=== PATIENT | female | born 1950 | race Caucasian/White ===

== ENCOUNTER 2016-08-12 12:11 | Day surgery (SDC) | payer MEDICARE, OTHER ==
[2016-08-08 10:42] VITALS: BMI 35.4
[~2016-08-12 12:11] MED LIST: DEXAMETHASONE SOD PHOSPHATE 10 MG/ML 1 ML VIAL IV ONE; HYDROmorphone 1 MG/ML 1 ML SYRINGE IVP PRN; LACTATED RINGERS 1,000 ML IV SCH; ONDANSETRON 4 MG/2 ML VIAL IVP ONE
[2016-08-12 12:37] VITALS: RESP 18; TEMP 97.9
[2016-08-12] MEDS ORDERED: LIDOCAINE 1% 20 ML VIAL (10MG/ML) FOR IV START SQ ONE (12:37)
[2016-08-12] MEDS: CYCLOPENTOLATE 1% OPHTH SOLN 2 ML BTL OP ONE ×3 (12:41→12:56)
[2016-08-12] MEDS: FLURBIPROFEN 0.03% OPHTH DROPS 2.5 ML BTL OP ONE ×3 (12:45→12:59)
[2016-08-12] MEDS: PHENYLEPHRINE 10% OPHTH DROPS 5 ML BTL OP ONE ×3 (12:46→13:01)
[2016-08-12] MEDS ORDERED: fentaNYL (PF) 50 MCG/ML 2 ML AMP ONE (13:38)
[2016-08-12] MEDS ORDERED: PROPOFOL 10 MG/ML 20 ML VIAL IV ONE (13:38)
[2016-08-12] MEDS ORDERED: MIDAZOLAM 2 MG/2 ML VIAL ONE (13:38)
[2016-08-12] MEDS ORDERED: LIDOCAINE 1% INJ 10MG/ML (20 ML MDV) ONE (13:38)
[2016-08-12] MEDS ORDERED: HYALURONATE SODIUM INTRAOCULAR 1 EACH SYRINGE (10MG/ML) INTRAOCULA ONE (13:44)
[2016-08-12] MEDS ORDERED: BALANCED SALT IRRIG SOLN COMB2 15 ML IRRIG.SOLN INTRAOCULA ONE (13:44)
[2016-08-12] MEDS ORDERED: EPINEPHrine (PF) 0.5 ML in BALANCED SALT IRRIG SOLN COMB2 500 ML IRRIGATION ONE (13:48)
--- NOTE | 2016-08-12 14:02 | P.OP ---
Date of Procedure: 08/12/16 Procedure(s) Performed: PREOPERATIVE DIAGNOSIS: Cataract, left eye eye. POSTOPERATIVE DIAGNOSIS: Cataract, left eye. OPERATION: Phacoemulsification cataract, left eye. DESCRIPTION OF PROCEDURE: The patient was taken to the preoperative holding area. Intravenous Propofol was given so as to bring about adequate sedation. The following mixture was given for local anesthesia: 5 mL of 2% lidocaine, 5 mL of 0.75% Marcaine, and 1 mL of Wydase. Approximately 4 mL was injected in the retrobulbar space of the surgical eye. Additional 1 mL was then directed to the temporal area of the surgical eye. This was performed to allow adequate neurological block of the facial muscles. The patient was revived and then taken into the operative room. The patient was prepped and draped in the usual sterile manner for the operative eye. A lid speculum was put into position. The conjunctiva was resected back from the limbus in the 12 o'clock position. Bleeding was controlled with electrocautery. A #69 blade was then used and a half-thickness scleral incision approximately 1-mm posterior to the limbus was made on bare sclera. This was shelved in the clear cornea using a crescent knife. Next a 15-degree blade was used to make a stab incision at the 3 o' clock position at the corneolimbal interface. Keratome blade was then used and the superior wound was extended into the anterior chamber. Viscoelastic was injected into the anterior chamber and to maintain its form. Next, a cystotome was used and a continuous anterior capsulotomy was made without difficulty. Hydrodissection using a blunt cannula and BSS was performed. Phaco probe was then employed and a groove extending from 12 to 6 o'clock in the lens was created. A Gee wand was used through the stab incision so as to perform a divide and conquer technique. Next an irrigation aspiration probe was utilized and any residual cortex was removed from the eye. Again, viscoelastic was injected into the anterior chamber. An SUSANNA Symfony posterior chamber lens implant was placed in the cartridge and injected into the anterior chamber without difficulty. The Sinskey hook was utilized to spin the lens into position and this was again performed without any difficulty. The irrigation and aspiration probe was again employed and any residual viscoelastic was removed from the eye. Then BSS was injected into the limbal stab incision and the anterior chamber re-inflated. The conjunctiva was reapproximated using electrocautery. One drop of 0.25% Timoptic was placed over the corneal along with TobraDex ophthalmic ointment. Two sterile patches and a Dumont eye shield were taped into position. The patient was transported to the recovery room in stable condition. Pathology: none sent Condition: stable Disposition: same day
[2016-08-12 14:22] VITALS: BP 125/59; PULSE 71
[2016-08-12] MEDS ORDERED: BUPIVACAINE (PF) 0.75% 5 ML, LIDOCAINE 4% (PF) 5 ML, HYALURONIDASE, HUMAN RECOMB 150 UNIT MISCELLANE ONE ×3 (23:00)
[2016-08-12] MEDS ORDERED: GENTAMICIN/PREDNISOL AC OPHTH OINT 3.5GM OPHTHALMIC ONE (23:00)
[2016-08-12] MEDS ORDERED: TIMOLOL 0.5% OPHTH SOLN (PF) 0.2 ML DROPERETTE OP ONE (23:00)
== END 2016-08-12 14:46 | disposition home or self-care (01) ==
LOC: OR 12:11
PROVIDERS: ATTEND Ophthalmology
DX: H25.012 Cortical age-related cataract, left eye (principal); F41.9 Anxiety disorder, unspecified; F39 Unspecified mood [affective] disorder; J45.909 Unspecified asthma, uncomplicated; J44.9 Chronic obstructive pulmonary disease, unspecified; Z79.899 Other long term (current) drug therapy; Z87.891 Personal history of nicotine dependence; Z88.2 Allergy status to sulfonamides; Z88.8 Allergy status to other drugs, medicaments and biological substances
CPT/HCPCS: 66984; V2787; C1780; J2001 ×2; J2250; J3470; J0171; J3010; J2704; 99152; 99153

== ENCOUNTER 2016-10-07 12:50 | Day surgery (SDC) | payer MEDICARE, OTHER ==
[2016-10-03 08:51] VITALS: BMI 34.3
[~2016-10-07 12:50] MED LIST changes: -DEXAMETHASONE SOD PHOSPHATE 10 MG/ML 1 ML VIAL IV ONE; -HYDROmorphone 1 MG/ML 1 ML SYRINGE IVP PRN; -ONDANSETRON 4 MG/2 ML VIAL IVP ONE
[2016-10-07] MEDS: PHENYLEPHRINE 10% OPHTH DROPS 5 ML BTL OP ONE ×3 (13:03→13:21)
[2016-10-07 13:05] VITALS: TEMP 98.2
[2016-10-07] MEDS: CYCLOPENTOLATE 1% OPHTH SOLN 2 ML BTL OP ONE ×3 (13:06→13:24)
[2016-10-07] MEDS: FLURBIPROFEN 0.03% OPHTH DROPS 2.5 ML BTL OP ONE ×3 (13:09→13:27)
[2016-10-07] MEDS ORDERED: LIDOCAINE 1% 20 ML VIAL (10MG/ML) FOR IV START INTRADERMA ONE (13:20)
[2016-10-07] MEDS ORDERED: fentaNYL (PF) 50 MCG/ML 2 ML AMP ONE (13:49)
[2016-10-07] MEDS ORDERED: PROPOFOL 10 MG/ML 20 ML VIAL IV ONE (13:49)
[2016-10-07] MEDS ORDERED: MIDAZOLAM 2 MG/2 ML VIAL ONE (13:49)
[2016-10-07] MEDS ORDERED: HYALURONATE SODIUM INTRAOCULAR 1 EACH SYRINGE (10MG/ML) INTRAOCULA ONE (13:54)
[2016-10-07] MEDS ORDERED: BALANCED SALT IRRIG SOLN COMB2 15 ML IRRIG.SOLN INTRAOCULA ONE (13:54)
[2016-10-07] MEDS ORDERED: EPINEPHrine (PF) 0.5 ML in BALANCED SALT IRRIG SOLN COMB2 500 ML IRRIGATION ONE (13:57)
--- NOTE | 2016-10-07 14:13 | P.OP ---
Date of Procedure: 10/07/16 Procedure(s) Performed: PREOPERATIVE DIAGNOSIS: Cataract, right eye. POSTOPERATIVE DIAGNOSIS: Cataract, right eye. OPERATION: Phacoemulsification cataract, right eye. DESCRIPTION OF PROCEDURE: The patient was taken to the preoperative holding area. Intravenous Propofol was given so as to bring about adequate sedation. The following mixture was given for local anesthesia: 5 mL of 2% lidocaine, 5 mL of 0.75% Marcaine, and 1 mL of Wydase. Approximately 4 mL was injected in the retrobulbar space of the surgical eye. Additional 1 mL was then directed to the temporal area of the surgical eye. This was performed to allow adequate neurological block of the facial muscles. The patient was revived and then taken into the operative room. The patient was prepped and draped in the usual sterile manner for the operative eye. A lid speculum was put into position. The conjunctiva was resected back from the limbus in the 12 o'clock position. Bleeding was controlled with electrocautery. A #69 blade was then used and a half-thickness scleral incision approximately 1-mm posterior to the limbus was made on bare sclera. This was shelved in the clear cornea using a crescent knife. Next a 15-degree blade was used to make a stab incision at the 3 o' clock position at the corneolimbal interface. Keratome blade was then used and the superior wound was extended into the anterior chamber. Viscoelastic was injected into the anterior chamber and to maintain its form. Next, a cystotome was used and a continuous anterior capsulotomy was made without difficulty. Hydrodissection using a blunt cannula and BSS was performed. Phaco probe was then employed and a groove extending from 12 to 6 o'clock in the lens was created. A Gee wand was used through the stab incision so as to perform a divide and conquer technique. Next an irrigation aspiration probe was utilized and any residual cortex was removed from the eye. Again, viscoelastic was injected into the anterior chamber. An SUSANNA Symfony posterior chamber lens implant was placed in the cartridge and injected into the anterior chamber without difficulty. The Sinskey hook was utilized to spin the lens into position and this was again performed without any difficulty. The irrigation and aspiration probe was again employed and any residual viscoelastic was removed from the eye. Then BSS was injected into the limbal stab incision and the anterior chamber re-inflated. The conjunctiva was reapproximated using electrocautery. One drop of 0.25% Timoptic was placed over the corneal along with TobraDex ophthalmic ointment. Two sterile patches and a Dumont eye shield were taped into position. The patient was transported to the recovery room in stable condition. Pathology: none sent Condition: stable Disposition: same day
[2016-10-07 14:19] VITALS: PULSE 63; RESP 16
[2016-10-07 14:34] VITALS: BP 120/75
[2016-10-07] MEDS ORDERED: TIMOLOL 0.5% OPHTH SOLN (PF) 0.2 ML DROPERETTE OP ONE (23:00)
[2016-10-07] MEDS ORDERED: GENTAMICIN/PREDNISOL AC OPHTH OINT 3.5GM OPHTHALMIC ONE (23:00)
[2016-10-07] MEDS ORDERED: BUPIVACAINE (PF) 0.75% 5 ML, LIDOCAINE 4% (PF) 5 ML, HYALURONIDASE, HUMAN RECOMB 150 UNIT MISCELLANE ONE ×3 (23:00)
== END 2016-10-07 14:50 | disposition home or self-care (01) ==
LOC: OR 12:50
PROVIDERS: ATTEND Ophthalmology
DX: H26.9 Unspecified cataract (principal); F41.9 Anxiety disorder, unspecified; J44.9 Chronic obstructive pulmonary disease, unspecified; F32.9 Major depressive disorder, single episode, unspecified; Z87.891 Personal history of nicotine dependence; Z79.899 Other long term (current) drug therapy; Z88.2 Allergy status to sulfonamides; Z98.42 Cataract extraction status, left eye
CPT/HCPCS: 66984; V2632; V2788; J2001; J2250; J3470; J0171; J3010; J2704

== ENCOUNTER → 2017-01-05 | Outpatient (CLI) | payer MEDICARE ==
--- NOTE | 2017-01-06 14:02 | MM ---
Reason for exam: screening (asymptomatic). Last mammogram was performed 1 year ago. History: Patient is postmenopausal. Physical Findings: A clinical breast exam by your physician is recommended on an annual basis and results should be correlated with mammographic findings. MG 3D Screening Mammo W/Cad Bilateral CC and MLO view(s) were taken. Prior study comparison: January 03, 2016, bilateral MG 3d screening mammo w/cad. May 04, 2014, left breast MG diagnostic mammo LT w CAD. There are scattered fibroglandular densities. There is chronic nodularity in the left breast. No significant changes when compared with prior studies. ASSESSMENT: Benign, BI-RAD 2 RECOMMENDATION: Routine screening mammogram of both breasts in 1 year.
== END | disposition home or self-care (01) ==
LOC: RADMAMWWP 13:50
PROVIDERS: ATTEND Family Medicine
DX: Z12.31 Encounter for screening mammogram for malignant neoplasm of breast (principal)
CPT/HCPCS: 77063; G0202

== ENCOUNTER → 2017-01-08 | Outpatient (CLI) | payer MEDICARE ==
--- NOTE | 2017-01-08 14:28 | CTL ---
EXAMINATION TYPE: CT Low Dose Lung DATE OF EXAM ORDERED: 01/08/2017 HISTORY: Previous abnormal screening CT chest. Lung cancer screening CT DLP: 119.[address] CTDI: 3.5 mGy Automated exposure control for dose reduction was used. SCREENING VISIT: Follow-up, subsequent COMPARISON: 01/07/2016 TECHNIQUE: Low dose computed tomography scan was performed through the chest at 1 mm thick sections a nd reconstructed images in the coronal plane at [address] DIAGNOSTIC QUALITY: Satisfactory FINDINGS: LUNG NODULES: Present, detailed below: Left lung Nodule Size in Millimeters 2 mm was visualized with Nodule Type: Intermediate density on l camila windows that is Nodule state: Stable in nature on image # CT Image slide number series 4 image 27 . Left lung Nodule Size in Millimeters 3 mm was visualized with Nodule Type: Solid that is Nodule sta te: Solid in nature on image # CT Image slide number series 4 image 48. Left lung some minimal pneumonitis is in the left upper lobe. LUNGS: COPD: Severity: None Fibrosis: Severity: None Lymph nodes: None Other findings: None RIGHT PLEURAL SPACE: Effusion: None Calcification: None Thickening: Yes 0.9 cm superior segment right lower lobe. Series 4 image 119 present previously and 2 mm longer. Depth of 0.4 cm is stable Pneumothorax: None LEFT PLEURAL SPACE: Effusion: None Calcification: None Thickening: Pleural thickening is along the left posterior lateral lung base measuring 1.1 cm in jenna th and 0.4 cm and this is slightly larger than the comparison. Pneumothorax: None HEART: Heart Size: Normal Coronary calcification: Mild Pericardial effusion: None OTHER FINDINGS: Upper abdomen: Unremarkable Bony thorax: Normal Supraclavicular region: No masses Other: Surgical clips or calcifications in the epigastric region. Descending thoracic aorta at the le basilia the main pulmonary artery is 3.2 cm patent main pulmonary artery the bifurcation is 2.5 cm IMPRESSION: 1. Increase in length of pleural thickening. 2. Stable subcentimeter nodules left lung FOLLOW UP CT CHEST RECOMMENDATION: 6 month follow-up CT chest CT LUNG RAD: Lung rad 3
== END | disposition home or self-care (01) ==
LOC: RADCTMAIN 11:47
PROVIDERS: ATTEND Family Medicine
DX: Z12.2 Encounter for screening for malignant neoplasm of respiratory organs (principal); R91.8 Other nonspecific abnormal finding of lung field; J94.8 Other specified pleural conditions; Z87.891 Personal history of nicotine dependence

== ENCOUNTER → 2017-02-17 | Outpatient (CLI) | payer MEDICARE ==
--- NOTE | 2017-02-17 11:54 | XR ---
EXAMINATION TYPE: XR ankle complete LT DATE OF EXAM: 02/17/2017 COMPARISON: NONE HISTORY: Pain FINDINGS: Three views of the ankle demonstrate the ankle mortise to be intact and symmetric. The joint spaces are preserved. The osseous structures are intact. Calcaneal spur noted and there also is a small sp ur extending off the medial malleolus. IMPRESSION: 1. Large plantar calcaneal spur and small spur extending off the medial malleolus.
--- NOTE | 2017-02-17 11:55 | XR ---
EXAMINATION TYPE: XR foot complete LT DATE OF EXAM: 02/17/2017 COMPARISON: NONE HISTORY: Pain TECHNIQUE: Three views are submitted. FINDINGS: The osseous structures are intact and there is arthropathy of the first MTP joint. No erosive changes . Large plantar calcaneal spur. IMPRESSION: 1. Large plantar calcaneal spur 2. First MTP joint arthropathy.
== END | disposition home or self-care (01) ==
LOC: RADXRMAIN 11:19
PROVIDERS: ATTEND Family Medicine
DX: M77.32 Calcaneal spur, left foot (principal); M13.872 Other specified arthritis, left ankle and foot

== ENCOUNTER → 2018-01-12 | Outpatient (CLI) | payer MEDICARE ==
--- NOTE | 2018-01-12 23:39 | CTL ---
EXAMINATION TYPE: CT Low Dose Lung DATE OF EXAM ORDERED: 01/12/2018 HISTORY: 67-year-old female SOB, personal hx of tobacco use. Lung cancer screening CT DLP: [address] CTDI: 3.4 mGy Automated exposure control for dose reduction was used. SCREENING VISIT: Year 3 COMPARISON: 01/08/2017 TECHNIQUE: Low dose computed tomography scan was performed through the chest at 1 mm thick sections a nd reconstructed images in the coronal/sagittal plane at 1 mm thick sections. Coronal MIP reconstruct ions performed. CT DIAGNOSTIC QUALITY: Satisfactory FINDINGS: Heart normal size without pericardial effusion. Coronary vessel calcifications are present in remarka ble for coronary artery disease. Moderate atherosclerotic arch calcifications. Mildly ectatic lower descending thoracic aorta 2.7 cm. Scattered nonenlarged mediastinal lymph nodes are present. Moderate centrilobular edema and mild diffuse bronchial wall thickening. - Stable 5 mm subpleural pulmonary nodule posterior right upper lobe axial image 86. - Stable 8 mm subpleural pulmonary nodule right lower lobe, axial image 118. - Stable 8 mm subpleural pulmonary nodule posterior left lower lobe, axial image 190. No new pulmonary nodules or masses. No consolidation or pleural effusion. Visualized upper abdomen shows no gross abnormality. Bones: Endplate spondylosis mid to lower thoracic spine. IMPRESSION: 1. BI-RADS 2 - benign; a few subpleural pulmonary nodules measuring up to 8 mm are stable for over a year. 2. COPD with moderate emphysema. RECOMMENDATION: 1. Continue with annual low-dose CT lung cancer screening. 2. Smoking cessation. FOLLOW UP CT CHEST RECOMMENDATION: [address] LUNG RAD: Lung-Rad 2 Benign Appearance or Behavior
== END | disposition home or self-care (01) ==
LOC: RADCTMAIN 18:34
PROVIDERS: ATTEND Family Medicine
DX: Z12.2 Encounter for screening for malignant neoplasm of respiratory organs (principal); J43.9 Emphysema, unspecified; R91.8 Other nonspecific abnormal finding of lung field; Z87.891 Personal history of nicotine dependence

== ENCOUNTER → 2018-02-10 | Outpatient (CLI) | payer MEDICARE ==
--- NOTE | 2018-02-10 11:40 | BD ---
EXAMINATION TYPE: Axial Bone Density DATE OF EXAM: 02/10/2018 COMPARISON: NONE CLINICAL HISTORY: Post menopausal symptoms, N95.1 Height: 63.5 Weight: 192.3 FRAX RISK QUESTIONS: Alcohol (3 or more units per day): no Family History (Parent hip fracture): no Glucocorticoids (More than 3mos): yes inhaler (Ex: prednisone, prednisolone, methylprednisolone, dexamethasone, and hydrocortisone). History of Fracture in Adulthood: Secondary Osteoporosis: no 1. Type 1 Diabetes: no 2. Hyperthyroidism: no 3. Menopause before 45: yes 4. Malnutrition: no 5. Chronic liver disease: no Rheumatoid Arthritis: no Current Tobacco Use: no RISK FACTORS HISTORY OF: Family History of Osteoporosis: no Active: sometimes Diet low in dairy products/other sources of calcium: no Postmenopausal woman: yes age 39 Lost more than 2 inches in height since high school: no MEDICATIONS: Celexa, xanax, inhaler Additional History: EXAM MEASUREMENTS: Bone mineral densitometry was performed using the [employer] System. Bone mineral density as measured about the Lumbar spine is: ----- L1-L4(G/cm2): 1.203 T Score Values are as follows: ----- L2: -0.6 ----- L3: -0.3 ----- L4: 1.0 ----- L1-L4: -0.4 Bone mineral density has: increased 4.6 % since study of: 01.11.2016 Bone mineral density about the R hip (g/cm2): 0.993 Bone mineral density about the L hip (g/cm2): 1.027 T Score values are as follows: -----R Neck: -0.3 -----L Neck: -0.1 -----R Total: 0.3 -----L Total: 0.8 Bone mineral density has: decreased -1.7 % since study of: 01.11.2016 IMPRESSION: Normal (Values between +1 and -1 indicate normal bone mass). Consider repeating this study in 5 year s or sooner if there is some new clinical indication. NOTE: T-SCORE=SD OF THE YOUNG ADULT MEAN.
--- NOTE | 2018-02-12 08:26 | MM ---
Reason for exam: screening (asymptomatic). Last mammogram was performed 1 year and 1 month ago. History: Patient is postmenopausal. Physical Findings: A clinical breast exam by your physician is recommended on an annual basis and results should be correlated with mammographic findings. MG 3D Screening Mammo W/Cad Bilateral CC and MLO view(s) were taken. Prior study comparison: January 05, 2017, bilateral MG 3d screening mammo w/cad. January 03, 2016, bilateral MG 3d screening mammo w/cad. There are scattered fibroglandular densities. There is chronic nodularity bilaterally. No significant changes when compared with prior studies. ASSESSMENT: Benign, BI-RAD 2 RECOMMENDATION: Routine screening mammogram of both breasts in 1 year.
== END | disposition home or self-care (01) ==
LOC: RADMAMWWP 10:11
PROVIDERS: ATTEND Family Medicine
DX: Z12.31 Encounter for screening mammogram for malignant neoplasm of breast (principal); N95.1 Menopausal and female climacteric states
CPT/HCPCS: 77063; 77067; 77080

== ENCOUNTER 2018-03-19 09:10 | Day surgery (SDC) | payer MEDICARE ==
[2018-03-16 15:05] VITALS: BMI 32.5
[~2018-03-19 09:10] MED LIST changes: +LIDOCAINE 1% 20 ML VIAL (10MG/ML) FOR IV START INTRADERMA PRN
[2018-03-19 09:45] VITALS: TEMP 97.7
[2018-03-19] MEDS ORDERED: LIDOCAINE 1% INJ 10MG/ML (20 ML MDV) ONE (09:51)
[2018-03-19] MEDS ORDERED: PROPOFOL 10 MG/ML 20 ML VIAL IV ONE (09:51)
--- NOTE | 2018-03-19 10:05 | P.GSHP ---
History of Present Illness H&P Date: 03/19/18 Chief Complaint: Colon cancer screening Patient here today for colonoscopy. Last colonoscopy 1-2 years ago. She states she had a colon polyp at that time. No bowel complaints currently other than some perirectal pain and some puslike drainage at times. No family history of colon cancer. Past Medical History Past Medical History: COPD, Osteoarthritis (OA), Pneumonia Additional Past Medical History / Comment(s): past hx of anemia ,Emphysema, heart murmer, loose stools since gallbladder surgery, sore on rectal area, History of Any Multi-Drug Resistant Organisms: None Reported Past Surgical History: Appendectomy, Cholecystectomy, Tubal Ligation Additional Past Surgical History / Comment(s): colonoscopies, daya cataracts, Past Anesthesia/Blood Transfusion Reactions: No Reported Reaction Smoking Status: Former smoker - Past Family History Father Family Medical History: Cancer Additional Family Medical History / Comment(s): Lung cancer Mother Family Medical History: Cancer, Deep Vein Thrombosis (DVT) Additional Family Medical History / Comment(s): breast Medications and Allergies Home Medications Medication Instructions Recorded Confirmed Type ALPRAZolam 0.5 mg PO DAILY 12/26/15 03/16/18 History Tiotropium 18 Mcg/Puff [Spiriva] 1 puff INHALATION DAILY 12/26/15 03/16/18 History Citalopram Hydrobromide [CeleXA] 10 mg PO DAILY 03/16/18 03/16/18 History Allergies Allergy/AdvReac Type Severity Reaction Status Date / Time Sulfa (Sulfonamide AdvReac Unknown Verified 03/16/18 14:56 Antibiotics) Childhood steroids AdvReac excessive Uncoded 03/16/18 14:56 sleepiness Surgical - Exam Vital Signs Temp Pulse Resp BP Pulse Ox 97.7 F 75 18 147/83 92 L 03/19/18 09:43 03/19/18 09:43 03/19/18 09:43 03/19/18 09:43 03/19/18 09:43 Physical exam: General: Well-developed, well-nourished HEENT: Normocephalic, sclerae nonicteric Abdomen: Nontender, nondistended Extremities: No edema Neuro: Alert and oriented Assessment and Plan (1) Colon cancer screening Narrative/Plan: Will proceed with colonoscopy at this time. Current Visit: Yes Status: Acute Code(s): Z12.11 - ENCOUNTER FOR SCREENING FOR MALIGNANT NEOPLASM OF COLON SNOMED Code(s): 760035478
--- NOTE | 2018-03-19 10:23 | P.PCN ---
Date of Procedure: 03/19/18 Procedure(s) Performed: PREOPERATIVE DIAGNOSIS: Colon cancer screening with history of polyps POSTOPERATIVE DIAGNOSIS: Small rectal polyp, small hemorrhoids PROCEDURE: Colonoscopy with snare polypectomy ANESTHESIA: MAC SURGEON: Yves Rao M.D. SPECIMENS: Rectal polyp ENDOSCOPIC PROCEDURE: The patient was placed on the endoscopy table in the left decubitus position. The Olympus colonoscope was inserted into the anus and passed under direct visualization to the base of the cecum. The appendiceal orifice was visualized. From that point the scope was slowly withdrawn inspecting all surfaces carefully. There were no neoplastic inflammatory or polypoid lesions throughout the cecum, ascending, transverse, descending, and sigmoid colon. In the rectum a small polyp was identified and removed using the snare with cautery technique. There was no visible diverticulosis. The patient had small hemorrhoids the anus without any evidence of fistula, fissure, or abscess. The patient was taken to the recovery room in stable condition per anesthesia guidelines. RECOMMENDATIONS: []
[2018-03-19 10:44] VITALS: PULSE 68; RESP 18
[2018-03-19 10:46] VITALS: BP 155/78
== END 2018-03-19 10:52 | disposition home or self-care (01) ==
LOC: ORWHC2ENDO 09:10
PROVIDERS: ATTEND Surgery
DX: Z12.11 Encounter for screening for malignant neoplasm of colon (principal); K62.1 Rectal polyp; Z86.010 Personal history of colon polyps; K64.9 Unspecified hemorrhoids; M19.90 Unspecified osteoarthritis, unspecified site; F41.9 Anxiety disorder, unspecified; F32.9 Major depressive disorder, single episode, unspecified; J43.9 Emphysema, unspecified; Z87.891 Personal history of nicotine dependence; Z79.899 Other long term (current) drug therapy; Z88.2 Allergy status to sulfonamides; Z88.8 Allergy status to other drugs, medicaments and biological substances
CPT/HCPCS: 88305; 45385; J2001; J2704

== ENCOUNTER → 2019-02-11 | Outpatient (CLI) | payer MEDICARE ==
--- NOTE | 2019-02-14 10:20 | MM ---
Reason for exam: screening (asymptomatic). Last mammogram was performed 1 year ago. History: Patient is postmenopausal. Physical Findings: A clinical breast exam by your physician is recommended on an annual basis and results should be correlated with mammographic findings. MG 3D Screening Mammo W/Cad Bilateral CC and MLO view(s) were taken. Prior study comparison: February 10, 2018, bilateral MG 3d screening mammo w/cad. January 05, 2017, bilateral MG 3d screening mammo w/cad. The breast tissue is heterogeneously dense. This may lower the sensitivity of mammography. Benign appearing bilateral calcifications. No significant changes when compared with prior studies. ASSESSMENT: Benign, BI-RAD 2 RECOMMENDATION: Routine screening mammogram of both breasts in 1 year. Manage patient on a clinical basis. Patient notes nonreproducible possibly palpable abnormality. Physical exam is recommended. If reproducible by patient or physician, diagnostic work up is recommended.
== END | disposition home or self-care (01) ==
LOC: RADMAMWWP 09:45
PROVIDERS: ATTEND Family Medicine
DX: Z12.31 Encounter for screening mammogram for malignant neoplasm of breast (principal)
CPT/HCPCS: 77063; 77067

== ENCOUNTER 2019-04-25 17:29 | Emergency (ER) | payer MEDICARE ==
[2019-04-25] MEDS ORDERED: IPRATROPIUM-ALBUTEROL 3 ML NEB INHALATION STA (18:01)
[2019-04-25] MEDS ORDERED: SODIUM CHLORIDE 0.9% 500 ML 500 ML IV STA (18:01)
[2019-04-25] MEDS ORDERED: SODIUM CHLORIDE 0.9% 1,000 ML IV STA (18:01)
--- NOTE | 2019-04-25 18:09 | ED ---
SOB HPI - General Chief Complaint: Shortness of Breath Stated Complaint: SOB Time Seen by Provider: 04/25/19 17:32 Source: patient, family, RN notes reviewed, old records reviewed Mode of arrival: EMS Limitations: no limitations - History of Present Illness Initial Comments: This is a 68-year-old female the ER for evaluation presented today for evaluati on shortness of breath. Patient has significant shortness stress smoking history. 3 years ago, [facility] do primary care no history of heart disease no recent fevers does have cough and congestion. Patient was drinking coffee pain L with her daughter this afternoon and when she went to go home she states she had a significant anxiety and panic attack and became very short of breath EMS was called and brought patient to the ER, no intervention aside from supplemental oxygen was applied. Patient does do breathing treatments at home states that she ran out of her medication recently MD Complaint: shortness of breath, cough -: hour(s) Severity: severe Severity scale (1-10): 8 Quality: other (No pain) Consistency: constant, other (Symptoms improving) Improves With: oxygen, rest Worsens With: exertion Known History Of: COPD Context: recent URI Associated Symptoms: other (Anxiety) Treatments Prior to Arrival: oxygen - Related Data Home Medications Medication Instructions Recorded Confirmed ALPRAZolam 0.5 mg PO DAILY 12/26/15 03/16/18 Tiotropium 18 Mcg/Puff [Spiriva] 1 puff INHALATION DAILY 12/26/15 03/16/18 Citalopram Hydrobromide [CeleXA] 10 mg PO DAILY 03/16/18 03/16/18 Allergies Allergy/AdvReac Type Severity Reaction Status Date / Time Sulfa (Sulfonamide AdvReac Unknown Verified 03/16/18 14:56 Antibiotics) Childhood steroids AdvReac excessive Uncoded 03/16/18 14:56 sleepiness Review of Systems ROS Statement: Those systems with pertinent positive or pertinent negative responses have been documented in the HPI. ROS Other: All systems not noted in ROS Statement are negative. Past Medical History Past Medical History: COPD, Eye Disorder, Hearing Disorder / Deafness, Osteoarthritis (OA) Additional Past Medical History / Comment(s): past hx of anemia ,Emphysema, bilateral cataracts. History of Any Multi-Drug Resistant Organisms: None Reported Past Surgical History: Appendectomy, Cholecystectomy, Tubal Ligation Additional Past Surgical History / Comment(s): colonoscopies; L eye Cataract Past Anesthesia/Blood Transfusion Reactions: No Reported Reaction Past Psychological History: Anxiety, Depression Smoking Status: Former smoker - Past Family History Father Family Medical History: Cancer Additional Family Medical History / Comment(s): Lung cancer Mother Family Medical History: Cancer, Deep Vein Thrombosis (DVT) Additional Family Medical History / Comment(s): breast General Exam Limitations: no limitations General appearance: alert, in no apparent distress, anxious Head exam: Present: atraumatic, normocephalic, normal inspection Eye exam: Present: normal appearance, PERRL, EOMI. Absent: scleral icterus, conjunctival injection, periorbital swelling ENT exam: Present: normal exam, mucous membranes moist Neck exam: Present: normal inspection. Absent: tenderness, meningismus, lymphadenopathy Respiratory exam: Present: normal lung sounds bilaterally, wheezes. Absent: respiratory distress, rales, rhonchi, stridor Cardiovascular Exam: Present: normal rhythm, tachycardia, normal heart sounds. Absent: systolic murmur, diastolic murmur, rubs, gallop, clicks GI/Abdominal exam: Present: soft, normal bowel sounds. Absent: distended, tenderness, guarding, rebound, rigid Extremities exam: Present: normal inspection, full ROM, normal capillary refill. Absent: tenderness, pedal edema, joint swelling, calf tenderness Back exam: Present: normal inspection Neurological exam: Present: alert, oriented X3, CN II-XII intact Psychiatric exam: Present: normal affect, normal mood Skin exam: Present: warm, dry, intact, normal color. Absent: rash Course Vital Signs 04/25/19 04/25/19 04/25/19 17:53 18:31 18:43 Temperature 96.9 F L Pulse Rate 114 H 109 H 105 H Respiratory 18 16 16 Rate Blood Pressure 142/84 O2 Sat by Pulse 95 Oximetry 04/25/19 19:42 Temperature 97.0 F L Pulse Rate 114 H Respiratory 18 Rate Blood Pressure 143/88 O2 Sat by Pulse 94 L Oximetry - Reevaluation(s) Reevaluation #1: 04/25/19 18:09 Mode records reviewed Reevaluation #2: 04/25/19 19:49 paient mildly anxious with SOB Reevaluation #3: 04/25/19 19:49 Patient informed of results. Questions answered - Consultations Consultation #1: spoke w [facility] and ok for to accept transfer Medical Decision Making - Medical Decision Making 68 male to the ED co significant sudden onset of SOB, will transfer to [facility] for evaluation re PE and hemodynamic monitoring - Lab Data Result diagrams: 04/25/19 18:10 04/25/19 18:10 Lab Results 04/25/19 04/25/19 04/25/19 Range/Units 18:10 18:10 18:10 WBC 8.2 (3.8-10.6) k/uL RBC 4.21 (3.80-5.40) m/uL Hgb 13.7 (11.4-16.0) gm/dL Hct 41.3 (34.0-46.0) % MCV 97.9 (80.0-100.0) fL MCH 32.6 (25.0-35.0) pg MCHC 33.3 (31.0-37.0) g/dL RDW 13.1 (11.5-15.5) % Plt Count 194 (150-450) k/uL Neutrophils % 78 % Lymphocytes % 11 % Monocytes % 7 % Eosinophils % 1 % Basophils % 1 % Neutrophils # 6.3 (1.3-7.7) k/uL Lymphocytes # 0.9 L (1.0-4.8) k/uL Monocytes # 0.6 (0-1.0) k/uL Eosinophils # 0.1 (0-0.7) k/uL Basophils # 0.1 (0-0.2) k/uL PT 10.1 (9.0-12.0) sec INR 0.9 (<1.2) APTT 24.9 (22.0-30.0) sec D-Dimer 14.14 H (<0.60) mg/L FEU Sodium 138 (137-145) mmol/L Potassium 3.9 (3.5-5.1) mmol/L Chloride 105 (98-107) mmol/L Carbon Dioxide 24 (22-30) mmol/L Anion Gap 9 mmol/L BUN 15 (7-17) mg/dL Creatinine 0.94 (0.52-1.04) mg/dL Est GFR (CKD-EPI)AfAm 71 (>60 ml/min/1.73 sqM) Est GFR (CKD-EPI)NonAf 62 (>60 ml/min/1.73 sqM) Glucose 145 H (74-99) mg/dL Calcium 9.2 (8.4-10.2) mg/dL Total Bilirubin 0.3 (0.2-1.3) mg/dL AST 101 H (14-36) U/L ALT 106 H (9-52) U/L Alkaline Phosphatase 75 (38-126) U/L Troponin I (0.000-0.034) ng/mL NT-Pro-B Natriuret Pep pg/mL Total Protein 7.0 (6.3-8.2) g/dL Albumin 4.1 (3.5-5.0) g/dL 04/25/19 04/25/19 Range/Units 18:10 18:10 WBC (3.8-10.6) k/uL RBC (3.80-5.40) m/uL Hgb (11.4-16.0) gm/dL Hct (34.0-46.0) % MCV (80.0-100.0) fL MCH (25.0-35.0) pg MCHC (31.0-37.0) g/dL RDW (11.5-15.5) % Plt Count (150-450) k/uL Neutrophils % % Lymphocytes % % Monocytes % % Eosinophils % % Basophils % % Neutrophils # (1.3-7.7) k/uL Lymphocytes # (1.0-4.8) k/uL Monocytes # (0-1.0) k/uL Eosinophils # (0-0.7) k/uL Basophils # (0-0.2) k/uL PT (9.0-12.0) sec INR (<1.2) APTT (22.0-30.0) sec D-Dimer (<0.60) mg/L FEU Sodium (137-145) mmol/L Potassium (3.5-5.1) mmol/L Chloride (98-107) mmol/L Carbon Dioxide (22-30) mmol/L Anion Gap mmol/L BUN (7-17) mg/dL Creatinine (0.52-1.04) mg/dL Est GFR (CKD-EPI)AfAm (>60 ml/min/1.73 sqM) Est GFR (CKD-EPI)NonAf (>60 ml/min/1.73 sqM) Glucose (74-99) mg/dL Calcium (8.4-10.2) mg/dL Total Bilirubin (0.2-1.3) mg/dL AST (14-36) U/L ALT (9-52) U/L Alkaline Phosphatase (38-126) U/L Troponin I 0.672 H* (0.000-0.034) ng/mL NT-Pro-B Natriuret Pep 119 pg/mL Total Protein (6.3-8.2) g/dL Albumin (3.5-5.0) g/dL - EKG Data -: EKG Interpreted by Me (EKG shows sinus tachycardia rate 119, WI 146, QRS 92, QTc 442) - Radiology Data Radiology results: report reviewed (CXR is negatie CTA is positive for significant bilateral PE), image reviewed Critical Care Time Critical Care Time: Yes Total Critical Care Time: 31 Disposition Clinical Impression: Bilateral pulmonary embolism Disposition: OTHER INSTITUTION NOT DEFINED Condition: Serious Is patient prescribed a controlled substance at d/c from ED?: No Referrals: Benny Gómez MD [Primary Care Provider] - 1-2 days - Out of Hospital Transfer - Req. Specs Out of Hospital Transfer - Requested Specifics: Other [facility] ([facility])
--- NOTE | 2019-04-25 18:18 | XR ---
EXAMINATION TYPE: XR chest 2V DATE OF EXAM: 04/25/2019 COMPARISON: NONE TECHNIQUE: PA and lateral views submitted. HISTORY: 12/26/2015 FINDINGS: The lungs are clear and there is no pneumothorax, pleural effusion, or focal pneumonia. Atheroscler otic change aorta. Hyperinflation suggests COPD. Hypertrophic change of the spine. Arthropathy of the AC joints. IMPRESSION: 1. No acute process. Correlate for COPD.
[2019-04-25 18:22] LABS: WBC 8.2 k/uL (3.8-10.6)
[2019-04-25 18:23] LABS: Basophils # (A) 0.1 k/uL (0-0.2); Basophils % (A) 1 %; Eosinophils # (A) 0.1 k/uL (0-0.7); Eosinophils % (A) 1 %; HCT 41.3 % (34.0-46.0); HGB 13.7 gm/dL (11.4-16.0); Lymphocytes # (A) 0.9 k/uL (1.0-4.8); Lymphocytes % (A) 11 %; MCH 32.6 pg (25.0-35.0); MCHC 33.3 g/dL (31.0-37.0); MCV 97.9 fL (80.0-100.0); Mean Platelet Volume 5.8; Monocytes # (A) 0.6 k/uL (0-1.0); Monocytes % (A) 7 %; Neutrophils # (A) 6.3 k/uL (1.3-7.7); Neutrophils % (A) 78 %; Platelet Count 194 k/uL (150-450); RBC 4.21 m/uL (3.80-5.40); RDW 13.1 % (11.5-15.5)
[2019-04-25 18:36] LABS: INR 0.9 (<1.2); Partial Thromboplastin Time 24.9 sec (22.0-30.0); Prothrombin Time 10.1 sec (9.0-12.0)
[2019-04-25 18:41] LABS: D-Dimer 14.14 mg/L FEU (<0.60)
[2019-04-25 18:45] LABS: Albumin 4.1 g/dL (3.5-5.0); Calcium 9.2 mg/dL (8.4-10.2); Potassium 3.9 mmol/L (3.5-5.1); Total Bilirubin 0.3 mg/dL (0.2-1.3)
--- NOTE | 2019-04-25 19:33 | CT ---
EXAMINATION TYPE: CT angio chest DATE OF EXAM: 04/25/2019 7:10 PM COMPARISON: 01/12/2018 HISTORY: SOB, hx of COPD CT DLP: 575.3 mGycm Automated exposure control for dose reduction was used. CONTRAST: CTA scan of the thorax is performed with IV Contrast, patient injected with 80cc mL of Isovue 370, pu lmonary embolism protocol. . FINDINGS: LUNGS: Subpleural nodules previously noted are stable. Underlying COPD suspected. There may be additi onal subpleural nodule within the right upper lobe laterally on axial image 41 no consolidative proce ss, pleural effusion or pneumothorax. MEDIASTINUM: There is central and distal right pulmonary embolism. There are secondary and distal bra nch pulmonary emboli on the left which are acute. Atherosclerotic change of the aorta. Coronary arter y calcification noted. OTHER: Hypertrophic and degenerative change of the spine. There is a 7 mm nodule within the right br east IMPRESSION: 1. Bilateral large burden of pulmonary embolism involving the right main pulmonary artery and its sec ondary and distal branches are limited secondary and distal branches of the left main pulmonary arter y supplying 2. pulmonary nodules may be a new nodule noted within the right upper lobe relative to the previous e xam. 3. There is a 7 mm right breast nodule for which mammogram is recommended.
[2019-04-25] MEDS ORDERED: HEPARIN SODIUM,PORCINE 10,000 UNIT/ML 1 ML VIAL IV ONE (19:47)
[2019-04-25] MEDS ORDERED: HEPARIN SODIUM,PORCINE 5,000 UNIT/ML 1 ML VIAL IV PRN (19:47)
[2019-04-25] MEDS ORDERED: HEPARIN SOD,PORK IN 0.45% NACL 25,000 UNIT in 0.45% NACL 1 250ML.BAG IV SCH (20:00)
[2019-04-25 21:06] VITALS: BP 138/74; PULSE 111; RESP 19; TEMP 97.1
== END 2019-04-25 21:05 | disposition short-term general hospital (02) ==
LOC: EC 17:29
DX: I26.99 Other pulmonary embolism without acute cor pulmonale (principal); R00.0 Tachycardia, unspecified; F41.9 Anxiety disorder, unspecified; J43.9 Emphysema, unspecified; F32.9 Major depressive disorder, single episode, unspecified; H91.90 Unspecified hearing loss, unspecified ear; Z87.891 Personal history of nicotine dependence; Z88.2 Allergy status to sulfonamides; Z88.8 Allergy status to other drugs, medicaments and biological substances; Z79.899 Other long term (current) drug therapy; Z80.1 Family history of malignant neoplasm of trachea, bronchus and lung
CPT/HCPCS: 36415; 94640; 93005; 85379; 83880; 80053; 84484; 85025; 85610; 85730; 71046; 71275; 99291; 96365; 96376; 96361 ×2; J1644 ×2; Q9967

== ENCOUNTER → 2019-12-06 | Outpatient (CLI) | payer MEDICARE ==
--- NOTE | 2019-12-07 04:19 | US ---
EXAMINATION TYPE: US venous doppler duplex LE BI DATE OF EXAM: 12/06/2019 4:11 PM COMPARISON: NONE CLINICAL HISTORY: 69-year-old female M79.662 M79.661. History of PE. Patient on [facility]. SIDE PERFORMED: Bilateral TECHNIQUE: The lower extremity deep venous system is examined utilizing real time linear array sonog collin with graded compression, doppler sonography and color-flow sonography. FINDINGS: VESSELS IMAGED: External Iliac Vein (EIV) Common Femoral Vein Deep Femoral Vein Greater Saphenous Vein * Femoral Vein Popliteal Vein Small Saphenous Vein * Proximal Calf Veins (* superficial vessels) Right Leg: Negative for DVT Left Leg: Negative for DVT IMPRESSION: No evidence for DVT within the bilateral lower extremities imaged from the groin to the upper calves.
== END | disposition home or self-care (01) ==
LOC: RADUSWWP 15:45
PROVIDERS: ATTEND Family Medicine
DX: M79.661 Pain in right lower leg (principal); M79.662 Pain in left lower leg; R22.43 Localized swelling, mass and lump, lower limb, bilateral
CPT/HCPCS: 93970

== ENCOUNTER → 2020-02-14 | Outpatient (CLI) | payer MEDICARE ==
--- NOTE | 2020-02-15 09:26 | MM ---
Reason for exam: screening (asymptomatic). Last mammogram was performed 1 year ago. History: Patient is postmenopausal. Physical Findings: A clinical breast exam by your physician is recommended on an annual basis and results should be correlated with mammographic findings. MG 3D Screening Mammo W/Cad Bilateral CC and MLO view(s) were taken. Prior study comparison: February 11, 2019, bilateral MG 3d screening mammo w/cad. February 10, 2018, bilateral MG 3d screening mammo w/cad. The breast tissue is heterogeneously dense. This may lower the sensitivity of mammography. Stable benign calcifications. There is chronic nodularity bilaterally. No significant changes when compared with prior studies. ASSESSMENT: Benign, BI-RAD 2 RECOMMENDATION: Routine screening mammogram of both breasts in 1 year.
== END | disposition home or self-care (01) ==
LOC: RADMAMWWP 10:46
PROVIDERS: ATTEND Family Medicine
DX: Z12.31 Encounter for screening mammogram for malignant neoplasm of breast (principal)
CPT/HCPCS: 77063; 77067

== ENCOUNTER 2020-04-21 18:53 | Observation (INO) | payer MEDICARE, OTHER ==
--- NOTE | 2020-04-21 19:40 | ED ---
Chest Pain HPI - General Chief Complaint: Chest Pain Stated Complaint: chest pain Time Seen by Provider: 04/21/20 19:00 Source: patient, RN notes reviewed Mode of arrival: EMS Limitations: no limitations - History of Present Illness Initial Comments: Is a 69-year-old female who was brought in by EMS because of indigestion-like pain started this morning and persisted throughout the day. It did radiate to the back and shoulders. She states she had the onset of a cough yesterday with some clear phlegm the pain was 6-7/10 severity she was given one nitroglycerin and is now 0/10. No other complaints no prior history of heart disease she does have a history of COPD emphysema and PE. No other complaints MD Complaint: chest pain - Related Data Home Medications Medication Instructions Recorded Confirmed ALPRAZolam 0.5 mg PO DAILY 12/26/15 03/16/18 Tiotropium 18 Mcg/Puff [Spiriva] 1 puff INHALATION DAILY 12/26/15 03/16/18 Citalopram Hydrobromide [CeleXA] 10 mg PO DAILY 03/16/18 03/16/18 Allergies Allergy/AdvReac Type Severity Reaction Status Date / Time Sulfa (Sulfonamide AdvReac Unknown Verified 04/21/20 19:05 Antibiotics) Childhood steroids AdvReac excessive Uncoded 04/21/20 19:05 sleepiness Review of Systems ROS Statement: Those systems with pertinent positive or pertinent negative responses have been documented in the HPI. ROS Other: All systems not noted in ROS Statement are negative. EKG Findings - EKG Results: EKG: interpreted by SHARATH, sinus rhythm (Normal sinus rhythm 82. Interval 126 QRS 76 QT since QTC 340/[address]-T wave changes seen) Past Medical History Past Medical History: COPD, Eye Disorder, Hearing Disorder / Deafness, Osteoarthritis (OA) Additional Past Medical History / Comment(s): past hx of anemia ,Emphysema, bilateral cataracts. History of Any Multi-Drug Resistant Organisms: None Reported Past Surgical History: Appendectomy, Cholecystectomy, Tubal Ligation Additional Past Surgical History / Comment(s): colonoscopies; L eye Cataract Past Anesthesia/Blood Transfusion Reactions: No Reported Reaction Past Psychological History: Anxiety, Depression Smoking Status: Never smoker Past Alcohol Use History: Daily Past Drug Use History: None Reported - Past Family History Father Family Medical History: Cancer Additional Family Medical History / Comment(s): Lung cancer Mother Family Medical History: Cancer, Deep Vein Thrombosis (DVT) Additional Family Medical History / Comment(s): breast General Exam - General Exam Comments Initial Comments: This is a well-developed well-nourished awake alert oriented 3 female Limitations: no limitations General appearance: alert, in no apparent distress Head exam: Present: atraumatic, normocephalic, normal inspection Eye exam: Present: normal appearance, PERRL, EOMI. Absent: scleral icterus, conjunctival injection, periorbital swelling ENT exam: Present: normal exam, mucous membranes moist Neck exam: Present: normal inspection. Absent: tenderness, meningismus, lymphadenopathy Respiratory exam: Present: normal lung sounds bilaterally. Absent: respiratory distress, wheezes, rales, rhonchi, stridor Cardiovascular Exam: Present: regular rate, normal rhythm, normal heart sounds. Absent: systolic murmur, diastolic murmur, rubs, gallop, clicks GI/Abdominal exam: Present: soft, normal bowel sounds. Absent: distended, tenderness, guarding, rebound, rigid Extremities exam: Present: normal inspection, full ROM, normal capillary refill. Absent: tenderness, pedal edema, joint swelling, calf tenderness Back exam: Present: normal inspection Neurological exam: Present: alert, oriented X3, CN II-XII intact Psychiatric exam: Present: normal affect, normal mood Skin exam: Present: warm, dry, intact, normal color. Absent: rash Course Vital Signs 04/21/20 04/21/20 04/21/20 18:56 20:04 21:00 Temperature 100.8 F H Pulse Rate 83 74 73 Respiratory 18 16 16 Rate Blood Pressure 154/62 127/91 125/80 O2 Sat by Pulse 95 100 98 Oximetry 04/21/20 04/21/20 04/21/20 21:19 21:29 22:00 Temperature Pulse Rate 76 75 80 Respiratory 16 Rate Blood Pressure 138/72 O2 Sat by Pulse 95 Oximetry - Reevaluation(s) Reevaluation #1: 04/21/20 22:13 Patient did demonstrate a fever upon arrival source is not identified UA pending further chest pains his arrival. Chest Pain MDM - MDM Straight negative for acute findings. I did a long discussion the patient family regarding the findings patient has no complaints of chest pain again that did resolve with nitroglycerin patient be admitted for evaluation she is on blood thinners at this time for pulmonary emboli history. No respiratory symptoms identified at this time. Disposition Clinical Impression: Unstable angina pectoris, Chest pain, Fever Disposition: ADMITTED IP TO THIS HOSP Condition: Fair Referrals: Benny Gómez MD [Primary Care Provider] - 1-2 days
--- NOTE | 2020-04-21 19:45 | XR ---
EXAMINATION TYPE: XR chest 2V DATE OF EXAM: 04/21/2020 COMPARISON: 04/25/2019 INDICATION: Chest pain TECHNIQUE: Frontal and lateral views of the chest are obtained. FINDINGS: The heart size is normal. The pulmonary vasculature is normal. No suspicious focal consolidations are evident.. Hyperinflation is present. IMPRESSION: 1. No acute pulmonary process.
[2020-04-21 19:48] LABS: Albumin 3.8 g/dL (3.5-5.0); Calcium 9.2 mg/dL (8.4-10.2); Potassium 4.2 mmol/L (3.5-5.1); Total Bilirubin 0.4 mg/dL (0.2-1.3); Total Protein 6.5 g/dL (6.3-8.2)
[2020-04-21 19:52] LABS: Basophils % (A) 1 %; Eosinophils # (A) 0.1 k/uL (0-0.7); Eosinophils % (A) 3 %; HCT 36.9 % (34.0-46.0); HGB 11.6 gm/dL (11.4-16.0); Lymphocytes # (A) 0.6 k/uL (1.0-4.8); Lymphocytes % (A) 12 %; MCH 31.4 pg (25.0-35.0); MCHC 31.5 g/dL (31.0-37.0); MCV 99.4 fL (80.0-100.0); Mean Platelet Volume 6.7; Monocytes # (A) 0.7 k/uL (0-1.0); Monocytes % (A) 14 %; Neutrophils # (A) 3.5 k/uL (1.3-7.7); Neutrophils % (A) 68 %; Platelet Count 208 k/uL (150-450); RBC 3.71 m/uL (3.80-5.40); RDW 13.6 % (11.5-15.5); WBC 5.1 k/uL (3.8-10.6)
[2020-04-21 19:55] LABS: INR 0.9 (<1.2); Partial Thromboplastin Time 23.6 sec (22.0-30.0); Prothrombin Time 9.6 sec (9.0-12.0)
[2020-04-21] MEDS ORDERED: ALBUTEROL NEBULIZED 2.5 MG/3 ML INHALATION STA (21:25)
[2020-04-21] MEDS ORDERED: NITROGLYCERIN SL TABS 0.4 MG TAB SUBLINGUAL PRN (22:15)
[2020-04-21] MEDS ORDERED: HEPARIN SODIUM,PORCINE 5,000 UNIT/ML 1 ML VIAL IV PRN (22:53)
[2020-04-21] MEDS ORDERED: HEPARIN SODIUM,PORCINE 5,000 UNIT/ML 1 ML VIAL IV ONE (22:53)
[2020-04-21] MEDS ORDERED: HEPARIN SOD,PORK IN 0.45% NACL 25,000 UNIT in 0.45% NACL 1 250ML.BAG IV SCH (23:00)
[2020-04-21 23:44] LABS: Basophils # (A) 0.2 k/uL (0-0.2); Basophils % (A) 3 %; Eosinophils # (A) 0.1 k/uL (0-0.7); Eosinophils % (A) 3 %; HCT 39.1 % (34.0-46.0); HGB 12.5 gm/dL (11.4-16.0); Lymphocytes # (A) 0.7 k/uL (1.0-4.8); Lymphocytes % (A) 14 %; MCH 32.2 pg (25.0-35.0); MCV 100.4 fL (80.0-100.0); Mean Platelet Volume 6.9; Monocytes # (A) 0.6 k/uL (0-1.0); Monocytes % (A) 13 %; Neutrophils # (A) 3.3 k/uL (1.3-7.7); Neutrophils % (A) 64 %; Platelet Count 212 k/uL (150-450); RBC 3.89 m/uL (3.80-5.40); RDW 13.2 % (11.5-15.5); WBC 5.2 k/uL (3.8-10.6)
[2020-04-22 00:14] LABS: INR 0.9 (<1.2); Partial Thromboplastin Time 24.2 sec (22.0-30.0); Prothrombin Time 9.7 sec (9.0-12.0)
[2020-04-22 01:24] LABS: Appearance,Urine Clear (Clear); Bacteria,Urine Rare /hpf; Bilirubin,Urine Negative (Negative); Blood,Urine Small (Negative); Color,Urine Light Yellow; Glucose,Urine (UA) Negative (Negative); Hyaline Casts,Urine 4 /lpf (0-2); Ketones,Urine Negative (Negative); Leukocyte Esterase,Urine Trace (Negative); Mucus,Urine Rare /hpf; Nitrite,Urine Negative (Negative); Protein,Urine Negative (Negative); RBC,Urine <1 /hpf (0-5); Specific Gravity,Urine 1.016 (1.001-1.035); Squamous Epithelial Cell,Urine 2 /hpf (0-4); Urobilinogen,Urine <2.0 mg/dL (<2.0); WBC,Urine 2 /hpf (0-5)
[2020-04-22] MEDS: SODIUM CHLORIDE 0.9% 1,000 ML IV SCH ×2 (01:24→23:41)
--- NOTE | 2020-04-22 08:16 | P.CRDCN ---
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 She has a past medical history of pulmonary embolism on eliquis, COPD, chronic hypoxic respiratory failure on home O2 and remote history of tobacco use she was a smoker of 2 packs per day for 47 years and quit in 2016. The patient states she had increasing cough on Thursday that was different than her baseline with sputum production on Thursday she also had chills and wrapped up in blankets on Thursday. She denies having a documented fever. She developed chest pain yesterday that was under bilateral breasts and under bilateral shoulder blades. She states it was similar to her gallbladder attacks but has had a cholecystectomy. She also felt her respirations were raspy. She has chronic shortness of breath with activity secondary to COPD. She states she had some palpitations and a little nauseated. She denies any lightheadedness or dizziness. She had one nitroglycerin by EMS and pain went from a #6 to 0. Patient presented with a fever of 100.8, heart rate 83, blood pressure 115/62, pulse ox 95%. Troponins have been negative on 3 draws. EKG is a normal sinus rhythm with no acute ST changes. In 2016 patient had a negative Lexiscan stress test. Echocardiogram at that time revealed EF of 50-55% with mild aortic sclerosis. Mild mitral regurgitation and mild tricuspid regurgitation. Review Of Systems: Constitutional: No fever, reports chills. No weakness, fatigue or lethargy. EENT: No headache. No dizziness. Lungs: No shortness of breath, reports cough, reports sputum production. Reports wheezing. Cardiovascular: Reports chest pain, no lower extremity edema. No palpitations. No paroxysmal nocturnal dyspnea. No orthopnea. No lightheadedness or dizziness. No syncopal episodes. Abdominal: Reports abdominal pain. No nausea, vomiting. No diarrhea. No constipation. No bloody or tarry stools. Genitourinary: No dysuria.. No urinary retention. Musculoskeletal: No myalgias. No muscle weakness, no gait dysfunction, no frequent falls. No back pain. No neck pain. Integumentary: No wounds, no lesions. No rash or pruritus. No unusual bruising. Neurologic: No aphasia. No facial droop. No change in mentation. No head injury. No headache. Psychiatric: No depression. No anxiety. Endocrine: No abnormal blood sugars. Physical examination: Gen: This is a a 69-year-old female. Patient is sitting up in bed and appears to be comfortable and in no acute distress. Vital signs: Afebrile, heart rate 58, blood pressure 123/70, pulse ox 92% on 2 L nasal cannula HEENT: Head is atraumatic, normocephalic. Pupils equal, round. Sclerae is anicteric. NECK: Supple. No JVD. No lymphadenopathy. No thyromegaly. LUNGS: Few scattered rhonchi. No intercostal retractions. HEART: Regular rate and rhythm. No murmur. ABDOMEN: Soft. Bowel sounds are present. No masses. No tenderness. EXTREMITIES: No pedal edema. No calf tenderness. Dorsalis pedis +2 bilaterally. NEUROLOGICAL: Patient is awake, alert and oriented x3. Cranial nerves 2 through 12 are grossly intact. Assessment: Chest pain with negative troponins, acute coronary syndrome ruled out Possible tracheobronchitis, rule out COVID-19 COPD History of pulmonary embolism Chronic hypoxic respiratory failure on home O2 Plan: Obtain Covid 19 test Discontinue heparin drip and resume eliquis 5 mg twice daily Obtain 2-D echocardiogram and Doppler study to assess cardiac structure and function Further recommendations to follow based upon clinical course Thank you kindly for this consultation. Nurse practitioner note has been reviewed, I agree with documented findings and plan of care. Patient was seen and examined. Past Medical History Past Medical History: COPD, Eye Disorder, Hearing Disorder / Deafness, Osteoarthritis (OA) Additional Past Medical History / Comment(s): past hx of anemia ,Emphysema, bilateral cataracts. History of Any Multi-Drug Resistant Organisms: None Reported Past Surgical History: Appendectomy, Cholecystectomy, Tubal Ligation Additional Past Surgical History / Comment(s): colonoscopies; L eye Cataract Past Anesthesia/Blood Transfusion Reactions: No Reported Reaction Past Psychological History: Anxiety, Depression Additional Psychological History / Comment(s): Pt lives alone. She uses a wheeled walker at times due to her SOB with activity. She is independent. She drives. Smoking Status: Former smoker Past Alcohol Use History: Daily Additional Past Alcohol Use History / Comment(s): Started smoking in 1971 and quit 12/05. Past Drug Use History: None Reported - Past Family History Father Family Medical History: Cancer Additional Family Medical History / Comment(s): Lung cancer Mother Family Medical History: Cancer, Deep Vein Thrombosis (DVT) Additional Family Medical History / Comment(s): breast Medications and Allergies Home Medications Medication Instructions Recorded Confirmed Type ALPRAZolam 0.5 mg PO BID PRN 12/26/15 04/21/20 History Citalopram Hydrobromide [CeleXA] 10 mg PO DAILY 03/16/18 04/21/20 History Acetaminophen [Tylenol] 500 mg PO DAILY PRN 04/21/20 04/21/20 History Albuterol Nebulized [Ventolin 1.25 mg INHALATION RT-BID 04/21/20 04/21/20 History Nebulized] Apixaban [Eliquis] 5 mg PO BID 04/21/20 04/21/20 History Tiotropium [place] [Spiriva 1 spray INHALATION RT-DAILY 04/21/20 04/21/20 History Respimat] Allergies Allergy/AdvReac Type Severity Reaction Status Date / Time Sulfa (Sulfonamide AdvReac Unknown Verified 04/21/20 22:52 Antibiotics) Childhood steroids AdvReac excessive Uncoded 04/21/20 22:52 sleepiness Physical Exam Vitals: Vital Signs Temp Pulse Pulse Resp BP BP Pulse Ox 04/22/20 03:00 98.2 F 58 L 18 123/70 92 L 04/21/20 22:52 98.0 F 78 18 102/70 96 04/21/20 22:48 98.4 F 78 18 138/68 96 04/21/20 22:00 80 16 138/72 95 04/21/20 21:29 75 04/21/20 21:19 76 04/21/20 21:00 73 16 125/80 98 04/21/20 20:04 74 16 127/91 100 04/21/20 18:56 100.8 F H 83 18 154/62 95 Intake and Output 04/21/20 04/22/20 04/22/20 23:59 06:59 14:59 Output Total Balance Output: Urine Other: Voiding Method # Voids Weight Results 04/22/20 07:52 04/21/20 19:21 Cardiac Enzymes 04/21/20 04/21/20 04/21/20 Range/Units 19:21 19:21 23:30 AST 23 (14-36) U/L Troponin I <0.012 <0.012 (0.000-0.034) ng/mL 04/22/20 Range/Units 01:40 EST AST (14-36) U/L Troponin I <0.012 (0.000-0.034) ng/mL Coagulation 04/21/20 04/21/20 Range/Units 19:21 23:30 PT 9.6 9.7 (9.0-12.0) sec APTT 23.6 24.2 (22.0-30.0) sec CBC 04/21/20 04/21/20 Range/Units 19:21 23:30 WBC 5.1 5.2 (3.8-10.6) k/uL RBC 3.71 L 3.89 (3.80-5.40) m/uL Hgb 11.6 12.5 (11.4-16.0) gm/dL Hct 36.9 39.1 (34.0-46.0) % Plt Count 208 212 (150-450) k/uL Comprehensive Metabolic Panel 04/21/20 Range/Units 19:21 Sodium 135 L (137-145) mmol/L Potassium 4.2 (3.5-5.1) mmol/L Chloride 101 (98-107) mmol/L Carbon Dioxide 30 (22-30) mmol/L BUN 12 (7-17) mg/dL Creatinine 0.79 (0.52-1.04) mg/dL Glucose 116 H (74-99) mg/dL Calcium 9.2 (8.4-10.2) mg/dL AST 23 (14-36) U/L ALT 17 (4-34) U/L Alkaline Phosphatase 61 (38-126) U/L Total Protein 6.5 (6.3-8.2) g/dL Albumin 3.8 (3.5-5.0) g/dL Current Medications Generic Name Dose Route Start Last Admin Trade Name Freq PRN Reason Stop Dose Admin Alprazolam 0.5 mg 04/22/20 09:00 Alprazolam 0.5 Mg Tab PO DAILY TERRANCE Aspirin 325 mg 04/22/20 09:00 Aspirin 325 Mg Tab PO DAILY [facility] Citalopram Hydrobromide 10 mg 04/22/20 09:00 Citalopram Hydrobromide 10 Mg Tab PO DAILY TERRANCE Heparin Sodium (Porcine) 0 unit 04/21/20 22:53 Heparin Sodium,Porcine 5,000 Unit/Ml 1 Ml Vial IV PER PROTOCOL PRN Low PTT Protocol Sodium Chloride 1,000 mls @ 20 mls/hr 04/21/20 22:15 04/22/20 01:24 EST Saline 0.9% IV 20 mls/hr .Q24H TERRANCE Administration Heparin Sodium/Sodium Chloride 250 mls @ 10.042 mls/hr 04/21/20 23:00 04/22/20 01:52 EDT 25,000 unit/ Sodium Chloride IV 10.8 units/kg/hr .Q24H TERRANCE 10.042 mls/hr Administration Protocol 10.8 UNITS/KG/HR Ipratropium [place] 1 mg 04/22/20 08:00 Ipratropium 0.5 Mg/2.5 Ml Nebu INHALATION RT-QID TERRANCE Nitroglycerin 0.4 mg 04/21/20 22:15 Nitroglycerin Sl Tabs 0.4 Mg Tab SUBLINGUAL Q5M PRN Chest Pain Intake and Output 04/21/20 04/22/20 04/22/20 23:59 06:59 14:59 Output Total Balance Output: Urine Other: Voiding Method # Voids Weight 04/21/20 23:30 04/21/20 19:21
[2020-04-22] MEDS: IPRATROPIUM 0.5 MG/2.5 ML NEBU INHALATION SCH ×4 (08:26→20:14)
[2020-04-22 08:29] LABS: Cholesterol 187 mg/dL (<200); HDL Cholesterol 45 mg/dL (40-60); LDL Cholesterol,Calculated 115 mg/dL (0-99); Triglycerides 134 mg/dL (<150)
[2020-04-22] MEDS: ALPRAZolam 0.5 MG TAB PO SCH (08:31)
[2020-04-22] MEDS: CITALOPRAM HYDROBROMIDE 10 MG TAB PO SCH (08:31)
[2020-04-22] MEDS ORDERED: ASPIRIN 325 MG TAB PO SCH (09:00)
[2020-04-22] MEDS: APIXABAN 5 MG TAB PO SCH ×2 (09:05→21:04)
[2020-04-22 09:26] LABS: Basophils % (A) 1 %; Eosinophils # (A) 0.1 k/uL (0-0.7); Eosinophils % (A) 2 %; HCT 37.6 % (34.0-46.0); Lymphocytes # (A) 0.9 k/uL (1.0-4.8); Lymphocytes % (A) 22 %; MCHC 31.9 g/dL (31.0-37.0); MCV 100.4 fL (80.0-100.0); Mean Platelet Volume 7.2; Monocytes # (A) 0.6 k/uL (0-1.0); Monocytes % (A) 16 %; Neutrophils # (A) 2.2 k/uL (1.3-7.7); Neutrophils % (A) 55 %; Platelet Count 175 k/uL (150-450); RBC 3.74 m/uL (3.80-5.40); RDW 13.3 % (11.5-15.5); WBC 3.9 k/uL (3.8-10.6)
[2020-04-22] MEDS ORDERED: IPRATROPIUM-ALBUTEROL 3 ML NEB INHALATION PRN (13:14)
--- NOTE | 2020-04-22 13:27 | P.HPIM ---
History of Present Illness H&P Date: 04/22/20 Chief Complaint: Shortness of breath and chest pain Ms. Bell is a 69-year-old female with a past medical history of COPD, hearing disorder, osteoarthritis coming in with a chief complaint of cough and chest pain. Patient states that she had been having bouts of coughing episodes for the past couple of days. She also mentions about more sputum production than usual. Patient does not sure about the change in her color of sputum. And as she has been coughing she started to have chest pain on both sides of her chest below her rib cage and has been radiating to the sides of the chest. Patient has significant smoking history with 2 packs per day for 47 years and quit 4 years back. Patient denies having any fevers but had chills and had to wrap herself up in blankets yesterday for coming to the hospital. Patient is on 2 L of oxygen at home and she had to go up on her oxygen at home. Patient denies having any palpitations or diaphoresis. She denies having abdominal pain nausea vomiting or diarrhea. No dysuria or hematuria. in the emergency patient had a fever of 100.8, pulse of 83, respiratory rate of 18 and blood pressure 154/62 and was saturating at 95% on room air. Patient had a chest x-ray that was negative for any acute cardiopulmonary process. An EKG showing no acute ST elevations. Patient had 3 sets of troponins less than 0.012. She is admitted for further evaluation and treatment. Review of Systems REVIEW OF SYSTEMS: PSYCH: No anxiety or depression NEURO:No c/o weakness of the extremties, No facial droop, No speech abnormalities. VASCULAR: no edema HEMATOLOGIC: No history of easy bleeding and bruising . No recent infections . RESPIRATORY: As per HPI. IMMUNE: No infections INTEGUMENT: no rashes OPHTHALMOLOGIC: No blurry vision and no eye discharge : No dysuria or hematuria STEWARD/STEWARDESS: No bleeding PV CARDIAC: As per HPI MUSCULOSKELETAL : No Aches or pains in the joints or muscles. GI: No abdominal pain, Nausea or vomiting. No constipation or diarrhea. Past Medical History Past Medical History: COPD, Eye Disorder, Hearing Disorder / Deafness, Osteoart hritis (OA) Additional Past Medical History / Comment(s): past hx of anemia ,Emphysema, bilateral cataracts. History of Any Multi-Drug Resistant Organisms: None Reported Past Surgical History: Appendectomy, Cholecystectomy, Tubal Ligation Additional Past Surgical History / Comment(s): colonoscopies; L eye Cataract Past Anesthesia/Blood Transfusion Reactions: No Reported Reaction Past Psychological History: Anxiety, Depression Additional Psychological History / Comment(s): Pt lives alone. She uses a wheeled walker at times due to her SOB with activity. She is independent. She drives. Smoking Status: Former smoker Past Alcohol Use History: Daily Additional Past Alcohol Use History / Comment(s): Started smoking in 1971 and quit 12/05. Past Drug Use History: None Reported - Past Family History Father Family Medical History: Cancer Additional Family Medical History / Comment(s): Lung cancer Mother Family Medical History: Cancer, Deep Vein Thrombosis (DVT) Additional Family Medical History / Comment(s): breast Medications and Allergies Home Medications Medication Instructions Recorded Confirmed Type ALPRAZolam 0.5 mg PO BID PRN 12/26/15 04/21/20 History Citalopram Hydrobromide [CeleXA] 10 mg PO DAILY 03/16/18 04/21/20 History Acetaminophen [Tylenol] 500 mg PO DAILY PRN 04/21/20 04/21/20 History Albuterol Nebulized [Ventolin 1.25 mg INHALATION RT-BID 04/21/20 04/21/20 History Nebulized] Apixaban [Eliquis] 5 mg PO BID 04/21/20 04/21/20 History Tiotropium [place] [Spiriva 1 spray INHALATION RT-DAILY 04/21/20 04/21/20 History Respimat] Allergies Allergy/AdvReac Type Severity Reaction Status Date / Time Sulfa (Sulfonamide AdvReac Unknown Verified 04/21/20 22:52 Antibiotics) Childhood steroids AdvReac excessive Uncoded 04/21/20 22:52 sleepiness Physical Exam Vitals: Vital Signs Temp Pulse Pulse Resp BP BP Pulse Ox 04/22/20 08:39 80 04/22/20 08:26 80 04/22/20 08:23 98.3 F 82 14 126/80 95 04/22/20 03:00 98.2 F 58 L 18 123/70 92 L 04/21/20 22:52 98.0 F 78 18 102/70 96 04/21/20 22:48 98.4 F 78 18 138/68 96 04/21/20 22:00 80 16 138/72 95 04/21/20 21:29 75 04/21/20 21:19 76 04/21/20 21:00 73 16 125/80 98 04/21/20 20:04 74 16 127/91 100 04/21/20 18:56 100.8 F H 83 18 154/62 95 Intake and Output 04/21/20 04/22/20 04/22/20 23:59 06:59 14:59 Output Total Balance Output: Urine Other: Voiding Method Toilet # Voids Weight GEN. APPEARANCE: alert, in no apparent distress HEAD EXAM: atraumatic, normocephalic, normal inspection EYE EXAM: No pallor. No icterus. Mucous membranes are moist. NECK EXAM: No JVD RESPIRATORY EXAM: Diminished breath sounds in all lung dutton. Bilateral prolonged wheezing CARDIOVASCULAR EXAM: S1-S2 heard GI/ABDOMINAL EXAM: soft, normal bowel sounds. Nondistended, nontender. No guarding or rigidity. EXTREMITIES EXAM: No lower extremity edema NEUROLOGICAL EXAM: alert, oriented X3, no focal neurological deficits. PSYCHIATRIC EXAM: normal affect, normal mood SKIN EXAM: no rash Results CBC & Chem 7: 04/22/20 07:52 04/21/20 19:21 Labs: Abnormal Lab Results - Last 24 Hours (Table) 04/21/20 04/21/20 04/21/20 Range/Units 19:21 19:21 23:30 RBC 3.71 L (3.80-5.40) m/uL MCV 100.4 H (80.0-100.0) fL Lymphocytes # 0.6 L 0.7 L (1.0-4.8) k/uL APTT (22.0-30.0) sec Sodium 135 L (137-145) mmol/L Glucose 116 H (74-99) mg/dL LDL Cholesterol, Calc (0-99) mg/dL Urine Blood (Negative) Ur Leukocyte Esterase (Negative) Urine Bacteria (None) /hpf Hyaline Casts (0-2) /lpf Urine Mucus (None) /hpf 04/22/20 04/22/20 04/22/20 Range/Units 00:13 07:52 07:52 RBC 3.74 L (3.80-5.40) m/uL MCV 100.4 H (80.0-100.0) fL Lymphocytes # 0.9 L (1.0-4.8) k/uL APTT (22.0-30.0) sec Sodium (137-145) mmol/L Glucose (74-99) mg/dL LDL Cholesterol, Calc 115 H (0-99) mg/dL Urine Blood Small H (Negative) Ur Leukocyte Esterase Trace H (Negative) Urine Bacteria Rare H (None) /hpf Hyaline Casts 4 H (0-2) /lpf Urine Mucus Rare H (None) /hpf 04/22/20 Range/Units 07:52 RBC (3.80-5.40) m/uL MCV (80.0-100.0) fL Lymphocytes # (1.0-4.8) k/uL APTT 44.3 H (22.0-30.0) sec Sodium (137-145) mmol/L Glucose (74-99) mg/dL LDL Cholesterol, Calc (0-99) mg/dL Urine Blood (Negative) Ur Leukocyte Esterase (Negative) Urine Bacteria (None) /hpf Hyaline Casts (0-2) /lpf Urine Mucus (None) /hpf Thrombosis Risk Factor Assmnt - Choose All That Apply Each Factor Represents 1 point: Abnormal pulmonary function (COPD), Obesity (BMI >25) Each Risk Factor Represents 2 Points: Age 61-74 years Other congenital or acquired thrombophilia - If yes, enter type in comment: No Thrombosis Risk Factor Assessment Total Risk Factor Score: 4 Thrombosis Risk Factor Assessment Level: Moderate Risk Assessment and Plan Assessment: ASSESSMENT Acute COPD exacerbation Acute on chronic hypoxic respiratory failure Chronic hypoxic respiratory failure on 2 L of oxygen Chest pain most likely musculoskeletal in nature History of PE on anticoagulation with the Eliquis Macrocytosis Obesity with BMI of 35.2 PLAN: Patient has been admitted for ACS rule out, serial troponins less than 0 .012 with no EKG changes. Her heparin has been discontinued by cardiology. She has been restarted on Elquis for her history of PE. We will start the patient on Solu-Medrol, breathing treatments and azithromycin. COVID 19 pending , with isolation precautions. Patient has been restarted on all her home medications. Further recommendations to follow depending on the progress of the patient.
[2020-04-22] MEDS: methylPREDNISolone SOD SUCCI 125 MG/2 ML VIAL IV SCH (16:27)
[2020-04-22 20:55] LABS: Glucose,Whole Blood 169 mg/dL (75-99)
[2020-04-22] MEDS: INSULIN ASPART (NovoLOG) 100 UNIT/ML VIAL SQ SCH (21:05)
[2020-04-23] MEDS: methylPREDNISolone SOD SUCCI 125 MG/2 ML VIAL IV SCH ×2 (00:14→08:51)
[2020-04-23 06:49] LABS: Glucose,Whole Blood 142 mg/dL (75-99)
[2020-04-23] MEDS: INSULIN ASPART (NovoLOG) 100 UNIT/ML VIAL SQ SCH (06:52)
[2020-04-23 06:59] LABS: Basophils # (A) 0.1 k/uL (0-0.2); Basophils % (A) 2 %; Eosinophils % (A) 0 %; HCT 42.6 % (34.0-46.0); HGB 13.5 gm/dL (11.4-16.0); Lymphocytes # (A) 0.5 k/uL (1.0-4.8); Lymphocytes % (A) 15 %; MCHC 31.6 g/dL (31.0-37.0); MCV 101.1 fL (80.0-100.0); Mean Platelet Volume 6.8; Monocytes # (A) 0.1 k/uL (0-1.0); Monocytes % (A) 3 %; Neutrophils # (A) 2.9 k/uL (1.3-7.7); Neutrophils % (A) 80 %; Platelet Count 219 k/uL (150-450); RBC 4.21 m/uL (3.80-5.40); RDW 13.1 % (11.5-15.5); WBC 3.7 k/uL (3.8-10.6)
[2020-04-23 07:23] LABS: Calcium 9.8 mg/dL (8.4-10.2); Potassium 5.1 mmol/L (3.5-5.1)
[2020-04-23] MEDS: IPRATROPIUM 0.5 MG/2.5 ML NEBU INHALATION SCH (08:19)
[2020-04-23] MEDS: ALPRAZolam 0.5 MG TAB PO SCH (08:52)
[2020-04-23] MEDS: APIXABAN 5 MG TAB PO SCH (08:52)
[2020-04-23] MEDS: CITALOPRAM HYDROBROMIDE 10 MG TAB PO SCH (08:52)
[2020-04-23] MEDS ORDERED: AZITHROMYCIN 500 MG TAB PO SCH (09:00)
--- NOTE | 2020-04-23 09:28 | P.PN ---
Subjective This is a pleasant 69-year-old female past medical history significant for pulmonary embolism maintained on Eliquis, COPD and former nicotine dependence. She is seen and examined sitting up in the edge of bed undergoing a breathing treatment. She denies chest pain, shortness of breath, dizziness or palpitations. She states she is feeling much better since admission to the hospital. Blood pressure 107/71 heart rate 74 afebrile maintaining oxygen saturation on nasal cannula. Laboratory data reviewed, WBC 3.7, hemoglobin 13.5, platelets 219, sodium 139, potassium 5.1, creatinine 0.8. She is currently being treated for tracheobronchitis on IV steroids and oral antibiotics. GENERAL: Well-appearing, well-nourished and in no acute distress. NECK: Supple without JVD or thyromegaly. LUNGS: Breath sounds clear to auscultation bilaterally. Respiration equal and unlabored. No wheezes, rales or rhonchi. HEART: Regular rate and rhythm without murmurs, rubs or gallops. S1 and S2 heard. EXTREMITIES: Normal range of motion, no edema. No clubbing or cyanosis. Peripheral pulses intact. ASSESSMENT Chest pain, atypical. Tracheobronchitis COPD History of pulmonary embolism maintained on Eliquis Chronic hypoxic respiratory failure on home oxygen PLAN An acute coronary event has been ruled out. Clinically the patient is stable from a cardiac perspective. Recommend outpatient stress testing when tracheobronchitis has improved, follow- up in the office with Dr. Portillo in 2 weeks. Nurse Practitioner note has been reviewed, I agree with a documented findings and plan of care. Patient was seen and examined. Objective - Vital Signs Vital signs: Vital Signs Temp 97.3 F L 04/23/20 03:00 Pulse 74 04/23/20 08:32 Resp 18 04/23/20 03:22 BP 107/71 04/23/20 03:00 Pulse Ox 96 04/23/20 03:00 Intake & Output 04/22/20 04/23/20 04/23/20 18:59 06:59 18:59 Output Total 150 Balance -150 Output: Urine 150 Other: Voiding Method Toilet Toilet # Voids 1 1 - Labs CBC & Chem 7: 04/23/20 06:23 04/23/20 06:23 Labs: Abnormal Lab Results - Last 24 Hours (Table) 04/22/20 04/22/20 04/23/20 Range/Units 07:52 20:53 06:23 WBC 3.7 L (3.8-10.6) k/uL RBC 3.74 L (3.80-5.40) m/uL MCV 100.4 H 101.1 H (80.0-100.0) fL Lymphocytes # 0.9 L 0.5 L (1.0-4.8) k/uL Carbon Dioxide (22-30) mmol/L Glucose (74-99) mg/dL POC Glucose (mg/dL) 169 H (75-99) mg/dL 04/23/20 04/23/20 Range/Units 06:23 06:47 WBC (3.8-10.6) k/uL RBC (3.80-5.40) m/uL MCV (80.0-100.0) fL Lymphocytes # (1.0-4.8) k/uL Carbon Dioxide 31 H (22-30) mmol/L Glucose 158 H (74-99) mg/dL POC Glucose (mg/dL) 142 H (75-99) mg/dL
[2020-04-23 09:47] VITALS: BP 99/66; PULSE 76; RESP 16; TEMP 97.6
--- NOTE | 2020-04-23 10:32 | P.DS ---
Providers Date of admission: 04/21/20 22:17 Attending physician: Benny Gómez Consults: 04/21/20 22:17 Consult Physician Urgent Consulting Provider: Chase Johnson Consult Reason/Comments: Chest pain Do you want consulting provider notified?: Yes, Notify in am Primary care physician: Benny Gómez Hospital Course: This is discharge summary 69-year-old white female essentially admitted for chest pain. Underlying history of COPD is noted. Myocardial infarction acutely was ruled out with no significant enzymatic elevation. The patient was then had appropriate stress testing with cardiology evaluation. She has been ruled out for acute coronary disease and will be sent home on appropriate antibiotics and nebulizer treatments. Patient Condition at Discharge: Fair Plan - Discharge Summary Discharge Rx Participant: No New Discharge Prescriptions: New Ipratropium-Albuterol Nebulize [Duoneb 0.5 mg-3 mg/3 ml Soln] 3 ml INHALATION RT-QID PRN #300 ml PRN Reason: Shortness Of Breath Or Wheezing Azithromycin [Zithromax] 500 mg PO DAILY #3 tab Continue ALPRAZolam 0.5 mg PO BID PRN PRN Reason: Anxiety Citalopram Hydrobromide [CeleXA] 10 mg PO DAILY Tiotropium [place] [Spiriva Respimat] 1 spray INHALATION RT-DAILY Apixaban [Eliquis] 5 mg PO BID Acetaminophen [Tylenol] 500 mg PO DAILY PRN PRN Reason: Pain Discontinued Albuterol Nebulized [Ventolin Nebulized] 1.25 mg INHALATION RT-BID Discharge Medication List ALPRAZolam 0.5 mg PO BID PRN 12/26/15 [History] Citalopram Hydrobromide [CeleXA] 10 mg PO DAILY 03/16/18 [History] Acetaminophen [Tylenol] 500 mg PO DAILY PRN 04/21/20 [History] Apixaban [Eliquis] 5 mg PO BID 04/21/20 [History] Tiotropium [place] [Spiriva Respimat] 1 spray INHALATION RT-DAILY 04/21/20 [History] Azithromycin [Zithromax] 500 mg PO DAILY #3 tab 04/23/20 [Rx] Ipratropium-Albuterol Nebulize [Duoneb 0.5 mg-3 mg/3 ml Soln] 3 ml INHALATION RT-QID PRN #300 ml 04/23/20 [Rx] Follow up Appointment(s)/Referral(s): Victor Hugo Calvo MD [STAFF PHYSICIAN] - 2 Weeks Benny Gómez MD [Primary Care Provider] - 1-2 days Patient Instructions/Handouts: Chest Pain (DC), Acute Bronchitis (GEN) Discharge Disposition: HOME SELF-CARE
--- NOTE | 2020-04-23 10:35 | ECHOF ---
Referral Reason:LVF MEASUREMENTS -------- HEIGHT: 162.6 cm WEIGHT: 93.0 kg BP: 107/71 RVIDd: 2.7 cm (< 3.3) IVSd: 1.3 cm (0.6 - 1.1) LVIDd: 4.1 cm (3.9 - 5.3) LVPWd: 1.1 cm (0.6 - 1.1) IVSs: 1.9 cm LVIDs: 2.7 cm LVPWs: 1.5 cm LA Diam: 3.2 cm (2.7 - 3.8) LAESV Index (A-L): 20.36 ml/m Ao Diam: 2.9 cm (2.0 - 3.7) AV Cusp: 2.0 cm (1.5 - 2.6) MV EXCURSION: 13.550 mm (> 18.000) MV EF SLOPE: 58 mm/s (70 - 150) EPSS: 0.5 cm MV E Stevie: 0.75 m/s MV DecT: 314 ms MV A Stevie: 1.06 m/s MV E/A Ratio: 0.71 FINDINGS -------- Sinus rhythm. This was a technically adequate study. The left ventricular size is normal. There is mild concentric left ventricular hypertrophy. Overa ll left ventricular systolic function is normal with, an EF between 60 - 65 %. The right ventricle is normal in size. Normal LA size by volume 22+/-6 ml/m2. The right atrium is normal in size. Interatrial and interventricular septum intact. The aortic valve is trileaflet and appears structurally normal. The mitral valve is normal. The tricuspid valve appears structurally normal. Trace/mild (physiologic) pulmonic regurgitation. The aortic root size is normal. Normal inferior vena cava with normal inspiratory collapse consistent with estimated right atrial pre ssure of 5 mmHg. Echo free space represents a pericardial fat pad. There is no pericardial effusion. CONCLUSIONS -------- 1. The left ventricular size is normal. 2. There is mild concentric left ventricular hypertrophy. 3. Overall left ventricular systolic function is normal with, an EF between 60 - 65 %. 4. Trace/mild (physiologic) pulmonic regurgitation. 5. Echo free space represents a pericardial fat pad. 6. There is no pericardial effusion. LEVER MILLER: JOSE LUIS Ludwig
== END 2020-04-23 11:33 | disposition home or self-care (01) ==
LOC: EC 18:53 → 3NCARDOBS 22:17
PROVIDERS: ADMIT Family Medicine; ATTEND Family Medicine
DX: I20.0 Unstable angina (principal); J43.9 Emphysema, unspecified; H91.90 Unspecified hearing loss, unspecified ear; M19.90 Unspecified osteoarthritis, unspecified site; D64.9 Anemia, unspecified; Z20.828 Contact with and (suspected) exposure to other viral communicable diseases; E66.9 Obesity, unspecified; Z68.35 Body mass index [BMI] 35.0-35.9, adult; Z98.42 Cataract extraction status, left eye; H26.9 Unspecified cataract; Z90.49 Acquired absence of other specified parts of digestive tract; Z98.51 Tubal ligation status; Z98.890 Other specified postprocedural states; F41.9 Anxiety disorder, unspecified; F32.9 Major depressive disorder, single episode, unspecified; Z99.81 Dependence on supplemental oxygen; Z80.1 Family history of malignant neoplasm of trachea, bronchus and lung; Z82.49 Family history of ischemic heart disease and other diseases of the circulatory system; Z80.3 Family history of malignant neoplasm of breast; Z87.891 Personal history of nicotine dependence; J96.21 Acute and chronic respiratory failure with hypoxia; Z86.711 Personal history of pulmonary embolism; D75.89 Other specified diseases of blood and blood-forming organs; Z79.01 Long term (current) use of anticoagulants; Z79.899 Other long term (current) drug therapy; Z88.2 Allergy status to sulfonamides; Z88.8 Allergy status to other drugs, medicaments and biological substances; J44.1 Chronic obstructive pulmonary disease with (acute) exacerbation
CPT/HCPCS: 93005 ×2; 96365; 96366; 96375; 96376 ×2; 99285; 36415; 94640 ×4; 93306; 83880; 80061; 80053; 80048; 82607; 82550; 82746; 83690; 83735; 84484 ×2; 85025 ×3; 85610; 85730 ×2; 81001; 71046; G0378 ×3; U0003; J1644 ×2; J2930 ×2

== ENCOUNTER 2020-04-29 15:02 | Inpatient (IN) | payer MEDICARE ==
[2020-04-29 16:02] LABS: Albumin 3.7 g/dL (3.5-5.0); C Reactive Protein 62.7 mg/L (<10.0); Calcium 8.8 mg/dL (8.4-10.2); Magnesium 2.2 mg/dL (1.6-2.3); Potassium 4.3 mmol/L (3.5-5.1); Total Bilirubin 0.4 mg/dL (0.2-1.3); Total Protein 6.6 g/dL (6.3-8.2)
[2020-04-29 16:11] LABS: Basophils % (A) 0 %; Eosinophils % (A) 0 %; HCT 38.8 % (34.0-46.0); HGB 12.4 gm/dL (11.4-16.0); Lymphocytes # (A) 0.6 k/uL (1.0-4.8); Lymphocytes % (A) 12 %; MCH 30.5 pg (25.0-35.0); MCHC 31.9 g/dL (31.0-37.0); Mean Platelet Volume 6.9; Monocytes # (A) 0.3 k/uL (0-1.0); Monocytes % (A) 7 %; Neutrophils # (A) 3.9 k/uL (1.3-7.7); Neutrophils % (A) 80 %; Platelet Count 184 k/uL (150-450); RBC 4.06 m/uL (3.80-5.40); RDW 13.5 % (11.5-15.5); WBC 4.9 k/uL (3.8-10.6)
[2020-04-29 16:16] LABS: MCV 95.7 fL (80.0-100.0)
--- NOTE | 2020-04-29 16:16 | XR ---
EXAMINATION TYPE: XR chest 1V portable DATE OF EXAM: 04/29/2020 COMPARISON: 04/21/2020 HISTORY: Chest pain TECHNIQUE: 2 views FINDINGS: There is some coarsening of markings in the lower lung dutton. There is no heart failure. H eart size is normal. Costophrenic angles are clear. IMPRESSION: Mild pulmonary fibrotic changes. No definite acute lung disease. No heart failure. No cristina nge compared to old exam.
[2020-04-29 16:19] LABS: D-Dimer 0.42 mg/L FEU (<0.60); INR 0.9 (<1.2)
[2020-04-29 16:20] LABS: Partial Thromboplastin Time 22.4 sec (22.0-30.0); Prothrombin Time 9.5 sec (9.0-12.0)
--- NOTE | 2020-04-29 17:18 | ED ---
SOB HPI - General Chief Complaint: Shortness of Breath Stated Complaint: +COVID Time Seen by Provider: 04/29/20 15:04 Source: patient, EMS Mode of arrival: EMS Limitations: no limitations - History of Present Illness Initial Comments: This is a 69-year-old female with a history of COPD and PE on chronic O2 2 L at home and presents to the ED for worsening shortness of breath. Patient states that it started over a week ago where she developed what she thought was bronchitis. She did test positive for cold and on April 22. She states that she did improve initially and then gradually she started having worsening shortness of breath and the last few days. She denies any chest pain. No lightheadedness. She denies nausea, vomiting, or diarrhea. No abdominal pain. She states that she just feels like she is more short of breath. She does admit to cough however nonproductive. No fevers or chills at home. No other acute complaints. - Related Data Home Medications Medication Instructions Recorded Confirmed ALPRAZolam 0.5 mg PO BID PRN 12/26/15 04/29/20 Citalopram Hydrobromide [CeleXA] 10 mg PO DAILY 03/16/18 04/29/20 Acetaminophen [Tylenol] 500 mg PO DAILY PRN 04/21/20 04/29/20 Apixaban [Eliquis] 5 mg PO BID 04/21/20 04/29/20 Tiotropium [place] [Spiriva 2 spray INHALATION RT-BID PRN 04/21/20 04/29/20 Respimat] Budesonide [Pulmicort] 0.5 mg INHALATION RT-BID PRN 04/29/20 04/29/20 Previous Rx's Medication Instructions Recorded Ipratropium-Albuterol Nebulize 3 ml INHALATION RT-QID PRN #300 ml 04/23/20 [Duoneb 0.5 mg-3 mg/3 ml Soln] Allergies Allergy/AdvReac Type Severity Reaction Status Date / Time Sulfa (Sulfonamide AdvReac Unknown Verified 04/29/20 17:19 Antibiotics) Childhood steroids AdvReac excessive Uncoded 04/21/20 22:52 sleepiness Review of Systems ROS Statement: Those systems with pertinent positive or pertinent negative responses have been documented in the HPI. ROS Other: All systems not noted in ROS Statement are negative. Past Medical History Past Medical History: COPD, Eye Disorder, Hearing Disorder / Deafness, Osteoarthritis (OA) Additional Past Medical History / Comment(s): past hx of anemia ,Emphysema, bilateral cataracts. History of Any Multi-Drug Resistant Organisms: None Reported Past Surgical History: Appendectomy, Cholecystectomy, Tubal Ligation Additional Past Surgical History / Comment(s): colonoscopies; L eye Cataract Past Anesthesia/Blood Transfusion Reactions: No Reported Reaction Past Psychological History: Anxiety, Depression Smoking Status: Former smoker Past Alcohol Use History: Daily Past Drug Use History: None Reported - Past Family History Father Family Medical History: Cancer Additional Family Medical History / Comment(s): Lung cancer Mother Family Medical History: Cancer, Deep Vein Thrombosis (DVT) Additional Family Medical History / Comment(s): breast General Exam - General Exam Comments Initial Comments: Constitutional: [Awake alert] [Appears comfortable] Head: [Normocephalic atraumatic] Eyes: [no conjunctival injection] [No scleral icterus] [EOMI] Neck: [No JVD] [Supple] Heart: [Regular rate rhythm] [normal S1-S2] [no murmurs] Lungs: [Clear to auscultation bilaterally] [No wheezing] [No rales], no respiratory distress or accessory muscle use Abdomen: [Soft] [nondistended] [nontender] Extremities: [Non edematous] [DP pulses intact] [Radial pulses intact] Neuro: [A&Ox3] [No focal neurologic deficits] Psych: [Appropriate mood and affect] Limitations: no limitations Course Vital Signs 04/29/20 04/29/20 04/29/20 15:05 15:10 17:46 Temperature 100.4 F H 99.8 F H Pulse Rate 76 80 Respiratory 18 18 18 Rate Blood Pressure 126/76 133/60 O2 Sat by Pulse 100 99 Oximetry 04/29/20 18:18 Temperature 99.8 F H Pulse Rate 76 Respiratory 16 Rate Blood Pressure 136/68 O2 Sat by Pulse 99 Oximetry - Reevaluation(s) Reevaluation #1: 04/29/20 17:18 EKG read at 1549 shows no sinus rhythm with a rate of 75. There is no abnormal ST 7 changes or T-wave inversions. QTC is 395. Other intervals normal. No ectopy. Medical Decision Making - Medical Decision Making this is a 69-year-old female with history of COPD who came in for worsening soreness of breath. She was Covid positive about one week ago.on arrival patient's vital signs were stable on 2 L which she wears at home. Chest x-ray did not reveal any acute abnormalitiesarea she did have a significantly elevated CRPhowever d-dimer was negative At rest the patient was quite comfortable however I did get her up and walk her about 15 feet she became very dyspneic. I checked her oxygen saturation after this and it was down to 84%. Going to start the patient on Decadron and admit her to the hospital for Covid and further monitoring. Dr. Loyola accepts on behalf for Dr. Gómez. - Lab Data Result diagrams: 04/29/20 15:31 04/29/20 15:31 Lab Results 04/29/20 04/29/20 04/29/20 Range/Units 15:31 15:31 15:31 WBC 4.9 (3.8-10.6) k/uL RBC 4.06 (3.80-5.40) m/uL Hgb 12.4 (11.4-16.0) gm/dL Hct 38.8 (34.0-46.0) % MCV 95.7 D (80.0-100.0) fL MCH 30.5 (25.0-35.0) pg MCHC 31.9 (31.0-37.0) g/dL RDW 13.5 (11.5-15.5) % Plt Count 184 (150-450) k/uL Neutrophils % 80 % Lymphocytes % 12 % Monocytes % 7 % Eosinophils % 0 % Basophils % 0 % Neutrophils # 3.9 (1.3-7.7) k/uL Lymphocytes # 0.6 L (1.0-4.8) k/uL Monocytes # 0.3 (0-1.0) k/uL Eosinophils # 0.0 (0-0.7) k/uL Basophils # 0.0 (0-0.2) k/uL PT 9.5 (9.0-12.0) sec INR 0.9 (<1.2) APTT 22.4 (22.0-30.0) sec D-Dimer 0.42 (<0.60) mg/L FEU Sodium 136 L (137-145) mmol/L Potassium 4.3 (3.5-5.1) mmol/L Chloride 95 L (98-107) mmol/L Carbon Dioxide 35 H (22-30) mmol/L Anion Gap 6 mmol/L BUN 14 (7-17) mg/dL Creatinine 0.87 (0.52-1.04) mg/dL Est GFR (CKD-EPI)AfAm 78 (>60 ml/min/1.73 sqM) Est GFR (CKD-EPI)NonAf 67 (>60 ml/min/1.73 sqM) Glucose 116 H (74-99) mg/dL Plasma Lactic Acid Blu (0.7-2.0) mmol/L Calcium 8.8 (8.4-10.2) mg/dL Magnesium 2.2 (1.6-2.3) mg/dL Total Bilirubin 0.4 (0.2-1.3) mg/dL AST 43 H (14-36) U/L ALT 32 (4-34) U/L Alkaline Phosphatase 54 (38-126) U/L Lactate Dehydrogenase 827 H (313-618) U/L C-Reactive Protein 62.7 H (<10.0) mg/L Total Protein 6.6 (6.3-8.2) g/dL Albumin 3.7 (3.5-5.0) g/dL 04/29/20 Range/Units 15:31 WBC (3.8-10.6) k/uL RBC (3.80-5.40) m/uL Hgb (11.4-16.0) gm/dL Hct (34.0-46.0) % MCV (80.0-100.0) fL MCH (25.0-35.0) pg MCHC (31.0-37.0) g/dL RDW (11.5-15.5) % Plt Count (150-450) k/uL Neutrophils % % Lymphocytes % % Monocytes % % Eosinophils % % Basophils % % Neutrophils # (1.3-7.7) k/uL Lymphocytes # (1.0-4.8) k/uL Monocytes # (0-1.0) k/uL Eosinophils # (0-0.7) k/uL Basophils # (0-0.2) k/uL PT (9.0-12.0) sec INR (<1.2) APTT (22.0-30.0) sec D-Dimer (<0.60) mg/L FEU Sodium (137-145) mmol/L Potassium (3.5-5.1) mmol/L Chloride (98-107) mmol/L Carbon Dioxide (22-30) mmol/L Anion Gap mmol/L BUN (7-17) mg/dL Creatinine (0.52-1.04) mg/dL Est GFR (CKD-EPI)AfAm (>60 ml/min/1.73 sqM) Est GFR (CKD-EPI)NonAf (>60 ml/min/1.73 sqM) Glucose (74-99) mg/dL Plasma Lactic Acid Blu 1.6 (0.7-2.0) mmol/L Calcium (8.4-10.2) mg/dL Magnesium (1.6-2.3) mg/dL Total Bilirubin (0.2-1.3) mg/dL AST (14-36) U/L ALT (4-34) U/L Alkaline Phosphatase (38-126) U/L Lactate Dehydrogenase (313-618) U/L C-Reactive Protein (<10.0) mg/L Total Protein (6.3-8.2) g/dL Albumin (3.5-5.0) g/dL Disposition Clinical Impression: Hypoxia, COVID-19 Disposition: ADMITTED IP TO THIS HOSP Condition: Stable Referrals: Benny óGmez MD [Primary Care Provider] - 1-2 days
[2020-04-29] MEDS ORDERED: DEXAMETHASONE SOD PHOSPHATE 4 MG/ML 1 ML VIAL IV STA (18:13)
[2020-04-29] MEDS ORDERED: ACETAMINOPHEN TAB 325 MG TAB PO PRN (18:45)
[2020-04-29] MEDS ORDERED: NALOXONE 0.4 MG/ML 1 ML VIAL IV PRN (18:45)
[2020-04-29] MEDS ORDERED: ALPRAZolam 0.5 MG TAB PO PRN (19:40)
[2020-04-29] MEDS: APIXABAN 5 MG TAB PO SCH (20:53)
--- NOTE | 2020-04-30 07:49 | P.HPIM ---
History of Present Illness H&P Date: 04/30/20 Chief Complaint: Covid/COPD This history and physical on a 69-year-old white female with known history of COPD Positive for coronavirus about 4-5 days ago. Respiratory distress was worsening and now the patient is admitted. Given her advancing age and COPD, she is at high risk. She has significant dyspnea on exertion at this time. No voiding difficulties. No significant nausea or vomiting. Cough with congestion was otherwise noted. Review of Systems Constitutional: Reports fatigue, Reports weakness Eyes: denies blurred vision, denies pain Ears, nose, mouth and throat: Denies headache, Denies sore throat Respiratory: Reports congestion, Reports cough, Reports home oxygen Genitourinary: Denies dysuria, Denies hematuria Musculoskeletal: Denies myalgias Past Medical History Past Medical History: COPD, Eye Disorder, Hearing Disorder / Deafness, Osteoarthritis (OA) Additional Past Medical History / Comment(s): Anemia in the past, emphysema, bilateral cataracts, right hand carpal tunnel History of Any Multi-Drug Resistant Organisms: None Reported Past Surgical History: Appendectomy, Cholecystectomy, Tubal Ligation Additional Past Surgical History / Comment(s): Colonoscopy Past Anesthesia/Blood Transfusion Reactions: No Reported Reaction Past Psychological History: Anxiety, Depression Additional Psychological History / Comment(s): Pt lives alone. She uses a wheeled walker at times due to her SOB with activity. She is independent. She drives. Smoking Status: Former smoker Past Alcohol Use History: Daily Additional Past Alcohol Use History / Comment(s): Started smoking in 1971 and quit 12/05. Past Drug Use History: None Reported - Past Family History Father Family Medical History: Cancer Additional Family Medical History / Comment(s): Lung cancer Mother Family Medical History: Cancer, Deep Vein Thrombosis (DVT) Additional Family Medical History / Comment(s): breast Medications and Allergies Home Medications Medication Instructions Recorded Confirmed Type ALPRAZolam 0.5 mg PO BID PRN 12/26/15 04/29/20 History Citalopram Hydrobromide [CeleXA] 10 mg PO DAILY 03/16/18 04/29/20 History Acetaminophen [Tylenol] 500 mg PO DAILY PRN 04/21/20 04/29/20 History Apixaban [Eliquis] 5 mg PO BID 04/21/20 04/29/20 History Tiotropium [place] [Spiriva 2 spray INHALATION RT-BID PRN 04/21/20 04/29/20 History Respimat] Ipratropium-Albuterol Nebulize 3 ml INHALATION RT-QID PRN #300 ml 04/23/20 04/29/20 Rx [Duoneb 0.5 mg-3 mg/3 ml Soln] Budesonide [Pulmicort] 0.5 mg INHALATION RT-BID PRN 04/29/20 04/29/20 History Allergies Allergy/AdvReac Type Severity Reaction Status Date / Time Sulfa (Sulfonamide AdvReac Unknown Verified 04/29/20 17:19 Antibiotics) Childhood steroids AdvReac excessive Uncoded 04/21/20 22:52 sleepiness Physical Exam Vitals: Vital Signs Temp Pulse Pulse Resp BP BP Pulse Ox 04/30/20 01:48 97.9 F 65 18 105/65 96 04/29/20 19:31 99.8 F H 83 20 139/72 92 L 04/29/20 18:18 99.8 F H 76 16 136/68 99 04/29/20 17:46 99.8 F H 80 18 133/60 99 04/29/20 15:10 18 04/29/20 15:05 100.4 F H 76 18 126/76 100 Intake and Output 04/29/20 04/30/20 04/30/20 22:59 06:59 14:59 Other: Voiding Method Toilet Toilet # Voids 1 1 Weight 92.986 kg - Constitutional General appearance: mild distress - EENT Eyes: EOMI - Neck Neck: no lymphadenopathy - Respiratory Respiratory: bilateral: diminished - Cardiovascular Rhythm: regular Heart sounds: normal: S1, S2 Abnormal Heart Sounds: no S3 Gallop - Gastrointestinal General gastrointestinal: soft, no tenderness - Integumentary Integumentary: no cellulitis - Musculoskeletal Musculoskeletal: strength equal bilaterally - Psychiatric Psychiatric: A&O x's 3, appropriate affect, intact judgment & insight Results CBC & Chem 7: 04/29/20 15:31 04/29/20 15:31 Labs: Abnormal Lab Results - Last 24 Hours (Table) 04/29/20 04/29/20 Range/Units 15:31 15:31 Lymphocytes # 0.6 L (1.0-4.8) k/uL Sodium 136 L (137-145) mmol/L Chloride 95 L (98-107) mmol/L Carbon Dioxide 35 H (22-30) mmol/L Glucose 116 H (74-99) mg/dL AST 43 H (14-36) U/L Lactate Dehydrogenase 827 H (313-618) U/L C-Reactive Protein 62.7 H (<10.0) mg/L Thrombosis Risk Factor Assmnt - Choose All That Apply Any of the Below Risk Factors Present?: No Other Risk Factors: Yes Each Risk Factor Represents 2 Points: Age 61-74 years Other congenital or acquired thrombophilia - If yes, enter type in comment: No Thrombosis Risk Factor Assessment Total Risk Factor Score: 2 Thrombosis Risk Factor Assessment Level: Low Risk Assessment and Plan (1) COVID-19 Current Visit: Yes Status: Acute Code(s): U07.1 - COVID-19 SNOMED Code(s): 298254063 (2) Hypoxia Current Visit: Yes Status: Acute Code(s): R09.02 - HYPOXEMIA SNOMED Code(s): 025480223 (3) COPD (chronic obstructive pulmonary disease) with emphysema Current Visit: No Status: Acute Code(s): J43.9 - EMPHYSEMA, UNSPECIFIED SNOMED Code(s): 78248030 Plan: Reconcile medications. Check CBC and CMP in a.m. Question need for ID/pulmonology if no better. See orders otherwise.
[2020-04-30] MEDS ORDERED: FLUTICASONE 110 MCG INHALER INHALATION PRN (08:00)
[2020-04-30] MEDS: TIOTROPIUM 18 MCG/PUFF INHALER INHALATION SCH (08:11)
[2020-04-30] MEDS: ALBUTEROL HFA INHALER INHALATION PRN ×3 (08:11→20:04)
[2020-04-30] MEDS: CITALOPRAM HYDROBROMIDE 10 MG TAB PO SCH (08:58)
[2020-04-30] MEDS: APIXABAN 5 MG TAB PO SCH ×2 (08:58→19:43)
[2020-04-30] MEDS ORDERED: ENOXAPARIN 40 MG/0.4 ML SYRINGE SQ SCH (09:00)
[2020-04-30 10:54] LABS: Ferritin 948.1 ng/mL (10.0-291.0)
[2020-04-30] MEDS: SYMBICORT 160-4.5 MCG INHALER INHALATION SCH (20:04)
--- NOTE | 2020-05-01 01:43 | CONS ---
CONSULTATION PULMONARY/CRITICAL CARE CONSULTATION: DATE OF CONSULTATION: April 30, 2020. REASON FOR CONSULTATION: Shortness of breath. This is a 69-year-old female that we were asked to see for shortness of breath. She apparently has a history of COPD and pulmonary embolism. She currently does not see a lung doctor. She does use O2 at home at 2 L/minute. She came into the emergency department on April 29 at 15:02 complaining of shortness of breath. She was brought in by EMS. On April 22, she apparently tested positive for COVID-19. More recently, her shortness of breath has gotten worse. Because of that, she came back in to be evaluated. She denies any fever or chills. She denies any chest pain or chest discomfort. There is no lightheadedness or dizziness. She denies any GI issue such as nausea, vomiting, diarrhea, or abdominal pain. She also denies any genitourinary issues. When she is sitting still, she is not particularly short of breath, but when she gets up to walk around she becomes very short of breath. For that reason, she was admitted to the hospital. Her chest x-ray from April 29 read by the radiologist showed no definitive acute lung disease other than maybe some mild pulmonary fibrotic changes. MEDICATIONS: Home medications are reviewed. They include Xanax, Celexa, Tylenol, Eliquis, Spiriva, Pulmicort and DuoNeb. ALLERGIES: SULFA and STEROIDS. MEDICAL HISTORY: Medical history includes COPD, deafness, osteoarthritis, pulmonary embolism, cataracts, and chronic anemia. SURGICAL HISTORY: Surgical history includes appendectomy, cholecystectomy, tubal ligation, colonoscopy, and left eye cataract surgery. SOCIAL HISTORY: Social history is positive for previous heavy tobacco use. Does not smoke currently. Drinks alcohol daily. Denies any illicit drug use. FAMILY HISTORY: Family history is positive for a father with lung cancer and mother with a history of cancer and deep venous thrombosis. The mother's cancer was breast cancer. REVIEW OF SYSTEMS: CONSTITUTIONAL: Negative. NEUROLOGIC: Negative. HEENT: Negative. CARDIOVASCULAR: Negative. PULMONARY: Shortness of breath. GI: Negative. : Negative. RHEUMATOLOGIC: Negative. IMMUNOLOGIC: Negative. ENDOCRINOLOGIC: Negative. DERMATOLOGIC: Negative. PHYSICAL EXAMINATION: VITAL SIGNS: Current vital signs are reviewed. Temperature is 98, heart rate 71, respiratory rate 18, blood pressure 102/58, mean 72 and 2 L saturation 92%. GENERAL: Appears in no acute distress. No respiratory distress. No audible wheezing, use of accessory muscles or conversational dyspnea. HEENT: Examination is grossly unremarkable. Nasal O2 noted. NECK: Supple. Full range of motion. No adenopathy. Neck veins are flat. CARDIOVASCULAR: Examination reveals regular rhythm and rate. Heart rate 71. S1, S2 normal. LUNGS: Reveal relatively clear breath sounds. Breath sounds equal bilaterally. Breath sounds are diminished throughout. No crackles, wheezes, or significant rhonchi noted. ABDOMEN: Soft. Bowel sounds are heard. EXTREMITIES: Are intact. No cyanosis, clubbing, or edema. SKIN: Without rash. NEUROLOGIC: Examination is brief but nonfocal. LABORATORY DATA: Current laboratory data includes a white count of 4.9, hemoglobin 12.4, hematocrit 38.8, platelet count 184,000. PT, INR, PTT normal. D-dimer is 0.42. Sodium 136, potassium 4.3, chloride 95, CO2 of 35. Anion gap is 6. BUN and creatinine were 14 and 0.87. Glucose 116. Ferritin 948. LDH 827. C-reactive protein 62.7. Microbiology is thus far negative. Chest x-ray does not show any acute abnormalities. MEDICATIONS: Medications are reviewed. She is currently on Tylenol, albuterol inhaler, Xanax, Eliquis, Celexa, Flovent, and Narcan. She is also on Spiriva. ASSESSMENT: 1. Shortness of breath, which may relate more to underlying chronic obstructive pulmonary disease than COVID-19 pneumonitis as her chest x-ray does not show anything acute. 2. Previous history of pulmonary embolism. 3. Chronic hypoxemic respiratory failure, with home O2 at 2 L/minute. 4. Deafness. 5. Osteoarthritis. 6. History of anemia. 7. History of bilateral cataracts. 8. Obesity. PLAN: The patient's medications are reviewed. Please see my changes. Her COVID test was positive. We will likely add some Symbicort to the regimen. No additional recommendations are needed at this time. May also give her a small dose of oral prednisone. We will continue to follow. Follow-up chest x-ray would be prudent. MMODL / IJN: [id number] /
[2020-05-01] MEDS: ALBUTEROL HFA INHALER INHALATION PRN ×4 (05:39→21:38)
[2020-05-01 08:02] LABS: HCT 38.5 % (34.0-46.0); HGB 12.8 gm/dL (11.4-16.0); MCH 32.2 pg (25.0-35.0); MCHC 33.1 g/dL (31.0-37.0); MCV 97.1 fL (80.0-100.0); Platelet Count 204 k/uL (150-450); RBC 3.97 m/uL (3.80-5.40); RDW 13.1 % (11.5-15.5)
--- NOTE | 2020-05-01 08:34 | XR ---
EXAMINATION TYPE: XR chest 1V portable DATE OF EXAM: 05/01/2020 COMPARISON: 04/29/2020 HISTORY: Shortness of breath TECHNIQUE: Frontal and lateral views of the chest are obtained. FINDINGS: Scattered senescent parenchymal changes noted. Hyperinflation compatible with COPD. Patchy basilar infiltrates noted greatest at the right lung base. No significant change appreciated a llowing for differences in technique. Heart size is stable. Mediastinal structures are stable and grossly unremarkable. No evidence for hilar prominence. Degenerative changes dorsal spine. IMPRESSION: 1. Patchy basilar infiltrates noted greatest at the right lung base. No significant change appreciate d allowing for differences in technique.
--- NOTE | 2020-05-01 08:40 | P.PN ---
Subjective Principal diagnosis: Respiratory distress with coronavirus The patient is here essentially for COPD and history of COVID19 exposure and diagnosis. Objective - Vital Signs Vital signs: Vital Signs Temp 98.6 F 05/01/20 07:00 Pulse 77 05/01/20 07:00 Resp 17 05/01/20 07:00 BP 116/63 05/01/20 07:00 Pulse Ox 90 L 05/01/20 07:00 Intake & Output 04/30/20 05/01/20 05/01/20 18:59 06:59 18:59 Intake Total 580 Balance 580 Intake: Oral 580 Other: Voiding Method Toilet Toilet # Voids 1 - Constitutional General appearance: Present: average body habitus - EENT Eyes: Absent: abnormal pupil - Respiratory Respiratory: bilateral: diminished - Cardiovascular Rhythm: regular Heart sounds: normal: S1, S2 Abnormal Heart Sounds: Absent: S3 Gallop - Gastrointestinal General gastrointestinal: Present: soft. Absent: tenderness - Labs CBC & Chem 7: 05/01/20 07:07 04/29/20 15:31 Labs: Abnormal Lab Results - Last 24 Hours (Table) 04/29/20 Range/Units 15:31 Ferritin 948.1 H (10.0-291.0) ng/mL Assessment and Plan (1) COVID-19 Current Visit: Yes Status: Acute Code(s): U07.1 - COVID-19 SNOMED Code(s): 992778180 (2) Hypoxia Current Visit: Yes Status: Acute Code(s): R09.02 - HYPOXEMIA SNOMED Code(s): 148660625 (3) COPD (chronic obstructive pulmonary disease) with emphysema Current Visit: No Status: Acute Code(s): J43.9 - EMPHYSEMA, UNSPECIFIED SNOMED Code(s): 96224045 Plan: Reconcile medications. Check CBC and CMP in a.m. Question need for ID/pulmonology if no better. See orders otherwise.
[2020-05-01] MEDS: CITALOPRAM HYDROBROMIDE 10 MG TAB PO SCH (08:41)
[2020-05-01] MEDS: predniSONE 10 MG TAB PO SCH (08:41)
[2020-05-01] MEDS: SYMBICORT 160-4.5 MCG INHALER INHALATION SCH ×2 (08:41→21:38)
[2020-05-01] MEDS: APIXABAN 5 MG TAB PO SCH ×2 (08:41→21:07)
[2020-05-01] MEDS: TIOTROPIUM 18 MCG/PUFF INHALER INHALATION SCH (08:41)
[2020-05-01 10:46] LABS: Albumin/Globulin Ratio 1.82 (1.60-3.17); Anion Gap 12.2 mmol/L (4.00-12.00); Calcium 8.6 mg/dL (8.7-10.3); Carbon Dioxide 31.8 mmol/L (21.6-31.8); Globulin 2.2 g/dL (1.6-3.3); Non-African American GFR(CKD) 74.2 (60.0-200.0); Potassium 4.1 mmol/L (3.5-5.5); Total Bilirubin 0.3 mg/dL (0.2-1.2); Total Protein 6.2 g/dL (6.2-8.2)
--- NOTE | 2020-05-01 16:49 | P.PN ---
Subjective Progress Note Date: 05/01/20 Principal diagnosis: Shortness of breath related to Covid 19 related pneumonitis This is a 69-year-old white female patient that came into the hospital on 2019 for evaluation of shortness of breath, and who had a positive outpatient Egnar 19 testing on April 22. Patient denied any fever or chills, no chest pain, or chest discomfort, no lightheadedness or dizziness, no GI symptoms no nausea vomiting diarrhea or abdominal pain. She is not particularly short of breath on presentation, other than with exertion. Chest x-ray was completed in the ED showing no definitive acute lung disease other than some mild pulmonary fibrotic tissues. She had a low-grade fever on presentation with a temp of 100.4F, she's been afebrile overnight, -7 stable, follow-up chest x- ray shows patchy basilar infiltrates greatest at the right lung base, stable exam, her inflammatory markers were elevated on presentation, with LDH up to 827, and CRP up to 62.7, pro calcitonin level was negative. Patient is on nebulized bronchodilators, she is on oral prednisone, she is on Symbicort and Spiriva and albuterol inhaler, she does have underlying history of COPD on home oxygen, and is an ex-smoker, she has a past medical history of pulmonary embolism, she is on Eliquis for chronic anticoagulation. Objective - Vital Signs Vital signs: Vital Signs Temp 98.9 F 05/01/20 15:00 Pulse 74 05/01/20 15:00 Resp 18 05/01/20 15:00 BP 90/55 05/01/20 15:00 Pulse Ox 90 L 05/01/20 15:00 Intake & Output 04/30/20 05/01/20 05/01/20 18:59 06:59 18:59 Intake Total 580 580 Balance 580 580 Intake: Oral 580 580 Other: Voiding Method Toilet Toilet Toilet # Voids 1 - Exam GENERAL EXAM: Alert, very pleasant, 69-year-old white female on 3 L of oxygen pulse ox of 90% comfortable in no apparent distress. HEAD: Normocephalic/atraumatic. EYES: Normal reaction of pupils, equal size. Conjunctiva pink, sclera white. NOSE: Clear with pink turbinates. THROAT: No erythema or exudates. NECK: No masses, no JVD, no thyroid enlargement, no adenopathy. CHEST: No chest wall deformity. Symmetrical expansion. LUNGS: Equal air entry with no crackles, wheeze, rhonchi or dullness. CVS: Regular rate and rhythm, normal S1 and S2, no gallops, no murmurs, no rubs ABDOMEN: Soft, nontender. No hepatosplenomegaly, normal bowel sounds, no guarding or rigidity. EXTREMITIES: No clubbing, no edema, no cyanosis, 2+ pulses and upper and lower extremities. MUSCULOSKELETAL: Muscle strength and tone normal. SPINE: No scoliosis or deformity SKIN: No rashes CENTRAL NERVOUS SYSTEM: Alert and oriented -3. No focal deficits, tone is normal in all 4 extremities. PSYCHIATRIC: Alert and oriented -3. Appropriate affect. Intact judgment and insight. - Labs CBC & Chem 7: 05/01/20 07:07 05/01/20 07:07 Labs: Abnormal Lab Results - Last 24 Hours (Table) 05/01/20 Range/Units 07:07 Anion Gap 12.20 H (4.00-12.00) mmol/L Calcium 8.6 L (8.7-10.3) mg/dL Assessment and Plan Plan: Assessment: #1. Shortness of breath, related to COVID19 related pneumonitis #2. Previous history of pulmonary embolism on Eliquis for anticoagulation #3. Chronic hypoxemic respiratory failure related to advanced COPD usually wears 2 L of oxygen at home #4. Difficulty hearing #5. Osteoarthritis #6. History of anemia #7. History of bilateral cataracts #8. Morbid obesity Plan: Continue current medical treatment, tinea oral steroids, oral anticoagulation, inhalers. No acute events overnight, patient has been afebrile, his chest x-ray shows stable patchy basilar infiltrates. Clinical patient feeling better. We'll continue to follow, monitor dyspnea will come oxygenation pattern, febrile pattern. Pro-calcitonin was negative, no need for antibiotics. Patient is not a candidate for Remdesivir, because of onset of symptoms being greater than 3 weeks ago I performed a history & physical examination of the patient and discussed their management with my nurse practitioner, Nora Walker. I reviewed the nurse practitioner's note and agree with the documented findings and plan of care. Lung sounds are positive for diminished breath sounds. The findings and the impression was discussed with the patient. I attest to the documentation by the nurse practitioner. Time with Patient: Less than 30
[2020-05-02 07:14] LABS: HCT 36.7 % (34.0-46.0); HGB 12.4 gm/dL (11.4-16.0); MCH 32.4 pg (25.0-35.0); MCHC 33.7 g/dL (31.0-37.0); MCV 96.1 fL (80.0-100.0); Mean Platelet Volume 6.7; Platelet Count 219 k/uL (150-450); RBC 3.81 m/uL (3.80-5.40); RDW 13.2 % (11.5-15.5)
[2020-05-02] MEDS: CITALOPRAM HYDROBROMIDE 10 MG TAB PO SCH (07:48)
[2020-05-02] MEDS: predniSONE 10 MG TAB PO SCH (07:48)
[2020-05-02] MEDS: APIXABAN 5 MG TAB PO SCH ×2 (07:49→20:54)
[2020-05-02] MEDS: ALBUTEROL HFA INHALER INHALATION PRN ×3 (09:22→20:43)
[2020-05-02] MEDS: SYMBICORT 160-4.5 MCG INHALER INHALATION SCH ×2 (09:22→20:43)
[2020-05-02] MEDS: TIOTROPIUM 18 MCG/PUFF INHALER INHALATION SCH (09:22)
--- NOTE | 2020-05-02 10:24 | P.PN ---
Subjective Principal diagnosis: Respiratory distress with coronavirus The patient is here essentially for COPD and history of COVID19 exposure and diagnosis.There is significant improvement clinically today and her parents. Objective - Vital Signs Vital signs: Vital Signs Temp 98.3 F 05/02/20 07:30 Pulse 97 05/02/20 07:30 Resp 22 05/02/20 07:30 BP 110/54 05/02/20 07:30 Pulse Ox 90 L 05/02/20 07:30 Intake & Output 05/01/20 05/02/20 05/02/20 18:59 06:59 18:59 Intake Total 580 210 Balance 580 210 Intake: IV 10 Invasive Line 2 10 Oral 580 200 Other: Voiding Method Toilet Toilet # Voids 2 - Constitutional General appearance: Present: average body habitus - EENT Eyes: Absent: abnormal pupil - Neck Neck: Absent: lymphadenopathy - Respiratory Respiratory: bilateral: diminished - Cardiovascular Rhythm: regular Heart sounds: normal: S1, S2 Abnormal Heart Sounds: Absent: S3 Gallop - Neurologic Neurologic: Present: CNII-XII intact. Absent: focal deficits - Psychiatric Psychiatric: Present: A&O x's 3 - Labs CBC & Chem 7: 05/02/20 06:18 05/01/20 07:07 Labs: Abnormal Lab Results - Last 24 Hours (Table) 05/01/20 Range/Units 07:07 Anion Gap 12.20 H (4.00-12.00) mmol/L Calcium 8.6 L (8.7-10.3) mg/dL Assessment and Plan (1) COVID-19 Current Visit: Yes Status: Acute Code(s): U07.1 - COVID-19 SNOMED Code(s): 220190382 (2) Hypoxia Current Visit: Yes Status: Acute Code(s): R09.02 - HYPOXEMIA SNOMED Code(s): 374354229 (3) COPD (chronic obstructive pulmonary disease) with emphysema Current Visit: No Status: Acute Code(s): J43.9 - EMPHYSEMA, UNSPECIFIED SNOMED Code(s): 38098062 Plan: Appreciate Pulmonology input. The patient is slowly improving. This See orders otherwise. Time with Patient: Less than 30
[2020-05-02 11:28] LABS: African American GFR (CKD) 74.6 (60.0-200.0); Albumin/Globulin Ratio 1.82 (1.60-3.17); Anion Gap 7.4 mmol/L (4.00-12.00); BUN/Creat Ratio 13.33 Ratio (12.00-20.00); Carbon Dioxide 35.6 mmol/L (21.6-31.8); Globulin 2.2 g/dL (1.6-3.3); Non-African American GFR(CKD) 64.3 (60.0-200.0); Potassium 3.7 mmol/L (3.5-5.5); Total Bilirubin 0.4 mg/dL (0.3-1.2); Total Protein 6.2 g/dL (6.2-8.2)
[2020-05-02] MEDS: FAMOTIDINE 20 MG TAB PO SCH (15:16)
[2020-05-02] MEDS: CHOLECALCIFEROL 1,000 UNIT TAB PO SCH (15:16)
[2020-05-02] MEDS: ASCORBIC ACID 500 MG TAB PO SCH (15:17)
[2020-05-02] MEDS: ZINC SULFATE 220 MG CAP PO SCH (15:17)
--- NOTE | 2020-05-02 15:53 | P.PN ---
Subjective Progress Note Date: 05/02/20 Principal diagnosis: Shortness of breath related to Covid 19 related pneumonitis This is a 69-year-old white female patient that came into the hospital on 2019 for evaluation of shortness of breath, and who had a positive outpatient [place] 19 testing on April 22. Patient denied any fever or chills, no chest pain, or chest discomfort, no lightheadedness or dizziness, no GI symptoms no nausea vomiting diarrhea or abdominal pain. She is not particularly short of breath on presentation, other than with exertion. Chest x-ray was completed in the ED showing no definitive acute lung disease other than some mild pulmonary fibrotic tissues. She had a low-grade fever on presentation with a temp of 100.4F, she's been afebrile overnight, -7 stable, follow-up chest x- ray shows patchy basilar infiltrates greatest at the right lung base, stable exam, her inflammatory markers were elevated on presentation, with LDH up to 827, and CRP up to 62.7, pro calcitonin level was negative. Patient is on nebulized bronchodilators, she is on oral prednisone, she is on Symbicort and Spiriva and albuterol inhaler, she does have underlying history of COPD on home oxygen, and is an ex-smoker, she has a past medical history of pulmonary embolism, she is on Eliquis for chronic anticoagulation. On 05/02/2020 patient seen in follow-up on the medical surgical floor, she is d oing better, feeling better today, requiring supplemental oxygen, currently at 4 L with a pulse ox of 93%, she's been afebrile, hemodynamically stable. No nausea vomiting or diarrhea. No fever overnight, no chills. Pro calcitonin was negative at 0.08, follow-up inflammatory markers are pending, patient was not a candidate for Remdesivir related to onset of symptoms being greater than 3 weeks ago. Yesterday chest x-ray showed patchy basilar infiltrates greatest at the right base, stable exam, follow-up inflammatory markers are pending. Patient remains on oral Decadron, nebulized bronchodilators and steroids, Objective - Vital Signs Vital signs: Vital Signs Temp 98.6 F 05/02/20 15:00 Pulse 74 05/02/20 15:00 Resp 19 05/02/20 15:44 BP 113/70 05/02/20 15:00 Pulse Ox 93 L 05/02/20 15:00 Intake & Output 05/01/20 05/02/20 05/02/20 18:59 06:59 18:59 Intake Total 580 230 Output Total 600 Balance 580 -370 Intake: IV 30 Invasive Line 2 30 Oral 580 200 Output: Urine 600 Other: Voiding Method Toilet Toilet # Voids 2 - Exam GENERAL EXAM: Alert, very pleasant, 69-year-old white female on 4 L of oxygen pulse ox of 93% comfortable in no apparent distress. HEAD: Normocephalic/atraumatic. EYES: Normal reaction of pupils, equal size. Conjunctiva pink, sclera white. NOSE: Clear with pink turbinates. THROAT: No erythema or exudates. NECK: No masses, no JVD, no thyroid enlargement, no adenopathy. CHEST: No chest wall deformity. Symmetrical expansion. LUNGS: Equal air entry with no crackles, wheeze, rhonchi or dullness. CVS: Regular rate and rhythm, normal S1 and S2, no gallops, no murmurs, no rubs ABDOMEN: Soft, nontender. No hepatosplenomegaly, normal bowel sounds, no guarding or rigidity. EXTREMITIES: No clubbing, no edema, no cyanosis, 2+ pulses and upper and lower extremities. MUSCULOSKELETAL: Muscle strength and tone normal. SPINE: No scoliosis or deformity SKIN: No rashes CENTRAL NERVOUS SYSTEM: Alert and oriented -3. No focal deficits, tone is normal in all 4 extremities. PSYCHIATRIC: Alert and oriented -3. Appropriate affect. Intact judgment and insight. - Labs CBC & Chem 7: 05/02/20 06:18 05/02/20 06:18 Labs: Abnormal Lab Results - Last 24 Hours (Table) 05/02/20 Range/Units 06:18 Carbon Dioxide 35.6 H (21.6-31.8) mmol/L Assessment and Plan Plan: Assessment: #1. Shortness of breath, related to COVID19 related pneumonitis #2. Previous history of pulmonary embolism on Eliquis for anticoagulation #3. Chronic hypoxemic respiratory failure related to advanced COPD usually wears 2 L of oxygen at home #4. Difficulty hearing #5. Osteoarthritis #6. History of anemia #7. History of bilateral cataracts #8. Morbid obesity Plan: Obtain follow-up inflammatory markers, patient has been afebrile, wean FiO2, no worsening dyspnea, no fever or chills, continue oral anticoagulation, no need for antibiotics, procalcitonin was negative. We'll continue to follow I performed a history & physical examination of the patient and discussed their management with my nurse practitioner, Nora Walker. I reviewed the nurse practitioner's note and agree with the documented findings and plan of care. Lung sounds are positive for diminished breath sounds. The findings and the impression was discussed with the patient. I attest to the documentation by the nurse practitioner. Time with Patient: Less than 30
[2020-05-02 17:12] LABS: D-Dimer 0.45 mg/L FEU (<0.60)
[2020-05-02] MEDS: MELATONIN 5 MG TABLET PO SCH (20:54)
[2020-05-03 06:40] LABS: Basophils % (A) 0 %; Eosinophils % (A) 0 %; HCT 39.6 % (34.0-46.0); HGB 12.9 gm/dL (11.4-16.0); Lymphocytes # (A) 0.8 k/uL (1.0-4.8); Lymphocytes % (A) 15 %; MCH 31.6 pg (25.0-35.0); MCHC 32.6 g/dL (31.0-37.0); Mean Platelet Volume 6.6; Monocytes # (A) 0.2 k/uL (0-1.0); Monocytes % (A) 4 %; Neutrophils # (A) 4.4 k/uL (1.3-7.7); Neutrophils % (A) 79 %; Platelet Count 238 k/uL (150-450); RBC 4.08 m/uL (3.80-5.40); RDW 13.1 % (11.5-15.5); WBC 5.6 k/uL (3.8-10.6)
[2020-05-03] MEDS: SYMBICORT 160-4.5 MCG INHALER INHALATION SCH ×2 (08:07→19:35)
[2020-05-03] MEDS: TIOTROPIUM 18 MCG/PUFF INHALER INHALATION SCH (08:07)
[2020-05-03] MEDS: ALBUTEROL HFA INHALER INHALATION PRN ×4 (08:07→19:35)
--- NOTE | 2020-05-03 08:56 | P.PN ---
Subjective Principal diagnosis: Respiratory distress with coronavirus The patient is here essentially for COPD and history of COVID19 exposure and diagnosis.There is significant improvement clinically today and With significant improvement. However, she is desaturating quite easily secondary to element of COPD. Objective - Vital Signs Vital signs: Vital Signs Temp 98.3 F 05/03/20 01:29 Pulse 71 05/03/20 01:29 Resp 18 05/03/20 03:50 BP 91/58 05/03/20 01:29 Pulse Ox 90 L 05/03/20 01:29 Intake & Output 05/02/20 05/03/20 05/03/20 18:59 06:59 18:59 Intake Total 1310 Output Total 600 Balance 710 Intake: IV 30 Invasive Line 2 30 Oral 1280 Output: Urine 600 Other: Voiding Method Bedside Commode # Voids 3 1 - Constitutional General appearance: Present: average body habitus - Neck Neck: Absent: lymphadenopathy - Respiratory Respiratory: bilateral: CTA - Cardiovascular Rhythm: regular Heart sounds: normal: S1, S2 Abnormal Heart Sounds: Absent: S3 Gallop - Gastrointestinal General gastrointestinal: Present: soft. Absent: tenderness - Musculoskeletal Musculoskeletal: Present: generalized weakness - Psychiatric Psychiatric: Present: A&O x's 3 - Labs CBC & Chem 7: 05/03/20 06:10 05/02/20 06:18 Labs: Abnormal Lab Results - Last 24 Hours (Table) 05/02/20 05/02/20 05/03/20 Range/Units 06:18 16:27 06:10 Lymphocytes # 0.8 L (1.0-4.8) k/uL Fibrinogen 620 H (200-500) mg/dL Carbon Dioxide 35.6 H (21.6-31.8) mmol/L Assessment and Plan (1) COVID-19 Current Visit: Yes Status: Acute Code(s): U07.1 - COVID-19 SNOMED Code(s): 248371431 (2) Hypoxia Current Visit: Yes Status: Acute Code(s): R09.02 - HYPOXEMIA SNOMED Code(s): 551396420 (3) COPD (chronic obstructive pulmonary disease) with emphysema Current Visit: No Status: Acute Code(s): J43.9 - EMPHYSEMA, UNSPECIFIED SNOMED Code(s): 88550894 Plan: Appreciate Pulmonology input. The patient is slowly improving. This See orders otherwise. She continues to need high flow oxygen but clinically she seems better than the last 48 hours. Check CBC and CMP in the a.m. Time with Patient: Greater than 30
[2020-05-03] MEDS: FAMOTIDINE 20 MG TAB PO SCH (09:33)
[2020-05-03] MEDS: APIXABAN 5 MG TAB PO SCH ×2 (09:34→20:01)
[2020-05-03] MEDS: predniSONE 10 MG TAB PO SCH (09:34)
[2020-05-03] MEDS: CITALOPRAM HYDROBROMIDE 10 MG TAB PO SCH (09:34)
[2020-05-03] MEDS: ASCORBIC ACID 500 MG TAB PO SCH (09:34)
[2020-05-03] MEDS: CHOLECALCIFEROL 1,000 UNIT TAB PO SCH (09:34)
[2020-05-03] MEDS: ZINC SULFATE 220 MG CAP PO SCH (09:34)
[2020-05-03 10:56] LABS: African American GFR (CKD) 65.6 (60.0-200.0); Albumin/Globulin Ratio 1.9 (1.60-3.17); C Reactive Protein 9.1 mg/dL (0.0-0.8); Globulin 2.1 g/dL (1.6-3.3); Non-African American GFR(CKD) 56.6 (60.0-200.0); Potassium 3.8 mmol/L (3.5-5.5); Total Bilirubin 0.6 mg/dL (0.3-1.2); Total Protein 6.1 g/dL (6.2-8.2)
--- NOTE | 2020-05-03 12:50 | XR ---
EXAMINATION TYPE: XR chest 1V portable DATE OF EXAM: 05/03/2020 COMPARISON: Prior chest x-ray 05/01/2020, CT 04/25/2019 HISTORY: Covid pneumonia TECHNIQUE: Single frontal view of the chest is obtained. FINDINGS: Bilateral patchy airspace disease is present. There is no evident pneumothorax. Heart is s table. Aorta is dense. Lateral aspect of the left hemidiaphragm remains obscured. There is underlying emphysema. There are large epicardial fat pads noted on prior CT. IMPRESSION: There is no significant interval change. Findings consistent with patient's history of p neumonia, difficult to exclude effusion.
--- NOTE | 2020-05-03 17:04 | PN ---
PROGRESS NOTE PULMONARY/CRITICAL CARE PROGRESS NOTE: DATE OF SERVICE: 05/03/2020 This is a 69-year-old female admitted with a diagnosis of COVID-19 pneumonia. She also has a history of pulmonary embolism, chronic hypoxemic respiratory failure secondary to COPD, and she does use home O2 on a regular basis, deafness, osteoarthritis, anemia, bilateral cataracts, and morbid obesity. Currently, the patient seems to be improving albeit slowly. She continues to use oxygen therapy. She is less short of back breath. She is not coughing. She has not produced any phlegm. She denies other complaints. Current vital signs are reviewed, temperature 98.3, heart rate 62, respiratory rate 17, blood pressure 110/58 mean 75 and saturations are 91% on 15 L high flow. Appears in no acute distress. She is not particularly tachypneic or manifesting any conversational dyspnea or there is no audible wheezing. HEENT: Examination is grossly unremarkable. Nasal O2 noted. NECK: Supple full range of motion. No adenopathy. Neck veins are flat. CARDIOVASCULAR: Examination reveals regular rhythm and rate. Heart rate 62 beats per minute. LUNGS: Reveal diffuse coarse rhonchi. Breath sounds equal. ABDOMEN: Soft, but obese. EXTREMITIES: Intact. No edema. SKIN: Without rash. NEUROLOGIC: Examination is brief but nonfocal. White count 5.6, hemoglobin 12.9, hematocrit 39.6, platelet count 338,000, D-dimer 0.45, fibrinogen 620. Sodium 143, potassium 3.8, chloride 98, CO2 is 35. BUN and creatinine were 13 and 1.0. LDH is down to 369. C-reactive protein is down to 9.1. Microbiology is currently negative. Chest x-ray shows bilateral infiltrates, which are mostly lower lobe and peripheral in nature. No significant interval change noted as per Radiology. MEDICATIONS: Reviewed. She is currently on Tylenol, albuterol inhaler, Xanax, Eliquis, vitamin C, Symbicort, vitamin D3, Celexa, Pepcid, melatonin, Narcan, prednisone, tiotropium bromide, and zinc. ASSESSMENT: 1. COVID-19 pneumonia/pneumonitis. 2. Chronic hypoxemic respiratory failure. 3. History of pulmonary embolism, currently on Eliquis. 4. Chronic hypoxemic respiratory failure, in part related to underlying COPD, on home O2. 5. Deafness. 6. Osteoarthritis. 7. History of anemia. 8. Bilateral cataracts. 9. Obesity. PLAN: Currently, the patient is doing about the same. Clinically, she feels a bit better. Chest x-ray shows no improvement. Will continue to follow. AMY / IJN: [id number] /
[2020-05-03] MEDS: MELATONIN 5 MG TABLET PO SCH (20:01)
[2020-05-04 07:01] LABS: Basophils % (A) 0 %; Eosinophils % (A) 0 %; HCT 38.3 % (34.0-46.0); HGB 12.6 gm/dL (11.4-16.0); Lymphocytes # (A) 0.5 k/uL (1.0-4.8); Lymphocytes % (A) 6 %; MCH 31.4 pg (25.0-35.0); MCV 95.2 fL (80.0-100.0); Mean Platelet Volume 6.7; Monocytes # (A) 0.3 k/uL (0-1.0); Monocytes % (A) 3 %; Neutrophils # (A) 7.5 k/uL (1.3-7.7); Neutrophils % (A) 90 %; Platelet Count 269 k/uL (150-450); RBC 4.02 m/uL (3.80-5.40); WBC 8.4 k/uL (3.8-10.6)
[2020-05-04] MEDS: TIOTROPIUM 18 MCG/PUFF INHALER INHALATION SCH (07:45)
[2020-05-04] MEDS: SYMBICORT 160-4.5 MCG INHALER INHALATION SCH ×2 (07:45→20:38)
[2020-05-04] MEDS: ALBUTEROL HFA INHALER INHALATION PRN ×4 (07:45→20:38)
[2020-05-04] MEDS: FAMOTIDINE 20 MG TAB PO SCH (08:54)
[2020-05-04] MEDS: ASCORBIC ACID 500 MG TAB PO SCH (08:54)
[2020-05-04] MEDS: APIXABAN 5 MG TAB PO SCH ×2 (08:55→22:12)
[2020-05-04] MEDS: CHOLECALCIFEROL 1,000 UNIT TAB PO SCH (08:55)
[2020-05-04] MEDS: ZINC SULFATE 220 MG CAP PO SCH (08:55)
[2020-05-04] MEDS: predniSONE 10 MG TAB PO SCH (08:55)
[2020-05-04] MEDS: CITALOPRAM HYDROBROMIDE 10 MG TAB PO SCH (08:55)
[2020-05-04 10:06] LABS: Albumin 3.8 g/dL (3.80-4.90); Albumin/Globulin Ratio 1.81 (1.60-3.17); Anion Gap 12.1 mmol/L (4.00-12.00); BUN/Creat Ratio 13.75 Ratio (12.00-20.00); C Reactive Protein 9.5 mg/dL (0.0-0.8); Calcium 8.6 mg/dL (8.7-10.3); Carbon Dioxide 30.9 mmol/L (21.6-31.8); Globulin 2.1 g/dL (1.6-3.3); Non-African American GFR(CKD) 74.2 (60.0-200.0); Potassium 3.4 mmol/L (3.5-5.5); Total Bilirubin 0.6 mg/dL (0.3-1.2); Total Protein 5.9 g/dL (6.2-8.2)
[2020-05-04] MEDS: methylPREDNISolone SOD SUCCI 125 MG/2 ML VIAL IV SCH ×3 (13:09→23:13)
--- NOTE | 2020-05-04 14:55 | P.PN ---
Subjective Progress Note Date: 05/04/20 Principal diagnosis: Shortness of breath related to Covid 19 related pneumonitis This is a 69-year-old white female patient that came into the hospital on 2019 for evaluation of shortness of breath, and who had a positive outpatient [place] 19 testing on April 22. Patient denied any fever or chills, no chest pain, or chest discomfort, no lightheadedness or dizziness, no GI symptoms no nausea vomiting diarrhea or abdominal pain. She is not particularly short of breath on presentation, other than with exertion. Chest x-ray was completed in the ED showing no definitive acute lung disease other than some mild pulmonary fibrotic tissues. She had a low-grade fever on presentation with a temp of 100.4F, she's been afebrile overnight, -7 stable, follow-up chest x- ray shows patchy basilar infiltrates greatest at the right lung base, stable exam, her inflammatory markers were elevated on presentation, with LDH up to 827, and CRP up to 62.7, pro calcitonin level was negative. Patient is on nebulized bronchodilators, she is on oral prednisone, she is on Symbicort and Spiriva and albuterol inhaler, she does have underlying history of COPD on home oxygen, and is an ex-smoker, she has a past medical history of pulmonary embolism, she is on Eliquis for chronic anticoagulation. On 05/02/2020 patient seen in follow-up on the medical surgical floor, she is d oing better, feeling better today, requiring supplemental oxygen, currently at 4 L with a pulse ox of 93%, she's been afebrile, hemodynamically stable. No nausea vomiting or diarrhea. No fever overnight, no chills. Pro calcitonin was negative at 0.08, follow-up inflammatory markers are pending, patient was not a candidate for Remdesivir related to onset of symptoms being greater than 3 weeks ago. Yesterday chest x-ray showed patchy basilar infiltrates greatest at the right base, stable exam, follow-up inflammatory markers are pending. Patient remains on oral Decadron, nebulized bronchodilators and steroids, On 05/04/2020 patient seen in follow-up on a general medical surgical floor. S till requiring 15 L of oxygen, her pulse ox is between 89-92%, patient is very short of breath with any exertion, dropped down to 70% when getting up out of bed, she states she feels okay, however she has not made any significant improvement in terms of her symptoms, or gas exchange her oxygen requirement. Chest x-ray has not shown any significant improvement, continues to show patchy bilateral airspace disease. No fever or chills. Today's labs have been reviewed, lymphopenia persists, lymphocyte count is 0.5, white blood cell count is 8.4, hemoglobin is 12.6, d-dimer was 0.45, LDH is 429, CRP is 9.5, overall her inflammatory markers have improved since admission. Patient has been on ora l prednisone, breathing treatments, she is on oral anticoagulation and form of Eliquis, she is on Pepcid, zinc supplement, and vitamin C supplement. She has been self proning in bed. Objective - Vital Signs Vital signs: Vital Signs Temp 97.6 F 05/04/20 14:21 Pulse 88 05/04/20 14:21 Resp 20 05/04/20 14:21 BP 129/62 05/04/20 14:21 Pulse Ox 92 L 05/04/20 14:21 Intake & Output 05/03/20 05/04/20 05/04/20 18:59 06:59 18:59 Other: Voiding Method Bedside Commode Bedside Commode # Voids 2 1 3 # Bowel Movements 1 - Exam GENERAL EXAM: Alert, very pleasant, 69-year-old white female on 15 L of oxygen pulse ox of 92% comfortable in no apparent distress. HEAD: Normocephalic/atraumatic. EYES: Normal reaction of pupils, equal size. Conjunctiva pink, sclera white. NOSE: Clear with pink turbinates. THROAT: No erythema or exudates. NECK: No masses, no JVD, no thyroid enlargement, no adenopathy. CHEST: No chest wall deformity. Symmetrical expansion. LUNGS: Equal air entry with no crackles, wheeze, rhonchi or dullness. CVS: Regular rate and rhythm, normal S1 and S2, no gallops, no murmurs, no rubs ABDOMEN: Soft, nontender. No hepatosplenomegaly, normal bowel sounds, no guarding or rigidity. EXTREMITIES: No clubbing, no edema, no cyanosis, 2+ pulses and upper and lower extremities. MUSCULOSKELETAL: Muscle strength and tone normal. SPINE: No scoliosis or deformity SKIN: No rashes CENTRAL NERVOUS SYSTEM: Alert and oriented -3. No focal deficits, tone is normal in all 4 extremities. PSYCHIATRIC: Alert and oriented -3. Appropriate affect. Intact judgment and insight. - Labs CBC & Chem 7: 05/04/20 05:56 05/04/20 05:56 Labs: Abnormal Lab Results - Last 24 Hours (Table) 05/04/20 05/04/20 Range/Units 05:56 05:56 Lymphocytes # 0.5 L (1.0-4.8) k/uL Potassium 3.4 L (3.5-5.5) mmol/L Anion Gap 12.10 H (4.00-12.00) mmol/L Glucose 114 H (70-110) mg/dL Calcium 8.6 L (8.7-10.3) mg/dL Lactate Dehydrogenase 429 H (120-246) U/L C-Reactive Protein 9.5 H (0.0-0.8) mg/dL Total Protein 5.9 L (6.2-8.2) g/dL Assessment and Plan Plan: Assessment: #1. Shortness of breath, related to COVID19 related pneumonitis #2. Previous history of pulmonary embolism on Eliquis for anticoagulation #3. Chronic hypoxemic respiratory failure related to advanced COPD usually wears 2 L of oxygen at home #4. Difficulty hearing #5. Osteoarthritis #6. History of anemia #7. History of bilateral cataracts #8. Morbid obesity Plan: We'll switch the oral prednisone to IV Solu-Medrol 60 mg every 6 hours, continue oral anticoagulation, inflammatory markers are improving, but her oxygen demand has not improved, and he still has quite significant exertional dyspnea, but no fever or chills, she was not a candidate for Remdesivir, related to the length of symptoms. We'll continue with supportive treatment. Transfuse with 1 unit of convalescent plasma. I performed a history & physical examination of the patient and discussed their management with my nurse practitioner, Nora Walker. I reviewed the nurse practitioner's note and agree with the documented findings and plan of care. Lung sounds are positive for diminished breath sounds. The findings and the impression was discussed with the patient. I attest to the documentation by the nurse practitioner. Time with Patient: Less than 30
[2020-05-04 15:12] LABS: D-Dimer 0.64 mg/L FEU (<0.60)
[2020-05-04 15:20] VITALS: BMI 35.2
[2020-05-04 16:25] LABS: Glucose,Whole Blood 183 mg/dL (75-99)
[2020-05-04] MEDS: MELATONIN 5 MG TABLET PO SCH (22:12)
--- NOTE | 2020-05-05 01:28 | P.PN ---
Subjective Progress Note Date: 05/04/20 Principal diagnosis: Respiratory distress with coronavirus The patient is here essentially for COPD and history of COVID19 exposure and diagnosis.There is significant improvement clinically today and With significant improvement. However, she is desaturating quite easily secondary to element of COPD. The patient feels as though she did not improved and states that she feels that as though she is backsliding. Objective - Vital Signs Vital signs: Vital Signs Temp 98 F 05/05/20 00:48 Pulse 70 05/05/20 00:48 Resp 20 05/05/20 00:48 BP 111/62 05/05/20 00:48 Pulse Ox 94 L 05/05/20 00:48 Intake & Output 05/04/20 05/04/20 05/05/20 06:59 18:59 06:59 Intake Total 203 Balance 203 Weight 92.986 kg Intake: Blood Product 203 Ffp Pher Conval Covid19 203 Acda 3 Unit [id number] Other: Voiding Method Bedside Commode Bedside Commode Bedside Commode # Voids 1 3 1 # Bowel Movements 1 - Constitutional General appearance: Present: mild distress - EENT Eyes: Absent: anicteric sclerae - Respiratory Respiratory: bilateral: CTA - Cardiovascular Rhythm: regular Heart sounds: normal: S1, S2 Abnormal Heart Sounds: Absent: S3 Gallop - Gastrointestinal General gastrointestinal: Present: soft. Absent: tenderness - Musculoskeletal Musculoskeletal: Present: generalized weakness - Psychiatric Psychiatric: Present: A&O x's 3, appropriate affect - Labs CBC & Chem 7: 05/04/20 05:56 05/04/20 05:56 Labs: Abnormal Lab Results - Last 24 Hours (Table) 05/04/20 05/04/20 05/04/20 Range/Units 05:56 05:56 14:20 Lymphocytes # 0.5 L (1.0-4.8) k/uL Fibrinogen 608 H (200-500) mg/dL D-Dimer 0.64 H (<0.60) mg/L FEU Potassium 3.4 L (3.5-5.5) mmol/L Anion Gap 12.10 H (4.00-12.00) mmol/L Glucose 114 H (70-110) mg/dL POC Glucose (mg/dL) (75-99) mg/dL Calcium 8.6 L (8.7-10.3) mg/dL Lactate Dehydrogenase 429 H (120-246) U/L C-Reactive Protein 9.5 H (0.0-0.8) mg/dL Total Protein 5.9 L (6.2-8.2) g/dL 05/04/20 Range/Units 16:24 Lymphocytes # (1.0-4.8) k/uL Fibrinogen (200-500) mg/dL D-Dimer (<0.60) mg/L FEU Potassium (3.5-5.5) mmol/L Anion Gap (4.00-12.00) mmol/L Glucose (70-110) mg/dL POC Glucose (mg/dL) 183 H (75-99) mg/dL Calcium (8.7-10.3) mg/dL Lactate Dehydrogenase (120-246) U/L C-Reactive Protein (0.0-0.8) mg/dL Total Protein (6.2-8.2) g/dL Assessment and Plan (1) COVID-19 Current Visit: Yes Status: Acute Code(s): U07.1 - COVID-19 SNOMED Code(s): 578612463 (2) Hypoxia Current Visit: Yes Status: Acute Code(s): R09.02 - HYPOXEMIA SNOMED Code(s): 688783330 (3) COPD (chronic obstructive pulmonary disease) with emphysema Current Visit: No Status: Acute Code(s): J43.9 - EMPHYSEMA, UNSPECIFIED SNOMED Code(s): 72897594 Plan: Appreciate Pulmonology input. Poor progress compared to yesterday. She has difficulty getting to the bathroom without signifnce. See orders otherwise. She continues to need high flow oxygen but clinically she seems better than the last 48 hours. Check CBC and CMP in the a.m. Time with Patient: Greater than 30
[2020-05-05] MEDS: methylPREDNISolone SOD SUCCI 125 MG/2 ML VIAL IV SCH ×3 (05:21→17:23)
[2020-05-05 06:49] LABS: Basophils % (A) 0 %; Eosinophils % (A) 0 %; HCT 38.8 % (34.0-46.0); HGB 12.5 gm/dL (11.4-16.0); Lymphocytes # (A) 0.3 k/uL (1.0-4.8); Lymphocytes % (A) 7 %; MCH 30.3 pg (25.0-35.0); MCHC 32.1 g/dL (31.0-37.0); MCV 94.3 fL (80.0-100.0); Mean Platelet Volume 6.7; Monocytes # (A) 0.1 k/uL (0-1.0); Monocytes % (A) 3 %; Neutrophils % (A) 89 %; Platelet Count 326 k/uL (150-450); RBC 4.11 m/uL (3.80-5.40); RDW 13.3 % (11.5-15.5); WBC 4.5 k/uL (3.8-10.6)
[2020-05-05] MEDS: FAMOTIDINE 20 MG TAB PO SCH (07:34)
[2020-05-05] MEDS: ZINC SULFATE 220 MG CAP PO SCH (07:34)
[2020-05-05] MEDS: ASCORBIC ACID 500 MG TAB PO SCH (07:35)
[2020-05-05] MEDS: CHOLECALCIFEROL 1,000 UNIT TAB PO SCH (07:35)
[2020-05-05] MEDS: CITALOPRAM HYDROBROMIDE 10 MG TAB PO SCH (07:35)
[2020-05-05] MEDS: APIXABAN 5 MG TAB PO SCH ×2 (07:35→21:40)
[2020-05-05] MEDS: ALBUTEROL HFA INHALER INHALATION PRN ×4 (09:05→21:05)
[2020-05-05] MEDS: SYMBICORT 160-4.5 MCG INHALER INHALATION SCH ×2 (09:05→21:05)
[2020-05-05] MEDS: TIOTROPIUM 18 MCG/PUFF INHALER INHALATION SCH (09:05)
[2020-05-05 10:28] LABS: Albumin/Globulin Ratio 1.74 (1.60-3.17); Anion Gap 10.5 mmol/L (4.00-12.00); BUN/Creat Ratio 15.71 Ratio (12.00-20.00); C Reactive Protein 17.4 mg/dL (0.0-0.8); Calcium 8.9 mg/dL (8.7-10.3); Carbon Dioxide 32.5 mmol/L (21.6-31.8); Globulin 2.3 g/dL (1.6-3.3); Non-African American GFR(CKD) 87.2 (60.0-200.0); Potassium 4.1 mmol/L (3.5-5.5); Total Bilirubin 0.5 mg/dL (0.3-1.2); Total Protein 6.3 g/dL (6.2-8.2)
--- NOTE | 2020-05-05 16:32 | P.PN ---
Subjective Progress Note Date: 05/05/20 Principal diagnosis: Acute CoVID 19 pneumonitis This is a 69-year-old white female patient that came into the hospital on 2019 for evaluation of shortness of breath, and who had a positive outpatient [place] 19 testing on April 22. Patient denied any fever or chills, no chest pain, or chest discomfort, no lightheadedness or dizziness, no GI symptoms no nausea vomiting diarrhea or abdominal pain. She is not particularly short of breath on presentation, other than with exertion. Chest x-ray was completed in the ED showing no definitive acute lung disease other than some mild pulmonary fibrotic tissues. She had a low-grade fever on presentation with a temp of 100.4F, she's been afebrile overnight, -7 stable, follow-up chest x- ray shows patchy basilar infiltrates greatest at the right lung base, stable exam, her inflammatory markers were elevated on presentation, with LDH up to 827, and CRP up to 62.7, pro calcitonin level was negative. Patient is on n ebulized bronchodilators, she is on oral prednisone, she is on Symbicort and Spiriva and albuterol inhaler, she does have underlying history of COPD on home oxygen, and is an ex-smoker, she has a past medical history of pulmonary embolism, she is on Eliquis for chronic anticoagulation. On 05/02/2020 patient seen in follow-up on the medical surgical floor, she is doing better, feeling better today, requiring supplemental oxygen, currently at 4 L with a pulse ox of 93%, she's been afebrile, hemodynamically stable. No nausea vomiting or diarrhea. No fever overnight, no chills. Pro calcitonin was negative at 0.08, follow-up inflammatory markers are pending, patient was not a candidate for Remdesivir related to onset of symptoms being greater than 3 weeks ago. Yesterday chest x-ray showed patchy basilar infiltrates greatest at the right base, stable exam, follow-up inflammatory markers are pending. Patient remains on oral Decadron, nebulized bronchodilators and steroids, On 05/04/2020 patient seen in follow-up on a general medical surgical floor. Still requiring 15 L of oxygen, her pulse ox is between 89-92%, patient is very short of breath with any exertion, dropped down to 70% when getting up out of bed, she states she feels okay, however she has not made any significant imp rovement in terms of her symptoms, or gas exchange her oxygen requirement. Chest x-ray has not shown any significant improvement, continues to show patchy bilateral airspace disease. No fever or chills. Today's labs have been reviewed, lymphopenia persists, lymphocyte count is 0.5, white blood cell count is 8.4, hemoglobin is 12.6, d-dimer was 0.45, LDH is 429, CRP is 9.5, overall her inflammatory markers have improved since admission. Patient has been on oral prednisone, breathing treatments, she is on oral anticoagulation and form of Eliquis, she is on Pepcid, zinc supplement, and vitamin C supplement. She has been self proning in bed. The patient is seen today 05/05/2020 and follow-up on the regular medical floor. She is currently resting in bed. She is still somewhat weak, fatigued, shaky. Still requiring 15 L high flow nasal cannula to maintain O2 saturation in the 90s. White count 4.5. Hemoglobin 12.5. Sodium 141. Potassium 4.1. Creatinine 0.7. LDH 338. C-reactive protein 17.4. She did receive convalescent plasma. She remains on vitamin C, vitamin D, Pepcid, melatonin, zinc. Anticoagulated with Eliquis. Continued on bronchodilators, IV Solu-Medrol. Objective - Vital Signs Vital signs: Vital Signs Temp 97.7 F 05/05/20 15:00 Pulse 82 05/05/20 15:00 Resp 22 05/05/20 15:00 BP 144/67 05/05/20 15:00 Pulse Ox 90 L 05/05/20 15:00 Intake & Output 05/04/20 05/05/20 05/05/20 18:59 06:59 18:59 Intake Total 203 Balance 203 Weight 92.986 kg Intake: Blood Product 203 Ffp Pher Conval Covid19 203 Acda 3 Unit [id number] Other: Voiding Method Bedside Commode Bedside Commode Bedside Commode # Voids 3 1 3 # Bowel Movements 2 - Exam GENERAL EXAM: Alert, very pleasant, 69-year-old white female on 15 L of oxygen pulse ox of 90% comfortable in no apparent distress. HEAD: Normocephalic/atraumatic. EYES: Normal reaction of pupils, equal size. Conjunctiva pink, sclera white. NOSE: Clear with pink turbinates. THROAT: No erythema or exudates. NECK: No masses, no JVD, no thyroid enlargement, no adenopathy. CHEST: No chest wall deformity. Symmetrical expansion. LUNGS: Equal air entry with bilateral scattered rhonchi. CVS: Regular rate and rhythm, normal S1 and S2, no gallops, no murmurs, no rubs ABDOMEN: Soft, nontender. No hepatosplenomegaly, normal bowel sounds, no guarding or rigidity. EXTREMITIES: No clubbing, no edema, no cyanosis, 2+ pulses and upper and lower extremities. MUSCULOSKELETAL: Muscle strength and tone normal. SPINE: No scoliosis or deformity SKIN: No rashes CENTRAL NERVOUS SYSTEM: Alert and oriented -3. No focal deficits, tone is norm al in all 4 extremities. PSYCHIATRIC: Alert and oriented -3. Appropriate affect. Intact judgment and insight. - Labs CBC & Chem 7: 05/05/20 06:14 05/05/20 06:14 Labs: Abnormal Lab Results - Last 24 Hours (Table) 05/04/20 05/05/20 05/05/20 Range/Units 16:24 06:14 06:14 Lymphocytes # 0.3 L (1.0-4.8) k/uL Carbon Dioxide 32.5 H (21.6-31.8) mmol/L Glucose 172 H (70-110) mg/dL POC Glucose (mg/dL) 183 H (75-99) mg/dL Lactate Dehydrogenase 338 H (120-246) U/L C-Reactive Protein 17.4 H (0.0-0.8) mg/dL Assessment and Plan Assessment: 1. Acute hypoxic respiratory failure secondary to COVID19 related pneumonitis 2. Previous history of pulmonary embolism on Eliquis for anticoagulation 3. Chronic hypoxemic respiratory failure related to advanced COPD usually wears 2 L of oxygen at home 4. Difficulty hearing 5. Osteoarthritis 6. History of anemia 7. History of bilateral cataracts 8. Morbid obesity Plan: The patient was seen and evaluated by Dr. Rock She has been slow to improve She did receive convalescent plasma Continue the current treatment plan Titrate down the FiO2 as tolerated We'll continue to follow I, the cosigning physician, performed a history & physical examination of the patient. Lungs sounds with bilateral scattered rhonchi. Maintaining good O2 saturations in the 90s on 15 L high flow nasal cannula. I discussed the assessment and plan of care with my nurse practitioner, Madeline Montes. I attest to the above note as dictated by her.
[2020-05-05] MEDS: MELATONIN 5 MG TABLET PO SCH (21:40)
[2020-05-06] MEDS: methylPREDNISolone SOD SUCCI 125 MG/2 ML VIAL IV SCH ×4 (01:03→16:59)
[2020-05-06 06:55] LABS: Glucose,Whole Blood 181 mg/dL (75-99)
[2020-05-06] MEDS: ZINC SULFATE 220 MG CAP PO SCH (07:38)
[2020-05-06] MEDS: FAMOTIDINE 20 MG TAB PO SCH (07:38)
[2020-05-06] MEDS: CHOLECALCIFEROL 1,000 UNIT TAB PO SCH (07:38)
[2020-05-06] MEDS: APIXABAN 5 MG TAB PO SCH ×2 (07:38→20:28)
[2020-05-06] MEDS: ASCORBIC ACID 500 MG TAB PO SCH (07:38)
[2020-05-06] MEDS: CITALOPRAM HYDROBROMIDE 10 MG TAB PO SCH (07:38)
--- NOTE | 2020-05-06 07:56 | XR ---
EXAMINATION TYPE: XR chest 1V portable DATE OF EXAM: 05/06/2020 HISTORY: Shortness of breath. COMPARISON: 05/03/2020 TECHNIQUE: Single view of the chest is submitted. FINDINGS: Demonstrated are scattered senescent parenchymal change. Persistent mixed interstitial and alveolar infiltrates throughout the mid and lower lung zones greate st at the right lung base. Overall no significant change is appreciated. The heart is stable. Hilar and mediastinal structures are within normal limits. Degenerative changes are seen of the dorsal spine. IMPRESSION: 1. Persistent mixed interstitial and alveolar infiltrates throughout the mid and lower lung zones gr eatest at the right lung base. Overall no significant change is appreciated.
[2020-05-06] MEDS: ALBUTEROL HFA INHALER INHALATION PRN ×4 (08:28→20:19)
[2020-05-06] MEDS: SYMBICORT 160-4.5 MCG INHALER INHALATION SCH ×2 (08:28→20:19)
[2020-05-06] MEDS: TIOTROPIUM 18 MCG/PUFF INHALER INHALATION SCH (08:28)
[2020-05-06 11:21] LABS: Glucose,Whole Blood 186 mg/dL (75-99)
--- NOTE | 2020-05-06 11:58 | P.PN ---
Subjective Progress Note Date: 05/05/20 Principal diagnosis: Acute CoVID 19 pneumonitis Acute hypoxic respiratory failure 69-year-old white female patient that came into the hospital on 2019 for evaluation of shortness of breath, and who had a positive outpatient [place] 19 testing on April 22. Chest x-ray was completed in the ED showing no definitive acute lung disease other than some mild pulmonary fibrotic tissues. She had a low-grade fever on presentation with a temp of 100.4F, she's been afebrile overnight, -7 stable, follow-up chest x-ray shows patchy basilar infiltrates greatest at the right lung base, stable exam, her inflammatory markers were elevated on presentation, with LDH up to 827, and CRP up to 62.7, pro calcitonin level was negative. Patient is on nebulized bronchodilators, she is on oral prednisone, she is on Symbicort and Spiriva and albuterol inhaler, she does have underlying history of COPD on home oxygen, and is an ex-smoker, she has a past medical history of pulmonary embolism, she is on Eliquis for chronic anticoagulation. Objective - Vital Signs Vital signs: Vital Signs Temp 97.5 F L 05/05/20 07:00 Pulse 72 05/05/20 07:00 Resp 22 05/05/20 07:00 BP 125/63 05/05/20 07:00 Pulse Ox 90 L 05/05/20 07:00 Intake & Output 05/04/20 05/05/20 05/05/20 18:59 06:59 18:59 Intake Total 203 Balance 203 Weight 92.986 kg Intake: Blood Product 203 Ffp Pher Conval Covid19 203 Acda 3 Unit [id number] Other: Voiding Method Bedside Commode Bedside Commode Bedside Commode # Voids 3 1 - Exam GENERAL EXAM: Alert, very pleasant, 69-year-old white female on 15 L of oxygen pulse ox of 90% comfortable in no apparent distress. HEAD: Normocephalic/atraumatic. NECK: No masses, no JVD, no thyroid enlargement, no adenopathy. CHEST: No chest wall deformity. Symmetrical expansion. LUNGS: Equal air entry with bilateral scattered rhonchi. CVS: Regular rate and rhythm, normal S1 and S2, no gallops, no murmurs, no rubs ABDOMEN: Soft, nontender. No hepatosplenomegaly, normal bowel sounds, no guarding or rigidity. EXTREMITIES: No clubbing, no edema, no cyanosis, 2+ pulses and upper and lower extremities. - Labs CBC & Chem 7: 05/05/20 06:14 05/05/20 06:14 Labs: Abnormal Lab Results - Last 24 Hours (Table) 05/04/20 05/04/20 05/05/20 Range/Units 14:20 16:24 06:14 Lymphocytes # 0.3 L (1.0-4.8) k/uL Fibrinogen 608 H (200-500) mg/dL D-Dimer 0.64 H (<0.60) mg/L FEU Carbon Dioxide (21.6-31.8) mmol/L Glucose (70-110) mg/dL POC Glucose (mg/dL) 183 H (75-99) mg/dL Lactate Dehydrogenase (120-246) U/L C-Reactive Protein (0.0-0.8) mg/dL 05/05/20 Range/Units 06:14 Lymphocytes # (1.0-4.8) k/uL Fibrinogen (200-500) mg/dL D-Dimer (<0.60) mg/L FEU Carbon Dioxide 32.5 H (21.6-31.8) mmol/L Glucose 172 H (70-110) mg/dL POC Glucose (mg/dL) (75-99) mg/dL Lactate Dehydrogenase 338 H (120-246) U/L C-Reactive Protein 17.4 H (0.0-0.8) mg/dL Assessment and Plan Assessment: 1. Acute hypoxic respiratory failure secondary to COVID19 related pneumonitis - Patient has been treated with convalescent plasma; remains on IV steroids, Symbicort and Spiriva and albuterol inhaler - Patient remains on at bedtime and see oxygen at 15 L and maintaining SpO2 and 90s 2. Pulmonary embolism; remains on Eliquis for anticoagulation 3. Chronic hypoxemic respiratory failure related to advanced COPD usually wears 2 L of oxygen at home; patient remains on high flow oxygen at 15 L; pulmonary board and recommending to venous tolerated 4. Osteoarthritis; Tylenol when necessary 6. History of anemia; stable 7. Morbid obesity; counseling done on weight reduction DVT prophylaxis; SCDs/systemic anticoagulation CODE STATUS; full code
[2020-05-06 13:40] LABS: D-Dimer 0.93 mg/L FEU (<0.60)
[2020-05-06 16:32] LABS: Glucose,Whole Blood 168 mg/dL (75-99)
--- NOTE | 2020-05-06 18:08 | P.PN ---
Subjective Progress Note Date: 05/06/20 Principal diagnosis: Acute CoVID 19 pneumonitis This is a 69-year-old white female patient that came into the hospital on 2019 for evaluation of shortness of breath, and who had a positive outpatient [place] 19 testing on April 22. Patient denied any fever or chills, no chest pain, or chest discomfort, no lightheadedness or dizziness, no GI symptoms no nausea vomiting diarrhea or abdominal pain. She is not particularly short of breath on presentation, other than with exertion. Chest x-ray was completed in the ED showing no definitive acute lung disease other than some mild pulmonary fibrotic tissues. She had a low-grade fever on presentation with a temp of 100.4F, she's been afebrile overnight, -7 stable, follow-up chest x- ray shows patchy basilar infiltrates greatest at the right lung base, stable exam, her inflammatory markers were elevated on presentation, with LDH up to 827, and CRP up to 62.7, pro calcitonin level was negative. Patient is on n ebulized bronchodilators, she is on oral prednisone, she is on Symbicort and Spiriva and albuterol inhaler, she does have underlying history of COPD on home oxygen, and is an ex-smoker, she has a past medical history of pulmonary embolism, she is on Eliquis for chronic anticoagulation. On 05/02/2020 patient seen in follow-up on the medical surgical floor, she is doing better, feeling better today, requiring supplemental oxygen, currently at 4 L with a pulse ox of 93%, she's been afebrile, hemodynamically stable. No nausea vomiting or diarrhea. No fever overnight, no chills. Pro calcitonin was negative at 0.08, follow-up inflammatory markers are pending, patient was not a candidate for Remdesivir related to onset of symptoms being greater than 3 weeks ago. Yesterday chest x-ray showed patchy basilar infiltrates greatest at the right base, stable exam, follow-up inflammatory markers are pending. Patient remains on oral Decadron, nebulized bronchodilators and steroids, On 05/04/2020 patient seen in follow-up on a general medical surgical floor. Still requiring 15 L of oxygen, her pulse ox is between 89-92%, patient is very short of breath with any exertion, dropped down to 70% when getting up out of bed, she states she feels okay, however she has not made any significant imp rovement in terms of her symptoms, or gas exchange her oxygen requirement. Chest x-ray has not shown any significant improvement, continues to show patchy bilateral airspace disease. No fever or chills. Today's labs have been reviewed, lymphopenia persists, lymphocyte count is 0.5, white blood cell count is 8.4, hemoglobin is 12.6, d-dimer was 0.45, LDH is 429, CRP is 9.5, overall her inflammatory markers have improved since admission. Patient has been on oral prednisone, breathing treatments, she is on oral anticoagulation and form of Eliquis, she is on Pepcid, zinc supplement, and vitamin C supplement. She has been self proning in bed. The patient is seen today 05/05/2020 and follow-up on the regular medical floor. She is currently resting in bed. She is still somewhat weak, fatigued, shaky. Still requiring 15 L high flow nasal cannula to maintain O2 saturation in the 90s. White count 4.5. Hemoglobin 12.5. Sodium 141. Potassium 4.1. Creatinine 0.7. LDH 338. C-reactive protein 17.4. She did receive convalescent plasma. She remains on vitamin C, vitamin D, Pepcid, melatonin, zinc. Anticoagulated with Eliquis. Continued on bronchodilators, IV Solu-Medrol. The patient is seen today 05/06/2020 in follow-up on the regular medical floor. Currently resting comfortably in bed. Awake and alert in no acute distress. She has been slow to progress. She is still requiring 15 L high flow nasal cannula to maintain O2 saturations in the 90s. She is feeling a bit stronger today. A little less short of breath. She has completed her treatment with REM does appear. She did receive convalescent plasma. She is maintained on vitamin C, vitamin D, Pepcid, melatonin, zinc. Anticoagulated with Eliquis. Continued on bronchodilators, IV Solu-Medrol. His x-ray shows persistent mixed interstitial and alveolar infiltrate throughout the mid and lower lung zones more so on the right lung base. No significant change. D-dimer 0.93. Blood glucose 168. Objective - Vital Signs Vital signs: Vital Signs Temp 97.8 F 05/06/20 15:00 Pulse 74 05/06/20 15:00 Resp 22 05/06/20 15:00 BP 122/61 05/06/20 15:00 Pulse Ox 90 L 05/06/20 15:00 Intake & Output 05/05/20 05/06/20 05/06/20 18:59 06:59 18:59 Intake Total 1200 Balance 1200 Intake: Oral 1200 Other: Voiding Method Bedside Commode Bedpan Bedpan # Voids 3 1 # Bowel Movements 2 - Exam GENERAL EXAM: Alert, very pleasant, 69-year-old white female on 15 L of oxygen pulse ox of 90% comfortable in no apparent distress. HEAD: Normocephalic/atraumatic. EYES: Normal reaction of pupils, equal size. Conjunctiva pink, sclera white. NOSE: Clear with pink turbinates. THROAT: No erythema or exudates. NECK: No masses, no JVD, no thyroid enlargement, no adenopathy. CHEST: No chest wall deformity. Symmetrical expansion. LUNGS: Equal air entry with bilateral scattered rhonchi. CVS: Regular rate and rhythm, normal S1 and S2, no gallops, no murmurs, no rubs ABDOMEN: Soft, nontender. No hepatosplenomegaly, normal bowel sounds, no guarding or rigidity. EXTREMITIES: No clubbing, no edema, no cyanosis, 2+ pulses and upper and lower extremities. MUSCULOSKELETAL: Muscle strength and tone normal. SPINE: No scoliosis or deformity SKIN: No rashes CENTRAL NERVOUS SYSTEM: Alert and oriented -3. No focal deficits, tone is normal in all 4 extremities. PSYCHIATRIC: Alert and oriented -3. Appropriate affect. Intact judgment and insight. - Labs CBC & Chem 7: 05/05/20 06:14 05/05/20 06:14 Labs: Abnormal Lab Results - Last 24 Hours (Table) 05/06/20 05/06/20 05/06/20 Range/Units 06:53 11:17 13:14 Fibrinogen 552 H (200-500) mg/dL D-Dimer 0.93 H (<0.60) mg/L FEU POC Glucose (mg/dL) 181 H 186 H (75-99) mg/dL 05/06/20 Range/Units 16:28 Fibrinogen (200-500) mg/dL D-Dimer (<0.60) mg/L FEU POC Glucose (mg/dL) 168 H (75-99) mg/dL Assessment and Plan Assessment: 1. Acute hypoxic respiratory failure secondary to COVID19 related pneumonitis 2. Previous history of pulmonary embolism on Eliquis for anticoagulation 3. Chronic hypoxemic respiratory failure related to advanced COPD usually wears 2 L of oxygen at home 4. Difficulty hearing 5. Osteoarthritis 6. History of anemia 7. History of bilateral cataracts 8. Morbid obesity Plan: The patient was seen and evaluated by Dr. Rock Chest x-ray reviewed She has been slow to improve Continue the current treatment plan Titrate down the FiO2 as tolerated We'll continue to follow I, the cosigning physician, performed a history & physical examination of the patient. Lungs sounds with bilateral scattered rhonchi. Maintaining good O2 saturations in the 90s on 15 L high flow nasal cannula. I discussed the assessment and plan of care with my nurse practitioner, Madeline Montes. I attest to the above note as dictated by her.
--- NOTE | 2020-05-06 18:36 | P.PN ---
Subjective Progress Note Date: 05/06/20 Principal diagnosis: Acute CoVID 19 pneumonitis Acute hypoxic respiratory failure 69-year-old white female patient that came into the hospital on 2019 for evaluation of shortness of breath, and who had a positive outpatient [place] 19 testing on April 22. Chest x-ray was completed in the ED showing no definitive acute lung disease other than some mild pulmonary fibrotic tissues. She had a low-grade fever on presentation with a temp of 100.4F, she's been afebrile overnight, -7 stable, follow-up chest x-ray shows patchy basilar infiltrates greatest at the right lung base, stable exam, her inflammatory markers were elevated on presentation, with LDH up to 827, and CRP up to 62.7, pro calcitonin level was negative. Patient is on nebulized bronchodilators, she is on oral prednisone, she is on Symbicort and Spiriva and albuterol inhaler, she does have underlying history of COPD on home oxygen, and is an ex-smoker, she has a past medical history of pulmonary embolism, she is on Eliquis for chronic anticoagulation. 05/06/2020 Patient seen in follow-up on the regular medical floor. Currently resting comfortably in bed. Awake and alert in no acute distress. She has been slow to progress. She is still requiring 15 L high flow nasal cannula to maintain O2 saturations in the 90s. She is feeling a bit stronger today. A little less short of breath. She has completed her treatment with REM does appear. She did receive convalescent plasma. She is maintained on vitamin C, vitamin D, Pepcid, melatonin, zinc. Anticoagulated with Eliquis. Continued on bronchodilators, IV Solu-Medrol. His x-ray shows persistent mixed interstitial and alveolar infiltrate throughout the mid and lower lung zones more so on the right lung base. No significant change. D-dimer 0.93. Blood glucose 168. Objective - Vital Signs Vital signs: Vital Signs Temp 97.8 F 05/06/20 07:00 Pulse 74 05/06/20 07:00 Resp 22 05/06/20 07:38 BP 122/61 05/06/20 07:00 Pulse Ox 90 L 05/06/20 07:00 Intake & Output 05/05/20 05/06/20 05/06/20 18:59 06:59 18:59 Other: Voiding Method Bedside Commode Bedpan Bedpan # Voids 3 1 # Bowel Movements 2 - Exam GENERAL EXAM: Alert, very pleasant, 69-year-old white female on 15 L of oxygen pulse ox of 90% comfortable in no apparent distress. HEAD: Normocephalic/atraumatic. NECK: No masses, no JVD, no thyroid enlargement, no adenopathy. CHEST: No chest wall deformity. Symmetrical expansion. LUNGS: Equal air entry with bilateral scattered rhonchi. CVS: Regular rate and rhythm, normal S1 and S2, no gallops, no murmurs, no rubs ABDOMEN: Soft, nontender. No hepatosplenomegaly, normal bowel sounds, no guarding or rigidity. EXTREMITIES: No clubbing, no edema, no cyanosis, 2+ pulses and upper and lower extremities. - Labs CBC & Chem 7: 05/05/20 06:14 05/05/20 06:14 Labs: Abnormal Lab Results - Last 24 Hours (Table) 05/06/20 05/06/20 Range/Units 06:53 11:17 POC Glucose (mg/dL) 181 H 186 H (75-99) mg/dL Assessment and Plan Assessment: 1. Acute hypoxic respiratory failure secondary to COVID19 related pneumonitis - Patient has been treated with convalescent plasma; remains on IV steroids, Symbicort and Spiriva and albuterol inhaler - Patient remains on at bedtime and see oxygen at 15 L and maintaining SpO2 and 90s 2. Pulmonary embolism; remains on Eliquis for anticoagulation 3. Chronic hypoxemic respiratory failure related to advanced COPD usually wears 2 L of oxygen at home; patient remains on high flow oxygen at 15 L; pulmonary board and recommending to venous tolerated 4. Osteoarthritis; Tylenol when necessary 6. History of anemia; stable 7. Morbid obesity; counseling done on weight reduction DVT prophylaxis; SCDs/systemic anticoagulation CODE STATUS; full code
[2020-05-06] MEDS: MELATONIN 5 MG TABLET PO SCH (20:28)
[2020-05-06 20:54] LABS: Glucose,Whole Blood 198 mg/dL (75-99)
[2020-05-07] MEDS: methylPREDNISolone SOD SUCCI 125 MG/2 ML VIAL IV SCH ×5 (01:48→22:45)
[2020-05-07 07:04] LABS: Glucose,Whole Blood 168 mg/dL (75-99)
[2020-05-07] MEDS: APIXABAN 5 MG TAB PO SCH ×2 (07:44→22:45)
[2020-05-07] MEDS: CHOLECALCIFEROL 1,000 UNIT TAB PO SCH (07:44)
[2020-05-07] MEDS: ASCORBIC ACID 500 MG TAB PO SCH (07:44)
[2020-05-07] MEDS: FAMOTIDINE 20 MG TAB PO SCH (07:45)
[2020-05-07] MEDS: ZINC SULFATE 220 MG CAP PO SCH (07:45)
[2020-05-07] MEDS: CITALOPRAM HYDROBROMIDE 10 MG TAB PO SCH (07:45)
[2020-05-07] MEDS: TIOTROPIUM 18 MCG/PUFF INHALER INHALATION SCH (08:24)
[2020-05-07] MEDS: ALBUTEROL HFA INHALER INHALATION PRN ×4 (08:24→21:08)
[2020-05-07] MEDS: SYMBICORT 160-4.5 MCG INHALER INHALATION SCH ×2 (08:25→21:07)
[2020-05-07 11:31] LABS: Glucose,Whole Blood 200 mg/dL (75-99)
[2020-05-07 16:34] LABS: Glucose,Whole Blood 170 mg/dL (75-99)
[2020-05-07] MEDS: INSULIN ASPART (NovoLOG) 100 UNIT/ML VIAL SQ SCH ×2 (16:51→22:45)
--- NOTE | 2020-05-07 17:13 | P.PN ---
Subjective Progress Note Date: 05/07/20 Principal diagnosis: Shortness of breath related to Covid 19 related pneumonitis This is a 69-year-old white female patient that came into the hospital on 2019 for evaluation of shortness of breath, and who had a positive outpatient [place] 19 testing on April 22. Patient denied any fever or chills, no chest pain, or chest discomfort, no lightheadedness or dizziness, no GI symptoms no nausea vomiting diarrhea or abdominal pain. She is not particularly short of breath on presentation, other than with exertion. Chest x-ray was completed in the ED showing no definitive acute lung disease other than some mild pulmonary fibrotic tissues. She had a low-grade fever on presentation with a temp of 100.4F, she's been afebrile overnight, -7 stable, follow-up chest x- ray shows patchy basilar infiltrates greatest at the right lung base, stable exam, her inflammatory markers were elevated on presentation, with LDH up to 827, and CRP up to 62.7, pro calcitonin level was negative. Patient is on nebulized bronchodilators, she is on oral prednisone, she is on Symbicort and Spiriva and albuterol inhaler, she does have underlying history of COPD on home oxygen, and is an ex-smoker, she has a past medical history of pulmonary embolism, she is on Eliquis for chronic anticoagulation. On 05/02/2020 patient seen in follow-up on the medical surgical floor, she is d oing better, feeling better today, requiring supplemental oxygen, currently at 4 L with a pulse ox of 93%, she's been afebrile, hemodynamically stable. No nausea vomiting or diarrhea. No fever overnight, no chills. Pro calcitonin was negative at 0.08, follow-up inflammatory markers are pending, patient was not a candidate for Remdesivir related to onset of symptoms being greater than 3 weeks ago. Yesterday chest x-ray showed patchy basilar infiltrates greatest at the right base, stable exam, follow-up inflammatory markers are pending. Patient remains on oral Decadron, nebulized bronchodilators and steroids, On 05/04/2020 patient seen in follow-up on a general medical surgical floor. S till requiring 15 L of oxygen, her pulse ox is between 89-92%, patient is very short of breath with any exertion, dropped down to 70% when getting up out of bed, she states she feels okay, however she has not made any significant improvement in terms of her symptoms, or gas exchange her oxygen requirement. Chest x-ray has not shown any significant improvement, continues to show patchy bilateral airspace disease. No fever or chills. Today's labs have been reviewed, lymphopenia persists, lymphocyte count is 0.5, white blood cell count is 8.4, hemoglobin is 12.6, d-dimer was 0.45, LDH is 429, CRP is 9.5, overall her inflammatory markers have improved since admission. Patient has been on ora l prednisone, breathing treatments, she is on oral anticoagulation and form of Eliquis, she is on Pepcid, zinc supplement, and vitamin C supplement. She has been self proning in bed. On 05/10/2020 patient seen in follow-up on medical surgical floor. She remains on 50 oxygen currently at 15 L, her pulse ox is 90%, appears to be breathing comfortably, denies any acute distress, despite the low oxygenation. She has been afebrile overnight, vital signs have been stable. She continues on IV ster oids, nebulized bronchodilators, she is status post 1 unit of less than plasma. Patient was not a candidate for Remdesivir, related to like the symptoms Objective - Vital Signs Vital signs: Vital Signs Temp 98.3 F 05/07/20 14:38 Pulse 84 05/07/20 14:38 Resp 19 05/07/20 14:38 BP 158/76 05/07/20 14:38 Pulse Ox 91 L 05/07/20 14:38 Intake & Output 05/06/20 05/07/20 05/07/20 18:59 06:59 18:59 Intake Total 1200 Balance 1200 Intake: Oral 1200 Other: Voiding Method Bedpan Bedpan Bedpan # Voids 1 2 - Exam GENERAL EXAM: Alert, very pleasant, 69-year-old white female on 15 L of oxygen pulse ox of 92% comfortable in no apparent distress. HEAD: Normocephalic/atraumatic. EYES: Normal reaction of pupils, equal size. Conjunctiva pink, sclera white. NOSE: Clear with pink turbinates. THROAT: No erythema or exudates. NECK: No masses, no JVD, no thyroid enlargement, no adenopathy. CHEST: No chest wall deformity. Symmetrical expansion. LUNGS: Equal air entry with no crackles, wheeze, rhonchi or dullness. CVS: Regular rate and rhythm, normal S1 and S2, no gallops, no murmurs, no rubs ABDOMEN: Soft, nontender. No hepatosplenomegaly, normal bowel sounds, no guarding or rigidity. EXTREMITIES: No clubbing, no edema, no cyanosis, 2+ pulses and upper and lower extremities. MUSCULOSKELETAL: Muscle strength and tone normal. SPINE: No scoliosis or deformity SKIN: No rashes CENTRAL NERVOUS SYSTEM: Alert and oriented -3. No focal deficits, tone is normal in all 4 extremities. PSYCHIATRIC: Alert and oriented -3. Appropriate affect. Intact judgment and insight. - Labs CBC & Chem 7: 05/05/20 06:14 05/05/20 06:14 Labs: Abnormal Lab Results - Last 24 Hours (Table) 05/06/20 05/07/20 05/07/20 Range/Units 20:52 07:02 11:30 POC Glucose (mg/dL) 198 H 168 H 200 H (75-99) mg/dL 05/07/20 Range/Units 16:32 POC Glucose (mg/dL) 170 H (75-99) mg/dL Assessment and Plan Plan: Assessment: #1. Shortness of breath, related to COVID19 related pneumonitis, and patient was not candidate for Remdesivir related to length of the symptoms #2. Previous history of pulmonary embolism on Eliquis for anticoagulation #3. Chronic hypoxemic respiratory failure related to advanced COPD usually wears 2 L of oxygen at home #4. Difficulty hearing #5. Osteoarthritis #6. History of anemia #7. History of bilateral cataracts #8. Morbid obesity Plan: Continue current medical treatment, IV steroids, continue nebulized bronchodilators, Pepcid, patient slow to improve, continues to require high flow oxygen, follow up inflammatory markers will be obtained, chest x-ray. We will continue to follow, continue encouraging the patient on supplements including zinc, vitamin C, continue oral anticoagulation I performed a history & physical examination of the patient and discussed their management with my nurse practitioner, Nora Walker. I reviewed the nurse practitioner's note and agree with the documented findings and plan of care. Lung sounds are positive for diminished breath sounds. The findings and the impression was discussed with the patient. I attest to the documentation by the nurse practitioner. Time with Patient: Less than 30
[2020-05-07 20:52] LABS: Glucose,Whole Blood 214 mg/dL (75-99)
[2020-05-07] MEDS: MELATONIN 5 MG TABLET PO SCH (22:45)
--- NOTE | 2020-05-07 22:46 | P.PN ---
Subjective Principal diagnosis: Respiratory distress with coronavirus The patient is here essentially for COPD and history of COVID19 exposure and diagnosis.There is significant improvement clinically today and With significant improvement. However, she is desaturating quite easily secondary to element of COPD. There is slight improvement although she still has Difficulty with dyspnea on exertion. Objective - Vital Signs Vital signs: Vital Signs Temp 97.9 F 05/07/20 21:37 Pulse 91 05/07/20 21:37 Resp 19 05/07/20 21:37 BP 160/79 05/07/20 21:37 Pulse Ox 90 L 05/07/20 21:37 Intake & Output 05/07/20 05/07/20 05/08/20 06:59 18:59 06:59 Other: Voiding Method Bedpan Bedpan # Voids 1 2 0 - Constitutional General appearance: Present: no acute distress - EENT Eyes: Absent: abnormal pupil - Neck Neck: Absent: lymphadenopathy - Respiratory Respiratory: bilateral: diminished - Cardiovascular Rhythm: regular Heart sounds: normal: S1, S2 Abnormal Heart Sounds: Absent: S3 Gallop - Gastrointestinal General gastrointestinal: Present: soft. Absent: tenderness - Neurologic Neurologic: Present: CNII-XII intact - Labs CBC & Chem 7: 05/05/20 06:14 05/05/20 06:14 Labs: Abnormal Lab Results - Last 24 Hours (Table) 05/07/20 05/07/20 05/07/20 Range/Units 07:02 11:30 16:32 POC Glucose (mg/dL) 168 H 200 H 170 H (75-99) mg/dL 05/07/20 Range/Units 20:51 POC Glucose (mg/dL) 214 H (75-99) mg/dL Assessment and Plan (1) COVID-19 Current Visit: Yes Status: Acute Code(s): U07.1 - COVID-19 SNOMED Code(s): 600359988 (2) Hypoxia Current Visit: Yes Status: Acute Code(s): R09.02 - HYPOXEMIA SNOMED Code(s): 090899293 (3) COPD (chronic obstructive pulmonary disease) with emphysema Current Visit: No Status: Acute Code(s): J43.9 - EMPHYSEMA, UNSPECIFIED SNOMED Code(s): 27644863 Plan: Appreciate Pulmonology input. Slight improvement clinically. See orders otherwise. She continues to need high flow oxygen but clinically she seems better than the last 48 hours. Check CBC and CMP in the a.m.
[2020-05-08] MEDS: methylPREDNISolone SOD SUCCI 125 MG/2 ML VIAL IV SCH ×3 (05:56→17:20)
[2020-05-08 07:00] LABS: Glucose,Whole Blood 156 mg/dL (75-99)
[2020-05-08] MEDS: ASCORBIC ACID 500 MG TAB PO SCH (07:32)
[2020-05-08] MEDS: INSULIN ASPART (NovoLOG) 100 UNIT/ML VIAL SQ SCH ×4 (07:32→20:56)
[2020-05-08] MEDS: CHOLECALCIFEROL 1,000 UNIT TAB PO SCH (07:33)
[2020-05-08] MEDS: CITALOPRAM HYDROBROMIDE 10 MG TAB PO SCH (07:33)
[2020-05-08] MEDS: FAMOTIDINE 20 MG TAB PO SCH (07:33)
[2020-05-08] MEDS: APIXABAN 5 MG TAB PO SCH ×2 (07:34→20:56)
[2020-05-08] MEDS: ZINC SULFATE 220 MG CAP PO SCH (07:34)
--- NOTE | 2020-05-08 07:55 | P.PN ---
Subjective Principal diagnosis: Respiratory distress with coronavirus The patient is here essentially for COPD and history of COVID19 exposure and diagnosis.There is significant improvement clinically today and With significant improvement. However, she is desaturating quite easily secondary to element of COPD. There is slight improvement although she still has Difficulty with dyspnea on exertion. Slow improvement. Hopefully we can start ambulating minimally Objective - Vital Signs Vital signs: Vital Signs Temp 97.8 F 05/08/20 07:00 Pulse 72 05/08/20 07:00 Resp 17 05/08/20 07:00 BP 155/81 05/08/20 07:00 Pulse Ox 89 L 05/08/20 07:00 Intake & Output 05/07/20 05/08/20 05/08/20 18:59 06:59 18:59 Other: Voiding Method Bedpan Bedpan # Voids 2 1 - Constitutional General appearance: Present: no acute distress - EENT Eyes: Absent: abnormal pupil - Neck Neck: Absent: lymphadenopathy - Respiratory Respiratory: bilateral: diminished - Cardiovascular Rhythm: regular Heart sounds: normal: S1, S2 Abnormal Heart Sounds: Absent: S3 Gallop - Gastrointestinal General gastrointestinal: Present: soft. Absent: tenderness - Psychiatric Psychiatric: Present: A&O x's 3 - Labs CBC & Chem 7: 05/05/20 06:14 05/05/20 06:14 Labs: Abnormal Lab Results - Last 24 Hours (Table) 05/07/20 05/07/20 05/07/20 Range/Units 11:30 16:32 20:51 D-Dimer (<0.60) mg/L FEU POC Glucose (mg/dL) 200 H 170 H 214 H (75-99) mg/dL 05/08/20 05/08/20 Range/Units 06:17 06:58 D-Dimer 1.05 H (<0.60) mg/L FEU POC Glucose (mg/dL) 156 H (75-99) mg/dL Assessment and Plan (1) COVID-19 Current Visit: Yes Status: Acute Code(s): U07.1 - COVID-19 SNOMED Code(s): 433764125 (2) Hypoxia Current Visit: Yes Status: Acute Code(s): R09.02 - HYPOXEMIA SNOMED Code(s): 267370304 (3) COPD (chronic obstructive pulmonary disease) with emphysema Current Visit: No Status: Acute Code(s): J43.9 - EMPHYSEMA, UNSPECIFIED SNOMED Code(s): 38063548 Plan: Appreciate Pulmonology input. Again slight improvement. Check CBC and CMP in a.m.
[2020-05-08] MEDS: ALBUTEROL HFA INHALER INHALATION PRN ×4 (08:01→19:20)
[2020-05-08] MEDS: SYMBICORT 160-4.5 MCG INHALER INHALATION SCH ×2 (08:01→19:20)
[2020-05-08] MEDS: TIOTROPIUM 18 MCG/PUFF INHALER INHALATION SCH (08:01)
[2020-05-08 10:03] LABS: C Reactive Protein 1.5 mg/dL (0.0-0.8)
--- NOTE | 2020-05-08 11:19 | XR ---
EXAMINATION TYPE: XR chest 1V portable DATE OF EXAM: 05/08/2020 COMPARISON: 05/06/2020 INDICATION: Covid 19 TECHNIQUE: Single frontal view of the chest is obtained. FINDINGS: The heart size is normal. The pulmonary vasculature is normal. Bibasilar peripheral infiltrates are present similar to comparison. Findings can be compatible with a typical pneumonia. IMPRESSION: 1. Findings compatible with atypical pneumonia at the periphery and bilateral lung bases.
[2020-05-08 11:58] LABS: Glucose,Whole Blood 160 mg/dL (75-99)
--- NOTE | 2020-05-08 15:23 | P.PN ---
Subjective Progress Note Date: 05/08/20 Principal diagnosis: Shortness of breath related to Covid 19 related pneumonitis This is a 69-year-old white female patient that came into the hospital on 2019 for evaluation of shortness of breath, and who had a positive outpatient [place] 19 testing on April 22. Patient denied any fever or chills, no chest pain, or chest discomfort, no lightheadedness or dizziness, no GI symptoms no nausea vomiting diarrhea or abdominal pain. She is not particularly short of breath on presentation, other than with exertion. Chest x-ray was completed in the ED showing no definitive acute lung disease other than some mild pulmonary fibrotic tissues. She had a low-grade fever on presentation with a temp of 100.4F, she's been afebrile overnight, -7 stable, follow-up chest x- ray shows patchy basilar infiltrates greatest at the right lung base, stable exam, her inflammatory markers were elevated on presentation, with LDH up to 827, and CRP up to 62.7, pro calcitonin level was negative. Patient is on nebulized bronchodilators, she is on oral prednisone, she is on Symbicort and Spiriva and albuterol inhaler, she does have underlying history of COPD on home oxygen, and is an ex-smoker, she has a past medical history of pulmonary embolism, she is on Eliquis for chronic anticoagulation. On 05/02/2020 patient seen in follow-up on the medical surgical floor, she is d oing better, feeling better today, requiring supplemental oxygen, currently at 4 L with a pulse ox of 93%, she's been afebrile, hemodynamically stable. No nausea vomiting or diarrhea. No fever overnight, no chills. Pro calcitonin was negative at 0.08, follow-up inflammatory markers are pending, patient was not a candidate for Remdesivir related to onset of symptoms being greater than 3 weeks ago. Yesterday chest x-ray showed patchy basilar infiltrates greatest at the right base, stable exam, follow-up inflammatory markers are pending. Patient remains on oral Decadron, nebulized bronchodilators and steroids, On 05/04/2020 patient seen in follow-up on a general medical surgical floor. S till requiring 15 L of oxygen, her pulse ox is between 89-92%, patient is very short of breath with any exertion, dropped down to 70% when getting up out of bed, she states she feels okay, however she has not made any significant improvement in terms of her symptoms, or gas exchange her oxygen requirement. Chest x-ray has not shown any significant improvement, continues to show patchy bilateral airspace disease. No fever or chills. Today's labs have been reviewed, lymphopenia persists, lymphocyte count is 0.5, white blood cell count is 8.4, hemoglobin is 12.6, d-dimer was 0.45, LDH is 429, CRP is 9.5, overall her inflammatory markers have improved since admission. Patient has been on ora l prednisone, breathing treatments, she is on oral anticoagulation and form of Eliquis, she is on Pepcid, zinc supplement, and vitamin C supplement. She has been self proning in bed. On 05/10/2020 patient seen in follow-up on medical surgical floor. She remains on 50 oxygen currently at 15 L, her pulse ox is 90%, appears to be breathing comfortably, denies any acute distress, despite the low oxygenation. She has been afebrile overnight, vital signs have been stable. She continues on IV ster oids, nebulized bronchodilators, she is status post 1 unit of less than plasma. Patient was not a candidate for Remdesivir, related to like the symptoms On 05/08/2020 patient seen in follow-up on medical surgical floor. She is down to 11 L from 15 L, her pulse ox is 8990, she is awake and alert, appears to be in no acute distress, breathing comfortably, she has been self troponin in bed, denies any chest discomfort, or palpitations, overall she states she is feeling better, she status post transfusion of one unit of convalescent plasma. His labs have been reviewed, LDH is 398 relatively stable over the last few days, but overall improved since admission, and CRP is improving and is down to 1.5 today. D-dimer is 1.05, and patient is on Eliquis for anticoagulation, she remains on bronchodilators, and IV Solu-Medrol. Objective - Vital Signs Vital signs: Vital Signs Temp 97.5 F L 05/08/20 14:26 Pulse 94 05/08/20 14:26 Resp 18 05/08/20 14:26 BP 144/69 05/08/20 14:26 Pulse Ox 91 L 11/17/20 14:26 Intake & Output 05/07/20 05/08/20 05/08/20 18:59 06:59 18:59 Other: Voiding Method Bedpan Bedpan # Voids 2 1 2 - Exam GENERAL EXAM: Alert, very pleasant, 69-year-old white female on 11 L of oxygen pulse ox of 91% comfortable in no apparent distress. HEAD: Normocephalic/atraumatic. EYES: Normal reaction of pupils, equal size. Conjunctiva pink, sclera white. NOSE: Clear with pink turbinates. THROAT: No erythema or exudates. NECK: No masses, no JVD, no thyroid enlargement, no adenopathy. CHEST: No chest wall deformity. Symmetrical expansion. LUNGS: Equal air entry with no crackles, wheeze, rhonchi or dullness. CVS: Regular rate and rhythm, normal S1 and S2, no gallops, no murmurs, no rubs ABDOMEN: Soft, nontender. No hepatosplenomegaly, normal bowel sounds, no guarding or rigidity. EXTREMITIES: No clubbing, no edema, no cyanosis, 2+ pulses and upper and lower extremities. MUSCULOSKELETAL: Muscle strength and tone normal. SPINE: No scoliosis or deformity SKIN: No rashes CENTRAL NERVOUS SYSTEM: Alert and oriented -3. No focal deficits, tone is normal in all 4 extremities. PSYCHIATRIC: Alert and oriented -3. Appropriate affect. Intact judgment and insight. - Labs CBC & Chem 7: 05/05/20 06:14 05/05/20 06:14 Labs: Abnormal Lab Results - Last 24 Hours (Table) 05/07/20 05/07/20 05/08/20 Range/Units 16:32 20:51 06:17 D-Dimer 1.05 H (<0.60) mg/L FEU POC Glucose (mg/dL) 170 H 214 H (75-99) mg/dL Lactate Dehydrogenase (120-246) U/L C-Reactive Protein (0.0-0.8) mg/dL 05/08/20 05/08/20 05/08/20 Range/Units 06:17 06:58 11:57 D-Dimer (<0.60) mg/L FEU POC Glucose (mg/dL) 156 H 160 H (75-99) mg/dL Lactate Dehydrogenase 398 H (120-246) U/L C-Reactive Protein 1.5 H (0.0-0.8) mg/dL Assessment and Plan Plan: Assessment: #1. Shortness of breath, related to COVID19 related pneumonitis, and patient was not candidate for Remdesivir related to length of the symptoms, she is status post convalescent plasma with 1 unit #2. Previous history of pulmonary embolism on Eliquis for anticoagulation #3. Chronic hypoxemic respiratory failure related to advanced COPD usually wears 2 L of oxygen at home #4. Difficulty hearing #5. Osteoarthritis #6. History of anemia #7. History of bilateral cataracts #8. Morbid obesity Plan: We'll continue current medical treatment, continue weaning down the FiO2, continue IV Solu-Medrol, bronchodilators, Eliquis, today's inflammatory markers have been noted, overall stable, but improved since admission. Continue to encourage the patient to self prone, breathing comfortably, patient is afebrile. We'll continue to follow I performed a history & physical examination of the patient and discussed their management with my nurse practitioner, Nora Walker. I reviewed the nurse practitioner's note and agree with the documented findings and plan of care. Lung sounds are positive for diminished breath sounds. The findings and the impression was discussed with the patient. I attest to the documentation by the nurse practitioner. Time with Patient: Less than 30
[2020-05-08 16:29] LABS: Glucose,Whole Blood 195 mg/dL (75-99)
[2020-05-08 20:22] LABS: Glucose,Whole Blood 198 mg/dL (75-99)
[2020-05-08] MEDS: MELATONIN 5 MG TABLET PO SCH (20:56)
[2020-05-09] MEDS: methylPREDNISolone SOD SUCCI 125 MG/2 ML VIAL IV SCH ×4 (00:36→17:40)
[2020-05-09 07:05] LABS: HCT 38.3 % (34.0-46.0); HGB 12.8 gm/dL (11.4-16.0); MCHC 33.5 g/dL (31.0-37.0); MCV 95.6 fL (80.0-100.0); Mean Platelet Volume 6.5; Platelet Count 369 k/uL (150-450); RBC 4.01 m/uL (3.80-5.40); RDW 12.9 % (11.5-15.5); WBC 9.8 k/uL (3.8-10.6)
[2020-05-09 07:34] LABS: Glucose,Whole Blood 182 mg/dL (75-99)
[2020-05-09] MEDS: INSULIN ASPART (NovoLOG) 100 UNIT/ML VIAL SQ SCH ×4 (07:53→21:21)
[2020-05-09] MEDS: CITALOPRAM HYDROBROMIDE 10 MG TAB PO SCH (07:56)
[2020-05-09] MEDS: APIXABAN 5 MG TAB PO SCH ×2 (08:04→21:21)
[2020-05-09] MEDS: FAMOTIDINE 20 MG TAB PO SCH (08:04)
[2020-05-09] MEDS: ZINC SULFATE 220 MG CAP PO SCH (08:04)
[2020-05-09] MEDS: ASCORBIC ACID 500 MG TAB PO SCH (08:05)
[2020-05-09] MEDS: CHOLECALCIFEROL 1,000 UNIT TAB PO SCH (08:05)
[2020-05-09] MEDS: TIOTROPIUM 18 MCG/PUFF INHALER INHALATION SCH (09:05)
[2020-05-09] MEDS: SYMBICORT 160-4.5 MCG INHALER INHALATION SCH ×2 (09:05→21:14)
[2020-05-09] MEDS: ALBUTEROL HFA INHALER INHALATION PRN ×3 (09:05→21:14)
[2020-05-09 09:26] LABS: Albumin 3.7 g/dL (3.80-4.90); Albumin/Globulin Ratio 2.06 (1.60-3.17); Anion Gap 8.7 mmol/L (4.00-12.00); C Reactive Protein 0.7 mg/dL (0.0-0.8); Calcium 8.9 mg/dL (8.7-10.3); Carbon Dioxide 34.3 mmol/L (21.6-31.8); Globulin 1.8 g/dL (1.6-3.3); Non-African American GFR(CKD) 74.2 (60.0-200.0); Potassium 4.7 mmol/L (3.5-5.5); Total Bilirubin 0.4 mg/dL (0.3-1.2); Total Protein 5.5 g/dL (6.2-8.2)
[2020-05-09 11:33] LABS: Glucose,Whole Blood 188 mg/dL (75-99)
--- NOTE | 2020-05-09 16:03 | P.PN ---
Subjective Progress Note Date: 05/09/20 Principal diagnosis: Shortness of breath related to Covid 19 related pneumonitis This is a 69-year-old white female patient that came into the hospital on 2019 for evaluation of shortness of breath, and who had a positive outpatient [place] 19 testing on April 22. Patient denied any fever or chills, no chest pain, or chest discomfort, no lightheadedness or dizziness, no GI symptoms no nausea vomiting diarrhea or abdominal pain. She is not particularly short of breath on presentation, other than with exertion. Chest x-ray was completed in the ED showing no definitive acute lung disease other than some mild pulmonary fibrotic tissues. She had a low-grade fever on presentation with a temp of 100.4F, she's been afebrile overnight, -7 stable, follow-up chest x- ray shows patchy basilar infiltrates greatest at the right lung base, stable exam, her inflammatory markers were elevated on presentation, with LDH up to 827, and CRP up to 62.7, pro calcitonin level was negative. Patient is on nebulized bronchodilators, she is on oral prednisone, she is on Symbicort and Spiriva and albuterol inhaler, she does have underlying history of COPD on home oxygen, and is an ex-smoker, she has a past medical history of pulmonary embolism, she is on Eliquis for chronic anticoagulation. On 05/02/2020 patient seen in follow-up on the medical surgical floor, she is d oing better, feeling better today, requiring supplemental oxygen, currently at 4 L with a pulse ox of 93%, she's been afebrile, hemodynamically stable. No nausea vomiting or diarrhea. No fever overnight, no chills. Pro calcitonin was negative at 0.08, follow-up inflammatory markers are pending, patient was not a candidate for Remdesivir related to onset of symptoms being greater than 3 weeks ago. Yesterday chest x-ray showed patchy basilar infiltrates greatest at the right base, stable exam, follow-up inflammatory markers are pending. Patient remains on oral Decadron, nebulized bronchodilators and steroids, On 05/04/2020 patient seen in follow-up on a general medical surgical floor. S till requiring 15 L of oxygen, her pulse ox is between 89-92%, patient is very short of breath with any exertion, dropped down to 70% when getting up out of bed, she states she feels okay, however she has not made any significant improvement in terms of her symptoms, or gas exchange her oxygen requirement. Chest x-ray has not shown any significant improvement, continues to show patchy bilateral airspace disease. No fever or chills. Today's labs have been reviewed, lymphopenia persists, lymphocyte count is 0.5, white blood cell count is 8.4, hemoglobin is 12.6, d-dimer was 0.45, LDH is 429, CRP is 9.5, overall her inflammatory markers have improved since admission. Patient has been on ora l prednisone, breathing treatments, she is on oral anticoagulation and form of Eliquis, she is on Pepcid, zinc supplement, and vitamin C supplement. She has been self proning in bed. On 05/10/2020 patient seen in follow-up on medical surgical floor. She remains on 50 oxygen currently at 15 L, her pulse ox is 90%, appears to be breathing comfortably, denies any acute distress, despite the low oxygenation. She has been afebrile overnight, vital signs have been stable. She continues on IV ster oids, nebulized bronchodilators, she is status post 1 unit of less than plasma. Patient was not a candidate for Remdesivir, related to like the symptoms On 05/08/2020 patient seen in follow-up on medical surgical floor. She is down to 11 L from 15 L, her pulse ox is 8990, she is awake and alert, appears to be in no acute distress, breathing comfortably, she has been self troponin in bed, denies any chest discomfort, or palpitations, overall she states she is feeling better, she status post transfusion of one unit of convalescent plasma. His labs have been reviewed, LDH is 398 relatively stable over the last few days, but overall improved since admission, and CRP is improving and is down to 1.5 today. D-dimer is 1.05, and patient is on Eliquis for anticoagulation, she remains on bronchodilators, and IV Solu-Medrol. On 05/09/2020 patient seen in follow-up on medical surgical floor. She still on high flow oxygen, currently at 12 L, her pulse ox is 93-94%, lung sounds reveal some mild wheezing with the right posterior lung, overall improved, no crackles, she is feeling better, breathing easier, her appetite has improved, no altered mentation. Patient has been self proning, denies any cough. She remains on IV steroids, she is on oral Eliquis. Objective - Vital Signs Vital signs: Vital Signs Temp 98.3 F 05/09/20 14:21 Pulse 86 05/09/20 14:21 Resp 20 05/09/20 14:21 BP 136/57 05/09/20 14:21 Pulse Ox 90 L 05/09/20 14:21 Intake & Output 05/08/20 05/09/20 05/09/20 18:59 06:59 18:59 Other: Voiding Method Bedpan # Voids 2 2 1 - Exam GENERAL EXAM: Alert, very pleasant, 69-year-old white female on 10 L of oxygen pulse ox of 91% comfortable in no apparent distress. HEAD: Normocephalic/atraumatic. EYES: Normal reaction of pupils, equal size. Conjunctiva pink, sclera white. NOSE: Clear with pink turbinates. THROAT: No erythema or exudates. NECK: No masses, no JVD, no thyroid enlargement, no adenopathy. CHEST: No chest wall deformity. Symmetrical expansion. LUNGS: Equal air entry with no crackles, wheeze, rhonchi or dullness. CVS: Regular rate and rhythm, normal S1 and S2, no gallops, no murmurs, no rubs ABDOMEN: Soft, nontender. No hepatosplenomegaly, normal bowel sounds, no guarding or rigidity. EXTREMITIES: No clubbing, no edema, no cyanosis, 2+ pulses and upper and lower extremities. MUSCULOSKELETAL: Muscle strength and tone normal. SPINE: No scoliosis or deformity SKIN: No rashes CENTRAL NERVOUS SYSTEM: Alert and oriented -3. No focal deficits, tone is normal in all 4 extremities. PSYCHIATRIC: Alert and oriented -3. Appropriate affect. Intact judgment and insight. - Labs CBC & Chem 7: 05/09/20 06:44 05/09/20 06:44 Labs: Abnormal Lab Results - Last 24 Hours (Table) 05/08/20 05/08/20 05/09/20 Range/Units 16:28 20:20 06:44 D-Dimer 1.17 H (<0.60) mg/L FEU Carbon Dioxide (21.6-31.8) mmol/L BUN/Creatinine Ratio (12.00-20.00) Ratio Glucose (70-110) mg/dL POC Glucose (mg/dL) 195 H 198 H (75-99) mg/dL Lactate Dehydrogenase (120-246) U/L Total Protein (6.2-8.2) g/dL Albumin (3.80-4.90) g/dL 05/09/20 05/09/20 05/09/20 Range/Units 06:44 07:33 11:31 D-Dimer (<0.60) mg/L FEU Carbon Dioxide 34.3 H (21.6-31.8) mmol/L BUN/Creatinine Ratio 25.00 H (12.00-20.00) Ratio Glucose 180 H (70-110) mg/dL POC Glucose (mg/dL) 182 H 188 H (75-99) mg/dL Lactate Dehydrogenase 281 H (120-246) U/L Total Protein 5.5 L (6.2-8.2) g/dL Albumin 3.70 L (3.80-4.90) g/dL Assessment and Plan Plan: Assessment: #1. Shortness of breath, related to COVID19 related pneumonitis, and patient was not candidate for Remdesivir related to length of the symptoms, she is status post convalescent plasma with 1 unit #2. Previous history of pulmonary embolism on Eliquis for anticoagulation #3. Chronic hypoxemic respiratory failure related to advanced COPD usually wears 2 L of oxygen at home #4. Difficulty hearing #5. Osteoarthritis #6. History of anemia #7. History of bilateral cataracts #8. Morbid obesity Plan: Continue current medical treatment, wean FiO2, overall patient feels like she is improving, we'll try to wean down the FiO2, vital signs have been stable, patient has been afebrile. No cough, no congestion. No chest pain. I performed a history & physical examination of the patient and discussed their management with my nurse practitioner, Nora Walker. I reviewed the nurse practitioner's note and agree with the documented findings and plan of care. Lung sounds are positive for diminished breath sounds. The findings and the impression was discussed with the patient. I attest to the documentation by the nurse practitioner. Time with Patient: Less than 30
[2020-05-09 16:51] LABS: Glucose,Whole Blood 158 mg/dL (75-99)
[2020-05-09 20:32] LABS: Glucose,Whole Blood 204 mg/dL (75-99)
[2020-05-09] MEDS: MELATONIN 5 MG TABLET PO SCH (21:21)
[2020-05-10] MEDS: methylPREDNISolone SOD SUCCI 125 MG/2 ML VIAL IV SCH ×4 (00:01→18:22)
[2020-05-10 07:11] LABS: Glucose,Whole Blood 169 mg/dL (75-99)
[2020-05-10] MEDS: FAMOTIDINE 20 MG TAB PO SCH (07:51)
[2020-05-10] MEDS: ZINC SULFATE 220 MG CAP PO SCH (07:52)
[2020-05-10] MEDS: CHOLECALCIFEROL 1,000 UNIT TAB PO SCH (07:52)
[2020-05-10] MEDS: INSULIN ASPART (NovoLOG) 100 UNIT/ML VIAL SQ SCH ×4 (07:52→20:55)
[2020-05-10] MEDS: APIXABAN 5 MG TAB PO SCH ×2 (07:52→20:55)
[2020-05-10] MEDS: ASCORBIC ACID 500 MG TAB PO SCH (07:52)
[2020-05-10] MEDS: CITALOPRAM HYDROBROMIDE 10 MG TAB PO SCH (07:52)
--- NOTE | 2020-05-10 08:10 | P.PN ---
Subjective Principal diagnosis: Respiratory distress with coronavirus The patient is here essentially for COPD and history of COVID19 exposure and diagnosis.There is significant improvement clinically today and With significant improvement. However, she is desaturating quite easily secondary to element of COPD. Slow improvement. Hopefully we can start ambulating minimally. The patient sitting at side of the bed without difficulty and feels more positive about her prognosis. Objective - Vital Signs Vital signs: Vital Signs Temp 97.9 F 05/10/20 01:02 Pulse 76 05/10/20 01:02 Resp 16 05/10/20 01:02 BP 91/50 05/10/20 01:02 Pulse Ox 91 L 05/10/20 01:02 Intake & Output 05/09/20 05/10/20 05/10/20 18:59 06:59 18:59 Other: Voiding Method Bedpan Bedpan # Voids 1 1 - Constitutional General appearance: Present: no acute distress - EENT Eyes: Absent: abnormal pupil - Neck Neck: Absent: lymphadenopathy - Respiratory Respiratory: bilateral: CTA, diminished - Cardiovascular Rhythm: regular Heart sounds: normal: S1, S2 Abnormal Heart Sounds: Absent: S3 Gallop - Gastrointestinal General gastrointestinal: Present: soft. Absent: tenderness - Labs CBC & Chem 7: 05/09/20 06:44 05/09/20 06:44 Labs: Abnormal Lab Results - Last 24 Hours (Table) 05/09/20 05/09/20 05/09/20 Range/Units 06:44 11:31 16:49 Carbon Dioxide 34.3 H (21.6-31.8) mmol/L BUN/Creatinine Ratio 25.00 H (12.00-20.00) Ratio Glucose 180 H (70-110) mg/dL POC Glucose (mg/dL) 188 H 158 H (75-99) mg/dL Lactate Dehydrogenase 281 H (120-246) U/L Total Protein 5.5 L (6.2-8.2) g/dL Albumin 3.70 L (3.80-4.90) g/dL 05/09/20 05/10/20 Range/Units 20:30 07:10 Carbon Dioxide (21.6-31.8) mmol/L BUN/Creatinine Ratio (12.00-20.00) Ratio Glucose (70-110) mg/dL POC Glucose (mg/dL) 204 H 169 H (75-99) mg/dL Lactate Dehydrogenase (120-246) U/L Total Protein (6.2-8.2) g/dL Albumin (3.80-4.90) g/dL Assessment and Plan (1) COVID-19 Current Visit: Yes Status: Acute Code(s): U07.1 - COVID-19 SNOMED Code(s): 323822192 (2) Hypoxia Current Visit: Yes Status: Acute Code(s): R09.02 - HYPOXEMIA SNOMED Code(s): 398447723 (3) COPD (chronic obstructive pulmonary disease) with emphysema Current Visit: No Status: Acute Code(s): J43.9 - EMPHYSEMA, UNSPECIFIED SNOMED Code(s): 03493464
[2020-05-10] MEDS: ALBUTEROL HFA INHALER INHALATION PRN ×4 (08:18→20:50)
[2020-05-10] MEDS: SYMBICORT 160-4.5 MCG INHALER INHALATION SCH ×2 (08:18→20:50)
[2020-05-10] MEDS: TIOTROPIUM 18 MCG/PUFF INHALER INHALATION SCH (08:18)
[2020-05-10 11:09] LABS: Glucose,Whole Blood 202 mg/dL (75-99)
[2020-05-10 11:14] LABS: C Reactive Protein <0.4 mg/dL (0.0-0.8)
[2020-05-10 13:29] LABS: LDH 288 U/L (120-246)
--- NOTE | 2020-05-10 16:04 | P.PN ---
Subjective Progress Note Date: 05/10/20 Principal diagnosis: Shortness of breath related to Covid 19 related pneumonitis This is a 69-year-old white female patient that came into the hospital on 2019 for evaluation of shortness of breath, and who had a positive outpatient [place] 19 testing on April 22. Patient denied any fever or chills, no chest pain, or chest discomfort, no lightheadedness or dizziness, no GI symptoms no nausea vomiting diarrhea or abdominal pain. She is not particularly short of breath on presentation, other than with exertion. Chest x-ray was completed in the ED showing no definitive acute lung disease other than some mild pulmonary fibrotic tissues. She had a low-grade fever on presentation with a temp of 100.4F, she's been afebrile overnight, -7 stable, follow-up chest x- ray shows patchy basilar infiltrates greatest at the right lung base, stable exam, her inflammatory markers were elevated on presentation, with LDH up to 827, and CRP up to 62.7, pro calcitonin level was negative. Patient is on nebulized bronchodilators, she is on oral prednisone, she is on Symbicort and Spiriva and albuterol inhaler, she does have underlying history of COPD on home oxygen, and is an ex-smoker, she has a past medical history of pulmonary embolism, she is on Eliquis for chronic anticoagulation. On 05/02/2020 patient seen in follow-up on the medical surgical floor, she is d oing better, feeling better today, requiring supplemental oxygen, currently at 4 L with a pulse ox of 93%, she's been afebrile, hemodynamically stable. No nausea vomiting or diarrhea. No fever overnight, no chills. Pro calcitonin was negative at 0.08, follow-up inflammatory markers are pending, patient was not a candidate for Remdesivir related to onset of symptoms being greater than 3 weeks ago. Yesterday chest x-ray showed patchy basilar infiltrates greatest at the right base, stable exam, follow-up inflammatory markers are pending. Patient remains on oral Decadron, nebulized bronchodilators and steroids, On 05/04/2020 patient seen in follow-up on a general medical surgical floor. S till requiring 15 L of oxygen, her pulse ox is between 89-92%, patient is very short of breath with any exertion, dropped down to 70% when getting up out of bed, she states she feels okay, however she has not made any significant improvement in terms of her symptoms, or gas exchange her oxygen requirement. Chest x-ray has not shown any significant improvement, continues to show patchy bilateral airspace disease. No fever or chills. Today's labs have been reviewed, lymphopenia persists, lymphocyte count is 0.5, white blood cell count is 8.4, hemoglobin is 12.6, d-dimer was 0.45, LDH is 429, CRP is 9.5, overall her inflammatory markers have improved since admission. Patient has been on ora l prednisone, breathing treatments, she is on oral anticoagulation and form of Eliquis, she is on Pepcid, zinc supplement, and vitamin C supplement. She has been self proning in bed. On 05/10/2020 patient seen in follow-up on medical surgical floor. She remains on 50 oxygen currently at 15 L, her pulse ox is 90%, appears to be breathing comfortably, denies any acute distress, despite the low oxygenation. She has been afebrile overnight, vital signs have been stable. She continues on IV ster oids, nebulized bronchodilators, she is status post 1 unit of less than plasma. Patient was not a candidate for Remdesivir, related to like the symptoms On 05/08/2020 patient seen in follow-up on medical surgical floor. She is down to 11 L from 15 L, her pulse ox is 8990, she is awake and alert, appears to be in no acute distress, breathing comfortably, she has been self troponin in bed, denies any chest discomfort, or palpitations, overall she states she is feeling better, she status post transfusion of one unit of convalescent plasma. His labs have been reviewed, LDH is 398 relatively stable over the last few days, but overall improved since admission, and CRP is improving and is down to 1.5 today. D-dimer is 1.05, and patient is on Eliquis for anticoagulation, she remains on bronchodilators, and IV Solu-Medrol. On 05/09/2020 patient seen in follow-up on medical surgical floor. She still on high flow oxygen, currently at 12 L, her pulse ox is 93-94%, lung sounds reveal some mild wheezing with the right posterior lung, overall improved, no crackles, she is feeling better, breathing easier, her appetite has improved, no altered mentation. Patient has been self proning, denies any cough. She remains on IV steroids, she is on oral Eliquis. On 05/10/2020 patient seen in follow-up on medical surgical floor, remains at 10 L of oxygen with a pulse ox 94%, overall she is feeling better, still has exertional dyspnea, but breathing easier, dropped oxygen down to 8 L, her pulse ox is 92, afebrile, hemodynamically stable. No chest discomfort, occasional cough, today's labs have been noted, d-dimer is 1.10, CRP is less than 0.4, significantly improved, LDH is trending down. Patient was out of the window for Remdesivir, she was treated with steroids, and she is currently on IV steroids at 60 mg every 6 hours, she is on Symbicort, and the Ventolin albuterol, she is on oral anticoagulation in the form of Eliquis, she is on vitamin C, zinc supplement, she is on Pepcid, she status post convalescent plasma transfusion Objective - Vital Signs Vital signs: Vital Signs Temp 98.5 F 05/10/20 14:52 Pulse 68 05/10/20 14:52 Resp 20 05/10/20 14:52 BP 93/60 05/10/20 14:52 Pulse Ox 92 L 05/10/20 14:52 Intake & Output 05/09/20 05/10/20 05/10/20 18:59 06:59 18:59 Other: Voiding Method Bedpan Bedpan # Voids 1 1 1 # Bowel Movements 2 - Exam GENERAL EXAM: Alert, very pleasant, 69-year-old white female on 10 L of oxygen pulse ox of 94% comfortable in no apparent distress. HEAD: Normocephalic/atraumatic. EYES: Normal reaction of pupils, equal size. Conjunctiva pink, sclera white. NOSE: Clear with pink turbinates. THROAT: No erythema or exudates. NECK: No masses, no JVD, no thyroid enlargement, no adenopathy. CHEST: No chest wall deformity. Symmetrical expansion. LUNGS: Equal air entry with no crackles, wheeze, rhonchi or dullness. CVS: Regular rate and rhythm, normal S1 and S2, no gallops, no murmurs, no rubs ABDOMEN: Soft, nontender. No hepatosplenomegaly, normal bowel sounds, no guarding or rigidity. EXTREMITIES: No clubbing, no edema, no cyanosis, 2+ pulses and upper and lower extremities. MUSCULOSKELETAL: Muscle strength and tone normal. SPINE: No scoliosis or deformity SKIN: No rashes CENTRAL NERVOUS SYSTEM: Alert and oriented -3. No focal deficits, tone is normal in all 4 extremities. PSYCHIATRIC: Alert and oriented -3. Appropriate affect. Intact judgment and insight. - Labs CBC & Chem 7: 05/09/20 06:44 05/09/20 06:44 Labs: Abnormal Lab Results - Last 24 Hours (Table) 05/09/20 05/09/20 05/10/20 Range/Units 16:49 20:30 07:10 D-Dimer (<0.60) mg/L FEU POC Glucose (mg/dL) 158 H 204 H 169 H (75-99) mg/dL Lactate Dehydrogenase (120-246) U/L 05/10/20 05/10/20 05/10/20 Range/Units 07:30 07:30 11:08 D-Dimer 1.10 H (<0.60) mg/L FEU POC Glucose (mg/dL) 202 H (75-99) mg/dL Lactate Dehydrogenase 288 H (120-246) U/L Assessment and Plan Plan: Assessment: #1. Shortness of breath, related to COVID19 related pneumonitis, and patient was not candidate for Remdesivir related to length of the symptoms, she is status post convalescent plasma with 1 unit. #2. Previous history of pulmonary embolism on Eliquis for anticoagulation #3. Chronic hypoxemic respiratory failure related to advanced COPD usually wears 2 L of oxygen at home #4. Difficulty hearing #5. Osteoarthritis #6. History of anemia #7. History of bilateral cataracts #8. Morbid obesity Plan: Continue current medical treatment, IV steroids, wean FiO2, encourage patient to sit up in a chair, deep breathe and cough, ambulate in the room, continue bronchodilators, if we can wean the FiO2 down to less than 5 L/m we'll consider discharge home I performed a history & physical examination of the patient and discussed their management with my nurse practitioner, Nora Walker. I reviewed the nurse practitioner's note and agree with the documented findings and plan of care. Lung sounds are positive for diminished breath sounds. The findings and the impression was discussed with the patient. I attest to the documentation by the nurse practitioner. Time with Patient: Less than 30
[2020-05-10 16:22] LABS: Glucose,Whole Blood 215 mg/dL (75-99)
[2020-05-10 20:25] LABS: Glucose,Whole Blood 189 mg/dL (75-99)
[2020-05-10] MEDS: MELATONIN 5 MG TABLET PO SCH (20:55)
[2020-05-11] MEDS: methylPREDNISolone SOD SUCCI 125 MG/2 ML VIAL IV SCH ×4 (00:24→17:16)
[2020-05-11 06:49] LABS: Glucose,Whole Blood 158 mg/dL (75-99)
[2020-05-11] MEDS: TIOTROPIUM 18 MCG/PUFF INHALER INHALATION SCH (08:19)
[2020-05-11] MEDS: ALBUTEROL HFA INHALER INHALATION PRN ×4 (08:19→19:35)
[2020-05-11] MEDS: SYMBICORT 160-4.5 MCG INHALER INHALATION SCH ×2 (08:19→19:36)
[2020-05-11] MEDS: FAMOTIDINE 20 MG TAB PO SCH (08:21)
[2020-05-11] MEDS: ASCORBIC ACID 500 MG TAB PO SCH (08:21)
[2020-05-11] MEDS: APIXABAN 5 MG TAB PO SCH ×2 (08:21→21:33)
[2020-05-11] MEDS: INSULIN ASPART (NovoLOG) 100 UNIT/ML VIAL SQ SCH ×4 (08:21→21:32)
[2020-05-11] MEDS: CHOLECALCIFEROL 1,000 UNIT TAB PO SCH (08:22)
[2020-05-11] MEDS: CITALOPRAM HYDROBROMIDE 10 MG TAB PO SCH (08:22)
[2020-05-11] MEDS: ZINC SULFATE 220 MG CAP PO SCH (08:22)
--- NOTE | 2020-05-11 08:23 | P.PN ---
Subjective Principal diagnosis: Respiratory distress with coronavirus The patient is here essentially for COPD and history of COVID19 exposure and diagnosis.There is significant improvement clinically today and With significant improvement. However, she is desaturating quite easily secondary to element of COPD. Slow improvement. Hopefully we can start ambulating minimally. The patient sitting at side of the bed without difficulty and feels more positive about her prognosis. Objective - Vital Signs Vital signs: Vital Signs Temp 97.5 F L 05/11/20 05:42 Pulse 77 05/11/20 05:42 Resp 17 05/11/20 05:42 BP 135/74 05/11/20 05:42 Pulse Ox 95 05/11/20 05:42 Intake & Output 05/10/20 05/11/20 05/11/20 18:59 06:59 18:59 Other: Voiding Method Bedpan # Voids 1 2 # Bowel Movements 2 - Constitutional General appearance: Absent: average body habitus - EENT Eyes: Absent: abnormal pupil - Neck Neck: Absent: lymphadenopathy - Respiratory Respiratory: bilateral: diminished - Cardiovascular Rhythm: regular Heart sounds: normal: S1, S2 Abnormal Heart Sounds: Absent: S3 Gallop - Gastrointestinal General gastrointestinal: Present: soft. Absent: tenderness - Psychiatric Psychiatric: Present: A&O x's 3 - Labs CBC & Chem 7: 05/09/20 06:44 05/09/20 06:44 Labs: Abnormal Lab Results - Last 24 Hours (Table) 05/10/20 05/10/20 05/10/20 Range/Units 07:30 11:08 16:21 POC Glucose (mg/dL) 202 H 215 H (75-99) mg/dL Lactate Dehydrogenase 288 H (120-246) U/L 05/10/20 05/11/20 Range/Units 20:23 06:47 POC Glucose (mg/dL) 189 H 158 H (75-99) mg/dL Lactate Dehydrogenase (120-246) U/L Assessment and Plan (1) COVID-19 Current Visit: Yes Status: Acute Code(s): U07.1 - COVID-19 SNOMED Code(s): 749689453 (2) Hypoxia Current Visit: Yes Status: Acute Code(s): R09.02 - HYPOXEMIA SNOMED Code(s): 309773909 (3) COPD (chronic obstructive pulmonary disease) with emphysema Current Visit: No Status: Acute Code(s): J43.9 - EMPHYSEMA, UNSPECIFIED SNOMED Code(s): 90212381 Plan: Appreciate Pulmonology input. Slow improvement Multiple comorbidities Decrease oxygen level and increase ambulation to see how much for medical improvement we can obtain without fatiguing the patient. Dr. Tyson's group will covering for the weekend. Time with Patient: Less than 30
[2020-05-11 11:46] LABS: Glucose,Whole Blood 164 mg/dL (75-99)
--- NOTE | 2020-05-11 16:32 | P.PN ---
Subjective Progress Note Date: 05/11/20 Principal diagnosis: Shortness of breath related to Covid 19 related pneumonitis This is a 69-year-old white female patient that came into the hospital on 2019 for evaluation of shortness of breath, and who had a positive outpatient [place] 19 testing on April 22. Patient denied any fever or chills, no chest pain, or chest discomfort, no lightheadedness or dizziness, no GI symptoms no nausea vomiting diarrhea or abdominal pain. She is not particularly short of breath on presentation, other than with exertion. Chest x-ray was completed in the ED showing no definitive acute lung disease other than some mild pulmonary fibrotic tissues. She had a low-grade fever on presentation with a temp of 100.4F, she's been afebrile overnight, -7 stable, follow-up chest x- ray shows patchy basilar infiltrates greatest at the right lung base, stable exam, her inflammatory markers were elevated on presentation, with LDH up to 827, and CRP up to 62.7, pro calcitonin level was negative. Patient is on nebulized bronchodilators, she is on oral prednisone, she is on Symbicort and Spiriva and albuterol inhaler, she does have underlying history of COPD on home oxygen, and is an ex-smoker, she has a past medical history of pulmonary embolism, she is on Eliquis for chronic anticoagulation. On 05/02/2020 patient seen in follow-up on the medical surgical floor, she is d oing better, feeling better today, requiring supplemental oxygen, currently at 4 L with a pulse ox of 93%, she's been afebrile, hemodynamically stable. No nausea vomiting or diarrhea. No fever overnight, no chills. Pro calcitonin was negative at 0.08, follow-up inflammatory markers are pending, patient was not a candidate for Remdesivir related to onset of symptoms being greater than 3 weeks ago. Yesterday chest x-ray showed patchy basilar infiltrates greatest at the right base, stable exam, follow-up inflammatory markers are pending. Patient remains on oral Decadron, nebulized bronchodilators and steroids, On 05/04/2020 patient seen in follow-up on a general medical surgical floor. S till requiring 15 L of oxygen, her pulse ox is between 89-92%, patient is very short of breath with any exertion, dropped down to 70% when getting up out of bed, she states she feels okay, however she has not made any significant improvement in terms of her symptoms, or gas exchange her oxygen requirement. Chest x-ray has not shown any significant improvement, continues to show patchy bilateral airspace disease. No fever or chills. Today's labs have been reviewed, lymphopenia persists, lymphocyte count is 0.5, white blood cell count is 8.4, hemoglobin is 12.6, d-dimer was 0.45, LDH is 429, CRP is 9.5, overall her inflammatory markers have improved since admission. Patient has been on ora l prednisone, breathing treatments, she is on oral anticoagulation and form of Eliquis, she is on Pepcid, zinc supplement, and vitamin C supplement. She has been self proning in bed. On 05/10/2020 patient seen in follow-up on medical surgical floor. She remains on 50 oxygen currently at 15 L, her pulse ox is 90%, appears to be breathing comfortably, denies any acute distress, despite the low oxygenation. She has been afebrile overnight, vital signs have been stable. She continues on IV ster oids, nebulized bronchodilators, she is status post 1 unit of less than plasma. Patient was not a candidate for Remdesivir, related to like the symptoms On 05/08/2020 patient seen in follow-up on medical surgical floor. She is down to 11 L from 15 L, her pulse ox is 8990, she is awake and alert, appears to be in no acute distress, breathing comfortably, she has been self troponin in bed, denies any chest discomfort, or palpitations, overall she states she is feeling better, she status post transfusion of one unit of convalescent plasma. His labs have been reviewed, LDH is 398 relatively stable over the last few days, but overall improved since admission, and CRP is improving and is down to 1.5 today. D-dimer is 1.05, and patient is on Eliquis for anticoagulation, she remains on bronchodilators, and IV Solu-Medrol. On 05/09/2020 patient seen in follow-up on medical surgical floor. She still on high flow oxygen, currently at 12 L, her pulse ox is 93-94%, lung sounds reveal some mild wheezing with the right posterior lung, overall improved, no crackles, she is feeling better, breathing easier, her appetite has improved, no altered mentation. Patient has been self proning, denies any cough. She remains on IV steroids, she is on oral Eliquis. On 05/10/2020 patient seen in follow-up on medical surgical floor, remains at 10 L of oxygen with a pulse ox 94%, overall she is feeling better, still has exertional dyspnea, but breathing easier, dropped oxygen down to 8 L, her pulse ox is 92, afebrile, hemodynamically stable. No chest discomfort, occasional cough, today's labs have been noted, d-dimer is 1.10, CRP is less than 0.4, significantly improved, LDH is trending down. Patient was out of the window for Remdesivir, she was treated with steroids, and she is currently on IV steroids at 60 mg every 6 hours, she is on Symbicort, and the Ventolin albuterol, she is on oral anticoagulation in the form of Eliquis, she is on vitamin C, zinc supplement, she is on Pepcid, she status post convalescent plasma transfusion On 05/11/2020 patient seen in follow-up in medical surgical floor. She is still on 8 L of oxygen her pulse ox was 95%, will contact oxygen to 6 L, she still sat 93%, continue weaning FiO2, otherwise breathing is improving, she is breathing comfortably, less wheezy remains on high dose of IV Solu-Medrol, she was not a candidate for Remdesivir, continue Symbicort and albuterol, her inflammatory markers have been improving, she is on oral anticoagulation, vital signs have been stable Objective - Vital Signs Vital signs: Vital Signs Temp 98.5 F 05/11/20 14:00 Pulse 93 05/11/20 14:00 Resp 17 05/11/20 10:10 BP 142/67 05/11/20 14:00 Pulse Ox 93 L 05/11/20 14:00 Intake & Output 05/10/20 05/11/20 05/11/20 18:59 06:59 18:59 Other: Voiding Method Bedpan # Voids 1 2 1 # Bowel Movements 2 - Exam GENERAL EXAM: Alert, very pleasant, 69-year-old white female on 8 L of oxygen pulse ox of 95% comfortable in no apparent distress. HEAD: Normocephalic/atraumatic. EYES: Normal reaction of pupils, equal size. Conjunctiva pink, sclera white. NOSE: Clear with pink turbinates. THROAT: No erythema or exudates. NECK: No masses, no JVD, no thyroid enlargement, no adenopathy. CHEST: No chest wall deformity. Symmetrical expansion. LUNGS: Equal air entry with no crackles, wheeze, rhonchi or dullness. CVS: Regular rate and rhythm, normal S1 and S2, no gallops, no murmurs, no rubs ABDOMEN: Soft, nontender. No hepatosplenomegaly, normal bowel sounds, no guarding or rigidity. EXTREMITIES: No clubbing, no edema, no cyanosis, 2+ pulses and upper and lower extremities. MUSCULOSKELETAL: Muscle strength and tone normal. SPINE: No scoliosis or deformity SKIN: No rashes CENTRAL NERVOUS SYSTEM: Alert and oriented -3. No focal deficits, tone is normal in all 4 extremities. PSYCHIATRIC: Alert and oriented -3. Appropriate affect. Intact judgment and insight. - Labs CBC & Chem 7: 05/09/20 06:44 05/09/20 06:44 Labs: Abnormal Lab Results - Last 24 Hours (Table) 05/10/20 05/11/20 05/11/20 Range/Units 20:23 06:47 11:45 POC Glucose (mg/dL) 189 H 158 H 164 H (75-99) mg/dL Assessment and Plan Plan: Assessment: #1. Shortness of breath, related to COVID19 related pneumonitis, and patient was not candidate for Remdesivir related to length of the symptoms, she is status post convalescent plasma with 1 unit. #2. Previous history of pulmonary embolism on Eliquis for anticoagulation #3. Chronic hypoxemic respiratory failure related to advanced COPD usually wears 2 L of oxygen at home #4. Difficulty hearing #5. Osteoarthritis #6. History of anemia #7. History of bilateral cataracts #8. Morbid obesity Plan: Continue weaning FiO2, encouraged patient to sit up in chair, ambulate in the room, she is breathing comfortably, less short of breath and wheezy, no fever, her clinical markers were improving, she status post 1 unit of convalescent plasma, she was out of the window for Remdesivir. Continue IV Solu-Medrol, and bronchodilators, we'll consider discharge once her FiO2 is down to 5 L or less. I performed a history & physical examination of the patient and discussed their management with my nurse practitioner, Nora Walker. I reviewed the nurse practitioner's note and agree with the documented findings and plan of care. Lung sounds are positive for diminished breath sounds. The findings and the impression was discussed with the patient. I attest to the documentation by the nurse practitioner. Time with Patient: Less than 30
[2020-05-11 17:00] LABS: Glucose,Whole Blood 171 mg/dL (75-99)
[2020-05-11 20:40] LABS: Glucose,Whole Blood 242 mg/dL (75-99)
[2020-05-11] MEDS: MELATONIN 5 MG TABLET PO SCH (21:33)
[2020-05-12] MEDS: methylPREDNISolone SOD SUCCI 125 MG/2 ML VIAL IV SCH ×3 (00:46→12:22)
[2020-05-12 07:17] LABS: Glucose,Whole Blood 165 mg/dL (75-99)
[2020-05-12] MEDS: INSULIN ASPART (NovoLOG) 100 UNIT/ML VIAL SQ SCH ×4 (07:50→20:54)
[2020-05-12] MEDS: ASCORBIC ACID 500 MG TAB PO SCH (08:25)
[2020-05-12] MEDS: ZINC SULFATE 220 MG CAP PO SCH (08:25)
[2020-05-12] MEDS: FAMOTIDINE 20 MG TAB PO SCH (08:26)
[2020-05-12] MEDS: CHOLECALCIFEROL 1,000 UNIT TAB PO SCH (08:26)
[2020-05-12] MEDS: APIXABAN 5 MG TAB PO SCH ×2 (08:26→20:54)
[2020-05-12] MEDS: CITALOPRAM HYDROBROMIDE 10 MG TAB PO SCH (08:26)
[2020-05-12] MEDS: ALBUTEROL HFA INHALER INHALATION PRN ×2 (08:37→20:10)
[2020-05-12] MEDS: TIOTROPIUM 18 MCG/PUFF INHALER INHALATION SCH (08:37)
[2020-05-12] MEDS: SYMBICORT 160-4.5 MCG INHALER INHALATION SCH ×2 (08:38→20:11)
[2020-05-12 12:07] LABS: Glucose,Whole Blood 164 mg/dL (75-99)
--- NOTE | 2020-05-12 15:57 | P.PN ---
Subjective Patient was admitted for hypoxic respiratory failure secondary to covid 19. Patient is still on pallets of oxygen. She is on nonsolid maternal at this time we'll cut down the dose of Solu-Medrol. Constitutional: Denied any fatigue denied any fever. Cardio vascular: denied any chest pain, palpitations Gastrointestinal denied any nausea vomiting Pulmonary: Denied any shortness of breath cough Neurologic denied any new focal deficits All inpatient medications were reviewed and appropriate changes in these medications as dictated in the interval history and assessment and plan. Objective - Vital Signs Vital signs: Vital Signs Temp 97.9 F 05/12/20 15:02 Pulse 82 05/12/20 15:02 Resp 16 05/12/20 15:02 BP 138/72 05/12/20 15:02 Pulse Ox 93 L 05/12/20 15:02 Intake & Output 05/11/20 05/12/20 05/12/20 18:59 06:59 18:59 Intake Total 600 400 Balance 600 400 Intake: Oral 600 400 Other: # Voids 1 0 3 # Bowel Movements 1 - Exam PHYSICAL EXAMINATION: GENERAL: The patient is alert and oriented x3, not in any acute distress. Well developed, well nourished. HEENT: Pupils are round and equally reacting to light. EOMI. No scleral icterus. No conjunctival pallor. Normocephalic, atraumatic. No pharyngeal erythema. No thyromegaly. CARDIOVASCULAR: S1 and S2 present. No murmurs, rubs, or gallops. PULMONARY: Chest is clear to auscultation, no wheezing or crackles. ABDOMEN: Soft, nontender, nondistended, normoactive bowel sounds. No palpable organomegaly. MUSCULOSKELETAL: No joint swelling or deformity. EXTREMITIES: No cyanosis, clubbing, or pedal edema. NEUROLOGICAL: Gross neurological examination did not reveal any focal deficits. SKIN: No rashes. Note: Because of COVID 19 isolation, some of the history and physical exam findings are indirect and obtained from nursing staff, and other physician examinations to avoid unnecessary contact with the patient. - Labs CBC & Chem 7: 05/09/20 06:44 05/09/20 06:44 Labs: Abnormal Lab Results - Last 24 Hours (Table) 05/11/20 05/11/20 05/12/20 Range/Units 16:57 20:38 07:03 POC Glucose (mg/dL) 171 H 242 H 165 H (75-99) mg/dL 05/12/20 Range/Units 11:54 POC Glucose (mg/dL) 164 H (75-99) mg/dL Assessment and Plan Plan: 1 acute hypoxic respiratory failure secondary to opiate 19 pneumonitis she is on steroids. Status post convalescent plasma of presently supportive care along with steroids. --History of PE in the past patient is on Eliquis to continue -COPD with exacerbation patient will stop steroids as mentioned above
[2020-05-12 17:06] LABS: Glucose,Whole Blood 181 mg/dL (75-99)
[2020-05-12] MEDS: methylPREDNISolone SOD SUCCI 40 MG/ML 1 ML VIAL IV SCH ×2 (17:10→23:45)
--- NOTE | 2020-05-12 17:22 | P.PN ---
Subjective Progress Note Date: 05/12/20 Principal diagnosis: Acute CoVID 19 pneumonitis The patient is seen today 05/12/2020 in follow-up on the regular medical floor. She is currently resting comfortably in bed. Awake and alert in no acute distress. Currently maintaining O2 saturations in the 90s on 6 L high flow nasal cannula. She's afebrile. Hemodynamically stable. She is on home oxygen normally at 2 L/m per nasal cannula. Blood glucose 181. She's completed a course of Remdesivir. Remains on bronchodilators and IV Solu-Medrol. Anticoagulated with Eliquis. Remains on vitamin supplements. Objective - Vital Signs Vital signs: Vital Signs Temp 97.9 F 05/12/20 15:02 Pulse 82 05/12/20 15:02 Resp 16 05/12/20 15:02 BP 138/72 05/12/20 15:02 Pulse Ox 93 L 05/12/20 15:02 Intake & Output 05/11/20 05/12/20 05/12/20 18:59 06:59 18:59 Intake Total 600 400 Balance 600 400 Intake: Oral 600 400 Other: # Voids 1 0 3 # Bowel Movements 1 - Exam GENERAL EXAM: Alert, very pleasant, 69-year-old white female on 6 L of oxygen pulse ox of 93% comfortable in no apparent distress. HEAD: Normocephalic/atraumatic. EYES: Normal reaction of pupils, equal size. Conjunctiva pink, sclera white. NOSE: Clear with pink turbinates. THROAT: No erythema or exudates. NECK: No masses, no JVD, no thyroid enlargement, no adenopathy. CHEST: No chest wall deformity. Symmetrical expansion. LUNGS: Equal air entry with bilateral scattered rhonchi. CVS: Regular rate and rhythm, normal S1 and S2, no gallops, no murmurs, no rubs ABDOMEN: Soft, nontender. No hepatosplenomegaly, normal bowel sounds, no guarding or rigidity. EXTREMITIES: No clubbing, no edema, no cyanosis, 2+ pulses and upper and lower extremities. MUSCULOSKELETAL: Muscle strength and tone normal. SPINE: No scoliosis or deformity SKIN: No rashes CENTRAL NERVOUS SYSTEM: Alert and oriented -3. No focal deficits, tone is normal in all 4 extremities. PSYCHIATRIC: Alert and oriented -3. Appropriate affect. Intact judgment and insight. - Labs CBC & Chem 7: 11/18/20 06:44 05/09/20 06:44 Labs: Abnormal Lab Results - Last 24 Hours (Table) 05/11/20 05/12/20 05/12/20 Range/Units 20:38 07:03 11:54 POC Glucose (mg/dL) 242 H 165 H 164 H (75-99) mg/dL 05/12/20 Range/Units 16:57 POC Glucose (mg/dL) 181 H (75-99) mg/dL Assessment and Plan Assessment: 1. Acute hypoxic respiratory failure secondary to COVID19 related pneumonitis 2. Previous history of pulmonary embolism on Eliquis for anticoagulation 3. Chronic hypoxemic respiratory failure related to advanced COPD usually wears 2 L of oxygen at home 4. Difficulty hearing 5. Osteoarthritis 6. History of anemia 7. History of bilateral cataracts 8. Morbid obesity Plan: The patient was seen and evaluated by Dr. Teresa Lyman from the pulmonary standpoint, on 6 L high flow nasal cannula Titrate down the FiO2 as tolerated We'll continue to follow I, the cosigning physician, performed a history & physical examination of the patient. Lungs sounds with bilateral scattered rhonchi. Maintaining good O2 saturations in the 90s on 6 L high flow nasal cannula. I discussed the assessment and plan of care with my nurse practitioner, Madeline Montes. I attest to the above note as dictated by her.
[2020-05-12 20:23] LABS: Glucose,Whole Blood 186 mg/dL (75-99)
[2020-05-12] MEDS: MELATONIN 5 MG TABLET PO SCH (20:54)
[2020-05-13 07:19] LABS: Glucose,Whole Blood 158 mg/dL (75-99)
[2020-05-13] MEDS: CHOLECALCIFEROL 1,000 UNIT TAB PO SCH (07:29)
[2020-05-13] MEDS: methylPREDNISolone SOD SUCCI 40 MG/ML 1 ML VIAL IV SCH ×3 (07:29→23:12)
[2020-05-13] MEDS: APIXABAN 5 MG TAB PO SCH ×2 (07:29→20:07)
[2020-05-13] MEDS: FAMOTIDINE 20 MG TAB PO SCH (07:29)
[2020-05-13] MEDS: ASCORBIC ACID 500 MG TAB PO SCH (07:29)
[2020-05-13] MEDS: ZINC SULFATE 220 MG CAP PO SCH (07:29)
[2020-05-13] MEDS: CITALOPRAM HYDROBROMIDE 10 MG TAB PO SCH (07:29)
[2020-05-13] MEDS: INSULIN ASPART (NovoLOG) 100 UNIT/ML VIAL SQ SCH ×4 (07:30→20:07)
[2020-05-13] MEDS: ALBUTEROL HFA INHALER INHALATION PRN ×4 (08:59→19:47)
[2020-05-13] MEDS: TIOTROPIUM 18 MCG/PUFF INHALER INHALATION SCH (09:00)
[2020-05-13] MEDS: SYMBICORT 160-4.5 MCG INHALER INHALATION SCH ×2 (09:00→19:47)
[2020-05-13 11:58] LABS: Glucose,Whole Blood 242 mg/dL (75-99)
--- NOTE | 2020-05-13 13:05 | P.PN ---
Subjective Patient was admitted for hypoxic respiratory failure secondary to covid 19. Patient is still on nasal cannula oxygen. She is on nonsolid maternal at this time we'll cut down the dose of Solu-Medrol. 05/13/2020 Patient is presently on 6 L of oxygen overall patient patient although feeling well. Constitutional: Denied any fatigue denied any fever. Cardio vascular: denied any chest pain, palpitations Gastrointestinal denied any nausea vomiting Pulmonary: Denied any shortness of breath cough Neurologic denied any new focal deficits All inpatient medications were reviewed and appropriate changes in these medications as dictated in the interval history and assessment and plan. Objective - Vital Signs Vital signs: Vital Signs Temp 98.0 F 05/13/20 10:00 Pulse 87 05/13/20 10:00 Resp 20 05/13/20 10:00 BP 115/63 05/13/20 10:00 Pulse Ox 90 L 05/13/20 10:00 Intake & Output 05/12/20 05/13/20 05/13/20 18:59 06:59 18:59 Intake Total 400 320 Balance 400 320 Intake: Oral 400 320 Other: Voiding Method Bedpan # Voids 3 2 # Bowel Movements 1 - Exam PHYSICAL EXAMINATION: GENERAL: The patient is alert and oriented x3, not in any acute distress. Well developed, well nourished. HEENT: Pupils are round and equally reacting to light. EOMI. No scleral icterus. No conjunctival pallor. Normocephalic, atraumatic. No pharyngeal erythema. No thyromegaly. CARDIOVASCULAR: S1 and S2 present. No murmurs, rubs, or gallops. PULMONARY: Chest is clear to auscultation, no wheezing or crackles. ABDOMEN: Soft, nontender, nondistended, normoactive bowel sounds. No palpable organomegaly. MUSCULOSKELETAL: No joint swelling or deformity. EXTREMITIES: No cyanosis, clubbing, or pedal edema. NEUROLOGICAL: Gross neurological examination did not reveal any focal deficits. SKIN: No rashes. Note: Because of COVID 19 isolation, some of the history and physical exam findings are indirect and obtained from nursing staff, and other physician examinations to avoid unnecessary contact with the patient. - Labs CBC & Chem 7: 05/09/20 06:44 05/09/20 06:44 Labs: Abnormal Lab Results - Last 24 Hours (Table) 05/12/20 05/12/20 05/13/20 Range/Units 16:57 20:21 07:10 POC Glucose (mg/dL) 181 H 186 H 158 H (75-99) mg/dL 05/13/20 Range/Units 11:49 POC Glucose (mg/dL) 242 H (75-99) mg/dL Assessment and Plan Plan: 1 acute hypoxic respiratory failure secondary to opiate 19 pneumonitis she is on steroids. Status post convalescent plasma of presently supportive care along with steroids. --History of PE in the past patient is on Eliquis to continue -COPD with exacerbation patient will stop steroids as mentioned above
--- NOTE | 2020-05-13 15:52 | P.PN ---
Subjective Progress Note Date: 05/13/20 Principal diagnosis: Acute CoVID 19 pneumonitis The patient is seen today 05/12/2020 in follow-up on the regular medical floor. She is currently resting comfortably in bed. Awake and alert in no acute distress. Currently maintaining O2 saturations in the 90s on 6 L high flow nasal cannula. She's afebrile. Hemodynamically stable. She is on home oxygen normally at 2 L/m per nasal cannula. Blood glucose 181. She's completed a course of Remdesivir. Remains on bronchodilators and IV Solu-Medrol. Anticoagulated with Eliquis. Remains on vitamin supplements. Patient is seen today 05/13/2020 in follow-up on the regular medical floor. She is awake and alert in no acute distress. Resting comfortably in bed. Continues to require 6 L high flow nasal cannula to maintain O2 saturation in low 90s. She's been afebrile. No worsening shortness of breath, cough or congestion. No fever, chills or night sweats. Blood glucose 242. Objective - Vital Signs Vital signs: Vital Signs Temp 98.4 F 05/13/20 14:00 Pulse 101 H 05/13/20 14:00 Resp 16 05/13/20 14:00 BP 161/70 05/13/20 14:00 Pulse Ox 92 L 05/13/20 14:00 Intake & Output 05/12/20 05/13/20 05/13/20 18:59 06:59 18:59 Intake Total 400 320 Balance 400 320 Intake: Oral 400 320 Other: Voiding Method Bedpan # Voids 3 2 3 # Bowel Movements 1 1 - Exam GENERAL EXAM: Alert, very pleasant, 69-year-old white female on 6 L of oxygen pulse ox of 92% comfortable in no apparent distress. HEAD: Normocephalic/atraumatic. EYES: Normal reaction of pupils, equal size. Conjunctiva pink, sclera white. NOSE: Clear with pink turbinates. THROAT: No erythema or exudates. NECK: No masses, no JVD, no thyroid enlargement, no adenopathy. CHEST: No chest wall deformity. Symmetrical expansion. LUNGS: Equal air entry with bilateral scattered rhonchi. CVS: Regular rate and rhythm, normal S1 and S2, no gallops, no murmurs, no rubs ABDOMEN: Soft, nontender. No hepatosplenomegaly, normal bowel sounds, no guarding or rigidity. EXTREMITIES: No clubbing, no edema, no cyanosis, 2+ pulses and upper and lower extremities. MUSCULOSKELETAL: Muscle strength and tone normal. SPINE: No scoliosis or deformity SKIN: No rashes CENTRAL NERVOUS SYSTEM: Alert and oriented -3. No focal deficits, tone is normal in all 4 extremities. PSYCHIATRIC: Alert and oriented -3. Appropriate affect. Intact judgment and insight. - Labs CBC & Chem 7: 05/09/20 06:44 05/09/20 06:44 Labs: Abnormal Lab Results - Last 24 Hours (Table) 05/12/20 05/12/20 05/13/20 Range/Units 16:57 20:21 07:10 POC Glucose (mg/dL) 181 H 186 H 158 H (75-99) mg/dL 05/13/20 Range/Units 11:49 POC Glucose (mg/dL) 242 H (75-99) mg/dL Assessment and Plan Assessment: 1. Acute hypoxic respiratory failure secondary to COVID19 related pneumonitis 2. Previous history of pulmonary embolism on Eliquis for anticoagulation 3. Chronic hypoxemic respiratory failure related to advanced COPD usually wears 2 L of oxygen at home 4. Difficulty hearing 5. Osteoarthritis 6. History of anemia 7. History of bilateral cataracts 8. Morbid obesity Plan: The patient was seen and evaluated by Dr. Teresa Lyman from the pulmonary standpoint, on 6 L high flow nasal cannula Titrate down the FiO2 as tolerated We'll continue to follow I, the cosigning physician, performed a history & physical examination of the patient. Lungs sounds with bilateral scattered rhonchi. Maintaining good O2 saturations in the 90s on 6 L high flow nasal cannula. I discussed the assessment and plan of care with my nurse practitioner, Madeline Montes. I attest to the above note as dictated by her.
[2020-05-13 16:59] LABS: Glucose,Whole Blood 114 mg/dL (75-99)
[2020-05-13 19:53] LABS: Glucose,Whole Blood 219 mg/dL (75-99)
[2020-05-13] MEDS: MELATONIN 5 MG TABLET PO SCH (20:07)
[2020-05-14 07:08] LABS: Glucose,Whole Blood 163 mg/dL (75-99)
[2020-05-14 07:11] LABS: HGB 13.4 gm/dL (11.4-16.0); MCH 31.9 pg (25.0-35.0); MCHC 33.5 g/dL (31.0-37.0); MCV 95.2 fL (80.0-100.0); Mean Platelet Volume 6.7; Platelet Count 275 k/uL (150-450); RDW 13.6 % (11.5-15.5); WBC 10.1 k/uL (3.8-10.6)
[2020-05-14] MEDS: APIXABAN 5 MG TAB PO SCH ×2 (07:39→21:26)
[2020-05-14] MEDS: CHOLECALCIFEROL 1,000 UNIT TAB PO SCH (07:39)
[2020-05-14] MEDS: methylPREDNISolone SOD SUCCI 40 MG/ML 1 ML VIAL IV SCH ×3 (07:39→23:07)
[2020-05-14] MEDS: INSULIN ASPART (NovoLOG) 100 UNIT/ML VIAL SQ SCH ×4 (07:39→21:26)
[2020-05-14] MEDS: FAMOTIDINE 20 MG TAB PO SCH (07:39)
[2020-05-14] MEDS: CITALOPRAM HYDROBROMIDE 10 MG TAB PO SCH (07:40)
[2020-05-14] MEDS: ZINC SULFATE 220 MG CAP PO SCH (07:40)
[2020-05-14] MEDS: ASCORBIC ACID 500 MG TAB PO SCH (07:40)
[2020-05-14] MEDS: ALBUTEROL HFA INHALER INHALATION PRN ×4 (08:11→19:57)
[2020-05-14] MEDS: TIOTROPIUM 18 MCG/PUFF INHALER INHALATION SCH (08:11)
[2020-05-14] MEDS: SYMBICORT 160-4.5 MCG INHALER INHALATION SCH ×2 (08:11→19:57)
[2020-05-14 09:34] LABS: Anion Gap 6.7 mmol/L (4.00-12.00); BUN/Creat Ratio 28.57 Ratio (12.00-20.00); Calcium 8.8 mg/dL (8.7-10.3); Carbon Dioxide 32.3 mmol/L (21.6-31.8); Non-African American GFR(CKD) 87.2 (60.0-200.0); Potassium 4.9 mmol/L (3.5-5.5)
[2020-05-14 11:14] LABS: Glucose,Whole Blood 193 mg/dL (75-99)
--- NOTE | 2020-05-14 15:01 | P.PN ---
Subjective Principal diagnosis: Respiratory distress with coronavirus The patient is here essentially for COPD and history of COVID19 exposure and diagnosis.There is significant improvement clinically today and With significant improvement. However, she is desaturating quite easily secondary to element of COPD. Slow improvement. Hopefully we can start ambulating minimally. The patient sitting at side of the bed without difficulty and feels more positive about her prognosis. Objective - Vital Signs Vital signs: Vital Signs Temp 98.1 F 05/14/20 14:00 Pulse 102 H 05/14/20 14:00 Resp 22 05/14/20 14:00 BP 117/57 05/14/20 14:00 Pulse Ox 94 L 05/14/20 14:00 Intake & Output 05/13/20 05/14/20 05/14/20 18:59 06:59 18:59 Intake Total 320 Balance 320 Intake: Oral 320 Other: Voiding Method Bedpan # Voids 3 1 1 # Bowel Movements 1 1 - Constitutional General appearance: Present: mild distress - EENT Eyes: Absent: abnormal pupil - Neck Neck: Absent: lymphadenopathy - Respiratory Respiratory: bilateral: diminished - Cardiovascular Rhythm: regular Heart sounds: normal: S1, S2 Abnormal Heart Sounds: Absent: S3 Gallop - Gastrointestinal General gastrointestinal: Present: soft. Absent: tenderness - Integumentary Integumentary: Absent: cyanotic - Labs CBC & Chem 7: 05/14/20 06:41 05/14/20 06:41 Labs: Abnormal Lab Results - Last 24 Hours (Table) 05/13/20 05/13/20 05/14/20 Range/Units 16:51 19:51 06:41 Carbon Dioxide 32.3 H (21.6-31.8) mmol/L BUN/Creatinine Ratio 28.57 H (12.00-20.00) Ratio Glucose 168 H (70-110) mg/dL POC Glucose (mg/dL) 114 H 219 H (75-99) mg/dL 05/14/20 05/14/20 Range/Units 06:59 11:12 Carbon Dioxide (21.6-31.8) mmol/L BUN/Creatinine Ratio (12.00-20.00) Ratio Glucose (70-110) mg/dL POC Glucose (mg/dL) 163 H 193 H (75-99) mg/dL Assessment and Plan (1) COVID-19 Current Visit: Yes Status: Acute Code(s): U07.1 - COVID-19 SNOMED Code(s): 638915160 (2) Hypoxia Current Visit: Yes Status: Acute Code(s): R09.02 - HYPOXEMIA SNOMED Code(s): 659698138 (3) COPD (chronic obstructive pulmonary disease) with emphysema Current Visit: No Status: Acute Code(s): J43.9 - EMPHYSEMA, UNSPECIFIED SNOMED Code(s): 53289429 Plan: Appreciate Pulmonology input. Slow improvement Multiple comorbidities Decrease oxygen level and increase ambulation to see how much for medical improvement we can obtain without fatiguing the patient. Check CBC and CMP in a.m. Time with Patient: Less than 30
--- NOTE | 2020-05-14 15:30 | P.PN ---
Subjective Progress Note Date: 05/14/20 Principal diagnosis: Shortness of breath related to Covid 19 related pneumonitis This is a 69-year-old white female patient that came into the hospital on 2019 for evaluation of shortness of breath, and who had a positive outpatient [place] 19 testing on April 22. Patient denied any fever or chills, no chest pain, or chest discomfort, no lightheadedness or dizziness, no GI symptoms no nausea vomiting diarrhea or abdominal pain. She is not particularly short of breath on presentation, other than with exertion. Chest x-ray was completed in the ED showing no definitive acute lung disease other than some mild pulmonary fibrotic tissues. She had a low-grade fever on presentation with a temp of 100.4F, she's been afebrile overnight, -7 stable, follow-up chest x- ray shows patchy basilar infiltrates greatest at the right lung base, stable exam, her inflammatory markers were elevated on presentation, with LDH up to 827, and CRP up to 62.7, pro calcitonin level was negative. Patient is on nebulized bronchodilators, she is on oral prednisone, she is on Symbicort and Spiriva and albuterol inhaler, she does have underlying history of COPD on home oxygen, and is an ex-smoker, she has a past medical history of pulmonary embolism, she is on Eliquis for chronic anticoagulation. On 05/02/2020 patient seen in follow-up on the medical surgical floor, she is d oing better, feeling better today, requiring supplemental oxygen, currently at 4 L with a pulse ox of 93%, she's been afebrile, hemodynamically stable. No nausea vomiting or diarrhea. No fever overnight, no chills. Pro calcitonin was negative at 0.08, follow-up inflammatory markers are pending, patient was not a candidate for Remdesivir related to onset of symptoms being greater than 3 weeks ago. Yesterday chest x-ray showed patchy basilar infiltrates greatest at the right base, stable exam, follow-up inflammatory markers are pending. Patient remains on oral Decadron, nebulized bronchodilators and steroids, On 05/04/2020 patient seen in follow-up on a general medical surgical floor. S till requiring 15 L of oxygen, her pulse ox is between 89-92%, patient is very short of breath with any exertion, dropped down to 70% when getting up out of bed, she states she feels okay, however she has not made any significant improvement in terms of her symptoms, or gas exchange her oxygen requirement. Chest x-ray has not shown any significant improvement, continues to show patchy bilateral airspace disease. No fever or chills. Today's labs have been reviewed, lymphopenia persists, lymphocyte count is 0.5, white blood cell count is 8.4, hemoglobin is 12.6, d-dimer was 0.45, LDH is 429, CRP is 9.5, overall her inflammatory markers have improved since admission. Patient has been on ora l prednisone, breathing treatments, she is on oral anticoagulation and form of Eliquis, she is on Pepcid, zinc supplement, and vitamin C supplement. She has been self proning in bed. On 05/10/2020 patient seen in follow-up on medical surgical floor. She remains on 50 oxygen currently at 15 L, her pulse ox is 90%, appears to be breathing comfortably, denies any acute distress, despite the low oxygenation. She has been afebrile overnight, vital signs have been stable. She continues on IV ster oids, nebulized bronchodilators, she is status post 1 unit of less than plasma. Patient was not a candidate for Remdesivir, related to like the symptoms On 05/08/2020 patient seen in follow-up on medical surgical floor. She is down to 11 L from 15 L, her pulse ox is 8990, she is awake and alert, appears to be in no acute distress, breathing comfortably, she has been self troponin in bed, denies any chest discomfort, or palpitations, overall she states she is feeling better, she status post transfusion of one unit of convalescent plasma. His labs have been reviewed, LDH is 398 relatively stable over the last few days, but overall improved since admission, and CRP is improving and is down to 1.5 today. D-dimer is 1.05, and patient is on Eliquis for anticoagulation, she remains on bronchodilators, and IV Solu-Medrol. On 05/09/2020 patient seen in follow-up on medical surgical floor. She still on high flow oxygen, currently at 12 L, her pulse ox is 93-94%, lung sounds reveal some mild wheezing with the right posterior lung, overall improved, no crackles, she is feeling better, breathing easier, her appetite has improved, no altered mentation. Patient has been self proning, denies any cough. She remains on IV steroids, she is on oral Eliquis. On 05/10/2020 patient seen in follow-up on medical surgical floor, remains at 10 L of oxygen with a pulse ox 94%, overall she is feeling better, still has exertional dyspnea, but breathing easier, dropped oxygen down to 8 L, her pulse ox is 92, afebrile, hemodynamically stable. No chest discomfort, occasional cough, today's labs have been noted, d-dimer is 1.10, CRP is less than 0.4, significantly improved, LDH is trending down. Patient was out of the window for Remdesivir, she was treated with steroids, and she is currently on IV steroids at 60 mg every 6 hours, she is on Symbicort, and the Ventolin albuterol, she is on oral anticoagulation in the form of Eliquis, she is on vitamin C, zinc supplement, she is on Pepcid, she status post convalescent plasma transfusion On 05/11/2020 patient seen in follow-up in medical surgical floor. She is still on 8 L of oxygen her pulse ox was 95%, will contact oxygen to 6 L, she still sat 93%, continue weaning FiO2, otherwise breathing is improving, she is breathing comfortably, less wheezy remains on high dose of IV Solu-Medrol, she was not a candidate for Remdesivir, continue Symbicort and albuterol, her inflammatory markers have been improving, she is on oral anticoagulation, vital signs have been stable On 05/14/2020 patient seen in follow-up general medical surgical floor. She is on 6 L of oxygen her pulse ox is between 89-90%, no worsening dyspnea, no cough, she is breathing comfortably, no chest discomfort, no cough or congestion. She is slowly improving, she said no acute events overnight. She has been afebrile. Her last chest x-ray was on 05/08/2020 showing bibasilar peripheral infiltrates related to COVID19 infection. CBC was within normal limits, electrolytes and renal profile were unremarkable. She's had no fever or chills Objective - Vital Signs Vital signs: Vital Signs Temp 98.1 F 05/14/20 14:00 Pulse 102 H 05/14/20 14:00 Resp 22 05/14/20 14:00 BP 117/57 05/14/20 14:00 Pulse Ox 94 L 05/14/20 14:00 Intake & Output 05/13/20 05/14/20 05/14/20 18:59 06:59 18:59 Intake Total 320 Balance 320 Intake: Oral 320 Other: Voiding Method Bedpan # Voids 3 1 1 # Bowel Movements 1 1 - Exam GENERAL EXAM: Alert, very pleasant, 69-year-old white female on 5 L of oxygen pulse ox of 94% comfortable in no apparent distress. HEAD: Normocephalic/atraumatic. EYES: Normal reaction of pupils, equal size. Conjunctiva pink, sclera white. NOSE: Clear with pink turbinates. THROAT: No erythema or exudates. NECK: No masses, no JVD, no thyroid enlargement, no adenopathy. CHEST: No chest wall deformity. Symmetrical expansion. LUNGS: Equal air entry with no crackles, wheeze, rhonchi or dullness. CVS: Regular rate and rhythm, normal S1 and S2, no gallops, no murmurs, no rubs ABDOMEN: Soft, nontender. No hepatosplenomegaly, normal bowel sounds, no guarding or rigidity. EXTREMITIES: No clubbing, no edema, no cyanosis, 2+ pulses and upper and lower extremities. MUSCULOSKELETAL: Muscle strength and tone normal. SPINE: No scoliosis or deformity SKIN: No rashes CENTRAL NERVOUS SYSTEM: Alert and oriented -3. No focal deficits, tone is normal in all 4 extremities. PSYCHIATRIC: Alert and oriented -3. Appropriate affect. Intact judgment and insight. - Labs CBC & Chem 7: 05/14/20 06:41 05/14/20 06:41 Labs: Abnormal Lab Results - Last 24 Hours (Table) 05/13/20 05/13/20 05/14/20 Range/Units 16:51 19:51 06:41 Carbon Dioxide 32.3 H (21.6-31.8) mmol/L BUN/Creatinine Ratio 28.57 H (12.00-20.00) Ratio Glucose 168 H (70-110) mg/dL POC Glucose (mg/dL) 114 H 219 H (75-99) mg/dL 05/14/20 05/14/20 Range/Units 06:59 11:12 Carbon Dioxide (21.6-31.8) mmol/L BUN/Creatinine Ratio (12.00-20.00) Ratio Glucose (70-110) mg/dL POC Glucose (mg/dL) 163 H 193 H (75-99) mg/dL Assessment and Plan Plan: Assessment: #1. Shortness of breath, related to COVID19 related pneumonitis, and patient was not candidate for Remdesivir related to length of the symptoms, she is status post convalescent plasma with 1 unit. #2. Previous history of pulmonary embolism on Eliquis for anticoagulation #3. Chronic hypoxemic respiratory failure related to advanced COPD usually wears 2 L of oxygen at home #4. Difficulty hearing #5. Osteoarthritis #6. History of anemia #7. History of bilateral cataracts #8. Morbid obesity Plan: Continue weaning FiO2 to keep O2 sat between 88-89%, clinically patient cont inues to improve, she is breathing easier, her vital signs have been stable, continue with current dose of IV steroids, neb last bronchodilators, no acute events overnight, increase activity as tolerated, patient has significantly improved in terms of breathing, and oxygenation. Once FiO2 is down to less than or equal to 5 L/m, we'll plan discharge home. Follow-up chest x-ray in the morning. I performed a history & physical examination of the patient and discussed their management with my nurse practitioner, Nora Walker. I reviewed the nurse practitioner's note and agree with the documented findings and plan of care. Lung sounds are positive for diminished breath sounds. The findings and the impression was discussed with the patient. I attest to the documentation by the nurse practitioner. Time with Patient: Less than 30
[2020-05-14 16:41] LABS: Glucose,Whole Blood 123 mg/dL (75-99)
[2020-05-14 20:49] LABS: Glucose,Whole Blood 196 mg/dL (75-99)
[2020-05-14] MEDS: MELATONIN 5 MG TABLET PO SCH (21:26)
[2020-05-15 06:52] LABS: HCT 39.9 % (34.0-46.0); HGB 13.3 gm/dL (11.4-16.0); MCH 31.9 pg (25.0-35.0); MCHC 33.4 g/dL (31.0-37.0); MCV 95.5 fL (80.0-100.0); Platelet Count 238 k/uL (150-450); RBC 4.18 m/uL (3.80-5.40); RDW 13.6 % (11.5-15.5); WBC 8.3 k/uL (3.8-10.6)
[2020-05-15 06:58] LABS: Glucose,Whole Blood 169 mg/dL (75-99)
[2020-05-15] MEDS: APIXABAN 5 MG TAB PO SCH ×2 (07:25→21:12)
[2020-05-15] MEDS: ZINC SULFATE 220 MG CAP PO SCH (07:25)
[2020-05-15] MEDS: methylPREDNISolone SOD SUCCI 40 MG/ML 1 ML VIAL IV SCH ×3 (07:25→23:10)
[2020-05-15] MEDS: FAMOTIDINE 20 MG TAB PO SCH (07:25)
[2020-05-15] MEDS: CITALOPRAM HYDROBROMIDE 10 MG TAB PO SCH (07:25)
[2020-05-15] MEDS: CHOLECALCIFEROL 1,000 UNIT TAB PO SCH (07:25)
[2020-05-15] MEDS: ASCORBIC ACID 500 MG TAB PO SCH (07:25)
[2020-05-15] MEDS: INSULIN ASPART (NovoLOG) 100 UNIT/ML VIAL SQ SCH ×4 (07:26→21:12)
[2020-05-15] MEDS: TIOTROPIUM 18 MCG/PUFF INHALER INHALATION SCH (08:34)
[2020-05-15] MEDS: SYMBICORT 160-4.5 MCG INHALER INHALATION SCH ×2 (08:34→19:06)
[2020-05-15] MEDS: ALBUTEROL HFA INHALER INHALATION PRN ×2 (08:34→12:57)
[2020-05-15 10:32] LABS: African American GFR (CKD) 106.3 (60.0-200.0); Albumin 3.4 g/dL (3.80-4.90); Albumin/Globulin Ratio 2.13 (1.60-3.17); Anion Gap 8.6 mmol/L (4.00-12.00); BUN/Creat Ratio 31.67 Ratio (12.00-20.00); Calcium 8.6 mg/dL (8.7-10.3); Carbon Dioxide 31.4 mmol/L (21.6-31.8); Globulin 1.6 g/dL (1.6-3.3); Non-African American GFR(CKD) 91.7 (60.0-200.0); Potassium 4.8 mmol/L (3.5-5.5); Total Bilirubin 0.5 mg/dL (0.2-1.2)
[2020-05-15 11:34] LABS: Glucose,Whole Blood 201 mg/dL (75-99)
--- NOTE | 2020-05-15 13:35 | P.PN ---
Subjective Principal diagnosis: Respiratory distress with coronavirus The patient is here essentially for COPD and history of COVID19 exposure and diagnosis.There is significant improvement clinically today and With significant improvement. However, she is desaturating quite easily secondary to element of COPD. Slow improvement. Hopefully we can start ambulating minimally. The patient sitting at side of the bed without difficulty and feels more positive about her prognosis. Clinically she is going to try to decrease to 4 L per nasal cannula Objective - Vital Signs Vital signs: Vital Signs Temp 98.5 F 05/15/20 09:53 Pulse 76 05/15/20 09:53 Resp 21 05/15/20 05:53 BP 133/67 05/15/20 09:53 Pulse Ox 93 L 05/15/20 09:53 Intake & Output 05/14/20 05/15/20 05/15/20 18:59 06:59 18:59 Other: Voiding Method Bedside Commode # Voids 1 2 1 # Bowel Movements 1 - Constitutional General appearance: Present: no acute distress - EENT Eyes: Absent: abnormal pupil - Neck Neck: Absent: lymphadenopathy - Respiratory Respiratory: bilateral: diminished - Cardiovascular Rhythm: regular Heart sounds: normal: S1, S2 Abnormal Heart Sounds: Absent: S3 Gallop - Psychiatric Psychiatric: Present: A&O x's 3. Absent: appropriate affect - Labs CBC & Chem 7: 05/15/20 05:55 05/15/20 05:55 Labs: Abnormal Lab Results - Last 24 Hours (Table) 05/14/20 05/14/20 05/15/20 Range/Units 16:39 20:46 05:55 BUN/Creatinine Ratio 31.67 H (12.00-20.00) Ratio Glucose 165 H (70-110) mg/dL POC Glucose (mg/dL) 123 H 196 H (75-99) mg/dL Calcium 8.6 L (8.7-10.3) mg/dL ALT 65 H (8-44) U/L Alkaline Phosphatase 39 L (41-126) U/L Total Protein 5.0 L (6.2-8.2) g/dL Albumin 3.40 L (3.80-4.90) g/dL 05/15/20 05/15/20 Range/Units 06:56 11:31 BUN/Creatinine Ratio (12.00-20.00) Ratio Glucose (70-110) mg/dL POC Glucose (mg/dL) 169 H 201 H (75-99) mg/dL Calcium (8.7-10.3) mg/dL ALT (8-44) U/L Alkaline Phosphatase (41-126) U/L Total Protein (6.2-8.2) g/dL Albumin (3.80-4.90) g/dL Assessment and Plan (1) COVID-19 Current Visit: Yes Status: Acute Code(s): U07.1 - COVID-19 SNOMED Code(s): 758132251 (2) Hypoxia Current Visit: Yes Status: Acute Code(s): R09.02 - HYPOXEMIA SNOMED Code(s): 660282436 (3) COPD (chronic obstructive pulmonary disease) with emphysema Current Visit: No Status: Acute Code(s): J43.9 - EMPHYSEMA, UNSPECIFIED SNOMED Code(s): 28363181 Plan: Appreciate Pulmonology input. Slow improvement Multiple comorbidities Decrease oxygen level and increase ambulation to see how much for medical improvement we can obtain without fatiguing the patient. Check CBC and CMP in a.m. Time with Patient: Greater than 30
[2020-05-15 16:36] LABS: Glucose,Whole Blood 144 mg/dL (75-99)
--- NOTE | 2020-05-15 20:19 | P.PN ---
Subjective Progress Note Date: 05/15/20 Principal diagnosis: Shortness of breath related to Covid 19 related pneumonitis This is a 69-year-old white female patient that came into the hospital on 2019 for evaluation of shortness of breath, and who had a positive outpatient [place] 19 testing on April 22. Patient denied any fever or chills, no chest pain, or chest discomfort, no lightheadedness or dizziness, no GI symptoms no nausea vomiting diarrhea or abdominal pain. She is not particularly short of breath on presentation, other than with exertion. Chest x-ray was completed in the ED showing no definitive acute lung disease other than some mild pulmonary fibrotic tissues. She had a low-grade fever on presentation with a temp of 100.4F, she's been afebrile overnight, -7 stable, follow-up chest x- ray shows patchy basilar infiltrates greatest at the right lung base, stable exam, her inflammatory markers were elevated on presentation, with LDH up to 827, and CRP up to 62.7, pro calcitonin level was negative. Patient is on nebulized bronchodilators, she is on oral prednisone, she is on Symbicort and Spiriva and albuterol inhaler, she does have underlying history of COPD on home oxygen, and is an ex-smoker, she has a past medical history of pulmonary embolism, she is on Eliquis for chronic anticoagulation. On 05/02/2020 patient seen in follow-up on the medical surgical floor, she is d oing better, feeling better today, requiring supplemental oxygen, currently at 4 L with a pulse ox of 93%, she's been afebrile, hemodynamically stable. No nausea vomiting or diarrhea. No fever overnight, no chills. Pro calcitonin was negative at 0.08, follow-up inflammatory markers are pending, patient was not a candidate for Remdesivir related to onset of symptoms being greater than 3 weeks ago. Yesterday chest x-ray showed patchy basilar infiltrates greatest at the right base, stable exam, follow-up inflammatory markers are pending. Patient remains on oral Decadron, nebulized bronchodilators and steroids, On 05/04/2020 patient seen in follow-up on a general medical surgical floor. S till requiring 15 L of oxygen, her pulse ox is between 89-92%, patient is very short of breath with any exertion, dropped down to 70% when getting up out of bed, she states she feels okay, however she has not made any significant improvement in terms of her symptoms, or gas exchange her oxygen requirement. Chest x-ray has not shown any significant improvement, continues to show patchy bilateral airspace disease. No fever or chills. Today's labs have been reviewed, lymphopenia persists, lymphocyte count is 0.5, white blood cell count is 8.4, hemoglobin is 12.6, d-dimer was 0.45, LDH is 429, CRP is 9.5, overall her inflammatory markers have improved since admission. Patient has been on ora l prednisone, breathing treatments, she is on oral anticoagulation and form of Eliquis, she is on Pepcid, zinc supplement, and vitamin C supplement. She has been self proning in bed. On 05/10/2020 patient seen in follow-up on medical surgical floor. She remains on 50 oxygen currently at 15 L, her pulse ox is 90%, appears to be breathing comfortably, denies any acute distress, despite the low oxygenation. She has been afebrile overnight, vital signs have been stable. She continues on IV ster oids, nebulized bronchodilators, she is status post 1 unit of less than plasma. Patient was not a candidate for Remdesivir, related to like the symptoms On 05/08/2020 patient seen in follow-up on medical surgical floor. She is down to 11 L from 15 L, her pulse ox is 8990, she is awake and alert, appears to be in no acute distress, breathing comfortably, she has been self troponin in bed, denies any chest discomfort, or palpitations, overall she states she is feeling better, she status post transfusion of one unit of convalescent plasma. His labs have been reviewed, LDH is 398 relatively stable over the last few days, but overall improved since admission, and CRP is improving and is down to 1.5 today. D-dimer is 1.05, and patient is on Eliquis for anticoagulation, she remains on bronchodilators, and IV Solu-Medrol. On 05/09/2020 patient seen in follow-up on medical surgical floor. She still on high flow oxygen, currently at 12 L, her pulse ox is 93-94%, lung sounds reveal some mild wheezing with the right posterior lung, overall improved, no crackles, she is feeling better, breathing easier, her appetite has improved, no altered mentation. Patient has been self proning, denies any cough. She remains on IV steroids, she is on oral Eliquis. On 05/10/2020 patient seen in follow-up on medical surgical floor, remains at 10 L of oxygen with a pulse ox 94%, overall she is feeling better, still has exertional dyspnea, but breathing easier, dropped oxygen down to 8 L, her pulse ox is 92, afebrile, hemodynamically stable. No chest discomfort, occasional cough, today's labs have been noted, d-dimer is 1.10, CRP is less than 0.4, significantly improved, LDH is trending down. Patient was out of the window for Remdesivir, she was treated with steroids, and she is currently on IV steroids at 60 mg every 6 hours, she is on Symbicort, and the Ventolin albuterol, she is on oral anticoagulation in the form of Eliquis, she is on vitamin C, zinc supplement, she is on Pepcid, she status post convalescent plasma transfusion On 05/11/2020 patient seen in follow-up in medical surgical floor. She is still on 8 L of oxygen her pulse ox was 95%, will contact oxygen to 6 L, she still sat 93%, continue weaning FiO2, otherwise breathing is improving, she is breathing comfortably, less wheezy remains on high dose of IV Solu-Medrol, she was not a candidate for Remdesivir, continue Symbicort and albuterol, her inflammatory markers have been improving, she is on oral anticoagulation, vital signs have been stable On 05/14/2020 patient seen in follow-up general medical surgical floor. She is on 6 L of oxygen her pulse ox is between 89-90%, no worsening dyspnea, no cough, she is breathing comfortably, no chest discomfort, no cough or congestion. She is slowly improving, she said no acute events overnight. She has been afebrile. Her last chest x-ray was on 05/08/2020 showing bibasilar peripheral infiltrates related to COVID19 infection. CBC was within normal limits, electrolytes and renal profile were unremarkable. She's had no fever or chills On 05/15/2020 patient seen in follow-up on Gen. medical surgical floor. Feeling well, improving, she is down to 4 L of oxygen her pulse ox is between 90-94%, she's been afebrile, hemodynamically she has been stable, he is recovering from COVID 19 infection. Today's labs have been reviewed, showing unremarkable CBC, electrolytes and renal profile were within normal limits. She is ambulating in the room, tolerating activity fairly well. There has been significant clinical improvement since admission. She has had no fever or chills, she remains on oral anticoagulation, means on IV steroids of 40 mg every 8 hours, she did receive a dose of convalescent plasma, she was out of the window for Remdesivir. Objective - Vital Signs Vital signs: Vital Signs Temp 98.5 F 05/15/20 18:00 Pulse 78 05/15/20 18:00 Resp 21 05/15/20 05:53 BP 159/73 05/15/20 18:00 Pulse Ox 90 L 05/15/20 18:00 Intake & Output 05/15/20 05/15/20 05/16/20 06:59 18:59 06:59 Other: Voiding Method Bedside Commode # Voids 2 1 - Exam GENERAL EXAM: Alert, very pleasant, 69-year-old white female on 4 L of oxygen pulse ox of 94% comfortable in no apparent distress. HEAD: Normocephalic/atraumatic. EYES: Normal reaction of pupils, equal size. Conjunctiva pink, sclera white. NOSE: Clear with pink turbinates. THROAT: No erythema or exudates. NECK: No masses, no JVD, no thyroid enlargement, no adenopathy. CHEST: No chest wall deformity. Symmetrical expansion. LUNGS: Equal air entry with no crackles, wheeze, rhonchi or dullness. CVS: Regular rate and rhythm, normal S1 and S2, no gallops, no murmurs, no rubs ABDOMEN: Soft, nontender. No hepatosplenomegaly, normal bowel sounds, no guarding or rigidity. EXTREMITIES: No clubbing, no edema, no cyanosis, 2+ pulses and upper and lower extremities. MUSCULOSKELETAL: Muscle strength and tone normal. SPINE: No scoliosis or deformity SKIN: No rashes CENTRAL NERVOUS SYSTEM: Alert and oriented -3. No focal deficits, tone is normal in all 4 extremities. PSYCHIATRIC: Alert and oriented -3. Appropriate affect. Intact judgment and insight. - Labs CBC & Chem 7: 05/15/20 05:55 05/15/20 05:55 Labs: Abnormal Lab Results - Last 24 Hours (Table) 05/14/20 05/15/20 05/15/20 Range/Units 20:46 05:55 06:56 BUN/Creatinine Ratio 31.67 H (12.00-20.00) Ratio Glucose 165 H (70-110) mg/dL POC Glucose (mg/dL) 196 H 169 H (75-99) mg/dL Calcium 8.6 L (8.7-10.3) mg/dL ALT 65 H (8-44) U/L Alkaline Phosphatase 39 L (41-126) U/L Total Protein 5.0 L (6.2-8.2) g/dL Albumin 3.40 L (3.80-4.90) g/dL 05/15/20 05/15/20 Range/Units 11:31 16:35 BUN/Creatinine Ratio (12.00-20.00) Ratio Glucose (70-110) mg/dL POC Glucose (mg/dL) 201 H 144 H (75-99) mg/dL Calcium (8.7-10.3) mg/dL ALT (8-44) U/L Alkaline Phosphatase (41-126) U/L Total Protein (6.2-8.2) g/dL Albumin (3.80-4.90) g/dL Assessment and Plan Plan: Assessment: #1. Shortness of breath, related to COVID19 related pneumonitis, and patient was not candidate for Remdesivir related to length of the symptoms, she is status post convalescent plasma with 1 unit. #2. Previous history of pulmonary embolism on Eliquis for anticoagulation #3. Chronic hypoxemic respiratory failure related to advanced COPD usually wears 2 L of oxygen at home #4. Difficulty hearing #5. Osteoarthritis #6. History of anemia #7. History of bilateral cataracts #8. Morbid obesity Plan: Patient continues to improve, FiO2 is down to 4 L, continue to wean, no acute events overnight, increase activity as tolerated, if continues to remain stable patient is cleared for discharge home in the morning I performed a history & physical examination of the patient and discussed their management with my nurse practitioner, Nora Walker. I reviewed the nurse practitioner's note and agree with the documented findings and plan of care. Lung sounds are positive for diminished breath sounds. The findings and the impression was discussed with the patient. I attest to the documentation by the nurse practitioner. Time with Patient: Less than 30
[2020-05-15 20:38] LABS: Glucose,Whole Blood 216 mg/dL (75-99)
[2020-05-15] MEDS: MELATONIN 5 MG TABLET PO SCH (21:12)
[2020-05-16 07:03] LABS: Glucose,Whole Blood 176 mg/dL (75-99)
[2020-05-16] MEDS: TIOTROPIUM 18 MCG/PUFF INHALER INHALATION SCH (07:42)
[2020-05-16] MEDS: ALBUTEROL HFA INHALER INHALATION PRN ×4 (07:42→19:07)
[2020-05-16] MEDS: SYMBICORT 160-4.5 MCG INHALER INHALATION SCH ×3 (07:42→19:10)
[2020-05-16] MEDS: methylPREDNISolone SOD SUCCI 40 MG/ML 1 ML VIAL IV SCH ×3 (09:55→23:12)
[2020-05-16] MEDS: INSULIN ASPART (NovoLOG) 100 UNIT/ML VIAL SQ SCH ×4 (09:55→20:39)
[2020-05-16] MEDS: ZINC SULFATE 220 MG CAP PO SCH (09:55)
[2020-05-16] MEDS: FAMOTIDINE 20 MG TAB PO SCH (09:55)
[2020-05-16] MEDS: ASCORBIC ACID 500 MG TAB PO SCH (09:55)
[2020-05-16] MEDS: APIXABAN 5 MG TAB PO SCH ×2 (09:55→20:38)
[2020-05-16] MEDS: CHOLECALCIFEROL 1,000 UNIT TAB PO SCH (09:55)
[2020-05-16] MEDS: CITALOPRAM HYDROBROMIDE 10 MG TAB PO SCH (10:11)
[2020-05-16 11:50] LABS: Glucose,Whole Blood 135 mg/dL (75-99)
--- NOTE | 2020-05-16 12:49 | P.PN ---
Subjective Principal diagnosis: Respiratory distress with coronavirus The patient is here essentially for COPD and history of COVID19 exposure and diagnosis.There is significant improvement clinically today and With significant improvement. However, she is desaturating quite easily secondary to element of COPD. Slow improvement. Hopefully we can start ambulating minimally. The patient sitting at side of the bed without difficulty and feels more positive about her prognosis. Clinically she is going to try to decrease to 2 L Objective - Vital Signs Vital signs: Vital Signs Temp 98.8 F 05/16/20 10:38 Pulse 78 05/16/20 10:38 Resp 18 05/16/20 10:38 BP 124/77 05/16/20 10:38 Pulse Ox 93 L 05/16/20 10:38 Intake & Output 05/15/20 05/16/20 05/16/20 18:59 06:59 18:59 Other: Voiding Method Bedside Commode # Voids 1 2 - Constitutional General appearance: Present: average body habitus - EENT Eyes: Absent: abnormal pupil - Neck Neck: Absent: lymphadenopathy - Respiratory Respiratory: bilateral: diminished - Cardiovascular Rhythm: regular Heart sounds: normal: S1, S2 Abnormal Heart Sounds: Absent: S3 Gallop - Gastrointestinal General gastrointestinal: Absent: tenderness - Musculoskeletal Musculoskeletal: Present: gait normal, generalized weakness - Labs CBC & Chem 7: 05/15/20 05:55 05/15/20 05:55 Labs: Abnormal Lab Results - Last 24 Hours (Table) 05/15/20 05/15/20 05/16/20 Range/Units 16:35 20:37 06:59 POC Glucose (mg/dL) 144 H 216 H 176 H (75-99) mg/dL 05/16/20 Range/Units 11:48 POC Glucose (mg/dL) 135 H (75-99) mg/dL Assessment and Plan (1) COVID-19 Current Visit: Yes Status: Acute Code(s): U07.1 - COVID-19 SNOMED Code(s): 416857976 (2) Hypoxia Current Visit: Yes Status: Acute Code(s): R09.02 - HYPOXEMIA SNOMED Code(s): 686722097 (3) COPD (chronic obstructive pulmonary disease) with emphysema Current Visit: No Status: Acute Code(s): J43.9 - EMPHYSEMA, UNSPECIFIED SNOMED Code(s): 35927262 Plan: Appreciate Pulmonology input. Slow improvement Multiple comorbidities Decrease oxygen level and increase ambulation to see how much for medical improvement we can obtain without fatiguing the patient. Check CBC and CMP in a.m. Dr. Tyson's group will be covering for the weekend. Hopefully, We can potentially discharged with home health and family support in the next 48 hours
--- NOTE | 2020-05-16 15:43 | P.PN ---
Subjective Progress Note Date: 05/16/20 Principal diagnosis: Shortness of breath related to Covid 19 related pneumonitis This is a 69-year-old white female patient that came into the hospital on 2019 for evaluation of shortness of breath, and who had a positive outpatient [place] 19 testing on April 22. Patient denied any fever or chills, no chest pain, or chest discomfort, no lightheadedness or dizziness, no GI symptoms no nausea vomiting diarrhea or abdominal pain. She is not particularly short of breath on presentation, other than with exertion. Chest x-ray was completed in the ED showing no definitive acute lung disease other than some mild pulmonary fibrotic tissues. She had a low-grade fever on presentation with a temp of 100.4F, she's been afebrile overnight, -7 stable, follow-up chest x- ray shows patchy basilar infiltrates greatest at the right lung base, stable exam, her inflammatory markers were elevated on presentation, with LDH up to 827, and CRP up to 62.7, pro calcitonin level was negative. Patient is on nebulized bronchodilators, she is on oral prednisone, she is on Symbicort and Spiriva and albuterol inhaler, she does have underlying history of COPD on home oxygen, and is an ex-smoker, she has a past medical history of pulmonary embolism, she is on Eliquis for chronic anticoagulation. On 05/02/2020 patient seen in follow-up on the medical surgical floor, she is d oing better, feeling better today, requiring supplemental oxygen, currently at 4 L with a pulse ox of 93%, she's been afebrile, hemodynamically stable. No nausea vomiting or diarrhea. No fever overnight, no chills. Pro calcitonin was negative at 0.08, follow-up inflammatory markers are pending, patient was not a candidate for Remdesivir related to onset of symptoms being greater than 3 weeks ago. Yesterday chest x-ray showed patchy basilar infiltrates greatest at the right base, stable exam, follow-up inflammatory markers are pending. Patient remains on oral Decadron, nebulized bronchodilators and steroids, On 05/04/2020 patient seen in follow-up on a general medical surgical floor. S till requiring 15 L of oxygen, her pulse ox is between 89-92%, patient is very short of breath with any exertion, dropped down to 70% when getting up out of bed, she states she feels okay, however she has not made any significant improvement in terms of her symptoms, or gas exchange her oxygen requirement. Chest x-ray has not shown any significant improvement, continues to show patchy bilateral airspace disease. No fever or chills. Today's labs have been reviewed, lymphopenia persists, lymphocyte count is 0.5, white blood cell count is 8.4, hemoglobin is 12.6, d-dimer was 0.45, LDH is 429, CRP is 9.5, overall her inflammatory markers have improved since admission. Patient has been on ora l prednisone, breathing treatments, she is on oral anticoagulation and form of Eliquis, she is on Pepcid, zinc supplement, and vitamin C supplement. She has been self proning in bed. On 05/10/2020 patient seen in follow-up on medical surgical floor. She remains on 50 oxygen currently at 15 L, her pulse ox is 90%, appears to be breathing comfortably, denies any acute distress, despite the low oxygenation. She has been afebrile overnight, vital signs have been stable. She continues on IV ster oids, nebulized bronchodilators, she is status post 1 unit of less than plasma. Patient was not a candidate for Remdesivir, related to like the symptoms On 05/08/2020 patient seen in follow-up on medical surgical floor. She is down to 11 L from 15 L, her pulse ox is 8990, she is awake and alert, appears to be in no acute distress, breathing comfortably, she has been self troponin in bed, denies any chest discomfort, or palpitations, overall she states she is feeling better, she status post transfusion of one unit of convalescent plasma. His labs have been reviewed, LDH is 398 relatively stable over the last few days, but overall improved since admission, and CRP is improving and is down to 1.5 today. D-dimer is 1.05, and patient is on Eliquis for anticoagulation, she remains on bronchodilators, and IV Solu-Medrol. On 05/09/2020 patient seen in follow-up on medical surgical floor. She still on high flow oxygen, currently at 12 L, her pulse ox is 93-94%, lung sounds reveal some mild wheezing with the right posterior lung, overall improved, no crackles, she is feeling better, breathing easier, her appetite has improved, no altered mentation. Patient has been self proning, denies any cough. She remains on IV steroids, she is on oral Eliquis. On 05/10/2020 patient seen in follow-up on medical surgical floor, remains at 10 L of oxygen with a pulse ox 94%, overall she is feeling better, still has exertional dyspnea, but breathing easier, dropped oxygen down to 8 L, her pulse ox is 92, afebrile, hemodynamically stable. No chest discomfort, occasional cough, today's labs have been noted, d-dimer is 1.10, CRP is less than 0.4, significantly improved, LDH is trending down. Patient was out of the window for Remdesivir, she was treated with steroids, and she is currently on IV steroids at 60 mg every 6 hours, she is on Symbicort, and the Ventolin albuterol, she is on oral anticoagulation in the form of Eliquis, she is on vitamin C, zinc supplement, she is on Pepcid, she status post convalescent plasma transfusion On 05/11/2020 patient seen in follow-up in medical surgical floor. She is still on 8 L of oxygen her pulse ox was 95%, will contact oxygen to 6 L, she still sat 93%, continue weaning FiO2, otherwise breathing is improving, she is breathing comfortably, less wheezy remains on high dose of IV Solu-Medrol, she was not a candidate for Remdesivir, continue Symbicort and albuterol, her inflammatory markers have been improving, she is on oral anticoagulation, vital signs have been stable On 05/14/2020 patient seen in follow-up general medical surgical floor. She is on 6 L of oxygen her pulse ox is between 89-90%, no worsening dyspnea, no cough, she is breathing comfortably, no chest discomfort, no cough or congestion. She is slowly improving, she said no acute events overnight. She has been afebrile. Her last chest x-ray was on 05/08/2020 showing bibasilar peripheral infiltrates related to COVID19 infection. CBC was within normal limits, electrolytes and renal profile were unremarkable. She's had no fever or chills On 05/15/2020 patient seen in follow-up on Gen. medical surgical floor. Feeling well, improving, she is down to 4 L of oxygen her pulse ox is between 90-94%, she's been afebrile, hemodynamically she has been stable, he is recovering from COVID 19 infection. Today's labs have been reviewed, showing unremarkable CBC, electrolytes and renal profile were within normal limits. She is ambulating in the room, tolerating activity fairly well. There has been significant clinical improvement since admission. She has had no fever or chills, she remains on oral anticoagulation, means on IV steroids of 40 mg every 8 hours, she did receive a dose of convalescent plasma, she was out of the window for Remdesivir. On 05/16/2020 patient seen in follow-up on the medical surgical floor. Currently FiO2 is down to 4 L, pulse ox is 93%, she is calm and comfortable, breathing comfortably, no worsening dyspnea, she is afebrile, hemodynamically stable, remains on IV steroids at 40 mg every 8 hours, she is on bronchodilat ors, she status post transfusion with 1 unit of convalescent plasma, patient was out of the window for Remdesivir, her oxygenation has improved, and we were able to wean down her FiO2. Denies any chest discomfort, no wheezing, cough. Doing well, she remains on oral anticoagulation and form of Eliquis Objective - Vital Signs Vital signs: Vital Signs Temp 98.8 F 05/16/20 10:38 Pulse 78 05/16/20 10:38 Resp 18 05/16/20 10:38 BP 124/77 05/16/20 10:38 Pulse Ox 93 L 05/16/20 10:38 Intake & Output 05/15/20 05/16/20 05/16/20 18:59 06:59 18:59 Intake Total 320 Balance 320 Intake: Oral 320 Other: Voiding Method Bedside Commode # Voids 1 2 3 - Exam GENERAL EXAM: Alert, very pleasant, 69-year-old white female on 4 L of oxygen pulse ox of 94% comfortable in no apparent distress. HEAD: Normocephalic/atraumatic. EYES: Normal reaction of pupils, equal size. Conjunctiva pink, sclera white. NOSE: Clear with pink turbinates. THROAT: No erythema or exudates. NECK: No masses, no JVD, no thyroid enlargement, no adenopathy. CHEST: No chest wall deformity. Symmetrical expansion. LUNGS: Equal air entry with no crackles, wheeze, rhonchi or dullness. CVS: Regular rate and rhythm, normal S1 and S2, no gallops, no murmurs, no rubs ABDOMEN: Soft, nontender. No hepatosplenomegaly, normal bowel sounds, no guarding or rigidity. EXTREMITIES: No clubbing, no edema, no cyanosis, 2+ pulses and upper and lower extremities. MUSCULOSKELETAL: Muscle strength and tone normal. SPINE: No scoliosis or deformity SKIN: No rashes CENTRAL NERVOUS SYSTEM: Alert and oriented -3. No focal deficits, tone is normal in all 4 extremities. PSYCHIATRIC: Alert and oriented -3. Appropriate affect. Intact judgment and insight. - Labs CBC & Chem 7: 05/15/20 05:55 05/15/20 05:55 Labs: Abnormal Lab Results - Last 24 Hours (Table) 05/15/20 05/15/20 05/16/20 Range/Units 16:35 20:37 06:59 POC Glucose (mg/dL) 144 H 216 H 176 H (75-99) mg/dL 05/16/20 Range/Units 11:48 POC Glucose (mg/dL) 135 H (75-99) mg/dL Assessment and Plan Plan: Assessment: #1. Shortness of breath, related to COVID19 related pneumonitis, and patient was not candidate for Remdesivir related to length of the symptoms, she is status post convalescent plasma with 1 unit. #2. Previous history of pulmonary embolism on Eliquis for anticoagulation #3. Chronic hypoxemic respiratory failure related to advanced COPD usually wears 2 L of oxygen at home #4. Difficulty hearing #5. Osteoarthritis #6. History of anemia #7. History of bilateral cataracts #8. Morbid obesity Plan: FiO2 is down to 4 L, patient has remained stable, continues to improve, less short of breath, increase activity as tolerated, no fever or chills, she could be considered for discharge home today. Pulmonary service will sign off and follow on as-needed basis I performed a history & physical examination of the patient and discussed their management with my nurse practitioner, Nora Walker. I reviewed the nurse practitioner's note and agree with the documented findings and plan of care. Lung sounds are positive for diminished breath sounds. The findings and the impression was discussed with the patient. I attest to the documentation by the nurse practitioner. Time with Patient: Less than 30
[2020-05-16 16:36] LABS: Glucose,Whole Blood 169 mg/dL (75-99)
[2020-05-16 20:31] LABS: Glucose,Whole Blood 182 mg/dL (75-99)
[2020-05-16] MEDS: MELATONIN 5 MG TABLET PO SCH (20:38)
[2020-05-17 07:18] LABS: Glucose,Whole Blood 151 mg/dL (75-99)
[2020-05-17] MEDS: TIOTROPIUM 18 MCG/PUFF INHALER INHALATION SCH (07:55)
[2020-05-17] MEDS: SYMBICORT 160-4.5 MCG INHALER INHALATION SCH ×2 (07:55→19:32)
[2020-05-17] MEDS: APIXABAN 5 MG TAB PO SCH ×2 (08:44→21:06)
[2020-05-17] MEDS: INSULIN ASPART (NovoLOG) 100 UNIT/ML VIAL SQ SCH ×4 (08:44→21:06)
[2020-05-17] MEDS: CITALOPRAM HYDROBROMIDE 10 MG TAB PO SCH (08:44)
[2020-05-17] MEDS: ASCORBIC ACID 500 MG TAB PO SCH (08:44)
[2020-05-17] MEDS: ZINC SULFATE 220 MG CAP PO SCH (08:44)
[2020-05-17] MEDS: CHOLECALCIFEROL 1,000 UNIT TAB PO SCH (08:44)
[2020-05-17] MEDS: FAMOTIDINE 20 MG TAB PO SCH (08:44)
[2020-05-17] MEDS: methylPREDNISolone SOD SUCCI 40 MG/ML 1 ML VIAL IV SCH ×3 (08:45→23:35)
[2020-05-17 11:35] LABS: Glucose,Whole Blood 121 mg/dL (75-99)
--- NOTE | 2020-05-17 12:56 | XR ---
EXAMINATION TYPE: XR chest 1V portable DATE OF EXAM: 05/17/2020 CLINICAL HISTORY: Difficulty breathing progress study. TECHNIQUE: Single AP portable upright view of the chest is obtained. COMPARISON: Chest x-ray from 9 days earlier and older studies. FINDINGS: Persistent peripheral mid to lower lung increased opacity some background chronic parenchy mal change. No pleural effusion or pneumothorax seen. Upper lungs remain clear. Cardiac silhouette si ze stable and upper limits of normal. Osseous structures remain intact. IMPRESSION: Persistent bilateral peripheral mid to lower lung acute infiltrates. No significant rosa e from most recent x-ray.
[2020-05-17 16:49] LABS: Glucose,Whole Blood 144 mg/dL (75-99)
[2020-05-17] MEDS: ALBUTEROL HFA INHALER INHALATION PRN (19:32)
[2020-05-17 20:59] LABS: Glucose,Whole Blood 173 mg/dL (75-99)
[2020-05-17] MEDS: MELATONIN 5 MG TABLET PO SCH (21:06)
--- NOTE | 2020-05-18 00:30 | PN ---
PROGRESS NOTE DATE OF SERVICE: 05/17/2020. I am covering for Dr. Gómez. This 69-year-old woman who was admitted with shortness of breath and COVID-19 pneumonia was not a candidate for remdesivir. The patient had convalescent plasma. The patient also had history of pulmonary embolism. Patient is being closely monitored. The most recent chest x-ray which was reviewed personally by me done today showed bilateral lesions, right more than left. PAST MEDICAL HISTORY: Reviewed. REVIEW OF SYSTEMS: CARDIOVASCULAR SYSTEM: No angina. RESPIRATORY SYSTEM: As mentioned earlier. GI: As mentioned earlier. : No dysuria. NERVOUS SYSTEM: No numbness or weakness. CURRENT MEDICATIONS: Current medications are reviewed and include: Tylenol, Ventolin, Eliquis, vitamin C, Pepcid, Melatonin, Solu-Medrol. Other doses are reviewed. PHYSICAL EXAMINATION: The patient is alert and oriented x3. Pulse is 81, blood pressure 168/82, respiration 20, temperature normal, 98.7, pulse ox 91% on 2 L. HEENT: Conjunctivae normal. NECK: No jugular venous distention. CARDIOVASCULAR: S1, S2 muffled. RESPIRATORY: Breath sounds diminished at the bases. A few scattered rhonchi and crackles. ABDOMEN: Soft, nontender. LEGS: No edema. No swelling. NERVOUS SYSTEM: No focal deficits. LABS: CBC noted. Accu-Cheks 182, 144 . ASSESSMENT: 1. Bilateral COVID-19 interstitial pneumonia with acute hypoxic respiratory failure, status post convalescent plasma. 2. History of pulmonary embolism with Eliquis and anticoagulation. 3. Chronic hypoxic respiratory failure secondary to chronic obstructive pulmonary disease and wears 2 L oxygen at home. 4. Degenerative joint disease. 5. History of anemia. 6. Bilateral cataracts. 7. Morbid obesity with body mass index of 35.2. 8. Elevated random blood sugar. 9. History of hearing defects. 10.History of degenerative joint disease. 11.History of cholecystectomy. 12.History of anxiety, depression. 13.History of nicotine dependence. 14.FULL CODE. RECOMMENDATIONS AND DISCUSSION: This 69-year-old woman who presented with multiple complex medical issues, we will monitor the patient closely. Continue the current medications, continue symptomatic treatment. Otherwise at this time I recommend to continue the bronchodilators and evaluate for the oxygen. Continue with steroids, which will be tapered. Otherwise, continue the rest of the medications. Prognosis guarded because of multiple complex medical issues. Further recommendations to follow. MMODL / IJN: [id number] /
[2020-05-18 07:19] LABS: Glucose,Whole Blood 164 mg/dL (75-99)
[2020-05-18] MEDS: ZINC SULFATE 220 MG CAP PO SCH (07:33)
[2020-05-18] MEDS: FAMOTIDINE 20 MG TAB PO SCH (07:33)
[2020-05-18] MEDS: CITALOPRAM HYDROBROMIDE 10 MG TAB PO SCH (07:33)
[2020-05-18] MEDS: CHOLECALCIFEROL 1,000 UNIT TAB PO SCH (07:33)
[2020-05-18] MEDS: ASCORBIC ACID 500 MG TAB PO SCH (07:34)
[2020-05-18] MEDS: methylPREDNISolone SOD SUCCI 40 MG/ML 1 ML VIAL IV SCH (07:34)
[2020-05-18] MEDS: INSULIN ASPART (NovoLOG) 100 UNIT/ML VIAL SQ SCH ×2 (07:34→12:00)
[2020-05-18] MEDS: APIXABAN 5 MG TAB PO SCH (07:34)
[2020-05-18] MEDS: ALBUTEROL HFA INHALER INHALATION PRN ×2 (08:37→12:24)
[2020-05-18] MEDS: TIOTROPIUM 18 MCG/PUFF INHALER INHALATION SCH (08:38)
[2020-05-18] MEDS: SYMBICORT 160-4.5 MCG INHALER INHALATION SCH (08:38)
[2020-05-18 10:27] VITALS: BP 118/65; PULSE 92; RESP 17; TEMP 98.5
[2020-05-18 11:50] LABS: Glucose,Whole Blood 204 mg/dL (75-99)
--- NOTE | 2020-05-18 12:57 | P.DS ---
Providers Date of admission: 04/29/20 18:47 Expected date of discharge: 05/18/20 Attending physician: Benny Gómez Consults: 04/30/20 07:51 Consult Physician Routine Consulting Provider: Michelle Moore Consult Reason/Comments: COPD/COVID Do you want consulting provider notified?: Yes Primary care physician: Benny Gómez Hospital Course: Final diagnosis Bilateral Covid 19 interstitial pneumonia with acute hypoxic respiratory failure, status post convalescent plasma History of pulmonary embolism with Eliquis and anticoagulation Chronic hypoxic respiratory failure secondary to chronic obstructive pulmonary disease, wears 2 L of oxygen at home Degenerative joint disease History of anemia Bilateral cataracts Morbid obesity with a BMI of 35.2 Elevated random blood sugar History of hearing deficits History of degenerative joint disease History of cholecystectomy History of anxiety, depression History of nicotine dependence Full code Discharge disposition Patient is being discharged in a stable condition with guarded prognosis to home. Patient will follow-up with Dr. Gómez in the outpatient setting upon discharge. Patient is to continue with prednisone taper along with zinc supplements in the outpatient setting. Total time taken is greater than 35 minutes. History of present illness This is a 66-year-old female who was recently admitted with shortness of breath and Covid 19 pneumonia and was being closely monitored. Patient was maintained on IV steroids and oxygen. She will continue on a prednisone taper in the outpatient setting. Infectious disease following the patient and patient will continue with zinc supplements, vitamin C and D supplements. Patient to follow- up with primary care provider upon discharge. Patient instructed to continue to quarantine at home for an additional 7 days until primary care follow-up. Scripts were sent to pharmacy for supplies. Currently no reports of chest pain, worsening shortness of breath, or palpitations. Patient is afebrile. No reports of nausea or vomiting and patient is tolerating diet. Patient will be going home today. On exam vital signs are stable. Temp is 98.5F, pulse is 92, respirations are 17, blood pressure is 118/65, oxygen saturation is 90-93% on room air. Cardio S1, S2 are muffled. Respiratory system shows diminished breath sounds at the bases with no wheezing or rhonchi noted. Abdomen is soft and nontender. Nervous system shows no focal deficits. Please refer to medication reconciliation sheet for a list of medications. Patient Condition at Discharge: Stable Plan - Discharge Summary Discharge Rx Participant: No New Discharge Prescriptions: New Zinc Sulfate [Orazinc] 220 mg PO DAILY #30 cap Famotidine [Pepcid] 20 mg PO DAILY #30 tab Budesonide-Formot 160-4.5 Mcg [Symbicort 160-4.5 Mcg Inhaler] 2 puff INHALATION RT-BID #1 puff Ascorbic Acid [Vitamin C] 500 mg PO DAILY #30 tab Cholecalciferol [Vitamin D3 (25 Mcg = 1000 Iu)] 1,000 unit PO DAILY #30 tab predniSONE 10 mg PO DIRECTED #30 tab Continue ALPRAZolam 0.5 mg PO BID PRN PRN Reason: Anxiety Citalopram Hydrobromide [CeleXA] 10 mg PO DAILY Apixaban [Eliquis] 5 mg PO BID Acetaminophen [Tylenol] 500 mg PO DAILY PRN PRN Reason: Pain Budesonide [Pulmicort] 0.5 mg INHALATION RT-BID PRN PRN Reason: Shortness Of Breath Changed Ipratropium-Albuterol Nebulize [Duoneb 0.5 mg-3 mg/3 ml Soln] 3 ml INHALATION RT-QID #120 ml Tiotropium [place] [Spiriva Respimat] 2 spray INHALATION RT-BID #1 Discharge Medication List ALPRAZolam 0.5 mg PO BID PRN 12/26/15 [History] Citalopram Hydrobromide [CeleXA] 10 mg PO DAILY 03/16/18 [History] Acetaminophen [Tylenol] 500 mg PO DAILY PRN 04/21/20 [History] Apixaban [Eliquis] 5 mg PO BID 04/21/20 [History] Budesonide [Pulmicort] 0.5 mg INHALATION RT-BID PRN 04/29/20 [History] Ascorbic Acid [Vitamin C] 500 mg PO DAILY #30 tab 05/17/20 [Rx] Budesonide-Formot 160-4.5 Mcg [Symbicort 160-4.5 Mcg Inhaler] 2 puff INHALATION RT-BID #1 puff 05/17/20 [Rx] Cholecalciferol [Vitamin D3 (25 Mcg = 1000 Iu)] 1,000 unit PO DAILY #30 tab 05/17/20 [Rx] Famotidine [Pepcid] 20 mg PO DAILY #30 tab 05/17/20 [Rx] Ipratropium-Albuterol Nebulize [Duoneb 0.5 mg-3 mg/3 ml Soln] 3 ml INHALATION RT-QID #120 ml 05/17/20 [Rx] Tiotropium [place] [Spiriva Respimat] 2 spray INHALATION RT-BID #1 05/17/20 [Rx] Zinc Sulfate [Orazinc] 220 mg PO DAILY #30 cap 05/17/20 [Rx] predniSONE 10 mg PO DIRECTED #30 tab 05/18/20 [Rx] Follow up Appointment(s)/Referral(s): Benny Gómez MD [Primary Care Provider] - 1-2 days (office closed at time of discharge. PLease call to make appointment) [facility] Vis[facility] Nurse, [NON-STAFF] - Ambulatory/Diagnostic Orders: Complete Blood Count w/diff [LAB.AMB] Location: None Selected Patient Instructions/Handouts: Viral Pneumonia (DC) Activity/Diet/Wound Care/Special Instructions: Diet cardiac Activity Limited follow-up follow-up with Dr. Ruiz in 1-2 weeks or when necessary Continue steroid taper Discharge Disposition: HOME WITH HOME HEALTH SERVICES
== END 2020-05-18 13:33 | disposition home health service (06) | DRG 177 ==
LOC: EC 15:02 → 4SSUR 18:47
PROVIDERS: ADMIT Family Medicine; ATTEND Family Medicine
PROC: 30233K1 Transfusion of Nonautologous Frozen Plasma into Peripheral Vein, Percutaneous Approach (ICD-10-PCS; principal; 2020-05-04)
DX: U07.1 COVID-19 (principal); J12.89 Other viral pneumonia; J96.21 Acute and chronic respiratory failure with hypoxia; J43.9 Emphysema, unspecified; M19.90 Unspecified osteoarthritis, unspecified site; D72.810 Lymphocytopenia; E66.01 Morbid (severe) obesity due to excess calories; F32.9 Major depressive disorder, single episode, unspecified; F41.9 Anxiety disorder, unspecified; H26.9 Unspecified cataract; H91.90 Unspecified hearing loss, unspecified ear; Z86.711 Personal history of pulmonary embolism; Z79.01 Long term (current) use of anticoagulants; Z68.35 Body mass index [BMI] 35.0-35.9, adult; Z79.52 Long term (current) use of systemic steroids; Z79.899 Other long term (current) drug therapy; Z80.1 Family history of malignant neoplasm of trachea, bronchus and lung; Z80.3 Family history of malignant neoplasm of breast; Z87.891 Personal history of nicotine dependence; Z90.49 Acquired absence of other specified parts of digestive tract; Z99.81 Dependence on supplemental oxygen; Z83.2 Family history of diseases of the blood and blood-forming organs and certain disorders involving the immune mechanism; Z79.51 Long term (current) use of inhaled steroids; Z98.42 Cataract extraction status, left eye; Z98.41 Cataract extraction status, right eye
CPT/HCPCS: 36415; 71045; 80048; 80053; 82728; 83605; 83615; 83735; 84145; 85025; 85027; 85379; 85384; 85610; 85730; 86140; 86850; 86900; 86901; 93005; 94640; 94760; 96374; 99285

== ENCOUNTER 2020-05-19 05:58 | Emergency (ER) | payer MEDICARE ==
--- NOTE | 2020-05-19 06:08 | ED ---
SOB HPI - History of Present Illness MD Complaint: shortness of breath, cough -: hour(s) Severity: moderate Consistency: constant Improves With: oxygen Worsens With: nothing Known History Of: other (Gravid 19) Associated Symptoms: denies other symptoms Treatments Prior to Arrival: oxygen <Jakob Espinal - Last Filed: 05/19/20 06:53> <Mariam Ramires Gorge - Last Filed: 05/19/20 08:34> - General Stated Complaint: SOB, covid + Time Seen by Provider: 05/19/20 06:07 - History of Present Illness Initial Comments: This patient is 69-year-old woman who called EMS today because she was feeling short of breath. The main issue is that when she was attempting to get up to use the bathroom she would become dyspneic with walking. The patient had just been discharged from the hospital yesterday after being admitted for 19 days for code at 19 infection. The patient stated that she was feeling better after EMS placed her on oxygen. She denies chest pain. She has occasional cough with no sputum. No leg pain or swelling. No change in urination or bowel movements. (Jakob Espinal) - Related Data Home Medications Medication Instructions Recorded Confirmed ALPRAZolam 0.5 mg PO BID PRN 12/26/15 04/29/20 Citalopram Hydrobromide [CeleXA] 10 mg PO DAILY 03/16/18 04/29/20 Acetaminophen [Tylenol] 500 mg PO DAILY PRN 04/21/20 04/29/20 Apixaban [Eliquis] 5 mg PO BID 04/21/20 04/29/20 Budesonide [Pulmicort] 0.5 mg INHALATION RT-BID PRN 04/29/20 04/29/20 Previous Rx's Medication Instructions Recorded Ascorbic Acid [Vitamin C] 500 mg PO DAILY #30 tab 05/17/20 Budesonide-Formot 160-4.5 Mcg 2 puff INHALATION RT-BID #1 puff 05/17/20 [Symbicort 160-4.5 Mcg Inhaler] Cholecalciferol [Vitamin D3 (25 1,000 unit PO DAILY #30 tab 05/17/20 Mcg = 1000 Iu)] Famotidine [Pepcid] 20 mg PO DAILY #30 tab 05/17/20 Ipratropium-Albuterol Nebulize 3 ml INHALATION RT-QID #120 ml 05/17/20 [Duoneb 0.5 mg-3 mg/3 ml Soln] Tiotropium [place] [Spiriva 2 spray INHALATION RT-BID #1 05/17/20 Respimat] Zinc Sulfate [Orazinc] 220 mg PO DAILY #30 cap 05/17/20 predniSONE 10 mg PO DIRECTED #30 tab 05/18/20 Allergies Allergy/AdvReac Type Severity Reaction Status Date / Time Sulfa (Sulfonamide AdvReac Unknown Verified 05/19/20 06:37 Antibiotics) Childhood steroids AdvReac excessive Uncoded 05/19/20 06:37 sleepiness Review of Systems ROS Other: All systems not noted in ROS Statement are negative. Constitutional: Denies: fever, chills Respiratory: Reports: as per HPI, cough, dyspnea. Denies: hemoptysis Cardiovascular: Denies: chest pain, palpitations, orthopnea, edema, syncope Gastrointestinal: Denies: abdominal pain, nausea, vomiting, diarrhea Genitourinary: Denies: dysuria, hematuria Musculoskeletal: Denies: back pain Skin: Denies: rash Neurological: Denies: headache, weakness, numbness <Jakob Espinal - Last Filed: 05/19/20 06:53> ROS Other: All systems not noted in ROS Statement are negative. <Mariam Ramires - Last Filed: 05/19/20 08:34> ROS Statement: Those systems with pertinent positive or pertinent negative responses have been documented in the HPI. Past Medical History Past Medical History: COPD, Eye Disorder, Hearing Disorder / Deafness, Osteoarthritis (OA) Additional Past Medical History / Comment(s): Anemia in the past, emphysema, bilateral cataracts, right hand carpal tunnel History of Any Multi-Drug Resistant Organisms: None Reported Past Surgical History: Appendectomy, Cholecystectomy, Tubal Ligation Additional Past Surgical History / Comment(s): Colonoscopy Past Anesthesia/Blood Transfusion Reactions: No Reported Reaction Past Psychological History: Anxiety, Depression Additional Psychological History / Comment(s): Pt lives alone. She uses a wheeled walker at times due to her SOB with activity. She is independent. She drives. Smoking Status: Former smoker Past Alcohol Use History: Daily Additional Past Alcohol Use History / Comment(s): Started smoking in 1971 and quit 12/05. Past Drug Use History: None Reported - Past Family History Father Family Medical History: Cancer Additional Family Medical History / Comment(s): Lung cancer Mother Family Medical History: Cancer, Deep Vein Thrombosis (DVT) Additional Family Medical History / Comment(s): breast <Jakob Espinal - Last Filed: 05/19/20 06:53> General Exam General appearance: alert, in no apparent distress Head exam: Present: atraumatic, normocephalic Eye exam: Present: normal appearance. Absent: scleral icterus, conjunctival injection Neck exam: Present: normal inspection Respiratory exam: Present: rales (Bilateral bases). Absent: respiratory distress, wheezes, rhonchi, stridor, accessory muscle use, decreased breath sounds, prolonged expiratory Cardiovascular Exam: Present: normal rhythm, tachycardia (Rate 102), normal heart sounds. Absent: systolic murmur, diastolic murmur, rubs, gallop GI/Abdominal exam: Present: soft. Absent: distended, tenderness, guarding, rebound, rigid Extremities exam: Present: normal inspection, normal capillary refill. Absent: pedal edema, calf tenderness Back exam: Present: normal inspection. Absent: CVA tenderness (R), CVA tenderness (L) Neurological exam: Present: alert Skin exam: Present: warm, dry, intact, normal color. Absent: rash <ClairlloydJakob - Last Filed: 05/19/20 06:53> Course Vital Signs 05/19/20 05/19/20 06:25 07:25 Temperature 98.8 F Pulse Rate 103 H 97 Respiratory 24 20 Rate Blood Pressure 101/82 104/69 O2 Sat by Pulse 91 L 92 L Oximetry Medical Decision Making - Lab Data Result diagrams: 05/19/20 06:18 - EKG Data -: EKG Interpreted by Me EKG shows normal: sinus rhythm, axis (Normal), intervals (Normal), QRS complexes (Normal), ST-T waves (Normal) Rate: tachycardia (Rate 102 BPM) <TeddyJakob - Last Filed: 05/19/20 06:53> - Lab Data Result diagrams: 05/19/20 06:18 05/19/20 06:18 <Mariam Ramires - Last Filed: 05/19/20 08:34> - Medical Decision Making The patient was signed out to me from Dr. Nelson. She is evaluated and resting comfortably in bed. No signs of respiratory distress. Laboratory studies and chest x-ray reviewed by myself. Results are discussed with the patient. She is requesting to go home at this time. Patient adamant that she was hospitalized for 19 days and does not want to be hospitalized again. States that her breathing is well under control. She does have oxygen at home. Patient will be discharged. Follow-up with her primary care doctor. Needs to return to the emergency room for any new or worsening symptoms. Call an ambulance for any respiratory distress. Patient understood this. Patient discharged home in stable condition (Mariam Ramires) - Lab Data Lab Results 05/19/20 05/19/20 05/19/20 Range/Units 06:18 06:18 06:18 WBC 10.8 H (3.8-10.6) k/uL RBC 4.57 (3.80-5.40) m/uL Hgb 14.7 (11.4-16.0) gm/dL Hct 43.6 (34.0-46.0) % MCV 95.4 (80.0-100.0) fL MCH 32.1 (25.0-35.0) pg MCHC 33.7 (31.0-37.0) g/dL RDW 14.4 (11.5-15.5) % Plt Count 211 (150-450) k/uL MPV 6.8 Neutrophils % 80 % Lymphocytes % 12 % Monocytes % 5 % Eosinophils % 0 % Basophils % 1 % Neutrophils # 8.6 H (1.3-7.7) k/uL Lymphocytes # 1.3 (1.0-4.8) k/uL Monocytes # 0.6 (0-1.0) k/uL Eosinophils # 0.0 (0-0.7) k/uL Basophils # 0.1 (0-0.2) k/uL PT 10.7 (9.0-12.0) sec INR 1.0 (<1.2) APTT 18.8 L (22.0-30.0) sec D-Dimer 0.62 H (<0.60) mg/L FEU Sodium 133 L (137-145) mmol/L Potassium 3.9 (3.5-5.1) mmol/L Chloride 98 (98-107) mmol/L Carbon Dioxide 28 (22-30) mmol/L Anion Gap 7 mmol/L BUN 26 H (7-17) mg/dL Creatinine 0.72 (0.52-1.04) mg/dL Est GFR (CKD-EPI)AfAm >90 (>60 ml/min/1.73 sqM) Est GFR (CKD-EPI)NonAf 85 (>60 ml/min/1.73 sqM) Glucose 108 H (74-99) mg/dL Plasma Lactic Acid Blu (0.7-2.0) mmol/L Calcium 8.8 (8.4-10.2) mg/dL Magnesium 2.3 (1.6-2.3) mg/dL Total Bilirubin 0.8 (0.2-1.3) mg/dL AST 31 (14-36) U/L ALT 67 H (4-34) U/L Alkaline Phosphatase 48 (38-126) U/L Lactate Dehydrogenase 915 H (313-618) U/L C-Reactive Protein 5.1 (<10.0) mg/L Total Protein 6.0 L (6.3-8.2) g/dL Albumin 3.5 (3.5-5.0) g/dL 05/19/20 Range/Units 06:18 WBC (3.8-10.6) k/uL RBC (3.80-5.40) m/uL Hgb (11.4-16.0) gm/dL Hct (34.0-46.0) % MCV (80.0-100.0) fL MCH (25.0-35.0) pg MCHC (31.0-37.0) g/dL RDW (11.5-15.5) % Plt Count (150-450) k/uL MPV Neutrophils % % Lymphocytes % % Monocytes % % Eosinophils % % Basophils % % Neutrophils # (1.3-7.7) k/uL Lymphocytes # (1.0-4.8) k/uL Monocytes # (0-1.0) k/uL Eosinophils # (0-0.7) k/uL Basophils # (0-0.2) k/uL PT (9.0-12.0) sec INR (<1.2) APTT (22.0-30.0) sec D-Dimer (<0.60) mg/L FEU Sodium (137-145) mmol/L Potassium (3.5-5.1) mmol/L Chloride (98-107) mmol/L Carbon Dioxide (22-30) mmol/L Anion Gap mmol/L BUN (7-17) mg/dL Creatinine (0.52-1.04) mg/dL Est GFR (CKD-EPI)AfAm (>60 ml/min/1.73 sqM) Est GFR (CKD-EPI)NonAf (>60 ml/min/1.73 sqM) Glucose (74-99) mg/dL Plasma Lactic Acid Blu 4.5 H* (0.7-2.0) mmol/L Calcium (8.4-10.2) mg/dL Magnesium (1.6-2.3) mg/dL Total Bilirubin (0.2-1.3) mg/dL AST (14-36) U/L ALT (4-34) U/L Alkaline Phosphatase (38-126) U/L Lactate Dehydrogenase (313-618) U/L C-Reactive Protein (<10.0) mg/L Total Protein (6.3-8.2) g/dL Albumin (3.5-5.0) g/dL Disposition <Jakob Espinal - Last Filed: 05/19/20 06:53> Is patient prescribed a controlled substance at d/c from ED?: No Time of Disposition: 08:26 <Mariam Ramires - Last Filed: 05/19/20 08:34> Clinical Impression: COPD (chronic obstructive pulmonary disease) with emphysema, COVID-19 Disposition: HOME SELF-CARE Condition: Stable Instructions (If sedation given, give patient instructions): Shortness of Breath (ED) Additional Instructions: Wear your oxygen. Follow up with your doctor. Return to the ED for any new or worsening symptoms. Referrals: Benny Gómez MD [Primary Care Provider] - 1-2 days
[2020-05-19 06:34] VITALS: TEMP 98.8
[2020-05-19 06:47] LABS: Basophils # (A) 0.1 k/uL (0-0.2); Basophils % (A) 1 %; Eosinophils % (A) 0 %; HCT 43.6 % (34.0-46.0); HGB 14.7 gm/dL (11.4-16.0); Lymphocytes # (A) 1.3 k/uL (1.0-4.8); Lymphocytes % (A) 12 %; MCH 32.1 pg (25.0-35.0); MCHC 33.7 g/dL (31.0-37.0); MCV 95.4 fL (80.0-100.0); Mean Platelet Volume 6.8; Monocytes # (A) 0.6 k/uL (0-1.0); Monocytes % (A) 5 %; Neutrophils # (A) 8.6 k/uL (1.3-7.7); Neutrophils % (A) 80 %; Platelet Count 211 k/uL (150-450); RBC 4.57 m/uL (3.80-5.40); RDW 14.4 % (11.5-15.5); WBC 10.8 k/uL (3.8-10.6)
[2020-05-19 07:00] LABS: ALT 67 U/L (4-34); AST 31 U/L (14-36); African American GFR (CKD) >90 (>60 ml/min/1.73 sqM); Albumin 3.5 g/dL (3.5-5.0); Alkaline Phosphatase 48 U/L (38-126); Anion Gap 7 mmol/L; Blood Urea Nitrogen 26 mg/dL (7-17); C Reactive Protein 5.1 mg/L (<10.0); Calcium 8.8 mg/dL (8.4-10.2); Carbon Dioxide 28 mmol/L (22-30); Chloride 98 mmol/L (98-107); Glucose 108 mg/dL (74-99); LDH 915 U/L (313-618); Magnesium 2.3 mg/dL (1.6-2.3); Non-African American GFR(CKD) 85 (>60 ml/min/1.73 sqM); Potassium 3.9 mmol/L (3.5-5.1); Sodium 133 mmol/L (137-145); Total Bilirubin 0.8 mg/dL (0.2-1.3)
[2020-05-19 07:05] LABS: Prothrombin Time 10.7 sec (9.0-12.0)
[2020-05-19 07:37] LABS: D-Dimer 0.62 mg/L FEU (<0.60); Partial Thromboplastin Time 18.8 sec (22.0-30.0)
--- NOTE | 2020-05-19 07:40 | XR ---
EXAMINATION TYPE: XR chest 1V portable DATE OF EXAM: 05/19/2020 COMPARISON: Chest x-ray 2 days ago HISTORY: Shortness of breath. Suspected covid 19 pneumonia. TECHNIQUE: Single AP portable frontal upright view of the chest is obtained. FINDINGS: There is chronic parenchymal changes with persistent peripheral mid to lower lung opacitie s. The cardiac silhouette size is stable and mildly enlarged. Osseous structures are intact. IMPRESSION: Overall stable findings, chronic parenchymal changes and mild cardiomegaly with peripher al bilateral mid to lower lung acute infiltrates consistent with covid 19 infection.
[2020-05-19] MEDS ORDERED: SODIUM CHLORIDE 0.9% 500 ML 500 ML IV STA (07:45)
[2020-05-19 07:48] VITALS: RESP 20
[2020-05-19 08:50] VITALS: BP 112/76; PULSE 100
== END 2020-05-19 08:50 | disposition home or self-care (01) ==
LOC: EC 05:58
DX: U07.1 COVID-19 (principal); J43.9 Emphysema, unspecified; H91.90 Unspecified hearing loss, unspecified ear; F41.9 Anxiety disorder, unspecified; F32.9 Major depressive disorder, single episode, unspecified; Z79.01 Long term (current) use of anticoagulants; Z79.51 Long term (current) use of inhaled steroids; Z79.899 Other long term (current) drug therapy; Z88.2 Allergy status to sulfonamides; Z88.8 Allergy status to other drugs, medicaments and biological substances; Z87.891 Personal history of nicotine dependence
CPT/HCPCS: 36415; 71045; 80053; 82728; 83605; 83615; 83735; 84145; 85025; 85379; 85610; 85730; 86140; 87040; 93005; 99285

== ENCOUNTER 2021-01-10 20:54 | Inpatient (IN) | payer MEDICARE ==
--- NOTE | 2021-01-10 21:35 | ED ---
SOB HPI - General Chief Complaint: Shortness of Breath Stated Complaint: IKER Source: patient, family, EMS Mode of arrival: EMS Limitations: no limitations - History of Present Illness Initial Comments: Patient is a 70-year-old female past medical history of COPD on 4 L of home O2 who presents emergency Department with reported shortness of breath. States she's been short of breath for the past 3 days. She normally has oxygen saturations of 95%. States that when she gets up and ambulates her oxygen level goes down to 83%. She admits to chills. No sick contacts. Patient did have Covid last fall. She denies a history of heart failure. 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 She is on [place] has been taking her medications as directed without any missed doses. Denies any chest pain. No abdominal pain. No numbness, chilling or weakness in her cherries. Patient has been using her nebulizer and inhalers as directed without improvement. She sees Dr. Cavazos in office. 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 - Related Data Home Medications Medication Instructions Recorded Confirmed ALPRAZolam 0.5 mg PO BID PRN 12/26/15 04/29/20 Citalopram Hydrobromide [CeleXA] 10 mg PO DAILY 03/16/18 04/29/20 Acetaminophen [Tylenol] 500 mg PO DAILY PRN 04/21/20 04/29/20 Apixaban [Eliquis] 5 mg PO BID 04/21/20 04/29/20 Budesonide [Pulmicort] 0.5 mg INHALATION RT-BID PRN 04/29/20 04/29/20 Previous Rx's Medication Instructions Recorded Ascorbic Acid [Vitamin C] 500 mg PO DAILY #30 tab 05/17/20 Budesonide-Formot 160-4.5 Mcg 2 puff INHALATION RT-BID #1 puff 05/17/20 [Symbicort 160-4.5 Mcg Inhaler] Cholecalciferol [Vitamin D3 (25 1,000 unit PO DAILY #30 tab 05/17/20 Mcg = 1000 Iu)] Famotidine [Pepcid] 20 mg PO DAILY #30 tab 05/17/20 Ipratropium-Albuterol Nebulize 3 ml INHALATION RT-QID #120 ml 05/17/20 [Duoneb 0.5 mg-3 mg/3 ml Soln] Tiotropium [place] [Spiriva 2 spray INHALATION RT-BID #1 05/17/20 Respimat] Zinc Sulfate [Orazinc] 220 mg PO DAILY #30 cap 05/17/20 predniSONE 10 mg PO DIRECTED #30 tab 05/18/20 Allergies Allergy/AdvReac Type Severity Reaction Status Date / Time Sulfa (Sulfonamide AdvReac Unknown Verified 05/19/20 06:37 Antibiotics) Childhood steroids AdvReac excessive Uncoded 05/19/20 06:37 sleepiness Review of Systems ROS Statement: Those systems with pertinent positive or pertinent negative responses have been documented in the HPI. ROS Other: All systems not noted in ROS Statement are negative. Past Medical History Past Medical History: COPD, Eye Disorder, Hearing Disorder / Deafness, Osteoarthritis (OA) Additional Past Medical History / Comment(s): Anemia in the past, emphysema, bilateral cataracts, right hand carpal tunnel History of Any Multi-Drug Resistant Organisms: None Reported Past Surgical History: Appendectomy, Cholecystectomy, Tubal Ligation Additional Past Surgical History / Comment(s): Colonoscopy Past Anesthesia/Blood Transfusion Reactions: No Reported Reaction Past Psychological History: Anxiety, Depression Smoking Status: Former smoker Past Alcohol Use History: Daily Past Drug Use History: None Reported - Past Family History Father Family Medical History: Cancer Additional Family Medical History / Comment(s): Lung cancer Mother Family Medical History: Cancer, Deep Vein Thrombosis (DVT) Additional Family Medical History / Comment(s): breast General Exam Limitations: no limitations Course Vital Signs 01/10/21 01/10/21 01/10/21 20:57 22:34 22:43 Temperature 99.8 F H Pulse Rate 102 H 85 87 Respiratory 22 Rate Blood Pressure 163/85 O2 Sat by Pulse 91 L Oximetry Medical Decision Making - Medical Decision Making Upon arrival patient is placed into room 1. A thorough history and physical exam was performed. Laboratory studies are conducting a portal chest x-ray was performed. Patient swabbed for Covid which is negative. Chest x-ray demonstrates a developing infiltrate of the left lower lobe. Blood cultures obtained. Patient is given a dose of azithromycin and Rocephin. Discussed case with Dr. Gómez who agreed to admit the patient. She will be initiated on steroids. I will consult Dr. Cavazos. Patient is currently awaiting a bed on the floor - Lab Data Result diagrams: 01/10/21 21:28 01/10/21 21:28 Lab Results 01/10/21 01/10/21 01/10/21 Range/Units 21:28 21: 21:28 WBC 5.6 (3.8-10.6) k/uL RBC 3.94 (3.80-5.40) m/uL Hgb 12.5 (11.4-16.0) gm/dL Hct 38.0 (34.0-46.0) % MCV 96.5 (80.0-100.0) fL MCH 31.7 (25.0-35.0) pg MCHC 32.9 (31.0-37.0) g/dL RDW 13.7 (11.5-15.5) % Plt Count 223 (150-450) k/uL MPV 7.2 Neutrophils % 67 % Lymphocytes % 16 % Monocytes % 9 % Eosinophils % 2 % Basophils % 1 % Neutrophils # 3.7 (1.3-7.7) k/uL Lymphocytes # 0.9 L (1.0-4.8) k/uL Monocytes # 0.5 (0-1.0) k/uL Eosinophils # 0.1 (0-0.7) k/uL Basophils # 0.1 (0-0.2) k/uL PT 9.9 (9.0-12.0) sec INR 0.9 (<1.2) APTT 24.5 (22.0-30.0) sec Sodium 138 (137-145) mmol/L Potassium 3.6 (3.5-5.1) mmol/L Chloride 100 (98-107) mmol/L Carbon Dioxide 30 (22-30) mmol/L Anion Gap 8 mmol/L BUN 9 (7-17) mg/dL Creatinine 0.74 (0.52-1.04) mg/dL Est GFR (CKD-EPI)AfAm >90 (>60 ml/min/1.73 sqM) Est GFR (CKD-EPI)NonAf 82 (>60 ml/min/1.73 sqM) Glucose 106 H (74-99) mg/dL Plasma Lactic Acid Blu (0.7-2.0) mmol/L Calcium 9.0 (8.4-10.2) mg/dL Total Bilirubin 0.4 (0.2-1.3) mg/dL AST 27 (14-36) U/L ALT 18 (4-34) U/L Alkaline Phosphatase 64 (38-126) U/L Troponin I (0.000-0.034) ng/mL NT-Pro-B Natriuret Pep pg/mL Total Protein 6.6 (6.3-8.2) g/dL Albumin 4.1 (3.5-5.0) g/dL Coronavirus (PCR) (Not Detectd) 01/10/21 01/10/21 01/10/21 Range/Units 21:28 21:28 21:28 WBC (3.8-10.6) k/uL RBC (3.80-5.40) m/uL Hgb (11.4-16.0) gm/dL Hct (34.0-46.0) % MCV (80.0-100.0) fL MCH (25.0-35.0) pg MCHC (31.0-37.0) g/dL RDW (11.5-15.5) % Plt Count (150-450) k/uL MPV Neutrophils % % Lymphocytes % % Monocytes % % Eosinophils % % Basophils % % Neutrophils # (1.3-7.7) k/uL Lymphocytes # (1.0-4.8) k/uL Monocytes # (0-1.0) k/uL Eosinophils # (0-0.7) k/uL Basophils # (0-0.2) k/uL PT (9.0-12.0) sec INR (<1.2) APTT (22.0-30.0) sec Sodium (137-145) mmol/L Potassium (3.5-5.1) mmol/L Chloride (98-107) mmol/L Carbon Dioxide (22-30) mmol/L Anion Gap mmol/L BUN (7-17) mg/dL Creatinine (0.52-1.04) mg/dL Est GFR (CKD-EPI)AfAm (>60 ml/min/1.73 sqM) Est GFR (CKD-EPI)NonAf (>60 ml/min/1.73 sqM) Glucose (74-99) mg/dL Plasma Lactic Acid Blu 1.1 (0.7-2.0) mmol/L Calcium (8.4-10.2) mg/dL Total Bilirubin (0.2-1.3) mg/dL AST (14-36) U/L ALT (4-34) U/L Alkaline Phosphatase (38-126) U/L Troponin I <0.012 (0.000-0.034) ng/mL NT-Pro-B Natriuret Pep 137 pg/mL Total Protein (6.3-8.2) g/dL Albumin (3.5-5.0) g/dL Coronavirus (PCR) (Not Detectd) 01/10/21 Range/Units 21:28 WBC (3.8-10.6) k/uL RBC (3.80-5.40) m/uL Hgb (11.4-16.0) gm/dL Hct (34.0-46.0) % MCV (80.0-100.0) fL MCH (25.0-35.0) pg MCHC (31.0-37.0) g/dL RDW (11.5-15.5) % Plt Count (150-450) k/uL MPV Neutrophils % % Lymphocytes % % Monocytes % % Eosinophils % % Basophils % % Neutrophils # (1.3-7.7) k/uL Lymphocytes # (1.0-4.8) k/uL Monocytes # (0-1.0) k/uL Eosinophils # (0-0.7) k/uL Basophils # (0-0.2) k/uL PT (9.0-12.0) sec INR (<1.2) APTT (22.0-30.0) sec Sodium (137-145) mmol/L Potassium (3.5-5.1) mmol/L Chloride (98-107) mmol/L Carbon Dioxide (22-30) mmol/L Anion Gap mmol/L BUN (7-17) mg/dL Creatinine (0.52-1.04) mg/dL Est GFR (CKD-EPI)AfAm (>60 ml/min/1.73 sqM) Est GFR (CKD-EPI)NonAf (>60 ml/min/1.73 sqM) Glucose (74-99) mg/dL Plasma Lactic Acid Blu (0.7-2.0) mmol/L Calcium (8.4-10.2) mg/dL Total Bilirubin (0.2-1.3) mg/dL AST (14-36) U/L ALT (4-34) U/L Alkaline Phosphatase (38-126) U/L Troponin I (0.000-0.034) ng/mL NT-Pro-B Natriuret Pep pg/mL Total Protein (6.3-8.2) g/dL Albumin (3.5-5.0) g/dL Coronavirus (PCR) Not Detected (Not Detectd) - EKG Data EKG Comments: EKG demonstrates from a sensory ventricular rate of 86. [place] interval 132. QRS 78. QTC 421. Q wave in lead 3. No acute ST segment elevations Disposition Clinical Impression: Hypoxia, COPD (chronic obstructive pulmonary disease) with emphysema, Pneumonia Disposition: ADMITTED IP TO THIS HOSP Condition: Stable Is patient prescribed a controlled substance at d/c from ED?: No Decision to Admit Reason: Admit from EC Decision Date: 01/10/21 Decision Time: 23:17
[2021-01-10 21:36] LABS: Basophils # (A) 0.1 k/uL (0-0.2); Basophils % (A) 1 %; Eosinophils # (A) 0.1 k/uL (0-0.7); Eosinophils % (A) 2 %; HGB 12.5 gm/dL (11.4-16.0); Lymphocytes # (A) 0.9 k/uL (1.0-4.8); Lymphocytes % (A) 16 %; MCH 31.7 pg (25.0-35.0); MCHC 32.9 g/dL (31.0-37.0); MCV 96.5 fL (80.0-100.0); Mean Platelet Volume 7.2; Monocytes # (A) 0.5 k/uL (0-1.0); Monocytes % (A) 9 %; Neutrophils # (A) 3.7 k/uL (1.3-7.7); Neutrophils % (A) 67 %; Platelet Count 223 k/uL (150-450); RBC 3.94 m/uL (3.80-5.40); RDW 13.7 % (11.5-15.5); WBC 5.6 k/uL (3.8-10.6)
[2021-01-10 21:45] LABS: ALT 18 U/L (4-34); AST 27 U/L (14-36); African American GFR (CKD) >90 (>60 ml/min/1.73 sqM); Albumin 4.1 g/dL (3.5-5.0); Alkaline Phosphatase 64 U/L (38-126); Anion Gap 8 mmol/L; Blood Urea Nitrogen 9 mg/dL (7-17); Carbon Dioxide 30 mmol/L (22-30); Chloride 100 mmol/L (98-107); Glucose 106 mg/dL (74-99); Non-African American GFR(CKD) 82 (>60 ml/min/1.73 sqM); Potassium 3.6 mmol/L (3.5-5.1); Sodium 138 mmol/L (137-145); Total Bilirubin 0.4 mg/dL (0.2-1.3); Total Protein 6.6 g/dL (6.3-8.2)
--- NOTE | 2021-01-10 21:48 | XR ---
EXAMINATION: XR chest 2V DATE AND TIME: 01/10/2021 9:38 PM CLINICAL INDICATION: PHH; difficulty breathing TECHNIQUE: Departmental protocol COMPARISON: 05/19/2020 FINDINGS: The prominent overlying soft tissues are prominent. There appears to be mild silhouetting of the pulm onary vasculature bilaterally, by a fine reticular pattern of increased attenuation which can correla te with a clinical diagnosis of mild interstitial phase pulmonary edema. Left lower lobe there are streaky atelectatic opacities and peribronchial location which could correl ate with a clinical diagnosis of developing bronchopneumonia. The pleural spaces are negative. The cardiac silhouette is mildly enlarged. The skeletal structures and soft tissues are negative for acute findings. IMPRESSION: 1. Radiographic findings suspicious for mild interstitial phase pulmonary edema. 2. Left lung base findings.
[2021-01-10 21:54] LABS: INR 0.9 (<1.2); Partial Thromboplastin Time 24.5 sec (22.0-30.0); Prothrombin Time 9.9 sec (9.0-12.0)
[2021-01-10] MEDS ORDERED: IPRATROPIUM-ALBUTEROL 3 ML NEB INHALATION STA (22:13)
[2021-01-10] MEDS ORDERED: cefTRIAXone IN SWFI 1,000 MG/10 ML SYRINGE IVP ONE (23:15)
[2021-01-10] MEDS ORDERED: AZITHROMYCIN 500 MG in SODIUM CHLORIDE 0.9% 250 ML IVPB ONE (23:15)
[2021-01-10] MEDS ORDERED: NALOXONE 0.4 MG/ML 1 ML VIAL IV PRN (23:18)
[2021-01-10] MEDS ORDERED: IPRATROPIUM-ALBUTEROL 3 ML NEB INHALATION PRN (23:19)
[2021-01-10] MEDS ORDERED: methylPREDNISolone SOD SUCCI 125 MG/2 ML VIAL IV STA (23:57)
[2021-01-11] MEDS: methylPREDNISolone SOD SUCCI 40 MG/ML 1 ML VIAL IV SCH ×2 (00:03→07:48)
[2021-01-11 07:31] LABS: Basophils % (A) 0 %; Eosinophils % (A) 0 %; HCT 40.4 % (34.0-46.0); HGB 12.9 gm/dL (11.4-16.0); Lymphocytes # (A) 0.4 k/uL (1.0-4.8); Lymphocytes % (A) 9 %; MCHC 31.9 g/dL (31.0-37.0); MCV 97.4 fL (80.0-100.0); Mean Platelet Volume 6.8; Monocytes # (A) 0.1 k/uL (0-1.0); Monocytes % (A) 2 %; Neutrophils # (A) 3.5 k/uL (1.3-7.7); Neutrophils % (A) 87 %; Platelet Count 235 k/uL (150-450); RBC 4.15 m/uL (3.80-5.40); RDW 13.6 % (11.5-15.5)
[2021-01-11] MEDS ORDERED: IPRATROPIUM-ALBUTEROL 3 ML NEB INHALATION PRN (07:38)
[2021-01-11 07:57] LABS: African American GFR (CKD) >90 (>60 ml/min/1.73 sqM); Anion Gap 6 mmol/L; Blood Urea Nitrogen 9 mg/dL (7-17); Calcium 9.2 mg/dL (8.4-10.2); Carbon Dioxide 33 mmol/L (22-30); Chloride 101 mmol/L (98-107); Glucose 163 mg/dL (74-99); Non-African American GFR(CKD) 90 (>60 ml/min/1.73 sqM); Potassium 4.2 mmol/L (3.5-5.1); Sodium 140 mmol/L (137-145)
[2021-01-11] MEDS ORDERED: ALPRAZolam 0.5 MG TAB PO PRN (08:20)
[2021-01-11] MEDS ORDERED: BUDESONIDE 0.5 MG/2 ML NEBU INHALATION PRN (08:20)
--- NOTE | 2021-01-11 08:20 | P.HPIM ---
History of Present Illness H&P Date: 01/11/21 Chief Complaint: Dyspnea on exertion This is a history and physical on a 70-year-old white female with known history of remote COVID-19 and three-day history of worsening shortness of breath and dyspnea on exertion. She hasn't underlying history of COPD. She stated signifi cant bronchial congestion but inability to cough the mucus up properly. No fever but evaluation in emergency room has shown significant left lower lobe infiltrate with underlying exacerbation of COPD she has now been admitted for treatment. Pulmonology has been consulted. No voiding difficulties per no known sick contacts. She has been minimal outside involvement secondary to history of COVID-19 and her underlying lung issues. Review of Systems Constitutional: Reports fatigue, Denies chills, Denies fever Eyes: denies blurred vision, denies pain Ears, nose, mouth and throat: Denies headache, Denies sore throat Respiratory: Reports as per HPI, Reports cough, Reports cough with sputum, Reports home oxygen Gastrointestinal: Denies abdominal pain, Denies diarrhea, Denies nausea, Denies vomiting Genitourinary: Denies dysuria, Denies hematuria Musculoskeletal: Denies myalgias Past Medical History Past Medical History: COPD, Eye Disorder, Hearing Disorder / Deafness, Osteoarthritis (OA) Additional Past Medical History / Comment(s): Anemia in the past, emphysema, bilateral cataracts, right hand carpal tunnel History of Any Multi-Drug Resistant Organisms: None Reported Past Surgical History: Appendectomy, Cholecystectomy, Tubal Ligation Additional Past Surgical History / Comment(s): Colonoscopy Past Anesthesia/Blood Transfusion Reactions: No Reported Reaction Past Psychological History: Anxiety, Depression Smoking Status: Former smoker Past Alcohol Use History: Daily Past Drug Use History: None Reported - Past Family History Father Family Medical History: Cancer Additional Family Medical History / Comment(s): Lung cancer Mother Family Medical History: Cancer, Deep Vein Thrombosis (DVT) Additional Family Medical History / Comment(s): breast Medications and Allergies Home Medications Medication Instructions Recorded Confirmed Type ALPRAZolam 0.5 mg PO BID PRN 12/26/15 04/29/20 History Citalopram Hydrobromide [CeleXA] 10 mg PO DAILY 03/16/18 04/29/20 History Acetaminophen [Tylenol] 500 mg PO DAILY PRN 04/21/20 04/29/20 History Apixaban [Eliquis] 5 mg PO BID 04/21/20 04/29/20 History Budesonide [Pulmicort] 0.5 mg INHALATION RT-BID PRN 04/29/20 04/29/20 History Ascorbic Acid [Vitamin C] 500 mg PO DAILY #30 tab 05/17/20 Rx Budesonide-Formot 160-4.5 Mcg 2 puff INHALATION RT-BID #1 puff 05/17/20 Rx [Symbicort 160-4.5 Mcg Inhaler] Cholecalciferol [Vitamin D3 (25 1,000 unit PO DAILY #30 tab 05/17/20 Rx Mcg = 1000 Iu)] Famotidine [Pepcid] 20 mg PO DAILY #30 tab 05/17/20 Rx Ipratropium-Albuterol Nebulize 3 ml INHALATION RT-QID #120 ml 05/17/20 04/29/20 Rx [Duoneb 0.5 mg-3 mg/3 ml Soln] Tiotropium [place] [Spiriva 2 spray INHALATION RT-BID #1 05/17/20 04/29/20 Rx Respimat] Zinc Sulfate [Orazinc] 220 mg PO DAILY #30 cap 05/17/20 Rx predniSONE 10 mg PO DIRECTED #30 tab 05/18/20 Rx Allergies Allergy/AdvReac Type Severity Reaction Status Date / Time Sulfa (Sulfonamide AdvReac Unknown Verified 05/19/20 06:37 Antibiotics) Childhood steroids AdvReac excessive Uncoded 05/19/20 06:37 sleepiness Physical Exam Vitals: Vital Signs Temp Pulse Resp BP Pulse Ox 01/11/21 07:52 79 20 127/70 96 01/11/21 05:05 98.1 F 79 18 132/59 95 01/11/21 02:33 98.7 F 92 18 122/50 93 L 01/11/21 00:03 82 16 143/75 97 01/10/21 22:43 87 01/10/21 22:34 85 01/10/21 20:57 99.8 F H 102 H 22 163/85 91 L Intake and Output 01/10/21 01/11/21 01/11/21 22:59 06:59 14:59 Other: Weight 92.533 kg - Constitutional General appearance: no acute distress - EENT Eyes: EOMI - Respiratory Respiratory: bilateral: CTA - Cardiovascular Rhythm: regular Heart sounds: normal: S1, S2 Abnormal Heart Sounds: no S3 Gallop - Gastrointestinal General gastrointestinal: soft, no tenderness - Integumentary Integumentary: no cellulitis - Psychiatric Psychiatric: A&O x's 3, appropriate affect, intact judgment & insight Results CBC & Chem 7: 01/11/21 07:12 01/11/21 07:12 Labs: Abnormal Lab Results - Last 24 Hours (Table) 01/10/21 01/10/21 01/11/21 Range/Units 21:28 21:28 07:12 Lymphocytes # 0.9 L 0.4 L (1.0-4.8) k/uL Carbon Dioxide (22-30) mmol/L Glucose 106 H (74-99) mg/dL 01/11/21 Range/Units 07:12 Lymphocytes # (1.0-4.8) k/uL Carbon Dioxide 33 H (22-30) mmol/L Glucose 163 H (74-99) mg/dL Assessment and Plan (1) COPD (chronic obstructive pulmonary disease) with emphysema Current Visit: Yes Status: Acute Code(s): J43.9 - EMPHYSEMA, UNSPECIFIED SNOMED Code(s): 29533890 (2) Pneumonia Current Visit: Yes Status: Acute Code(s): J18.9 - PNEUMONIA, UNSPECIFIED ORGANISM SNOMED Code(s): 345279631 Plan: Go ahead and reconcile medications. Empiric treatment for pneumonia and COPD. Pulmonology consultation. We will go ahead and check CBC and CMP in a.m. Dr. Tyson's group will be covering for the weekend. Time with Patient: Greater than 30
[2021-01-11] MEDS: BUDESONIDE 1 MG/2 ML NEBU INHALATION SCH ×2 (08:53→20:35)
[2021-01-11] MEDS: IPRATROPIUM-ALBUTEROL 3 ML NEB INHALATION SCH ×4 (08:53→20:35)
[2021-01-11] MEDS: FORMOTEROL FUMARATE 20 MCG/2 ML NEBU INHALATION SCH ×2 (08:53→20:35)
--- NOTE | 2021-01-11 10:00 | P.CNPUL ---
History of Present Illness Consult date: 01/11/21 Requesting physician: Benny Gómez Reason for consult: dyspnea, cough, COPD, hypoxemia, pulmonary hypertension Chief complaint: Shortness of breath. History of present illness: Pulmonary consult dated 01/11/2021. 70-year-old female, with a history of severe COPD, on home O2 at 4 L, who presents to the emergency department on January 10, with complaints of increasing and worsening shortness of breath. Her shortness of breath has been worsening over the last 3 days. When EMS arrived, her saturations are in the low 80s. The patient apparently had been using her breathing treatments on a regular basis. I saw her in the hospital in April of last year. At that time, she was infected with coronavirus but did not have significant coronavirus pneumonia. Anyway, in the emergency room, the patient was on 4 L. She was not receiving any IV fluids. Dr. Gómez as her primary. She sees my partner for her lungs. She apparently has quite severe chronic lung disease and has chronic hypoxemic respiratory failure. In fact, she apparently had an appointment today with Dr. Lim. White count 4, hemoglobin 12.9, hematocrit 40.4, platelet count 235,000. PT/INR/PTT are all normal. Sodium 140, potassium 4.2, chlorides 101, CO2 33, anion gap 6, BUN 9, and creatinine 0.63. Chest x-ray suggests some bibasilar infiltrates or atelectasis. There may be a touch of pulmonary edema as well. Review of Systems REVIEW OF SYSTEMS: CONSTITUTIONAL: [Negative.] NEUROLOGIC: [ Negative.] HEENT: [ Negative.] CARDIAC: [Negative.] PULMONARY: Shortness of breath, cough, minimal phlegm production, chest tightness, wheezing. GI: [Negative.] : [Negative.] RHEUMATOLOGIC: [ Negative.] IMMUNOLOGIC: [ Negative.] ENDOCRINE: [Negative. ] DERMATOLOGIC: [Negative.] Past Medical History Past Medical History: COPD, Eye Disorder, Hearing Disorder / Deafness, Osteoarthritis (OA) Additional Past Medical History / Comment(s): Anemia in the past, emphysema, bilateral cataracts, right hand carpal tunnel History of Any Multi-Drug Resistant Organisms: None Reported Past Surgical History: Appendectomy, Cholecystectomy, Tubal Ligation Additional Past Surgical History / Comment(s): Colonoscopy Past Anesthesia/Blood Transfusion Reactions: No Reported Reaction Past Psychological History: Anxiety, Depression Smoking Status: Former smoker Past Alcohol Use History: Daily Past Drug Use History: None Reported - Past Family History Father Family Medical History: Cancer Additional Family Medical History / Comment(s): Lung cancer Mother Family Medical History: Cancer, Deep Vein Thrombosis (DVT) Additional Family Medical History / Comment(s): breast Medications and Allergies Home Medications Medication Instructions Recorded Confirmed Type ALPRAZolam 0.5 mg PO DAILY 12/26/15 01/11/21 History Citalopram Hydrobromide [CeleXA] 10 mg PO DAILY 03/16/18 01/11/21 History Apixaban [Eliquis] 2.5 mg PO BID 01/11/21 01/11/21 History Ipratropium-Albuterol Nebulize 3 ml INHALATION RT-DAILY 01/11/21 01/11/21 History [Duoneb 0.5 mg-3 mg/3 ml Soln] Tiotropium [place] [Spiriva 2 puff INHALATION RT-DAILY 01/11/21 01/11/21 History Respimat] Allergies Allergy/AdvReac Type Severity Reaction Status Date / Time Sulfa (Sulfonamide AdvReac Unknown Verified 01/11/21 08:26 Antibiotics) Childhood steroids AdvReac excessive Uncoded 01/11/21 08:26 sleepiness Physical Exam Osteopathic Statement: *. No significant issues noted on an osteopathic structural exam other than those noted in the History and Physical/Consult. Vitals: Vital Signs Temp Pulse Resp BP Pulse Ox 01/11/21 09:08 77 01/11/21 09:00 80 01/11/21 08:53 78 01/11/21 07:52 79 20 127/70 96 01/11/21 05:05 98.1 F 79 18 132/59 95 01/11/21 02:33 98.7 F 92 18 122/50 93 L 01/11/21 00:03 82 16 143/75 97 01/10/21 22:43 87 01/10/21 22:34 85 01/10/21 20:57 99.8 F H 102 H 22 163/85 91 L Intake and Output 01/10/21 01/11/21 01/11/21 22:59 06:59 14:59 Other: Weight 92.533 kg Oriented 3, with minimal conversational dyspnea. No audible wheezing or use of accessory muscles. HEENT examination is grossly unremarkable. Nasal cannula in place. Neck supple. Full range of motion. No adenopathy thyromegaly or neck vein distention. Cardiovascular examination reveals regular rhythm rate. S1-S2 normal. No S3 or S4. No discernible murmur noted. Heart rate is 77 bpm. Heart sounds are d istant. Lungs reveal bilateral expiratory wheezes and rhonchi. There is prolongation on forced maneuver. No crackles. Breath sounds are equal bilaterally. Adventitious lung sounds are more prominent on forced maneuver. Abdomen soft bowel sounds are heard. No masses or tenderness. Extremities are intact. No cyanosis or clubbing. Trace edema is noted. Skin is without rash or lesion. Neurologic examination is brief but nonfocal. Results - Laboratory Findings CBC and BMP: 01/11/21 07:12 01/11/21 07:12 PT/INR, D-dimer PT 9.9 sec (9.0-12.0) 01/10/21 21:28 INR 0.9 (<1.2) 01/10/21 21:28 Abnormal lab findings: Abnormal Labs 01/10/21 01/10/21 01/11/21 21:28 21:28 07:12 Lymphocytes # 0.9 L 0.4 L Carbon Dioxide Glucose 106 H 01/11/21 07:12 Lymphocytes # Carbon Dioxide 33 H Glucose 163 H - Diagnostic Findings Chest x-ray: image reviewed Assessment and Plan Assessment: Acute exacerbation of COPD in a patient with chronic hypoxemic respiratory failure. Chronic hypoxemic respiratory failure, on home O2 at 4 L/m. Prior history of heavy tobacco use. History of deafness. History of osteoarthritis. History of bilateral cataracts. History of anemia. Plan: Plan dated 01/11/2021. The patient's placed on DuoNeb, 4 times a day and when necessary. Also, the patient is placed on Pulmicort 1 mg, mixed with performance 20 g, twice a day. She also get Solu-Medrol. We also place her on doxycycline. Additional recommendations and suggestions are forthcoming. Prognosis is guarded. She appears not to have an overwhelming infection. It may be more of a purulent tracheobronchitis. We will continue to follow make recommendations where appropriate. Time with Patient: Greater than 30
[2021-01-11] MEDS: ASCORBIC ACID 500 MG TAB PO SCH (10:42)
[2021-01-11] MEDS: FAMOTIDINE 20 MG TAB PO SCH (10:43)
[2021-01-11] MEDS: APIXABAN 5 MG TAB PO SCH ×2 (10:43→22:10)
[2021-01-11] MEDS: CITALOPRAM HYDROBROMIDE 10 MG TAB PO SCH (10:44)
[2021-01-11] MEDS: DOXYCYCLINE 100 MG CAP PO SCH ×2 (10:44→22:10)
[2021-01-11] MEDS: methylPREDNISolone SOD SUCCI 125 MG/2 ML VIAL IV SCH ×2 (14:38→22:09)
[2021-01-11] MEDS ORDERED: NON FORMULARY DRUG (Tiotropium Bromide [Spiriva Respimat] 4 GM Mist.Inhal) INHALATION SCH (20:00)
[2021-01-11] MEDS ORDERED: AZITHROMYCIN 500 MG in SODIUM CHLORIDE 0.9% 250 ML IVPB SCH (21:00)
[2021-01-11] MEDS ORDERED: guaiFENesin 600 MG TABLET.ER PO PRN (21:38)
[2021-01-11] MEDS: BENZONATATE 100 MG CAP PO SCH (22:10)
[2021-01-12] MEDS: methylPREDNISolone SOD SUCCI 125 MG/2 ML VIAL IV SCH ×2 (02:27→06:32)
[2021-01-12 07:16] LABS: HCT 37.8 % (34.0-46.0); HGB 12.5 gm/dL (11.4-16.0); MCH 31.9 pg (25.0-35.0); MCHC 32.9 g/dL (31.0-37.0); MCV 96.8 fL (80.0-100.0); Mean Platelet Volume 6.9; Platelet Count 252 k/uL (150-450); RBC 3.91 m/uL (3.80-5.40); RDW 14.1 % (11.5-15.5); WBC 4.1 k/uL (3.8-10.6)
[2021-01-12 07:30] LABS: ALT 21 U/L (4-34); AST 26 U/L (14-36); African American GFR (CKD) >90 (>60 ml/min/1.73 sqM); Albumin 4.2 g/dL (3.5-5.0); Albumin/Globulin Ratio 1.6; Alkaline Phosphatase 55 U/L (38-126); Anion Gap 7 mmol/L; Blood Urea Nitrogen 16 mg/dL (7-17); Carbon Dioxide 32 mmol/L (22-30); Chloride 102 mmol/L (98-107); Globulin 2.7 g/dL; Glucose 172 mg/dL (74-99); Non-African American GFR(CKD) >90 (>60 ml/min/1.73 sqM); Potassium 4.2 mmol/L (3.5-5.1); Sodium 141 mmol/L (137-145); Total Bilirubin 0.3 mg/dL (0.2-1.3); Total Protein 6.9 g/dL (6.3-8.2)
[2021-01-12] MEDS: ASCORBIC ACID 500 MG TAB PO SCH (08:35)
[2021-01-12] MEDS: DOXYCYCLINE 100 MG CAP PO SCH ×2 (08:35→22:09)
[2021-01-12] MEDS: APIXABAN 5 MG TAB PO SCH ×2 (08:35→22:09)
[2021-01-12] MEDS: CITALOPRAM HYDROBROMIDE 10 MG TAB PO SCH (08:35)
[2021-01-12] MEDS: BENZONATATE 100 MG CAP PO SCH ×3 (08:35→22:09)
[2021-01-12] MEDS: FAMOTIDINE 20 MG TAB PO SCH (08:35)
[2021-01-12] MEDS: IPRATROPIUM-ALBUTEROL 3 ML NEB INHALATION SCH ×4 (09:19→22:14)
[2021-01-12] MEDS: BUDESONIDE 1 MG/2 ML NEBU INHALATION SCH ×2 (09:19→16:37)
[2021-01-12] MEDS: FORMOTEROL FUMARATE 20 MCG/2 ML NEBU INHALATION SCH ×2 (09:19→16:37)
--- NOTE | 2021-01-12 11:51 | P.PN ---
Subjective Patient is admitted for COPD exacerbation patient remains the systemic steroids patient is on full disability and used to liters of oxygen at home. Patient is still feels like she is not at her baseline patient is on anticoagulation at home. Probably for atrial fibrillation. Constitutional: Denied any fatigue denied any fever. Cardio vascular: denied any chest pain, palpitations Gastrointestinal denied any nausea vomiting Pulmonary: Still shortness of breath cough Neurologic denied any new focal deficits All inpatient medications were reviewed and appropriate changes in these medications as dictated in the interval history and assessment and plan. PHYSICAL EXAMINATION: GENERAL: The patient is alert and oriented x3, not in any acute distress. Well developed, well nourished. HEENT: Pupils are round and equally reacting to light. EOMI. No scleral icterus. No conjunctival pallor. Normocephalic, atraumatic. No pharyngeal erythema. No thyromegaly. CARDIOVASCULAR: S1 and S2 present. No murmurs, rubs, or gallops. PULMONARY: Good air entryinto been wheezing on exam ABDOMEN: Soft, nontender, nondistended, normoactive bowel sounds. No palpable organomegaly. MUSCULOSKELETAL: No joint swelling or deformity. EXTREMITIES: No cyanosis, clubbing, or pedal edema. NEUROLOGICAL: Gross neurological examination did not reveal any focal deficits. SKIN: No rashes. Assessment and plan: -Acute on chronic hypoxic and hypercapnic respiratory failure secondary to say what exacerbation. He was systemic steroids inhalational treatments patient usually uses 3 L of oxygen at home -Acute bronchitis for which patient is on doxycycline -Depression -Is on anticoagulation unsure of exact reason will have to verify with the patient patient is on Eliquis which will be continued initially wanted to do a CT for pulmonary embolism as the patient is not wheezing much but is still having significant shortness of breath concern that she has advance his COPD history interesting that she is on anticoagulation as well possibility of PE is extremely low. DVT prophylaxis patient is already on Eliquis GI prophylaxis Pepcid Objective - Vital Signs Vital signs: Vital Signs Temp 97.5 F L 01/12/21 07:43 Pulse 78 01/12/21 07:43 Resp 16 01/12/21 08:00 BP 135/71 01/12/21 07:43 Pulse Ox 93 L 01/12/21 07:43 Intake & Output 01/11/21 01/12/21 01/12/21 18:59 06:59 18:59 Weight 92.533 kg Other: Voiding Method Toilet Toilet # Voids 1 - Labs CBC & Chem 7: 01/12/21 06:23 01/12/21 06:23 Labs: Abnormal Lab Results - Last 24 Hours (Table) 01/12/21 Range/Units 06:23 Carbon Dioxide 32 H (22-30) mmol/L Glucose 172 H (74-99) mg/dL Microbiology - Last 24 Hours (Table) 01/10/21 23:50 Blood Culture - Preliminary Blood No Growth after 24 hours
[2021-01-12] MEDS: methylPREDNISolone SOD SUCCI 40 MG/ML 1 ML VIAL IV SCH ×2 (12:09→17:30)
--- NOTE | 2021-01-12 12:45 | P.PN ---
Subjective Progress Note Date: 01/12/21 Principal diagnosis: Shortness of breath. Pulmonary consult dated 01/11/2021. 70-year-old female, with a history of severe COPD, on home O2 at 4 L, who presents to the emergency department on January 10, with complaints of increasing and worsening shortness of breath. Her shortness of breath has been worsening over the last 3 days. When EMS arrived, her saturations are in the low 80s. The patient apparently had been using her breathing treatments on a regular basis. I saw her in the hospital in April of last year. At that time, she was infected with coronavirus but did not have significant coronavirus pneumonia. Anyway, in the emergency room, the patient was on 4 L. She was not receiving any IV fluids. Dr. Gómez as her primary. She sees my partner for her lungs. She apparently has quite severe chronic lung disease and has chronic hypoxemic respiratory failure. In fact, she apparently had an appointment today with Dr. Lim. White count 4, hemoglobin 12.9, hematocrit 40.4, platelet count 235,000. PT/INR/PTT are all normal. Sodium 140, potassium 4.2, chlorides 101, CO2 33, anion gap 6, BUN 9, and creatinine 0.63. Chest x-ray suggests some bibasilar infiltrates or atelectasis. There may be a touch of pulmonary edema as well. Progress note dated 01/12/2021. 70-year-old female admitted with a diagnosis of COPD on The report that she's feeling much better. She thinks that she needs to stay 1 more day in the hospital. She hadn't been feeling well for about 3 or 4 days prior to admission. Her primary care physician is Dr. Gómez. We will allow him to make a decision about discharge. We will offer guidance. White count 4.1, he will b een 12.5, hematocrit 37.8, and platelet count 252,000. Sodium potassium chloride all normal. CO2 32, anion gap 7, BUN 16, creatinine 0.61. Objective - Vital Signs Vital signs: Vital Signs Temp 97.5 F L 01/12/21 07:43 Pulse 78 01/12/21 07:43 Resp 16 01/12/21 08:00 BP 135/71 01/12/21 07:43 Pulse Ox 93 L 01/12/21 07:43 Intake & Output 01/11/21 01/12/21 01/12/21 18:59 06:59 18:59 Weight 92.533 kg Other: Voiding Method Toilet Toilet # Voids 1 - Exam Oriented 3, with minimal conversational dyspnea. No audible wheezing or use of accessory muscles. Currently on 4 L. Saturation 98%. HEENT examination is grossly unremarkable. Nasal cannula in place. Neck supple. Full range of motion. No adenopathy thyromegaly or neck vein distention. Cardiovascular examination reveals regular rhythm rate. S1-S2 normal. No S3 or S4. No discernible murmur noted. Heart rate is 78 bpm. Heart sounds are distant. Lungs reveal bilateral expiratory wheezes and rhonchi. There is prolongation on forced maneuver. No crackles. Breath sounds are equal bilaterally. Adventitious lung sounds are more prominent on forced maneuver. Abdomen soft bowel sounds are heard. No masses or tenderness. Extremities are intact. No cyanosis or clubbing. Trace edema is noted. Skin is without rash or lesion. Neurologic examination is brief but nonfocal. - Labs CBC & Chem 7: 01/12/21 06:23 01/12/21 06:23 Labs: Abnormal Lab Results - Last 24 Hours (Table) 01/12/21 Range/Units 06:23 Carbon Dioxide 32 H (22-30) mmol/L Glucose 172 H (74-99) mg/dL Microbiology - Last 24 Hours (Table) 01/10/21 23:50 Blood Culture - Preliminary Blood No Growth after 24 hours Assessment and Plan Assessment: Acute exacerbation of COPD in a patient with chronic hypoxemic respiratory failure. Chronic hypoxemic respiratory failure, on home O2 at 4 L/m. Prior history of heavy tobacco use. History of deafness. History of osteoarthritis. History of bilateral cataracts. History of anemia. Plan: Plan dated 01/11/2021. The patient's placed on DuoNeb, 4 times a day and when necessary. Also, the patient is placed on Pulmicort 1 mg, mixed with performance 20 g, twice a day. She also get Solu-Medrol. We also place her on doxycycline. Additional recommendations and suggestions are forthcoming. Prognosis is guarded. She appears not to have an overwhelming infection. It may be more of a purulent tracheobronchitis. We will continue to follow make recommendations where appropriate. Plan dated 01/12/2021. The patient continues to improve. She would like to stay 1 more day. She's been placed on oxygen, Pulmicort, formoterol, Solu-Medrol, and DuoNeb. All those will continue for the time being. The patient feels less short of breath. She's able to walk without feeling winded. She states that her cough is better. Additional recommendations and suggestions are forthcoming. We will continue to follow the patient and make recommendations where appropriate. Time with Patient: Less than 30
[2021-01-13] MEDS: methylPREDNISolone SOD SUCCI 40 MG/ML 1 ML VIAL IV SCH ×2 (00:53→05:50)
[2021-01-13 03:28] VITALS: TEMP 97.6
[2021-01-13 07:06] VITALS: BP 125/70; RESP 16
[2021-01-13] MEDS: APIXABAN 5 MG TAB PO SCH (08:26)
[2021-01-13] MEDS: BENZONATATE 100 MG CAP PO SCH (08:26)
[2021-01-13] MEDS: ASCORBIC ACID 500 MG TAB PO SCH (08:26)
[2021-01-13] MEDS: FAMOTIDINE 20 MG TAB PO SCH (08:26)
[2021-01-13] MEDS: CITALOPRAM HYDROBROMIDE 10 MG TAB PO SCH (08:26)
[2021-01-13] MEDS: DOXYCYCLINE 100 MG CAP PO SCH (08:26)
[2021-01-13] MEDS: IPRATROPIUM-ALBUTEROL 3 ML NEB INHALATION SCH (08:46)
[2021-01-13] MEDS: BUDESONIDE 1 MG/2 ML NEBU INHALATION SCH (08:46)
[2021-01-13] MEDS: FORMOTEROL FUMARATE 20 MCG/2 ML NEBU INHALATION SCH (08:46)
--- NOTE | 2021-01-13 09:04 | P.DS ---
Providers Date of admission: 01/10/21 23:17 Expected date of discharge: 01/13/21 Attending physician: Benny Gómez Consults: 01/10/21 23:18 Consult Physician Urgent Consulting Provider: Bobby Lim Consult Reason/Comments: aecopd, cap, chronic respiratory failure Do you want consulting provider notified?: Yes Primary care physician: Benny Gómez Hospital Course: Patient is admitted for COPD exacerbation patient remains the systemic steroids patient is on full disability and used to liters of oxygen at home. Patient is still feels like she is not at her baseline patient is on anticoagulation at home. Probably for atrial fibrillation. 01/13/2021 Clinically patient doing much better today, less short of breath, early on 3 L nasal cannula which she uses at home. No wheezing on exam. She is maintained on anticoagulation with Eliquis 2.5 twice daily, states this was recently changed from 5 mg to 2.5 mg by her budget accountant. CT angiogram of the chest to rule out pulmonary embolism was not done due to patient's concurrent use of anticoagulation. No fevers, hemodynamically stable. Constitutional: Denied any fatigue denied any fever. Cardio vascular: denied any chest pain, palpitations Gastrointestinal denied any nausea vomiting Pulmonary: Still shortness of breath cough Neurologic denied any new focal deficits All inpatient medications were reviewed and appropriate changes in these medications as dictated in the interval history and assessment and plan. PHYSICAL EXAMINATION: GENERAL: The patient is alert and oriented x3, not in any acute distress. Well developed, well nourished. HEENT: Pupils are round and equally reacting to light. EOMI. No scleral icterus. No conjunctival pallor. Normocephalic, atraumatic. No pharyngeal erythema. No thyromegaly. CARDIOVASCULAR: S1 and S2 present. No murmurs, rubs, or gallops. PULMONARY: Good air entryinto been wheezing on exam ABDOMEN: Soft, nontender, nondistended, normoactive bowel sounds. No palpable organomegaly. MUSCULOSKELETAL: No joint swelling or deformity. EXTREMITIES: No cyanosis, clubbing, or pedal edema. NEUROLOGICAL: Gross neurological examination did not reveal any focal deficits. SKIN: No rashes. Assessment and plan: -Acute on chronic hypoxic and hypercapnic respiratory failure secondary to acute exacerbation of COPD. O2 dependent at baseline on 3 L nasal cannula. Clinicall y doing much better. She'll be discharged home continue on prednisone taper, we'll start on Symbicort and she can continue Spiriva. -Acute tracheobronchitis: Continue antimicrobial therapy with doxycycline -Depression -History of DVT: Maintained on anticoagulation with Eliquis. According to manufacture criteria the appropriate dose would generally be 5 mg twice daily for this patient however she states that her budget accountant recently decreased the dose to 2.5 mg twice daily. We will continue her on this dose. Patient can be discharged home, continue on prednisone taper, doxycycline, Symbicort, Spiriva inhaler, has home oxygen already. Follow-up with PCP within one week. Patient Condition at Discharge: Stable Plan - Discharge Summary New Discharge Prescriptions: New predniSONE 10 mg PO DAILY #30 tab Doxycycline [Vibramycin] 100 mg PO BID #4 cap Budesonide-Formot 160-4.5 Mcg [Symbicort 160-4.5 Mcg Inhaler] 2 puff INHALATION BID #1 inhaler Continue ALPRAZolam 0.5 mg PO DAILY Citalopram Hydrobromide [CeleXA] 10 mg PO DAILY Ipratropium-Albuterol Nebulize [Duoneb 0.5 mg-3 mg/3 ml Soln] 3 ml INHALATION RT-DAILY Tiotropium [place] [Spiriva Respimat] 2 puff INHALATION RT-DAILY Apixaban [Eliquis] 2.5 mg PO BID Discharge Medication List ALPRAZolam 0.5 mg PO DAILY 12/26/15 [History] Citalopram Hydrobromide [CeleXA] 10 mg PO DAILY 03/16/18 [History] Apixaban [Eliquis] 2.5 mg PO BID 01/11/21 [History] Ipratropium-Albuterol Nebulize [Duoneb 0.5 mg-3 mg/3 ml Soln] 3 ml INHALATION RT-DAILY 01/11/21 [History] Tiotropium [place] [Spiriva Respimat] 2 puff INHALATION RT-DAILY 01/11/21 [History] Budesonide-Formot 160-4.5 Mcg [Symbicort 160-4.5 Mcg Inhaler] 2 puff INHALATION BID #1 inhaler 01/13/21 [Rx] Doxycycline [Vibramycin] 100 mg PO BID #4 cap 01/13/21 [Rx] predniSONE 10 mg PO DAILY #30 tab 01/13/21 [Rx] Follow up Appointment(s)/Referral(s): Benny Gómez MD [Primary Care Provider] - 3 Days Discharge Disposition: HOME SELF-CARE
[2021-01-13 09:13] VITALS: PULSE 90
--- NOTE | 2021-01-13 11:29 | P.PN ---
Subjective Progress Note Date: 01/13/21 Principal diagnosis: Shortness of breath. Pulmonary consult dated 01/11/2021. 70-year-old female, with a history of severe COPD, on home O2 at 4 L, who presents to the emergency department on January 10, with complaints of increasing and worsening shortness of breath. Her shortness of breath has been worsening over the last 3 days. When EMS arrived, her saturations are in the low 80s. The patient apparently had been using her breathing treatments on a regular basis. I saw her in the hospital in April of last year. At that time, she was infected with coronavirus but did not have significant coronavirus pneumonia. Anyway, in the emergency room, the patient was on 4 L. She was not receiving any IV fluids. Dr. Gómez as her primary. She sees my partner for her lungs. She apparently has quite severe chronic lung disease and has chronic hypoxemic respiratory failure. In fact, she apparently had an appointment today with Dr. Lim. White count 4, hemoglobin 12.9, hematocrit 40.4, platelet count 235,000. PT/INR/PTT are all normal. Sodium 140, potassium 4.2, chlorides 101, CO2 33, anion gap 6, BUN 9, and creatinine 0.63. Chest x-ray suggests some bibasilar infiltrates or atelectasis. There may be a touch of pulmonary edema as well. Progress note dated 01/12/2021. 70-year-old female admitted with a diagnosis of COPD on The report that she's feeling much better. She thinks that she needs to stay 1 more day in the hospital. She hadn't been feeling well for about 3 or 4 days prior to admission. Her primary care physician is Dr. Gómez. We will allow him to make a decision about discharge. We will offer guidance. White count 4.1, he will b een 12.5, hematocrit 37.8, and platelet count 252,000. Sodium potassium chloride all normal. CO2 32, anion gap 7, BUN 16, creatinine 0.61. Progress note dated 01/13/2021. 71-year-old female admitted with a diagnosis of COPD exacerbation. The patient is feeling much better. She feels like she might be able to be discharged home today. I told her that would be up to her hospital doctor. She remains on oxygen therapy. Her primary care physician is Dr. Gómez. No new labs today. Currently, the patient denies any worsening shortness of breath, cough, wheezing, or chest tightness. She's not producing any phlegm. Objective - Vital Signs Vital signs: Vital Signs Temp 97.6 F 01/13/21 07:05 Pulse 90 01/13/21 09:12 Resp 16 01/13/21 08:00 BP 125/70 01/13/21 07:05 Pulse Ox 100 01/13/21 07:05 Intake & Output 01/12/21 01/13/21 01/13/21 18:59 06:59 18:59 Intake Total 200 Balance 200 Intake: Oral 200 Other: Voiding Method Toilet Toilet # Voids 2 - Exam Oriented 3, with minimal conversational dyspnea. No audible wheezing or use of accessory muscles. Currently on 4 L. Saturation 98%. HEENT examination is grossly unremarkable. Nasal cannula in place. Neck supple. Full range of motion. No adenopathy thyromegaly or neck vein distention. Cardiovascular examination reveals regular rhythm rate. S1-S2 normal. No S3 or S4. No discernible murmur noted. Heart rate is 90 bpm. Heart sounds are distant. Lungs reveal bilateral expiratory wheezes and rhonchi. There is prolongation on forced maneuver. No crackles. Breath sounds are equal bilaterally. Adventitious lung sounds are more prominent on forced maneuver. Abdomen soft bowel sounds are heard. No masses or tenderness. Extremities are intact. No cyanosis or clubbing. Trace edema is noted. Skin is without rash or lesion. Neurologic examination is brief but nonfocal. - Labs CBC & Chem 7: 01/12/21 06:23 01/12/21 06:23 Labs: Microbiology - Last 24 Hours (Table) 01/12/21 06:23 Blood Culture - Preliminary Blood No Growth after 24 hours 01/10/21 23:50 Blood Culture - Preliminary Blood No Growth after 48 hours Assessment and Plan Assessment: Acute exacerbation of COPD in a patient with chronic hypoxemic respiratory failure. Chronic hypoxemic respiratory failure, on home O2 at 4 L/m. Prior history of heavy tobacco use. History of deafness. History of osteoarthritis. History of bilateral cataracts. History of anemia. Plan: Plan dated 01/11/2021. The patient's placed on DuoNeb, 4 times a day and when necessary. Also, the patient is placed on Pulmicort 1 mg, mixed with performance 20 g, twice a day. She also get Solu-Medrol. We also place her on doxycycline. Additional recommendations and suggestions are forthcoming. Prognosis is guarded. She appears not to have an overwhelming infection. It may be more of a purulent tracheobronchitis. We will continue to follow make recommendations where appropriate. Plan dated 01/12/2021. The patient continues to improve. She would like to stay 1 more day. She's been placed on oxygen, Pulmicort, formoterol, Solu-Medrol, and DuoNeb. All those will continue for the time being. The patient feels less short of breath. She's able to walk without feeling winded. She states that her cough is better. Additional recommendations and suggestions are forthcoming. We will continue to follow the patient and make recommendations where appropriate. Plan dated 01/13/2021. The patient is feeling much improved. She states that she thinks that she might be discharged home today. I told that would be up to the primary care provider. She should follow-up with her lung doctor in my office. She should be discharged home on a prednisone burst and taper. No additional recommendations are made. Prognosis is thought to be generally good. Time with Patient: Less than 30
== END 2021-01-13 11:38 | disposition home or self-care (01) | DRG 190 ==
LOC: EC 20:54 → 4SSUR 23:17 → UNDOADMOB 23:18 → 6NMEDSUR 23:18 → 4SSUR 01-11 13:01
PROVIDERS: ADMIT Family Medicine; ATTEND Family Medicine
DX: J44.1 Chronic obstructive pulmonary disease with (acute) exacerbation (principal); J18.9 Pneumonia, unspecified organism; J96.22 Acute and chronic respiratory failure with hypercapnia; J96.21 Acute and chronic respiratory failure with hypoxia; J20.9 Acute bronchitis, unspecified; J44.0 Chronic obstructive pulmonary disease with (acute) lower respiratory infection; I48.91 Unspecified atrial fibrillation; J98.09 Other diseases of bronchus, not elsewhere classified; Z20.822 Contact with and (suspected) exposure to COVID-19; Z79.01 Long term (current) use of anticoagulants; Z79.51 Long term (current) use of inhaled steroids; Z79.899 Other long term (current) drug therapy; Z80.1 Family history of malignant neoplasm of trachea, bronchus and lung; J43.9 Emphysema, unspecified; I27.20 Pulmonary hypertension, unspecified; H91.90 Unspecified hearing loss, unspecified ear; F41.9 Anxiety disorder, unspecified; Z86.16 Personal history of COVID-19; Z86.711 Personal history of pulmonary embolism; Z86.718 Personal history of other venous thrombosis and embolism; Z87.891 Personal history of nicotine dependence; Z99.81 Dependence on supplemental oxygen; F32.9 Major depressive disorder, single episode, unspecified
CPT/HCPCS: 36415; 71046; 80048; 80053; 83605; 83880; 84484; 85025; 85027; 85610; 85730; 87040; 87635; 93005; 94640; 99285

== ENCOUNTER → 2021-03-28 | Outpatient (CLI) | payer MEDICARE ==
--- NOTE | 2021-04-02 09:47 | MM ---
Reason for exam: screening (asymptomatic). Last mammogram was performed 1 year and 1 month ago. History: Patient is postmenopausal. Physical Findings: A clinical breast exam by your physician is recommended on an annual basis and results should be correlated with mammographic findings. MG Screening Mammo w CAD Bilateral CC and MLO view(s) were taken. Prior study comparison: February 14, 2020, bilateral MG 3d screening mammo w/cad. February 11, 2019, bilateral MG 3d screening mammo w/cad. February 10, 2018, bilateral MG 3d screening mammo w/cad. January 05, 2017, bilateral MG 3d screening mammo w/cad. The breast tissue is heterogeneously dense. This may lower the sensitivity of mammography. There is chronic nodularity bilaterally. Stable oil cyst calcifications on the left. No significant changes when compared with prior studies. ASSESSMENT: Benign, BI-RAD 2 RECOMMENDATION: Routine screening mammogram of both breasts in 1 year. Patient should continue monthly self breast exams. A negative report should not preclude additional follow up of suspicious palpable abnormalities.
== END | disposition home or self-care (01) ==
LOC: RADMAMWWP 11:50
PROVIDERS: ATTEND Family Medicine
DX: Z12.31 Encounter for screening mammogram for malignant neoplasm of breast (principal); Z78.0 Asymptomatic menopausal state
CPT/HCPCS: 77067

== ENCOUNTER 2021-05-24 19:03 | Inpatient (IN) | payer MEDICARE ==
[2021-05-24] MEDS ORDERED: ALBUTEROL HFA INHALER INHALATION PRN (19:34)
[2021-05-24] MEDS ORDERED: ACETAMINOPHEN TAB 500 MG TAB PO STA (19:34)
[2021-05-24] MEDS ORDERED: ALBUTEROL HFA INHALER INHALATION STA (19:34)
[2021-05-24] MEDS ORDERED: ACETAMINOPHEN TAB 500 MG TAB PO PRN (19:34)
--- NOTE | 2021-05-24 19:37 | ED ---
General Adult HPI - General Chief complaint: Shortness of Breath Stated complaint: IKER Time Seen by Provider: 05/24/21 19:16 Source: patient, EMS, RN notes reviewed Mode of arrival: EMS Limitations: no limitations - History of Present Illness Initial comments: Patient is a pleasant 70-year-old female presenting to the emergency Department with complaints of difficulty in breathing. Patient does have history of COPD with similar symptoms. Patient is on home oxygen 3.5 L. patient has mild cough with minimal sputum, clear in color. Patient just developed fever. Onset of symptoms was just this afternoon around 2:00. Patient has been vaccinated for COVID-19. No leg pain or leg swelling. - Related Data Home Medications Medication Instructions Recorded Confirmed ALPRAZolam 0.5 mg PO BID 12/26/15 05/24/21 Citalopram Hydrobromide [CeleXA] 10 mg PO DAILY 03/16/18 05/24/21 Apixaban [Eliquis] 2.5 mg PO BID 01/11/21 05/24/21 Tiotropium [place] [Spiriva 2 puff INHALATION RT-DAILY 01/11/21 05/24/21 Respimat] Budesonide-Formot 160-4.5 Mcg 2 puff INHALATION RT-BID 05/24/21 05/24/21 [Symbicort 160-4.5 Mcg Inhaler] Allergies Allergy/AdvReac Type Severity Reaction Status Date / Time Sulfa (Sulfonamide AdvReac Unknown Verified 05/24/21 21:17 Antibiotics) Childhood steroids AdvReac excessive Uncoded 05/24/21 21:17 sleepiness Review of Systems ROS Statement: Those systems with pertinent positive or pertinent negative responses have been documented in the HPI. ROS Other: All systems not noted in ROS Statement are negative. Constitutional: Reports: as per HPI, fever Eyes: Denies: eye pain ENT: Denies: ear pain Respiratory: Reports: as per HPI, cough, dyspnea Cardiovascular: Denies: chest pain Endocrine: Reports: fatigue Gastrointestinal: Denies: abdominal pain Genitourinary: Denies: dysuria Musculoskeletal: Denies: back pain Skin: Denies: rash Neurological: Denies: weakness Past Medical History Past Medical History: COPD, Eye Disorder, Hearing Disorder / Deafness, Osteoarthritis (OA) Additional Past Medical History / Comment(s): Anemia in the past, emphysema, bilateral cataracts, right hand carpal tunnel History of Any Multi-Drug Resistant Organisms: None Reported Past Surgical History: Appendectomy, Cholecystectomy, Tubal Ligation Additional Past Surgical History / Comment(s): Colonoscopy Past Anesthesia/Blood Transfusion Reactions: No Reported Reaction Past Psychological History: Anxiety, Depression Smoking Status: Former smoker Past Alcohol Use History: Daily Past Drug Use History: None Reported - Past Family History Father Family Medical History: Cancer Additional Family Medical History / Comment(s): Lung cancer Mother Family Medical History: Cancer, Deep Vein Thrombosis (DVT) Additional Family Medical History / Comment(s): breast General Exam Limitations: no limitations General appearance: alert, in no apparent distress Head exam: Present: normocephalic Eye exam: Present: normal appearance ENT exam: Present: normal oropharynx Neck exam: Present: normal inspection Respiratory exam: Present: wheezes, decreased breath sounds Cardiovascular Exam: Present: regular rate, normal rhythm GI/Abdominal exam: Present: soft. Absent: tenderness Extremities exam: Present: normal inspection. Absent: pedal edema, calf tenderness Neurological exam: Present: alert Psychiatric exam: Present: normal affect, normal mood Skin exam: Present: normal color Course Vital Signs 05/24/21 19:15 Temperature 103.3 F H Pulse Rate 116 H Respiratory 22 Rate Blood Pressure 132/65 O2 Sat by Pulse 97 Oximetry - Reevaluation(s) Reevaluation #1: 05/24/21 21:28 Patient does meet sepsis criteria diagnosed at 2119. Blood culture and lactic acid ordered. IV antibiotics will be ordered. EKG Findings - EKG Comments: EKG Findings:: Sinus tachycardia with rate of 104. IL 136. QRS 84. QT 344. QTC 452. Normal axis. Normal QRS. No acute ST change. Medical Decision Making - Medical Decision Making Patient reevaluated and updated. Case discussed with practitioner Kathy, covering for Dr. Tyson, who will admit for Dr. Gómez. - Lab Data Result diagrams: 05/24/21 19:51 05/24/21 19:51 Lab Results 05/24/21 05/24/21 05/24/21 Range/Units 19:51 19:51 19:51 WBC 15.5 H (3.8-10.6) k/uL RBC 3.88 (3.80-5.40) m/uL Hgb 12.6 (11.4-16.0) gm/dL Hct 37.0 (34.0-46.0) % MCV 95.5 (80.0-100.0) fL MCH 32.4 (25.0-35.0) pg MCHC 33.9 (31.0-37.0) g/dL RDW 13.6 (11.5-15.5) % Plt Count 228 (150-450) k/uL MPV 7.0 Neutrophils % (Manual) 82 % Band Neuts % (Manual) 7 % Lymphocytes % (Manual) 4 % Monocytes % (Manual) 7 % Neutrophils # (Manual) 13.70 H (1.3-7.7) k/uL Lymphocytes # (Manual) 0.62 L (1.0-4.8) k/uL Monocytes # (Manual) 1.09 H (0-1.0) k/uL Nucleated RBCs 0 (0-0) /100 WBC Manual Slide Review Performed PT 10.1 (9.0-12.0) sec INR 0.9 (<1.2) APTT 24.0 (22.0-30.0) sec Sodium 133 L (137-145) mmol/L Potassium 3.8 (3.5-5.1) mmol/L Chloride 97 L (98-107) mmol/L Carbon Dioxide 28 (22-30) mmol/L Anion Gap 8 mmol/L BUN 12 (7-17) mg/dL Creatinine 0.80 (0.52-1.04) mg/dL Est GFR (CKD-EPI)AfAm 85 (>60 ml/min/1.73 sqM) Est GFR (CKD-EPI)NonAf 74 (>60 ml/min/1.73 sqM) Glucose 133 H (74-99) mg/dL Plasma Lactic Acid Blu (0.7-2.0) mmol/L Calcium 8.9 (8.4-10.2) mg/dL Magnesium 1.6 (1.6-2.3) mg/dL Total Bilirubin 0.7 (0.2-1.3) mg/dL AST 28 (14-36) U/L ALT 19 (4-34) U/L Alkaline Phosphatase 63 (38-126) U/L Lactate Dehydrogenase 672 H (313-618) U/L C-Reactive Protein 4.9 H (<1.0) mg/dL Total Protein 6.8 (6.3-8.2) g/dL Albumin 4.1 (3.5-5.0) g/dL Coronavirus (PCR) (Not Detectd) 05/24/21 05/24/21 Range/Units 19:51 19:51 WBC (3.8-10.6) k/uL RBC (3.80-5.40) m/uL Hgb (11.4-16.0) gm/dL Hct (34.0-46.0) % MCV (80.0-100.0) fL MCH (25.0-35.0) pg MCHC (31.0-37.0) g/dL RDW (11.5-15.5) % Plt Count (150-450) k/uL MPV Neutrophils % (Manual) % Band Neuts % (Manual) % Lymphocytes % (Manual) % Monocytes % (Manual) % Neutrophils # (Manual) (1.3-7.7) k/uL Lymphocytes # (Manual) (1.0-4.8) k/uL Monocytes # (Manual) (0-1.0) k/uL Nucleated RBCs (0-0) /100 WBC Manual Slide Review PT (9.0-12.0) sec INR (<1.2) APTT (22.0-30.0) sec Sodium (137-145) mmol/L Potassium (3.5-5.1) mmol/L Chloride (98-107) mmol/L Carbon Dioxide (22-30) mmol/L Anion Gap mmol/L BUN (7-17) mg/dL Creatinine (0.52-1.04) mg/dL Est GFR (CKD-EPI)AfAm (>60 ml/min/1.73 sqM) Est GFR (CKD-EPI)NonAf (>60 ml/min/1.73 sqM) Glucose (74-99) mg/dL Plasma Lactic Acid Blu 1.9 (0.7-2.0) mmol/L Calcium (8.4-10.2) mg/dL Magnesium (1.6-2.3) mg/dL Total Bilirubin (0.2-1.3) mg/dL AST (14-36) U/L ALT (4-34) U/L Alkaline Phosphatase (38-126) U/L Lactate Dehydrogenase (313-618) U/L C-Reactive Protein (<1.0) mg/dL Total Protein (6.3-8.2) g/dL Albumin (3.5-5.0) g/dL Coronavirus (PCR) Not Detected (Not Detectd) - Radiology Data Radiology results: image reviewed (Chest x-ray shows right upper lobe i nfiltrate) Critical Care Time Critical Care Time: Yes Total Critical Care Time: 33 Disposition Clinical Impression: Pneumonia, Sepsis Disposition: ADMITTED IP TO THIS HOSP Is patient prescribed a controlled substance at d/c from ED?: No Referrals: Benny Gómez MD [Primary Care Provider] - 1-2 days Decision Time: 21:28
[2021-05-24 20:38] LABS: HGB 12.6 gm/dL (11.4-16.0); MCH 32.4 pg (25.0-35.0); MCHC 33.9 g/dL (31.0-37.0); MCV 95.5 fL (80.0-100.0); Platelet Count 228 k/uL (150-450); RBC 3.88 m/uL (3.80-5.40); RDW 13.6 % (11.5-15.5); WBC 15.5 k/uL (3.8-10.6)
[2021-05-24 20:42] LABS: Albumin 4.1 g/dL (3.5-5.0); C Reactive Protein 4.9 mg/dL (<1.0); Calcium 8.9 mg/dL (8.4-10.2); Magnesium 1.6 mg/dL (1.6-2.3); Potassium 3.8 mmol/L (3.5-5.1); Total Bilirubin 0.7 mg/dL (0.2-1.3); Total Protein 6.8 g/dL (6.3-8.2)
--- NOTE | 2021-05-24 20:42 | XR ---
EXAMINATION TYPE: XR chest 1V portable DATE OF EXAM: 05/24/2021 . COMPARISON: 01/18/2021 HISTORY: Short of breath TECHNIQUE: FINDINGS: There is a 4 cm infiltrate in the right upper lobe. There is no heart failure. Lung bases are clear. There is no pleural effusion. Bony thorax is intact. IMPRESSION: There is a new patch of right upper lobe pneumonia compared to old exam.
[2021-05-24 20:53] LABS: INR 0.9 (<1.2); Prothrombin Time 10.1 sec (9.0-12.0)
[2021-05-24 21:22] LABS: Band Neutrophils % 7 %; Lymphocytes # (M) 0.62 k/uL (1.0-4.8); Monocytes # (M) 1.09 k/uL (0-1.0); Neutrophils % (M) 82 %; Nucleated Red Blood Cells 0 /100 WBC (0-0); Total Cells Counted 100
[2021-05-24] MEDS ORDERED: PNEUMONIA PROTOCOL UTILIZED 1 EACH MISC PO PRN (21:29)
[2021-05-24] MEDS ORDERED: AZITHROMYCIN 500 MG in SODIUM CHLORIDE 0.9% 250 ML IVPB STA (21:29)
[2021-05-24] MEDS ORDERED: IPRATROPIUM-ALBUTEROL 3 ML NEB INHALATION PRN (21:29)
[2021-05-24] MEDS: SODIUM CHLORIDE 0.9% 1,000 ML IV SCH (21:44)
[2021-05-25] MEDS: ALBUTEROL HFA INHALER INHALATION SCH (01:20)
--- NOTE | 2021-05-25 06:47 | XR ---
EXAMINATION TYPE: XR chest 1V DATE OF EXAM: 05/25/2021 COMPARISON: 05/24/2021 HISTORY: Pneumonia TECHNIQUE: Single frontal view of the chest is obtained. FINDINGS: There is a focal partially consolidative opacity in the right upper lobe which was seen pr eviously and is stable. There is a probable right pleural effusion as well. There is been no interval change. IMPRESSION: No interval change in the right upper lobe opacity.
[2021-05-25] MEDS: IPRATROPIUM-ALBUTEROL 3 ML NEB INHALATION SCH ×4 (07:45→20:29)
[2021-05-25] MEDS: AZITHROMYCIN 500 MG TAB PO SCH (09:55)
[2021-05-25] MEDS: APIXABAN 2.5 MG TABLET PO SCH ×2 (12:51→21:50)
[2021-05-25] MEDS: CITALOPRAM HYDROBROMIDE 10 MG TAB PO SCH (12:51)
[2021-05-25] MEDS: SODIUM CHLORIDE 0.9% 1,000 ML IV SCH ×2 (12:52→21:51)
--- NOTE | 2021-05-25 15:43 | P.HPIM ---
History of Present Illness Patient given with comments of shadows of breath does have history of COPD is a 3.5 L of oxygen was also complained of cough with sputum production patient is found to have infiltrate in the right upper lung [place] patient and is com plaining of chest pain is pleuritic in nature. Patient is having fevers white bloods elevated red blood cell count Covid 19 is negative. REVIEW OF SYSTEMS: CONSTITUTIONAL: As mentioned in HPI HEENT: No recent visual problems or hearing problems. Denied any sore throat. CARDIOVASCULAR: No orthopnea, PND, no palpitations, no syncope. PULMONARY:no hemoptysis. GASTROINTESTINAL: No diarrhea, no nausea, no vomiting, no abdominal pain. NEUROLOGICAL: No headaches, no weakness, no numbness. HEMATOLOGICAL: Denies any bleeding or petechiae. GENITOURINARY: Denies any burning micturition, frequency, or urgency. MUSCULOSKELETAL/RHEUMATOLOGICAL: Denies any joint pain, swelling, or any muscle pain. ENDOCRINE: Denies any polyuria or polydipsia. The rest of the 14-point review of systems is negative. PHYSICAL EXAMINATION: GENERAL: The patient is alert and oriented x3, not in any acute distress. Well developed, well nourished. HEENT: Pupils are round and equally reacting to light. EOMI. No scleral icterus. No conjunctival pallor. Normocephalic, atraumatic. No pharyngeal erythema. No thyromegaly. CARDIOVASCULAR: S1 and S2 present. No murmurs, rubs, or gallops. PULMONARY: Crackles in the right upper lung [place] and rhonchi ABDOMEN: Soft, nontender, nondistended, normoactive bowel sounds. No palpable organomegaly. MUSCULOSKELETAL: No joint swelling or deformity. EXTREMITIES: No cyanosis, clubbing, or pedal edema. NEUROLOGICAL: Gross neurological examination did not reveal any focal deficits. SKIN: No rashes. Assessment and plan -Sepsis secondary to most probably that will pneumonia, right upper lobe pneumonia for which patient is on Rocephin and azithromycin which will be continue sputum cultures will be obtained, blood cultures were obtained. Patient will be continued on IV fluids -COPD with mild acute exacerbation -Acute on chronic hypercapnic and hypoxic respiratory failure secondary to COPD as well as pneumonia -Depression -Proximal A. fib for which patient is on Eliquis which will be continued DVT prophylaxis: On Eliquis Past Medical History Past Medical History: COPD, Eye Disorder, Hearing Disorder / Deafness, Osteoarthritis (OA) Additional Past Medical History / Comment(s): Anemia in the past, emphysema, bilateral cataracts, right hand carpal tunnel, blood clots removed [place] History of Any Multi-Drug Resistant Organisms: None Reported Past Surgical History: Appendectomy, Cholecystectomy, Tubal Ligation Additional Past Surgical History / Comment(s): Colonoscopy Past Anesthesia/Blood Transfusion Reactions: No Reported Reaction Past Psychological History: Anxiety, Depression Additional Psychological History / Comment(s): Pt lives alone. She uses a wheeled walker at times due to her SOB with activity. She is independent. She drives. Smoking Status: Former smoker Past Alcohol Use History: Daily Additional Past Alcohol Use History / Comment(s): Started smoking in 1971 and quit 12/05. Past Drug Use History: None Reported - Past Family History Father Family Medical History: Cancer Additional Family Medical History / Comment(s): Lung cancer Mother Family Medical History: Cancer, Deep Vein Thrombosis (DVT) Additional Family Medical History / Comment(s): breast Medications and Allergies Home Medications Medication Instructions Recorded Confirmed Type ALPRAZolam 0.5 mg PO BID 12/26/15 05/24/21 History Citalopram Hydrobromide [CeleXA] 10 mg PO DAILY 03/16/18 05/24/21 History Apixaban [Eliquis] 2.5 mg PO BID 01/11/21 05/24/21 History Tiotropium [place] [Spiriva 2 puff INHALATION RT-DAILY 01/11/21 05/24/21 History Respimat] Budesonide-Formot 160-4.5 Mcg 2 puff INHALATION RT-BID 05/24/21 05/24/21 History [Symbicort 160-4.5 Mcg Inhaler] Allergies Allergy/AdvReac Type Severity Reaction Status Date / Time Sulfa (Sulfonamide AdvReac Unknown Verified 05/24/21 21:17 Antibiotics) Childhood steroids AdvReac excessive Uncoded 05/24/21 21:17 sleepiness Physical Exam Vitals: Vital Signs Temp Pulse Pulse Resp BP BP Pulse Ox 05/25/21 13:52 87 05/25/21 13:44 89 05/25/21 10:25 98.2 F 80 16 124/62 100 05/25/21 09:00 98.1 F 79 22 110/68 97 05/25/21 08:01 82 05/25/21 07:46 75 05/25/21 05:00 87 26 H 117/64 83 L 05/25/21 02:15 89 L 05/24/21 23:19 98.0 F 74 18 113/45 97 05/24/21 21:30 98.3 F 90 24 148/20 95 05/24/21 21:00 91 22 158/56 95 05/24/21 20:30 100 24 155/80 95 05/24/21 20:00 98 24 154/61 95 05/24/21 19:15 103.3 F H 116 H 22 132/65 97 Intake and Output 05/25/21 05/25/21 05/25/21 06:59 14:59 22:59 Other: Weight 93.894 kg Results CBC & Chem 7: 05/24/21 19:51 05/24/21 19:51 Labs: Abnormal Lab Results - Last 24 Hours (Table) 05/24/21 05/24/21 05/24/21 Range/Units 19:51 19:51 19:51 WBC 15.5 H (3.8-10.6) k/uL Neutrophils # (Manual) 13.70 H (1.3-7.7) k/uL Lymphocytes # (Manual) 0.62 L (1.0-4.8) k/uL Monocytes # (Manual) 1.09 H (0-1.0) k/uL Sodium 133 L (137-145) mmol/L Chloride 97 L (98-107) mmol/L Glucose 133 H (74-99) mg/dL Lactate Dehydrogenase 672 H (313-618) U/L C-Reactive Protein 4.9 H (<1.0) mg/dL Procalcitonin 0.25 H (0.02-0.09) ng/mL
[2021-05-25] MEDS: SYMBICORT 160-4.5 MCG INHALER INHALATION SCH (20:29)
[2021-05-25] MEDS: ALPRAZolam 0.5 MG TAB PO SCH (21:50)
[2021-05-26] MEDS: SYMBICORT 160-4.5 MCG INHALER INHALATION SCH ×2 (08:10→19:21)
[2021-05-26] MEDS: IPRATROPIUM-ALBUTEROL 3 ML NEB INHALATION SCH ×4 (08:10→19:21)
[2021-05-26] MEDS: TIOTROPIUM 2.5 MCG INHALER INHALATION SCH (08:10)
[2021-05-26] MEDS ORDERED: CITALOPRAM HYDROBROMIDE 10 MG TAB PO SCH (09:00)
[2021-05-26 12:09] LABS: Basophils % (A) 0 %; Eosinophils % (A) 0 %; HCT 32.4 % (34.0-46.0); HGB 10.7 gm/dL (11.4-16.0); Lymphocytes # (A) 0.8 k/uL (1.0-4.8); Lymphocytes % (A) 8 %; MCH 31.6 pg (25.0-35.0); MCV 95.8 fL (80.0-100.0); Mean Platelet Volume 7.2; Monocytes # (A) 0.7 k/uL (0-1.0); Monocytes % (A) 7 %; Neutrophils # (A) 8.4 k/uL (1.3-7.7); Neutrophils % (A) 83 %; Platelet Count 190 k/uL (150-450); RBC 3.38 m/uL (3.80-5.40); WBC 10.1 k/uL (3.8-10.6)
[2021-05-26 12:32] LABS: African American GFR (CKD) >90 (>60 ml/min/1.73 sqM); Anion Gap 8 mmol/L; Blood Urea Nitrogen 8 mg/dL (7-17); Calcium 8.5 mg/dL (8.4-10.2); Carbon Dioxide 30 mmol/L (22-30); Chloride 102 mmol/L (98-107); Glucose 126 mg/dL (74-99); Non-African American GFR(CKD) 87 (>60 ml/min/1.73 sqM); Potassium 3.4 mmol/L (3.5-5.1); Sodium 140 mmol/L (137-145)
--- NOTE | 2021-05-26 12:55 | P.PN ---
Subjective Progress Note Date: 05/26/21 Patient given with comments of shadows of breath does have history of COPD is a 3.5 L of oxygen was also complained of cough with sputum production patient is found to have infiltrate in the right upper lung [place] patient and is complaining of chest pain is pleuritic in nature. Patient is having fevers w althea bloods elevated red blood cell count Covid 19 is negative. 05/26/2021 Patient evaluated today resting in bed. She complains of right chest wall pain throughout the evening rating it 6/10 non-radiating. Seems exacerbated by deep breathing, she did say that it spontaneously resolved. Has diminished aeration in the right upper lobe. Patient wears 3.5L NC at home and is currently on 3L NC with an oxygen saturation of 97%, blood pressure today 120/69, heart rate 98, T-99.1. Labs today WBC 10.1, HGB 10.7, sodium 140, potassium 3.4, glucose 120s. Calcitonin was 0.25, Covid PCR is not detected. Blood culture negative 2 for 24 hours, sputum culture is pending. Chest x-ray yesterday shows no interval change in the right upper level opacity. ROS Constitutional: Denied any fatigue denied any fever. Cardio vascular: Denies palpitations, reports right sided pleuritic chest pain, spontaneously resolved Gastrointestinal: denied any nausea vomiting Pulmonary: Denies any cough, reports chronic SOB Neurologic denied any new focal deficits All inpatient medications were reviewed and appropriate changes in these medications as dictated in the interval history and assessment and plan. PHYSICAL EXAMINATION: GENERAL: The patient is alert and oriented x3, not in any acute distress. Well developed, well nourished. HEENT: Pupils are round and equally reacting to light. EOMI. No scleral icterus. No conjunctival pallor. Normocephalic, atraumatic. No pharyngeal erythema. No thyromegaly. CARDIOVASCULAR: S1 and S2 present. No murmurs, rubs, or gallops. PULMONARY: Crackles in the right upper lung [place] and rhonchi ABDOMEN: Soft, nontender, nondistended, normoactive bowel sounds. No palpable organomegaly. MUSCULOSKELETAL: No joint swelling or deformity. EXTREMITIES: No cyanosis, clubbing, or pedal edema. NEUROLOGICAL: Gross neurological examination did not reveal any focal deficits. SKIN: No rashes. Assessment and plan Assessment -Sepsis secondary to most probably pneumonia, due to right upper lobe infiltrate, low grade temps -COPD with mild acute exacerbation -Acute on chronic hypercapnic and hypoxic respiratory failure secondary to COPD as well as pneumonia, back on home dose of oxygen -Depression -Proximal A. fib for which patient is on Eliquis which will be continued DVT prophylaxis: On Eliquis Plan Finalize cultures Continue antibiotics Continue all other supportive care Chest xray and labs in AM Discharge most likely tomorrow if Objective - Vital Signs Vital signs: Vital Signs Temp 99.1 F 05/26/21 08:00 Pulse 90 05/26/21 08:23 Resp 17 05/26/21 08:00 BP 120/69 05/26/21 08:00 Pulse Ox 97 05/26/21 08:00 Intake & Output 05/25/21 05/26/21 05/26/21 18:59 06:59 18:59 Intake Total 300 Output Total 200 Balance 100 Weight 93.894 kg Intake: Oral 300 Output: Urine 200 Other: Voiding Method Toilet # Voids 1 - Labs CBC & Chem 7: 05/26/21 11:28 05/26/21 11:28 Labs: Microbiology - Last 24 Hours (Table) 05/25/21 13:53 Gram Stain - Preliminary Sputum Sputum Culture - Preliminary 05/24/21 19:51 Blood Culture - Preliminary Blood No Growth after 24 hours 05/24/21 19:51 Blood Culture - Preliminary Blood No Growth after 24 hours
[2021-05-26] MEDS: ALPRAZolam 0.5 MG TAB PO SCH ×2 (13:45→22:10)
[2021-05-26] MEDS: SODIUM CHLORIDE 0.9% 1,000 ML IV SCH ×2 (13:46→18:05)
[2021-05-26] MEDS: CITALOPRAM HYDROBROMIDE 10 MG TAB PO SCH (15:01)
[2021-05-26] MEDS: APIXABAN 2.5 MG TABLET PO SCH ×2 (15:01→22:10)
[2021-05-26] MEDS: AZITHROMYCIN 500 MG TAB PO SCH (15:02)
[2021-05-27] MEDS: SODIUM CHLORIDE 0.9% 1,000 ML IV SCH ×4 (00:43→21:58)
--- NOTE | 2021-05-27 07:20 | XR ---
EXAMINATION TYPE: XR chest 1V portable DATE OF EXAM: 05/27/2021 HISTORY: Shortness of breath. COMPARISON: 05/25/2021 TECHNIQUE: Single view of the chest is submitted. FINDINGS: Demonstrated are scattered senescent parenchymal change. Persistent infiltrate right upper lobe and right lower lobe. No significant change appreciated. The heart is stable. Hilar and mediastinal structures are within normal limits. Degenerative changes are seen of the dorsal spine. IMPRESSION: 1. Persistent infiltrate right upper lobe and right lower lobe. No significant change appreciated.
[2021-05-27] MEDS: CITALOPRAM HYDROBROMIDE 10 MG TAB PO SCH (08:02)
[2021-05-27] MEDS: SYMBICORT 160-4.5 MCG INHALER INHALATION SCH ×2 (08:02→19:31)
[2021-05-27] MEDS: APIXABAN 2.5 MG TABLET PO SCH ×2 (08:02→21:20)
[2021-05-27] MEDS: TIOTROPIUM 2.5 MCG INHALER INHALATION SCH (08:02)
[2021-05-27] MEDS: IPRATROPIUM-ALBUTEROL 3 ML NEB INHALATION SCH ×4 (08:02→19:31)
[2021-05-27] MEDS: ALPRAZolam 0.5 MG TAB PO SCH ×2 (08:02→21:20)
--- NOTE | 2021-05-27 08:29 | P.PN ---
Subjective Progress Note Date: 05/27/21 Principal diagnosis: This impression essential white female centimeter for lower pneumonia. The patient is improving O2 sats rations been nominal on 3 L. She usually takes about 3.5 L oxygen at home. Pelvic negative she is history of cold pneumonia in the past No 70 nausea or vomiting. No diarrhea from antibiotic. She is able to ambulate but has significant shortness of breath and dyspnea after doing minimal ADL current Objective - Vital Signs Vital signs: Vital Signs Temp 98.7 F 05/27/21 00:46 Pulse 88 05/27/21 08:21 Resp 18 05/27/21 00:46 BP 143/65 05/27/21 00:46 Pulse Ox 94 L 05/27/21 00:46 Intake & Output 05/26/21 05/27/21 05/27/21 18:59 06:59 18:59 Intake Total 100 1100 Balance 100 1100 Intake: IV 100 Sodium Chloride 0.9% 1, 100 000 ml @ 100 mls/hr IV . Q10H [facility] Rx#:[id number] Intake, IV Titration 900 Amount Sodium Chloride 0.9% 1, 900 000 ml @ 100 mls/hr IV . Q10H [facility] Rx#:[id number] Oral 200 Other: # Voids 1 - Constitutional General appearance: Present: no acute distress - EENT Eyes: Absent: abnormal pupil - Neck Neck: Absent: lymphadenopathy - Respiratory Respiratory: bilateral: diminished - Cardiovascular Rhythm: regular Heart sounds: normal: S1, S2 Abnormal Heart Sounds: Absent: S3 Gallop - Gastrointestinal General gastrointestinal: Present: soft. Absent: tenderness - Neurologic Neurologic: Absent: CNII-XII intact - Psychiatric Psychiatric: Present: A&O x's 3 - Labs CBC & Chem 7: 05/26/21 11:28 05/26/21 11:28 Labs: Abnormal Lab Results - Last 24 Hours (Table) 05/26/21 05/26/21 Range/Units 11:28 11:28 RBC 3.38 L (3.80-5.40) m/uL Hgb 10.7 L (11.4-16.0) gm/dL Hct 32.4 L (34.0-46.0) % Neutrophils # 8.4 H (1.3-7.7) k/uL Lymphocytes # 0.8 L (1.0-4.8) k/uL Potassium 3.4 L (3.5-5.1) mmol/L Glucose 126 H (74-99) mg/dL Microbiology - Last 24 Hours (Table) 05/24/21 19:51 Blood Culture - Preliminary Blood No Growth after 48 hours 05/24/21 19:51 Blood Culture - Preliminary Blood No Growth after 48 hours 05/25/21 13:53 Gram Stain - Preliminary Sputum Sputum Culture - Preliminary Assessment and Plan (1) Pneumonia Current Visit: Yes Status: Acute Code(s): J18.9 - PNEUMONIA, UNSPECIFIED ORGANISM SNOMED Code(s): 189973951 (2) Sepsis Current Visit: Yes Status: Acute Code(s): A41.9 - SEPSIS, UNSPECIFIED ORGANISM SNOMED Code(s): 47052206 (3) COPD (chronic obstructive pulmonary disease) with emphysema Current Visit: No Status: Acute Code(s): J43.9 - EMPHYSEMA, UNSPECIFIED SNOMED Code(s): 64761666 Plan: Continue current regimen of treatment. Check CBC and CMP in a.m. Anticipate discharge in next 24-48 hours if she continues his current regimen with appropriate recovery trajectory.
[2021-05-27 08:35] LABS: Basophils % (A) 0 %; Eosinophils # (A) 0.2 k/uL (0-0.7); Eosinophils % (A) 2 %; HCT 32.9 % (34.0-46.0); HGB 10.8 gm/dL (11.4-16.0); Lymphocytes # (A) 0.7 k/uL (1.0-4.8); Lymphocytes % (A) 8 %; MCH 31.5 pg (25.0-35.0); MCHC 32.8 g/dL (31.0-37.0); Mean Platelet Volume 7.4; Monocytes # (A) 0.6 k/uL (0-1.0); Monocytes % (A) 7 %; Neutrophils # (A) 7.4 k/uL (1.3-7.7); Neutrophils % (A) 82 %; Platelet Count 210 k/uL (150-450); RBC 3.42 m/uL (3.80-5.40); WBC 8.9 k/uL (3.8-10.6)
[2021-05-27 08:45] LABS: African American GFR (CKD) >90 (>60 ml/min/1.73 sqM); Anion Gap 10 mmol/L; Blood Urea Nitrogen 6 mg/dL (7-17); Calcium 8.4 mg/dL (8.4-10.2); Carbon Dioxide 29 mmol/L (22-30); Chloride 101 mmol/L (98-107); Glucose 151 mg/dL (74-99); Non-African American GFR(CKD) >90 (>60 ml/min/1.73 sqM); Potassium 3.7 mmol/L (3.5-5.1); Sodium 140 mmol/L (137-145)
[2021-05-27 19:47] VITALS: RESP 18
[2021-05-28 05:57] LABS: HCT 30.6 % (34.0-46.0); HGB 10.3 gm/dL (11.4-16.0); MCH 32.1 pg (25.0-35.0); MCHC 33.5 g/dL (31.0-37.0); MCV 95.9 fL (80.0-100.0); Mean Platelet Volume 6.9; Platelet Count 210 k/uL (150-450); RBC 3.19 m/uL (3.80-5.40); WBC 8.2 k/uL (3.8-10.6)
[2021-05-28 06:13] LABS: ALT 18 U/L (4-34); AST 23 U/L (14-36); African American GFR (CKD) >90 (>60 ml/min/1.73 sqM); Alkaline Phosphatase 60 U/L (38-126); Anion Gap 7 mmol/L; Blood Urea Nitrogen 5 mg/dL (7-17); Calcium 8.2 mg/dL (8.4-10.2); Carbon Dioxide 30 mmol/L (22-30); Chloride 102 mmol/L (98-107); Glucose 105 mg/dL (74-99); Non-African American GFR(CKD) 89 (>60 ml/min/1.73 sqM); Potassium 3.7 mmol/L (3.5-5.1); Sodium 139 mmol/L (137-145); Total Bilirubin 0.2 mg/dL (0.2-1.3); Total Protein 5.5 g/dL (6.3-8.2)
--- NOTE | 2021-05-28 08:09 | P.DS ---
Providers Date of admission: 05/24/21 21:29 Attending physician: Benny Gómez Primary care physician: Benny Gómez - Discharge Diagnosis(es) (1) Pneumonia Current Visit: Yes Status: Acute (2) Sepsis Current Visit: Yes Status: Acute (3) COPD (chronic obstructive pulmonary disease) with emphysema Current Visit: No Status: Acute Hospital Course: This is a discharge summary and a 70-year-old white female essentially admitted for lobar pneumonia. She is placed on ceftriaxone and did quite well with this treatment. The patient was stabilized with the breathing treatments. I will go ahead and discharge on prednisone with Ceftin. Is to follow-up with me in one week. Patient Condition at Discharge: Fair Plan - Discharge Summary New Discharge Prescriptions: New Cefuroxime Axetil [Ceftin] 500 mg PO BID 7 Days #14 tab predniSONE [Deltasone] 20 mg PO DIRECTED #18 tab Ipratropium-Albuterol Nebulize [Duoneb 0.5 mg-3 mg/3 ml Soln] 3 ml INHALATION RT-QID ml Continue ALPRAZolam 0.5 mg PO BID Citalopram Hydrobromide [CeleXA] 10 mg PO DAILY Tiotropium [place] [Spiriva Respimat] 2 puff INHALATION RT-DAILY Apixaban [Eliquis] 2.5 mg PO BID Budesonide-Formot 160-4.5 Mcg [Symbicort 160-4.5 Mcg Inhaler] 2 puff INHALATION RT-BID Discharge Medication List ALPRAZolam 0.5 mg PO BID 12/26/15 [History] Citalopram Hydrobromide [CeleXA] 10 mg PO DAILY 03/16/18 [History] Apixaban [Eliquis] 2.5 mg PO BID 01/11/21 [History] Tiotropium [place] [Spiriva Respimat] 2 puff INHALATION RT-DAILY 01/11/21 [History] Budesonide-Formot 160-4.5 Mcg [Symbicort 160-4.5 Mcg Inhaler] 2 puff INHALATION RT-BID 05/24/21 [History] Cefuroxime Axetil [Ceftin] 500 mg PO BID 7 Days #14 tab 05/28/21 [Rx] Ipratropium-Albuterol Nebulize [Duoneb 0.5 mg-3 mg/3 ml Soln] 3 ml INHALATION RT-QID ml 05/28/21 [Rx] predniSONE [Deltasone] 20 mg PO DIRECTED #18 tab 05/28/21 [Rx] Follow up Appointment(s)/Referral(s): [facility] [NON-STAFF] - As Needed Benny Gómez MD [Primary Care Provider] - 1-2 days Discharge/Stand Alone Forms: Who Do I Call?, [employer]
[2021-05-28] MEDS: ALPRAZolam 0.5 MG TAB PO SCH (08:16)
[2021-05-28] MEDS: CITALOPRAM HYDROBROMIDE 10 MG TAB PO SCH (08:16)
[2021-05-28] MEDS: APIXABAN 2.5 MG TABLET PO SCH (08:16)
[2021-05-28] MEDS: IPRATROPIUM-ALBUTEROL 3 ML NEB INHALATION SCH (08:50)
[2021-05-28] MEDS: SYMBICORT 160-4.5 MCG INHALER INHALATION SCH (08:50)
[2021-05-28] MEDS: TIOTROPIUM 2.5 MCG INHALER INHALATION SCH (08:51)
[2021-05-28 09:08] VITALS: BP 117/68; PULSE 83; TEMP 98.3
== END 2021-05-28 09:47 | disposition home or self-care (01) | DRG 871 ==
LOC: EC 19:03 → 4SSUR 21:29 → 1SOBS 05-26 00:46
PROVIDERS: ADMIT Family Medicine; ATTEND Family Medicine
DX: A41.9 Sepsis, unspecified organism (principal); J18.1 Lobar pneumonia, unspecified organism; J96.21 Acute and chronic respiratory failure with hypoxia; J96.22 Acute and chronic respiratory failure with hypercapnia; J44.0 Chronic obstructive pulmonary disease with (acute) lower respiratory infection; F32.A Depression, unspecified; F41.9 Anxiety disorder, unspecified; H91.90 Unspecified hearing loss, unspecified ear; Z20.822 Contact with and (suspected) exposure to COVID-19; Z79.01 Long term (current) use of anticoagulants; Z79.51 Long term (current) use of inhaled steroids; Z79.899 Other long term (current) drug therapy; Z80.1 Family history of malignant neoplasm of trachea, bronchus and lung; Z87.891 Personal history of nicotine dependence; M19.90 Unspecified osteoarthritis, unspecified site
CPT/HCPCS: 36415; 71045; 80048; 80053; 82728; 83605; 83615; 83735; 84145; 85025; 85027; 85610; 85730; 86140; 87040; 87070; 87205; 87635; 93005; 94640; 94760; 99291

== ENCOUNTER → 2022-09-08 | Outpatient (CLI) | payer MEDICARE ==
--- NOTE | 2022-09-09 08:44 | MM ---
Reason for Exam: Screening (asymptomatic). Last mammogram was performed 1 year(s) and 5 month(s) ago. Patient History: Menarche at age 11. First Full-Term at age 20. Postmenopausal. Mother had breast cancer, age 60. Risk Values: Alice 5 year model risk: 3.4%. NCI Lifetime model risk: 7.7%. Prior Study Comparison: 02/11/2019 Bilateral Screening Mammogram, [facility]. 02/14/2020 Bilateral Screening Mammogram, [facility]. 03/28/2021 Bilateral Screening Mammogram, [facility]. Tissue Density: The breast tissue is heterogeneously dense. This may lower the sensitivity of mammography. Findings: Analyzed By CAD. No suspicious group of microcalcifications within either breast. Chronic nodularity within both breasts. Chronic nodularity bilaterally. Asymmetry demonstrated within the central right breast posterior depth on the CC view. No new suspicious masses within the left breast. Overall Assessment: Incomplete: need additional imaging evaluation, BI-RAD 0 Management: Diagnostic Mammogram of the right breast. A clinical breast exam by your physician is recommended on an annual basis and results should be correlated with mammographic findings. [facility] will attempt to contact patient to return for supplemental views and ultrasound if indicated. Electronically signed and approved by: Dick Herrera D.O.
== END | disposition home or self-care (01) ==
LOC: RADMAMWWP 07:47
PROVIDERS: ATTEND Family Medicine
DX: Z12.31 Encounter for screening mammogram for malignant neoplasm of breast (principal); Z78.0 Asymptomatic menopausal state; Z80.3 Family history of malignant neoplasm of breast
CPT/HCPCS: 77063; 77067

== ENCOUNTER → 2022-09-10 | Outpatient (CLI) | payer MEDICARE ==
--- NOTE | 2022-09-10 15:05 | MM ---
Reason for Exam: Additional evaluation requested from abnormal screening. Last screening mammogram was performed less than 1 month ago. Patient History: Menarche at age 11. First Full-Term at age 20. Postmenopausal. Mother had breast cancer, age 60. Risk Values: Alice 5 year model risk: 3.4%. NCI Lifetime model risk: 7.7%. Prior Study Comparison: 08/30/2013 Bilateral Screening Mammogram, [facility]. 09/08/2013 Left Diagnostic Mammogram, [facility]. 05/04/2014 Left Diagnostic Mammogram, [facility]. 01/03/2016 Bilateral Screening Mammogram, [facility]. 01/05/2017 Bilateral Screening Mammogram, [facility]. 02/10/2018 Bilateral Screening Mammogram, [facility]. 02/11/2019 Bilateral Screening Mammogram, [facility]. 02/14/2020 Bilateral Screening Mammogram, [facility]. 03/28/2021 Bilateral Screening Mammogram, [facility]. 09/08/2022 Bilateral MG 3D screening mammo w/cad, [facility]. Tissue Density: Right: The breast tissue is heterogeneously dense. This may lower the sensitivity of mammography. Findings: Analyzed By CAD. Persistent asymmetric density posterior to the right breast measuring approximately 7.5 mm and 9 cm from the nipple. Sound is recommended. Overall Assessment: Incomplete: need additional imaging evaluation, BI-RAD 0 Management: Diagnostic Breast Ultrasound of the right breast. A clinical breast exam by your physician is recommended on an annual basis and results should be correlated with mammographic findings. This exam should not preclude additional follow-up of suspicious palpable abnormalities. Results were given to the patient verbally at the time of exam. Electronically signed and approved by: Lambert Ortega M.D. Radiologis
--- NOTE | 2022-09-10 15:37 | USB ---
Reason for Exam: Additional evaluation requested from abnormal screening. Patient History: Menarche at age 11. First Full-Term at age 20. Postmenopausal. Mother had breast cancer, age 60. Risk Values: Alice 5 year model risk: 3.4%. NCI Lifetime model risk: 7.7%. Prior Study Comparison: 02/14/2020 Bilateral Screening Mammogram, [facility]. 03/28/2021 Bilateral Screening Mammogram, [facility]. 09/08/2022 Bilateral MG 3D screening mammo w/cad, [facility]. Findings: The periareolar of the right breast, the axilla of the right breast and the retroareolar of the right breast were scanned. Ill-defined masslike areas within the right retroareolar region approximately 9:00 position requires tissue diagnosis. There is a well-circumscribed hypoechoic lesion right breast 6:00 position measuring 0.65 x 0.4 cm. Overall Assessment: Suspicious, BI-RAD 4 Management: Ultrasound Core Biopsy of the right breast. A clinical breast exam by your physician is recommended on an annual basis and results should be correlated with mammographic findings. This exam should not preclude additional follow-up of suspicious palpable abnormalities. Results were given to the patient verbally at the time of exam. Electronically signed and approved by: Lambert Ortega M.D. Radiologis
== END | disposition home or self-care (01) ==
LOC: RADMAMWWP 14:10
PROVIDERS: ATTEND Family Medicine
DX: R92.8 Other abnormal and inconclusive findings on diagnostic imaging of breast (principal); Z78.0 Asymptomatic menopausal state; Z80.3 Family history of malignant neoplasm of breast
CPT/HCPCS: 77065; 76642; G0279; 77061

== ENCOUNTER → 2022-09-24 | Day surgery (SDC) | payer MEDICARE ==
--- NOTE | 2022-10-03 10:14 | MM ---
Reason for Exam: Post Procedure Mammogram. Last screening mammogram was performed less than 1 month ago. Patient History: Menarche at age 11. First Full-Term at age 20. Postmenopausal. Mother had breast cancer, age 60. Risk Values: Alice 5 year model risk: 3.4%. NCI Lifetime model risk: 7.7%. Prior Study Comparison: 03/28/2021 Bilateral Screening Mammogram, [facility]. 09/08/2022 Bilateral MG 3D screening mammo w/cad, [facility]. 09/10/2022 Right MG 3D work up w/cad RT, [facility]. Tissue Density: Right: The breast tissue is heterogeneously dense. This may lower the sensitivity of mammography. Pathology Description: Location: 9 o'clock. Marker Left Behind. Needle Type: Celero Cores: 2 The procedure of ultrasound guided core biopsy was explained to the patient. Benefits, alternatives, and risks were discussed. An informed consent was then obtained. The patient was placed in supine positioning for imaging and for the procedure. Preprocedure ultrasound redemonstrates at 9:00 position in the periareolar region right breast a vague heterogeneous hypoechoic area measuring near 1 cm in size. This appears less prominent or suspicious on current study. Discussed with patient possibility of short-term follow-up versus tissue sampling. Tissue sampling was preferred. The overlying skin was prepped and draped in usual sterile fashion. Lidocaine is used as anesthetic into the skin and subcutaneous tissue up to area of concern in the right breast. Under ultrasound guidance, a vacuum assisted biopsy gun device was used to obtain 2 core samples. Following this, a biopsy clip was left in lesion. The patient tolerated the procedure well without any immediate complication. The patient was kept in the radiology department for short stay after the procedure and then discharged home in stable condition. Postprocedure mammogram: The patient was transferred to mammography for physician ordered post procedure mammogram for clip placement verification. Clip is successfully deployed on mammogram Impression: Successful, uncomplicated ultrasound guided core biopsy of area of concern in the right breast, full pathology results to follow. Low index of suspicion noted at time of procedure. Pathology Results: Result: Benign, Fibrocystic change. RIGHT BREAST, NINE O'CLOCK, ULTRASOUND GUIDED NEEDLE CORE BIOPSY: Benign breast with fibrocystic changes. Overall Assessment: Benign Assessment: MG diagnostic mammo RT wo CAD - Right: Benign, BI-RAD 2. Management: Diagnostic Mammogram of the right breast in 6 months. Diagnostic Breast Ultrasound of the right breast in 6 months. Electronically signed and approved by: Devon Amaro M.D.
== END ==
LOC: RADUSWWP 07:49
PROVIDERS: ATTEND Surgery
DX: D24.1 Benign neoplasm of right breast (principal); N60.11 Diffuse cystic mastopathy of right breast; Z78.0 Asymptomatic menopausal state; Z80.3 Family history of malignant neoplasm of breast
CPT/HCPCS: 88305; 77065; 19083; A4648

== ENCOUNTER → 2022-10-10 | Outpatient (CLI) | payer MEDICARE ==
--- NOTE | 2022-10-10 20:18 | CA ---
Transthoracic Echo Report Name: Smita Bell Age: 72 Gender: F : 1950 Exam Date: 10/10/2022 14:38 Exam Location: [facility] Ht (in): 64 Wt (lb): 196 Ordering Physician: Bobby Lim MD Attending/Referring Phys: Hull Sorter Ciara Garsia RDCS Procedure CPT: Indications: R06.09 Other forms of dyspnea Cardiac Hx: Technical Quality: Fair Contrast 1: Total Dose (mL): Contrast 2: Total Dose (mL): MEASUREMENTS (Male / Female) Normal Values 2D ECHO LV Diastolic Diameter PLAX 4.0 cm 4.2 - 5.9 / 3.9 - 5.3 cm LV Systolic Diameter PLAX 2.7 cm IVS Diastolic Thickness 1.2 cm 0.6 - 1.0 / 0.6 - 0.9 cm LVPW Diastolic Thickness 1.1 cm 0.6 - 1.0 / 0.6 - 0.9 cm LV Relative Wall Thickness 0.6 RV Internal Dim ED PLAX 2.6 cm LA Systolic Diameter LX 3.0 cm 3.0 - 4.0 / 2.7 - 3.8 cm LA Volume 34.8 cm??? 18 - 58 / 22 - 52 cm??? M-MODE Aortic Root Diameter MM 3.1 cm MV E Point Septal Separation 1.1 cm AV Cusp Separation MM 1.7 cm DOPPLER AV Peak Velocity 123.4 cm/s AV Peak Gradient 6.1 mmHg MV Area PHT 2.8 cm??? Mitral E Point Velocity 75.6 cm/s Mitral A Point Velocity 92.3 cm/s Mitral E to A Ratio 0.8 MV Deceleration Time 275.2 ms MV E' Velocity 4.2 cm/s Mitral E to MV E' Ratio 18.2 TR Peak Velocity 259.9 cm/s TR Peak Gradient 27.0 mmHg Right Ventricular Systolic Press 32.0 mmHg FINDINGS Left Ventricle Left ventricular ejection fraction is estimated at 60-65 %. Left ventricular cavity size normal. Mildly increased septal wall thickness. Mildly increased posterior wall thickness. Normal left ventricular wall motion. Right Ventricle Normal right ventricular size and function. Right ventricular systolic pressure within normal limits. Right Atrium Normal right atrial size. Left Atrium Normal left atrial size. Mitral Valve Structurally normal mitral valve. No mitral stenosis, regurgitation or prolapse. Aortic Valve Trileaflet aortic valve. No aortic stenosis. No aortic regurgitation. Tricuspid Valve Structurally normal tricuspid valve. Mild tricuspid regurgitation. Pulmonic Valve Pulmonic valve not well visualized. Pericardium Normal pericardium. No pericardial effusion. Aorta Normal size aortic root and proximal ascending aorta. CONCLUSIONS Technically difficult study with suboptimal acoustic windows LVH with preserved systolic function Previewed by: Dr. Victor Hugo Calvo MD (Electronically Signed) Final Date: 10 October 2022 20:17
== END | disposition home or self-care (01) ==
LOC: RADECHMAIN 14:23
PROVIDERS: ATTEND Internal Medicine
DX: R06.09 Other forms of dyspnea (principal)
CPT/HCPCS: 93306

== ENCOUNTER → 2023-04-08 | Outpatient (CLI) | payer MEDICARE ==
--- NOTE | 2023-04-08 09:03 | USB ---
Reason for Exam: Follow-up at short interval from prior study. Patient History: Menarche at age 11. First Full-Term at age 20. Postmenopausal. 09/24/2022, Benign US biopsy breast VAD RT on the right side. Mother had breast cancer, age 60. Risk Values: Alice 5 year model risk: 4.0%. NCI Lifetime model risk: 9.0%. Technique: Method: Whole Breast Handheld. Prior Study Comparison: 09/08/2022 Bilateral MG 3D screening mammo w/cad, [facility]. 09/10/2022 Right MG 3D work up w/cad RT, [facility]. 09/24/2022 Right MG diagnostic mammo RT wo CAD, [facility]. Findings: The whole breast of the right breast, the axilla of the right breast and the retroareolar of the right breast were scanned. Biopsy clip noted at the site of previous biopsy. Simple cyst right breast 6:00 position 7 cm from the nipple measuring 8 mm. Overall Assessment: Benign, BI-RAD 2 Management: Screening Mammogram of both breasts in 1 year. A clinical breast exam by your physician is recommended on an annual basis and results should be correlated with mammographic findings. This exam should not preclude additional follow-up of suspicious palpable abnormalities. Results were given to the patient verbally at the time of exam. Electronically signed and approved by: Lambert Ortega M.D. Radiologis
--- NOTE | 2023-04-10 11:54 | MM ---
Reason for Exam: Follow-up at short interval from prior study. Last screening mammogram was performed 7 month(s) ago. Patient History: Menarche at age 11. First Full-Term at age 20. Postmenopausal. 09/24/2022, Benign US biopsy breast VAD RT on the right side. Mother had breast cancer, age 60. Risk Values: Alice 5 year model risk: 4.0%. NCI Lifetime model risk: 9.0%. Prior Study Comparison: 09/08/2022 Bilateral MG 3D screening mammo w/cad, [facility]. 09/10/2022 Right MG 3D work up w/cad RT, [facility]. 09/24/2022 Right MG diagnostic mammo RT wo CAD, [facility]. Tissue Density: Right: The breast tissue is heterogeneously dense. This may lower the sensitivity of mammography. Findings: Analyzed By CAD. Nodular density right 12:00 position 11 cm from the nipple. Ultrasound is recommended. Overall Assessment: Incomplete: need additional imaging evaluation, BI-RAD 0 Management: Diagnostic Breast Ultrasound of the right breast. . Results were given to the patient verbally at the time of exam. Patient should continue monthly self-breast exams. A clinical breast exam by your physician is recommended on an annual basis. This exam should not preclude additional follow-up of suspicious palpable abnormalities. Note on Alice scores and lifetime risk: 1. A Alice score greater than 3% is considered moderate risk. If this is the case, consider specialist referral to assess eligibility for a risk reducing agent. 2. If overall lifetime risk for the development of breast cancer is 20% or higher, the patient may qualify for future screening with alternating mammogram and breast MRI. Electronically signed and approved by: Lambert Ortega M.D. Radiologis
== END | disposition home or self-care (01) ==
LOC: RADMAMWWP 08:13
PROVIDERS: ATTEND Surgery
DX: N60.01 Solitary cyst of right breast (principal); Z80.3 Family history of malignant neoplasm of breast; Z78.0 Asymptomatic menopausal state
CPT/HCPCS: 77065; 76641; G0279; 77061

== ENCOUNTER 2024-10-18 05:58 | Inpatient (IN) | payer MEDICARE ==
[2024-10-18] MEDS: SODIUM CHLORIDE 0.9% 1,000 ML IV ONE (06:13)
[2024-10-18] MEDS: methylPREDNISolone SOD SUCCI 125 MG/2 ML VIAL IV STA (06:15)
--- NOTE | 2024-10-18 06:17 | ED ---
SOB HPI - General Chief Complaint: Shortness of Breath Stated Complaint: difficulty breathing Time Seen by Provider: 10/18/24 06:00 Source: patient, RN notes reviewed Mode of arrival: EMS Limitations: no limitations - History of Present Illness Initial Comments: 74-year-old female presents emerged part via EMS chief complaint of dyspnea. Patient states that she has had increasing dyspnea over the last couple weeks. She states overnight is dramatically worsened. Patient states she does oxygen dependent COPD around 2 L normally. Patient states that walking is much worse. She states she does have history of blood clots is on Eliquis has not missed any doses. She denies any fevers or chills currently but states that she felt she did in the past. Patient states that breathing treatments 1 time a day. Patient states she did receive [address] by EMS which helped some. Patient denies any complaints of chest pain no significant leg swelling. States she only has mild on the left leg, patient has no GI complaints. Patient denies any sick contacts. - Related Data Home Medications Medication Instructions Recorded Confirmed ALPRAZolam 0.5 mg PO DAILY 12/26/15 10/18/24 Citalopram Hydrobromide [CeleXA] 10 mg PO DAILY 03/16/18 10/18/24 Albuterol Nebulized [Ventolin 2.5 mg INHALATION RT-QID PRN 10/18/24 10/18/24 Nebulized] Budesonide [Pulmicort] 0.5 mg INHALATION DIRECTED 10/18/24 10/18/24 Rivaroxaban [Xarelto] 15 mg PO HS 10/18/24 10/18/24 Tiotropium 2.5 Mcg/Puff [Spiriva 1 puff INHALATION RT-DAILY 10/18/24 10/18/24 Respimat 2.5 Mcg] Allergies Allergy/AdvReac Type Severity Reaction Status Date / Time Sulfa (Sulfonamide AdvReac Unknown Verified 10/18/24 09:38 Antibiotics) Childhood Review of Systems ROS Statement: Those systems with pertinent positive or pertinent negative responses have been documented in the HPI. ROS Other: All systems not noted in ROS Statement are negative. Past Medical History Past Medical History: COPD Additional Past Medical History / Comment(s): Anemia in the past, emphysema, blood clots in lungs 2019, removed leda lazo History of Any Multi-Drug Resistant Organisms: None Reported Past Surgical History: Appendectomy, Cholecystectomy, Tubal Ligation Additional Past Surgical History / Comment(s): Colonoscopy. Bilat cataract removal. Right hand carpal tunnel surgery Past Anesthesia/Blood Transfusion Reactions: No Reported Reaction Past Psychological History: Anxiety, Depression Smoking Status: Former smoker Past Alcohol Use History: Daily, Occasional Past Drug Use History: None Reported - Past Family History Father Family Medical History: Cancer Additional Family Medical History / Comment(s): Lung cancer Mother Family Medical History: Cancer, Deep Vein Thrombosis (DVT) Additional Family Medical History / Comment(s): breast General Exam Limitations: no limitations General appearance: alert, in no apparent distress Head exam: Present: atraumatic, normocephalic, normal inspection Eye exam: Present: normal appearance, PERRL, EOMI. Absent: scleral icterus, conjunctival injection, periorbital swelling ENT exam: Present: normal exam, normal oropharynx, mucous membranes moist Neck exam: Present: normal inspection, full ROM. Absent: tenderness, meningismus, lymphadenopathy Respiratory exam: Present: wheezes, decreased breath sounds. Absent: normal lung sounds bilaterally Cardiovascular Exam: Present: regular rate, normal rhythm, normal heart sounds. Absent: systolic murmur, diastolic murmur, rubs, gallop, clicks GI/Abdominal exam: Present: soft, normal bowel sounds. Absent: distended, tenderness, guarding, rebound, rigid Extremities exam: Present: pedal edema (very minimal left) Neurological exam: Present: alert, oriented X3, CN II-XII intact Course Vital Signs 10/18/24 10/18/24 10/18/24 06:01 09:19 10:38 Temperature 98.7 F Pulse Rate 89 85 87 Respiratory 19 18 18 Rate Blood Pressure 98/63 123/85 O2 Sat by Pulse 93 L 94 L Oximetry 10/18/24 10/18/24 10/18/24 10:39 10:45 13:15 Temperature Pulse Rate 87 98 Respiratory 18 20 Rate Blood Pressure 101/72 O2 Sat by Pulse 98 95 Oximetry 10/18/24 10/18/24 10/18/24 15:34 15:44 16:23 Temperature 97.8 F Pulse Rate 98 94 97 Respiratory 18 18 18 Rate Blood Pressure 98/75 O2 Sat by Pulse 94 L Oximetry Medical Decision Making - Medical Decision Making Was pt. sent in by a medical professional or institution ([facility], [employer], urgent care, hospital, or custodial...) When possible be specific @ -No Did you speak to anyone other than the patient for history (EMS, parent, family, police, friend...)? What history was obtained from this source @ -No Did you review nursing and triage notes (agree or disagree)? Why? @ -I reviewed and agree with nursing and triage notes Were old charts reviewed (outside hosp., previous admission, EMS record, old EKG, old radiological studies, urgent care reports/EKG's, custodial records)? Report findings @ -No old charts were reviewed Differential Diagnosis (chest pain, altered mental status, abdominal pain women, abdominal pain men, vaginal bleeding, weakness, fever, dyspnea, syncope, headache, dizziness, GI bleed, back pain, seizure, CVA, palpatations, mental health, musculoskeletal)? @ -Differential Dyspnea: Coronary syndrome, arrhythmia, tamponade, asthma, COPD, pulmonary embolism, pneumonia, pneumothorax, pulmonary effusion, anaphylaxis, diabetic ketoacidosis, flailed chest, pulmonary contusion, diaphragmatic rupture, anemia, neuromuscular, this is not meant to be an all-inclusive list. EKG interpreted by me (3pts min.). @ -As above X-rays interpreted by me (1pt min.). @ -Chest x-ray shows evidence of COPD changes CT interpreted by me (1pt min.). @ -CT angio chest negative for PE, there is scattered atypical pneumonia changes U/S interpreted by me (1pt. min.). @ -None done What testing was considered but not performed or refused? (CT, X-rays, U/S, labs)? Why? @ -None What meds were considered but not given or refused? Why? @ -None Did you discuss the management of the patient with other professionals (professionals i.e. JACY Wright, [employer], lab, RT, psych nurse, group social worker, risk control consultant, teacher, recreation officer, corrections caseworker)? Give summary @ -CF for admission Was smoking cessation discussed for >3mins.? @ -No Was critical care preformed (if so, how long)? @ -No Were there social determinants of health that impacted care today? How? (Homelessness, low income, unemployed, alcoholism, drug addiction, tr ansportation, low edu. Level, literacy, decrease access to med. care, nursing home, rehab)? @ -No Was there de-escalation of care discussed even if they declined (Discuss DNR or withdrawal of care, Hospice)? DNR status @ -No What co-morbidities impacted this encounter? (DM, HTN, Smoking, COPD, CAD, Cancer, CVA, ARF, Chemo, Hep., AIDS, mental health diagnosis, sleep apnea, morbid obesity)? @ -COPD Was patient admitted / discharged? Hospital course, mention meds given and route, prescriptions, significant lab abnormalities, going to OR and other pertinent info. @ -Admitted patient presented for increasing dyspnea. Patient does have acute COPD exacerbation, pneumonia. Patient be admitted for IV antibiotics steroids pulmonary evaluation and treatment. Undiagnosed new problem with uncertain prognosis? @ -No Drug Therapy requiring intensive monitoring for toxicity (Heparin, Nitro, Insulin, Cardizem)? @ -No Were any procedures done? @ -No Diagnosis/symptom? @ -COPD, pneumonia Acute, or Chronic, or Acute on Chronic? @ -Acute Uncomplicated (without systemic symptoms) or Complicated (systemic symptoms)? @ -Complicated Side effects of treatment? @ -No Exacerbation, Progression, or Severe Exacerbation? @ -COPD exacerbation Poses a threat to life or bodily function? How? (Chest pain, USA, VT, pneumonia, PE, COPD, DKA, ARF, appy, cholecystitis, CVA, Diverticulitis, Homicidal, Suicidal, threat to staff... and all critical care pts) @ -Yes COPD, pneumonia, risk to pulmonary function - Lab Data Result diagrams: 10/19/24 09:26 10/18/24 06:10 Lab Results 10/18/24 10/18/24 10/18/24 Range/Units 06:10 06:10 06:10 WBC 7.03 (4.50-10.00) 10*3/uL RBC 3.70 L (4.10-5.20) 10*6/uL Hgb 11.5 L (12.0-15.0) g/dL Hct 34.3 L (37.2-46.3) % MCV 92.7 (80.0-97.0) fL MCH 31.1 (27.0-32.0) pg MCHC 33.5 (32.0-37.0) g/dL Plt Count 182 (140-440) 10*3/uL MPV 8.7 L (9.5-12.2) fL Immature Gran % (Auto) 0.6 % Neutrophils % 68.3 % Lymphocytes % 14.7 % Monocytes % 13.1 % Eosinophils % 2.4 % Basophils % 0.9 % Immature Gran # 0.04 (0.00-0.04) 10*3/uL Neutrophils # 4.81 (1.80-7.70) 10*3/uL Lymphocytes # 1.03 (0.90-5.00) 10*3/uL Monocytes # 0.92 (0.20-1.00) 10*3/uL Eosinophils # 0.17 (0.04-0.35) 10*3/uL Basophils # 0.06 (0.00-0.10) 10*3/uL PT 11.2 (10.0-12.5) sec INR 1.0 (<1.2) APTT 25.3 (22.0-30.0) sec Sodium 136 L (137-145) mmol/L Potassium 3.7 (3.5-5.1) mmol/L Chloride 97 L (98-107) mmol/L Carbon Dioxide 31 H (22-30) mmol/L Anion Gap 8 mmol/L BUN 6 L (7-17) mg/dL Creatinine 0.69 (0.52-1.04) mg/dL Est GFR (CKD-EPI)AfAm >90 (>60 ml/min/1.73 sqM) Est GFR (CKD-EPI)NonAf 85 (>60 ml/min/1.73 sqM) Glucose 117 H (74-99) mg/dL Plasma Lactic Acid Blu (0.7-2.0) mmol/L Calcium 9.1 (8.4-10.2) mg/dL Magnesium 1.8 (1.6-2.3) mg/dL Total Bilirubin 0.7 (0.2-1.3) mg/dL AST 22 (14-36) U/L ALT 15 (4-34) U/L Alkaline Phosphatase 59 (38-126) U/L Troponin I (0.000-0.034) ng/mL NT-Pro-B Natriuret Pep 366 pg/mL Total Protein 6.5 (6.3-8.2) g/dL Albumin 3.9 (3.5-5.0) g/dL 10/18/24 10/18/24 Range/Units 06:10 06:10 WBC (4.50-10.00) 10*3/uL RBC (4.10-5.20) 10*6/uL Hgb (12.0-15.0) g/dL Hct (37.2-46.3) % MCV (80.0-97.0) fL MCH (27.0-32.0) pg MCHC (32.0-37.0) g/dL Plt Count (140-440) 10*3/uL MPV (9.5-12.2) fL Immature Gran % (Auto) % Neutrophils % % Lymphocytes % % Monocytes % % Eosinophils % % Basophils % % Immature Gran # (0.00-0.04) 10*3/uL Neutrophils # (1.80-7.70) 10*3/uL Lymphocytes # (0.90-5.00) 10*3/uL Monocytes # (0.20-1.00) 10*3/uL Eosinophils # (0.04-0.35) 10*3/uL Basophils # (0.00-0.10) 10*3/uL PT (10.0-12.5) sec INR (<1.2) APTT (22.0-30.0) sec Sodium (137-145) mmol/L Potassium (3.5-5.1) mmol/L Chloride (98-107) mmol/L Carbon Dioxide (22-30) mmol/L Anion Gap mmol/L BUN (7-17) mg/dL Creatinine (0.52-1.04) mg/dL Est GFR (CKD-EPI)AfAm (>60 ml/min/1.73 sqM) Est GFR (CKD-EPI)NonAf (>60 ml/min/1.73 sqM) Glucose (74-99) mg/dL Plasma Lactic Acid Blu 1.2 (0.7-2.0) mmol/L Calcium (8.4-10.2) mg/dL Magnesium (1.6-2.3) mg/dL Total Bilirubin (0.2-1.3) mg/dL AST (14-36) U/L ALT (4-34) U/L Alkaline Phosphatase (38-126) U/L Troponin I <0.012 (0.000-0.034) ng/mL NT-Pro-B Natriuret Pep pg/mL Total Protein (6.3-8.2) g/dL Albumin (3.5-5.0) g/dL - EKG Data -: EKG Interpreted by Me EKG Comments: EKG performed at 6: 27 sinus rhythm rate of 83 NC 159 QRS 87 QT/QTc 290/334 Disposition Clinical Impression: COPD (chronic obstructive pulmonary disease) with emphysema, Pneumonia Disposition: ADMITTED IP TO THIS HOSP Condition: Fair Time of Disposition: 08:43
[2024-10-18 06:18] LABS: Basophils # (A) 0.06 10*3/uL (0.00-0.10); Basophils % (A) 0.9 %; Eosinophils # (A) 0.17 10*3/uL (0.04-0.35); Eosinophils % (A) 2.4 %; HCT 34.3 % (37.2-46.3); HGB 11.5 g/dL (12.0-15.0); Lymphocytes # (A) 1.03 10*3/uL (0.90-5.00); Lymphocytes % (A) 14.7 %; MCH 31.1 pg (27.0-32.0); MCHC 33.5 g/dL (32.0-37.0); MCV 92.7 fL (80.0-97.0); Mean Platelet Volume 8.7 fL (9.5-12.2); Monocytes # (A) 0.92 10*3/uL (0.20-1.00); Monocytes % (A) 13.1 %; Neutrophils # (A) 4.81 10*3/uL (1.80-7.70); Neutrophils % (A) 68.3 %; Platelet Count 182 10*3/uL (140-440); WBC 7.03 10*3/uL (4.50-10.00)
[2024-10-18 06:36] LABS: ALT 15 U/L (4-34); AST 22 U/L (14-36); African American GFR (CKD) >90 (>60 ml/min/1.73 sqM); Albumin 3.9 g/dL (3.5-5.0); Alkaline Phosphatase 59 U/L (38-126); Anion Gap 8 mmol/L; Blood Urea Nitrogen 6 mg/dL (7-17); Calcium 9.1 mg/dL (8.4-10.2); Carbon Dioxide 31 mmol/L (22-30); Chloride 97 mmol/L (98-107); Glucose 117 mg/dL (74-99); Magnesium 1.8 mg/dL (1.6-2.3); Non-African American GFR(CKD) 85 (>60 ml/min/1.73 sqM); Potassium 3.7 mmol/L (3.5-5.1); Sodium 136 mmol/L (137-145); Total Bilirubin 0.7 mg/dL (0.2-1.3); Total Protein 6.5 g/dL (6.3-8.2)
--- NOTE | 2024-10-18 06:44 | XR ---
EXAMINATION TYPE: XR chest 2V DATE OF EXAM: 10/18/2024 CLINICAL INDICATION: Female, 74 years old with history of difficulty breathing, TECHNIQUE: Frontal and lateral views of the chest are obtained. COMPARISON: Chest x-ray October 01, 2022 FINDINGS: Background chronic emphysematous change with bilateral lower lung pulmonary fibrotic rosa e is redemonstrated. There is no suspicious new focal air space opacity, pleural effusion, or pneumot horax seen. Persistent cardiomegaly with atherosclerotic thoracic aorta. The osseous structures are intact. IMPRESSION: Chronic changes and cardiomegaly without acute pulmonary process. [facility], , 10/18/2024 6:41 AM
[2024-10-18 06:45] LABS: NT-Pro-B-Type Natriuretic Pept 366 pg/mL
[2024-10-18 07:26] LABS: Partial Thromboplastin Time 25.3 sec (22.0-30.0); Prothrombin Time 11.2 sec (10.0-12.5)
--- NOTE | 2024-10-18 08:21 | CT ---
EXAMINATION TYPE: CT chest angio for PE DATE OF EXAM: 10/18/2024 8:03 AM COMPARISON: 04/25/2019 CLINICAL INDICATION: Female, 74 years old with history of sob; SOB, History of blood clots TECHNIQUE/CONTRAST: CTA scan of the thorax is performed with IV Contrast, patient injected with 100 ml mL of Isovue 370, MIP images are created and reviewed these are created on a separate workstation.. CT DLP: 369.7 mGycm, Automated exposure control for dose reduction was used. FINDINGS: The heart is borderline in size without pericardial effusion. 3 vessel coronary artery calcifications are present in the remarkable for coronary artery disease. No flattening of the interventricular sep dejon or reflux of contrast into the hepatic veins. Scattered [id number] atherosclerotic arch and descending thoracic aortic calcification and plaq ue. Bovine configuration to the aortic arch. Borderline sized 1 cm right tracheobronchial angle lymph node appears larger. Right hilar lymph node at 1.5 cm appears larger. There is suboptimal contrast bolus with enhancement of 196 Hounsfield units within the pulmonary devon betty. Allowing for this limitation, there appears to have been interval clearance of the previous pul monary emboli. No definite pulmonary embolus is seen. There is moderate diffuse emphysematous change interval development of strandy areas of atelectasis o r scarring in the lower lungs. 8 mm subpleural pulmonary nodule lateral left base remains unchanged. Minimal scattered groundglass change such as within the inferior lingula and right middle lobe as wel l as the posteromedial right lung base appear to be new. No other consolidation or pleural effusion. Visualized upper abdomen shows no gross abnormality. Bones: Scattered facet arthropathy throughout. Scattered mild degenerative disc disease lower thoraci c spine. No osseous destructive process. IMPRESSION: 1. Suboptimal contrast bolus but without any definite pulmonary embolus seen. There is also been inte rval clearance of the previous pulmonary emboli from 2019. 2. COPD with moderate emphysema. 3. Some subtle areas of groundglass within the inferior lingula, right middle lobe, and posteromedial right lung base. Correlate to exclude early developing pneumonia, atypical pneumonias, or interstiti al pneumonitis. 4. Borderline to mildly enlarged right hilar and lower paratracheal nodes likely reactive. 5. Three-vessel coronary artery calcifications. [facility], , 10/18/2024 8:18 AM
[2024-10-18] MEDS ORDERED: PNEUMONIA PROTOCOL UTILIZED 1 EACH MISC PO PRN (08:43)
[2024-10-18] MEDS: IPRATROPIUM-ALBUTEROL 3 ML NEB INHALATION STA (10:36)
[2024-10-18] MEDS: IPRATROPIUM-ALBUTEROL 3 ML NEB INHALATION SCH (11:21)
[2024-10-18] MEDS: AZITHROMYCIN 500 MG in SODIUM CHLORIDE 0.9% 250 ML IVPB STA (12:23)
--- NOTE | 2024-10-18 13:18 | P.CNPUL ---
History of Present Illness Consult date: 10/18/24 Requesting physician: Medardo E Camelia Reason for consult: dyspnea, COPD, abnormal CXR/CT Chief complaint: Shortness of breath, cough, congestion History of present illness: This is a very pleasant 74-year-old female patient with a known history of chronic obstructive pulmonary disease with an FEV1 value 59% of predicted. She is a former smoker however quit 7 years ago. She follows with Dr. King in our office. She is maintained on Spiriva and Pulmicort along with albuterol nebulized treatments. She also has a history of anxiety, pulmonary embolism anticoagulated with Eliquis. She presented here to the emergency room early this morning with a 1 week history of increasing shortness of breath, cough and congestion. She did have some white sputum. Some chills and sweating. Chest x-ray reveals chronic changes and cardiomegaly without acute pulmonary process. CT angiogram revealed no definitive pulmonary emboli. There was interval clearance of a previous pulmonary emboli from 2019. Evidence of COPD with moderate emphysema. Some subtle areas of groundglass within the inferior lingula, right middle lobe and post anteromedial right lung base. Possible atypical pneumonia. White count 7.0. Hemoglobin 11.5. Platelets 182. Sodium 136. Potassium 3.7. Bicarb 31. BUN 6. Creatinine 0.69. Troponin negative x 1. proBNP 366. She is seen today in consultation in the emergency department. Currently sitting up on the stretcher. Awake and alert in no acute distress. Maintaining O2 saturations in the 90s on 2 L/min per nasal cannula. She is afebrile. Hemodynamically stable. Review of Systems REVIEW OF SYSTEMS: CONSTITUTIONAL: Denies any recent significant weight loss or weight gain. EYES: Denies change in vision. EARS, NOSE, MOUTH, THROAT: Denies headaches, denies sore throat. CARDIOVASCULAR: Denies chest pain, palpitations or syncopal episodes. RESPIRATORY: Positive for shortness of breath, cough, congestion no hemoptysis. GASTROINTESTINAL: Denies change in appetite, denies abdominal pain GENITOURINARY: Denies hematuria, denies infections. MUSKULOSKELETAL: Denies pain, denies swelling. INTEGUMENTARY: Denies rash, denies eczema. NEUROLOGICAL: Denies recent memory loss, no recent seizure activity. PSYCHIATRIC: Denies anxiety, denies depression. HEMATOLOGIC/LYMPHATIC: Denies anemia, denies enlarged lymph nodes. Past Medical History Past Medical History: COPD Additional Past Medical History / Comment(s): Anemia in the past, emphysema, blood clots in lungs 2019, removed leda lazo History of Any Multi-Drug Resistant Organisms: None Reported Past Surgical History: Appendectomy, Cholecystectomy, Tubal Ligation Additional Past Surgical History / Comment(s): Colonoscopy. Bilat cataract removal. Right hand carpal tunnel surgery Past Anesthesia/Blood Transfusion Reactions: No Reported Reaction Past Psychological History: Anxiety, Depression Smoking Status: Former smoker Past Alcohol Use History: Daily, Occasional Past Drug Use History: None Reported - Past Family History Father Family Medical History: Cancer Additional Family Medical History / Comment(s): Lung cancer Mother Family Medical History: Cancer, Deep Vein Thrombosis (DVT) Additional Family Medical History / Comment(s): breast Medications and Allergies Home Medications Medication Instructions Recorded Confirmed Type ALPRAZolam 0.5 mg PO DAILY 12/26/15 10/18/24 History Citalopram Hydrobromide [CeleXA] 10 mg PO DAILY 03/16/18 10/18/24 History Albuterol Nebulized [Ventolin 2.5 mg INHALATION RT-QID PRN 10/18/24 10/18/24 History Nebulized] Budesonide [Pulmicort] 0.5 mg INHALATION DIRECTED 10/18/24 10/18/24 History Rivaroxaban [Xarelto] 15 mg PO HS 10/18/24 10/18/24 History Tiotropium 2.5 Mcg/Puff [Spiriva 1 puff INHALATION RT-DAILY 10/18/24 10/18/24 History Respimat 2.5 Mcg] Allergies Allergy/AdvReac Type Severity Reaction Status Date / Time Sulfa (Sulfonamide AdvReac Unknown Verified 10/18/24 09:38 Antibiotics) Childhood steroids AdvReac excessive Uncoded 09/11/22 14:27 sleepiness Physical Exam Vitals: Vital Signs Temp Pulse Resp BP Pulse Ox 10/18/24 10:45 87 18 10/18/24 10:39 98 10/18/24 10:38 87 18 10/18/24 09:19 85 18 123/85 94 L 10/18/24 06:01 98.7 F 89 19 98/63 93 L Intake and Output 04/10/18/24 10/18/24 22:59 06:59 14:59 Other: Weight 90.718 kg GENERAL EXAM: Alert, very pleasant 74-year-old female, on 2 L nasal cannula, comfortable in no apparent distress. HEAD: Normocephalic. EYES: Normal reaction of pupils, equal size. NOSE: Clear with pink turbinates. THROAT: No erythema or exudates. NECK: No masses, no JVD. CHEST: No chest wall deformity. LUNGS: Equal air entry with no crackles, wheeze, rhonchi or dullness. Diminished. CVS: S1 and S2 normal with no audible murmur, regular rhythm. ABDOMEN: No hepatosplenomegaly, normal bowel sounds, no guarding or rigidity. SPINE: No scoliosis or deformity SKIN: No rashes CENTRAL NERVOUS SYSTEM: No focal deficits, tone is normal in all 4 extremities. EXTREMITIES: There is no peripheral edema. No clubbing, no cyanosis. Peripheral pulses are intact. Results - Laboratory Findings CBC and BMP: 10/18/24 06:10 10/18/24 06:10 PT/INR, D-dimer PT 11.2 sec (10.0-12.5) 10/18/24 06:10 INR 1.0 (<1.2) 10/18/24 06:10 Abnormal lab findings: Abnormal Labs 10/18/24 10/18/24 06:10 06:10 RBC 3.70 L Hgb 11.5 L Hct 34.3 L MPV 8.7 L Sodium 136 L Chloride 97 L Carbon Dioxide 31 H BUN 6 L Glucose 117 H - Diagnostic Findings Chest x-ray: image reviewed CT scan - chest: image reviewed Assessment and Plan Assessment: Acute hypoxic respiratory failure secondary to an acute exacerbation of COPD and possible early pneumonia History of chronic obstructive pulmonary disease with an FEV1 value of 59% of predicted Former chronic tobacco dependence, however quit 7 years ago History of pulmonary embolism, post thrombectomy, anticoagulated with Xarelto History of anxiety/depression Obesity Plan: The patient was seen and evaluated Imaging, labs and medications reviewed Continue DuoNeb inhalations Add Pulmicort and Perforomist inhalations Add Decadron 4 mg p.o. daily Continue ceftriaxone and azithromycin for now Check a procalcitonin Titrate down the FiO2 as tolerated Xarelto for anticoagulation We will continue to follow and make further recommendations based on her clinical status I have personally seen and examined the patient, performed the documentation and the assessment and plan as written. Number of minutes spent on the visit: 20 Dictation was produced using [employer] dictation software. Please excuse any grammatical, word or spelling errors.
[2024-10-18] MEDS ORDERED: dexAMETHasone 4 MG TAB PO SCH (13:30)
[2024-10-18] MEDS: BUDESONIDE 1 MG/2 ML NEBU INHALATION SCH (20:50)
[2024-10-18] MEDS: FORMOTEROL FUMARATE 20 MCG/2 ML NEBU INHALATION SCH (20:50)
[2024-10-18] MEDS: ALPRAZolam 0.5 MG TAB PO PRN (21:20)
[2024-10-18] MEDS: RIVAROXABAN 15 MG TAB PO SCH (21:20)
--- NOTE | 2024-10-19 08:27 | P.HPIM ---
History of Present Illness H&P Date: 10/19/24 Chief Complaint: Respiratory distress Patient is a 74-year-old white female with known history of COPD history of remote COVID who was exposed to her grandson with cough and congestion. She states shortly after this exposure she started having difficulty breathing. She does have oxygen dependency with element of COPD. The patient is evaluated and CTA does show possible early pneumonia. She usually takes 2 to 3 L at home of nasal cannula oxygen. No voiding difficulties no sleep issues. Smoker. Quit about 8 years ago. Review of Systems Constitutional: Denies chills, Denies fever Eyes: denies blurred vision, denies pain Ears, nose, mouth and throat: Denies headache, Denies sore throat Cardiovascular: Denies chest pain, Denies shortness of breath Respiratory: Reports as per HPI, Reports cough, Reports home oxygen Gastrointestinal: Denies abdominal pain, Denies diarrhea, Denies nausea, Denies vomiting Past Medical History Past Medical History: COPD Additional Past Medical History / Comment(s): Anemia in the past, emphysema, blo od clots in lungs 2019, removed leda macjeffery History of Any Multi-Drug Resistant Organisms: None Reported Past Surgical History: Appendectomy, Cholecystectomy, Tubal Ligation Additional Past Surgical History / Comment(s): Colonoscopy. Bilat cataract removal. Right hand carpal tunnel surgery Past Anesthesia/Blood Transfusion Reactions: No Reported Reaction, Postoperative Nausea & Vomiting (PONV) Past Psychological History: Anxiety, Depression Additional Psychological History / Comment(s): Pt lives alone. She uses a wheeled walker at times due to her SOB with activity. She is independent. She drives. Smoking Status: Former smoker Past Alcohol Use History: Daily, Occasional Additional Past Alcohol Use History / Comment(s): Started smoking in 1971 and quit 12/05. Alcohol every other day Past Drug Use History: None Reported - Past Family History Father Family Medical History: Cancer Additional Family Medical History / Comment(s): Lung cancer Mother Family Medical History: Cancer, Deep Vein Thrombosis (DVT) Additional Family Medical History / Comment(s): breast Medications and Allergies Home Medications Medication Instructions Recorded Confirmed Type ALPRAZolam 0.5 mg PO DAILY 12/26/15 10/18/24 History Citalopram Hydrobromide [CeleXA] 10 mg PO DAILY 03/16/18 10/18/24 History Albuterol Nebulized [Ventolin 2.5 mg INHALATION RT-QID PRN 10/18/24 10/18/24 History Nebulized] Budesonide [Pulmicort] 0.5 mg INHALATION DIRECTED 10/18/24 10/18/24 History Rivaroxaban [Xarelto] 15 mg PO HS 10/18/24 10/18/24 History Tiotropium 2.5 Mcg/Puff [Spiriva 1 puff INHALATION RT-DAILY 10/18/24 10/18/24 History Respimat 2.5 Mcg] Allergies Allergy/AdvReac Type Severity Reaction Status Date / Time Sulfa (Sulfonamide AdvReac Unknown Verified 10/18/24 09:38 Antibiotics) Childhood Physical Exam Vitals: Vital Signs Temp Pulse Pulse Resp BP BP Pulse Ox 10/19/24 08:15 107 H 10/19/24 08:08 86 10/19/24 07:54 86 95 10/19/24 07:34 97.7 F 97 16 149/68 94 L 10/19/24 06:55 90 10/19/24 00:34 98.0 F 108 H 17 151/62 93 L 10/18/24 21:17 98 10/18/24 21:01 98 10/18/24 21:00 100 10/18/24 20:50 102 H 10/18/24 19:17 97.8 F 102 H 18 126/70 94 L 10/18/24 17:01 97.5 F L 105 H 17 140/58 92 L 10/18/24 16:23 97.8 F 97 18 98/75 94 L 10/18/24 15:44 94 18 10/18/24 15:34 98 18 10/18/24 13:15 98 20 101/72 95 10/18/24 10:45 87 18 10/18/24 10:39 98 10/18/24 10:38 87 18 10/18/24 09:19 85 18 123/85 94 L Intake and Output 10/18/24 10/19/24 10/19/24 22:59 06:59 14:59 Intake Total 240 1650 Balance 240 1650 Intake: Oral 240 1650 Other: # Voids 5 Weight 90.718 kg - Constitutional General appearance: no acute distress - EENT Eyes: EOMI - Neck Neck: no lymphadenopathy - Respiratory Respiratory: bilateral: wheezing - Cardiovascular Rhythm: regular Heart sounds: normal: S1, S2 Abnormal Heart Sounds: no S3 Gallop - Gastrointestinal General gastrointestinal: soft, no tenderness - Integumentary Integumentary: no cellulitis - Neurologic Neurologic: CNII-XII intact Results CBC & Chem 7: 10/18/24 06:10 10/18/24 06:10 Thrombosis Risk Factor Assmnt - Choose All That Apply Each Risk Factor Represents 3 Points: Age 75 years or older, History of DVT/PE Thrombosis Risk Factor Assessment Total Risk Factor Score: 6 Thrombosis Risk Factor Assessment Level: High Risk Assessment and Plan (1) COPD (chronic obstructive pulmonary disease) with emphysema Current Visit: Yes Status: Acute Code(s): J43.9 - EMPHYSEMA, UNSPECIFIED SNOMED Code(s): 34470013 (2) Pneumonia Current Visit: Yes Status: Acute Code(s): J18.9 - PNEUMONIA, UNSPECIFIED ORGANISM SNOMED Code(s): 324674075 Plan: Appreciate pulmonology input. Reconcile home medications. Check CBC and CMP in a.m. Empiric treatment for COPD and pneumonia. The patient is otherwise full code. Time with Patient: Greater than 30
--- NOTE | 2024-10-19 08:38 | XR ---
EXAMINATION TYPE: XR chest 2V DATE OF EXAM: 10/19/2024 6:49 AM COMPARISON: 10/18/2024 CLINICAL INDICATION: Female, 74 years old with history of pneumonia, , TECHNIQUE: PA and lateral views FINDINGS: Heart borderline enlarged. Hyperinflation. Increasing patchy right mid and lower lung opacity. No ple ural effusion. IMPRESSION: COPD. Increasing patchy right mid and lower lung airspace disease. [facility], Workstation: [facility], 10/19/2024 8:36 AM
[2024-10-19] MEDS: CITALOPRAM HYDROBROMIDE 10 MG TAB PO SCH (08:47)
[2024-10-19] MEDS: dexAMETHasone 4 MG TAB PO SCH (08:47)
[2024-10-19] MEDS ORDERED: WATER IVPB SCH (09:00)
[2024-10-19] MEDS ORDERED: CEFTRIAXONE IVPB SCH (09:00)
[2024-10-19] MEDS ORDERED: DEXTROSE 50% IVPB SCH (09:00)
[2024-10-19] MEDS: cefTRIAXone 2 GM in DEXTROSE 5% IN WATER 50 ML IVPB SCH (09:22)
[2024-10-19] MEDS: AZITHROMYCIN 500 MG in SODIUM CHLORIDE 0.9% 250 ML IVPB SCH (10:35)
--- NOTE | 2024-10-19 12:24 | P.PN ---
Subjective Progress Note Date: 10/19/24 This is a very pleasant 74-year-old female patient with a known history of chronic obstructive pulmonary disease with an FEV1 value 59% of predicted. She is a former smoker however quit 7 years ago. She follows with Dr. King in our office. She is maintained on Spiriva and Pulmicort along with albuterol nebulized treatments. She also has a history of anxiety, pulmonary embolism anticoagulated with Eliquis. She presented here to the emergency room early this morning with a 1 week history of increasing shortness of breath, cough and congestion. She did have some white sputum. Some chills and sweating. Chest x-ray reveals chronic changes and cardiomegaly without acute pulmonary process. CT angiogram revealed no definitive pulmonary emboli. There was interval clearance of a previous pulmonary emboli from 2019. Evidence of COPD with moderate emphysema. Some subtle areas of groundglass within the inferior lingula, right middle lobe and post anteromedial right lung base. Possible atyp ical pneumonia. White count 7.0. Hemoglobin 11.5. Platelets 182. Sodium 136. Potassium 3.7. Bicarb 31. BUN 6. Creatinine 0.69. Troponin negative x 1. proBNP 366. She is seen today in consultation in the emergency department. Currently sitting up on the stretcher. Awake and alert in no acute distress. Maintaining O2 saturations in the 90s on 2 L/min per nasal cannula. She is afebrile. Hemodynamically stable. The patient is seen today October 19, 2024 in follow-up on the regular medical floor. She is awake and alert in no acute distress. Resting comfortably in bed. Breathing a bit easier today compared to yesterday. Less cough and congestion. Follow-up chest x-ray shows evidence of COPD. There remains patchy right mid and lower lung airspace opacities. She is continued on Rocephin and azithromycin. Continued on DuoNeb inhalations, Pulmicort and Perforomist inhalations, Decadron. Anticoagulated with Xarelto. No new labs today. Objective - Vital Signs Vital signs: Vital Signs Temp 97.7 F 10/19/24 07:34 Pulse 88 10/19/24 12:00 Resp 16 10/19/24 07:34 BP 149/68 10/19/24 07:34 Pulse Ox 95 10/19/24 07:54 FiO2 Intake & Output 10/18/24 10/19/24 10/19/24 18:59 06:59 18:59 Intake Total 1889 Balance 1889 Weight 90.718 kg Intake: Oral 1889 Other: # Voids 5 - Exam GENERAL EXAM: Alert, 74-year-old female, on 2 L nasal cannula, resting in bed, comfortable in no apparent distress. HEAD: Normocephalic. EYES: Normal reaction of pupils, equal size. NOSE: Clear with pink turbinates. THROAT: No erythema or exudates. NECK: No masses, no JVD. CHEST: No chest wall deformity. LUNGS: Equal air entry with few scattered rhonchi over the right lung. CVS: S1 and S2 normal with no audible murmur, regular rhythm. ABDOMEN: No hepatosplenomegaly, normal bowel sounds, no guarding or rigidity. SPINE: No scoliosis or deformity SKIN: No rashes CENTRAL NERVOUS SYSTEM: No focal deficits, tone is normal in all 4 extremities. EXTREMITIES: There is no peripheral edema. No clubbing, no cyanosis. Peripheral pulses are intact. - Labs CBC & Chem 7: 10/18/24 06:10 10/18/24 06:10 Assessment and Plan Assessment: Acute hypoxic respiratory failure secondary to an acute exacerbation of COPD and possible early pneumonia over the right mid and lower lung History of chronic obstructive pulmonary disease with an FEV1 value of 59% of predicted Former chronic tobacco dependence, however quit 7 years ago History of pulmonary embolism, post thrombectomy, anticoagulated with Xarelto History of anxiety/depression Obesity Plan: The patient was seen and evaluated Chest x-ray and medications reviewed Continue DuoNeb inhalations Continue Pulmicort and Perforomist inhalations Add Symbicort Discontinue Decadron Continue ceftriaxone and azithromycin Titrate down the FiO2 as tolerated Xarelto for anticoagulation We will continue to follow I have personally seen and examined the patient, performed the documentation and the assessment and plan as written. Number of minutes spent on the visit: 10 Dictation was produced using [employer] dictation software. Please excuse any grammatical, word or spelling errors.
[2024-10-19 15:38] LABS: Basophils # (A) 0.01 X 10*3/uL (0.00-0.10); Basophils % (A) 0.2 %; Eosinophils # (A) 0 X 10*3/uL (0.04-0.35); Eosinophils % (A) 0 %; HCT 34.2 % (37.2-46.3); HGB 10.7 g/dL (12.0-15.0); Lymphocytes # (A) 0.64 X 10*3/uL (0.90-5.00); Lymphocytes % (A) 10.3 %; MCH 30.4 pg (27.0-32.0); MCHC 31.3 g/dL (32.0-37.0); MCV 97.2 FL (80.0-97.0); Mean Platelet Volume 9.7 FL (9.5-12.2); Monocytes # (A) 0.93 X 10*3/uL (0.20-1.00); NRBC Per 100 WBC 0 X 10*3/uL (0.00-0.01); Neutrophils # (A) 4.55 X 10*3/uL (1.80-7.70); Neutrophils % (A) 73.4 %; Platelet Count 201 X 10*3/uL (140-440); RBC 3.52 X 10*6/uL (4.10-5.20); RDW 13.6 % (11.5-14.5)
[2024-10-19] MEDS: SYMBICORT 160-4.5 MCG INHALER INHALATION SCH (20:24)
[2024-10-19] MEDS: guaiFENesin SYRUP 100MG/5ML 200 MG/10 ML CUP PO PRN (23:27)
--- NOTE | 2024-10-20 08:33 | P.PN ---
Subjective Progress Note Date: 10/20/24 This is a 74-year-old female who presented to the emergency department with complaints of increasing shortness of breath over the last week. Patient also having other respiratory symptoms which included white sputum, chills and sweating. Chest x-ray from yesterday shows evidence of COPD and patchy right mid and lower lung airspace opacities. Patient is maintained on Rocephin and azithromycin. She is getting updraft treatments. Patient reports breathing is somewhat better. She is still reporting a cough. Objective - Vital Signs Vital signs: Vital Signs Temp 97.9 F 10/20/24 01:34 Pulse 75 10/20/24 07:47 Resp 18 10/20/24 01:34 BP 160/73 10/20/24 01:34 Pulse Ox 94 L 10/20/24 07:37 FiO2 Intake & Output 10/19/24 10/20/24 10/20/24 18:59 06:59 18:59 Intake Total 1250 Balance 1250 Intake: Oral 1250 Other: # Voids 4 5 # Bowel Movements 1 - Constitutional General appearance: Present: cooperative, no acute distress - EENT Eyes: Present: PERRLA - Neck Neck: Present: normal ROM. Absent: lymphadenopathy, rigidity - Respiratory Respiratory: bilateral: wheezing - Cardiovascular Heart sounds: normal: S1, S2 - Gastrointestinal General gastrointestinal: Present: soft. Absent: tenderness - Integumentary Integumentary: Present: normal, normal turgor - Psychiatric Psychiatric: Present: A&O x's 3, appropriate affect, intact judgment & insight - Labs CBC & Chem 7: 10/19/24 09:26 10/18/24 06:10 Labs: Abnormal Lab Results - Last 24 Hours (Table) 10/19/24 Range/Units 09:26 RBC 3.52 L (4.10-5.20) X 10*6/uL Hgb 10.7 L (12.0-15.0) g/dL Hct 34.2 L (37.2-46.3) % MCV 97.2 H (80.0-97.0) FL MCHC 31.3 L (32.0-37.0) g/dL Immature Gran # 0.07 H (0.00-0.04) X 10*3/uL Lymphocytes # 0.64 L (0.90-5.00) X 10*3/uL Eosinophils # 0 L (0.04-0.35) X 10*3/uL Microbiology - Last 24 Hours (Table) 10/18/24 10:23 Blood Culture - Preliminary Blood 10/18/24 08:43 Gram Stain - Preliminary Sputum Assessment and Plan (1) COPD (chronic obstructive pulmonary disease) with emphysema Current Visit: Yes Status: Acute Code(s): J43.9 - EMPHYSEMA, UNSPECIFIED SNOMED Code(s): 28862276 (2) Pneumonia Current Visit: Yes Status: Acute Code(s): J18.9 - PNEUMONIA, UNSPECIFIED OR GANISM SNOMED Code(s): 507158525 Plan: Appreciate pulmonary input. Check CBC and CMP in the morning. Patient seen and evaluated by nurse practitioner, physician in agreement with plan.
[2024-10-20 08:54] LABS: ALT 18 U/L (8-44); AST 24 U/L (13-35); Albumin 3.7 g/dL (3.8-4.9); Albumin/Globulin Ratio 1.76 Ratio (1.60-3.17); Alkaline Phosphatase 50 U/L (41-126); Blood Urea Nitrogen 12.3 mg/dL (9.0-27.0); Calcium 9.1 mg/dL (8.7-10.3); Carbon Dioxide 29.8 mmol/L (21.6-31.8); Chloride 104 mmol/L (96-109); Globulin 2.1 g/dL (1.6-3.3); Glucose 111 mg/dL (70-110); Potassium 4.2 mmol/L (3.5-5.5); Sodium 144 mmol/L (135-145); Total Bilirubin <0.2 mg/dL (0.3-1.2); Total Protein 5.8 g/dL (6.2-8.2)
--- NOTE | 2024-10-20 12:13 | US ---
EXAMINATION TYPE: US venous doppler duplex LE LT DATE OF EXAM: 10/20/2024 10:17 AM COMPARISON: US(12/06/2019) CLINICAL INDICATION: Female, 74 years old with history of rule out DVT; pt states shes had left ankle swelling on and off for 2 months, no pain, hx of DVT in rt leg & PE, currently on blood thinners TECHNIQUE: The lower extremity deep venous system is examined utilizing real time linear array sonog collin with graded compression, color doppler sonography, and spectral doppler. SIDE PERFORMED: Left FINDINGS: VESSELS IMAGED: Common Femoral Vein Deep Femoral Vein Greater Saphenous Vein * Femoral Vein Popliteal Vein Small Saphenous Vein * Proximal Calf Veins (* superficial vessels) Left Leg: Negative for DVT, Color Doppler imaging shows patency of the vessels. Spectral waveforms a re within normal limits. IMPRESSION: No evidence for DVT within the left lower extremity imaged from the groin to the upper calf. [facility], Workstation: [email or web address], 10/20/2024 12:11 PM
--- NOTE | 2024-10-20 12:48 | P.PN ---
Subjective Progress Note Date: 10/20/24 This is a very pleasant 74-year-old female patient with a known history of chronic obstructive pulmonary disease with an FEV1 value 59% of predicted. She is a former smoker however quit 7 years ago. She follows with Dr. King in our office. She is maintained on Spiriva and Pulmicort along with albuterol nebulized treatments. She also has a history of anxiety, pulmonary embolism anticoagulated with Eliquis. She presented here to the emergency room early this morning with a 1 week history of increasing shortness of breath, cough and congestion. She did have some white sputum. Some chills and sweating. Chest x-ray reveals chronic changes and cardiomegaly without acute pulmonary process. CT angiogram revealed no definitive pulmonary emboli. There was interval clearance of a previous pulmonary emboli from 2019. Evidence of COPD with moderate emphysema. Some subtle areas of groundglass within the inferior lingula, right middle lobe and post anteromedial right lung base. Possible atyp ical pneumonia. White count 7.0. Hemoglobin 11.5. Platelets 182. Sodium 136. Potassium 3.7. Bicarb 31. BUN 6. Creatinine 0.69. Troponin negative x 1. proBNP 366. She is seen today in consultation in the emergency department. Currently sitting up on the stretcher. Awake and alert in no acute distress. Maintaining O2 saturations in the 90s on 2 L/min per nasal cannula. She is afebrile. Hemodynamically stable. The patient is seen today October 19, 2024 in follow-up on the regular medical floor. She is awake and alert in no acute distress. Resting comfortably in bed. Breathing a bit easier today compared to yesterday. Less cough and congestion. Follow-up chest x-ray shows evidence of COPD. There remains patchy right mid and lower lung airspace opacities. She is continued on Rocephin and azithromycin. Continued on DuoNeb inhalations, Pulmicort and Perforomist inhalations, Decadron. Anticoagulated with Xarelto. No new labs today. The patient is seen today October 20, 2024 in follow-up on the regular medical floor. She is currently sitting up at the bedside. Awake and alert in no acute distress. She is maintaining O2 saturations in the 90s on 2 L/min per nasal cannula. She did have a rough night. She had more shortness of breath with frequent coughing. Blood and sputum cultures pending. Sodium 144. Potassium 4.2. Bicarb 30. BUN 12. Creatinine 0.6. Glucose 111. She is continued on DuoNeb inhalations, Symbicort, Decadron. She remains on ceftriaxone. Completed azithromycin. Anticoagulated with Xarelto. Objective - Vital Signs Vital signs: Vital Signs Temp 97.8 F 10/20/24 07:11 Pulse 80 10/20/24 11:33 Resp 16 10/20/24 07:11 BP 156/68 10/20/24 07:11 Pulse Ox 94 L 10/20/24 07:37 FiO2 Intake & Output 10/19/24 10/20/24 10/20/24 18:59 06:59 18:59 Intake Total 1250 Balance 1250 Intake: Oral 1250 Other: # Voids 4 5 # Bowel Movements 1 - Exam GENERAL EXAM: Alert, 74-year-old female, on 2 L nasal cannula, in no apparent distress. HEAD: Normocephalic. EYES: Normal reaction of pupils, equal size. NOSE: Clear with pink turbinates. THROAT: No erythema or exudates. NECK: No masses, no JVD. CHEST: No chest wall deformity. LUNGS: Equal air entry with few scattered rhonchi over the right lung. CVS: S1 and S2 normal with no audible murmur, regular rhythm. ABDOMEN: No hepatosplenomegaly, normal bowel sounds, no guarding or rigidity. SPINE: No scoliosis or deformity SKIN: No rashes CENTRAL NERVOUS SYSTEM: No focal deficits, tone is normal in all 4 extremities. EXTREMITIES: There is no peripheral edema. No clubbing, no cyanosis. Peripheral pulses are intact. - Labs CBC & Chem 7: 10/19/24 09:26 10/20/24 05:06 Labs: Abnormal Lab Results - Last 24 Hours (Table) 10/19/24 10/20/24 Range/Units 09: 05:06 RBC 3.52 L (4.10-5.20) X 10*6/uL Hgb 10.7 L (12.0-15.0) g/dL Hct 34.2 L (37.2-46.3) % MCV 97.2 H (80.0-97.0) FL MCHC 31.3 L (32.0-37.0) g/dL Immature Gran # 0.07 H (0.00-0.04) X 10*3/uL Lymphocytes # 0.64 L (0.90-5.00) X 10*3/uL Eosinophils # 0 L (0.04-0.35) X 10*3/uL BUN/Creatinine Ratio 20.50 H (12.00-20.00) Ratio Glucose 111 H (70-110) mg/dL Total Bilirubin <0.2 L (0.3-1.2) mg/dL Total Protein 5.8 L (6.2-8.2) g/dL Albumin 3.7 L (3.8-4.9) g/dL Microbiology - Last 24 Hours (Table) 10/18/24 08:43 Gram Stain - Preliminary Sputum Sputum Culture - Preliminary 10/18/24 10:23 Blood Culture - Preliminary Blood Assessment and Plan Assessment: Acute hypoxic respiratory failure secondary to an acute exacerbation of COPD and possible early pneumonia over the right mid and lower lung History of chronic obstructive pulmonary disease with an FEV1 value of 59% of predicted Former chronic tobacco dependence, however quit 7 years ago History of pulmonary embolism, post thrombectomy, anticoagulated with Xarelto History of anxiety/depression Obesity Plan: The patient was seen and evaluated Labs and medications reviewed Continue DuoNeb inhalations Continue Symbicort Give Decadron 4 mg p.o. once Continue ceftriaxone and azithromycin Titrate down the FiO2 as tolerated Xarelto for anticoagulation Increase her activity as tolerated We will continue to follow I have personally seen and examined the patient, performed the documentation and the assessment and plan as written. Number of minutes spent on the visit: 10 Dictation was produced using [employer] dictation software. Please excuse any grammatical, word or spelling errors.
[2024-10-20] MEDS: dexAMETHasone 4 MG TAB PO STA (13:58)
[2024-10-20] MEDS: ALBUTEROL NEBULIZED 2.5 MG/3 ML INHALATION PRN (17:18)
[2024-10-21 10:18] LABS: HCT 35.2 % (37.2-46.3); HGB 10.9 g/dL (12.0-15.0); MCH 30.4 pg (27.0-32.0); MCV 98.1 FL (80.0-97.0); Mean Platelet Volume 9.8 FL (9.5-12.2); NRBC Per 100 WBC 0 X 10*3/uL (0.00-0.01); Platelet Count 198 X 10*3/uL (140-440); RBC 3.59 X 10*6/uL (4.10-5.20); RDW 13.7 % (11.5-14.5); WBC 5.57 X 10*3/uL (4.50-10.00)
[2024-10-21 10:33] LABS: ALT 20 U/L (8-44); AST 22 U/L (13-35); Albumin 3.9 g/dL (3.8-4.9); Alkaline Phosphatase 53 U/L (41-126); BUN/Creat Ratio 16.43 Ratio (12.00-20.00); Blood Urea Nitrogen 11.5 mg/dL (9.0-27.0); Calcium 9.1 mg/dL (8.7-10.3); Carbon Dioxide 30.3 mmol/L (21.6-31.8); Chloride 103 mmol/L (96-109); Globulin 2.3 g/dL (1.6-3.3); Glucose 140 mg/dL (70-110); Potassium 4.2 mmol/L (3.5-5.5); Sodium 144 mmol/L (135-145); Total Bilirubin <0.2 mg/dL (0.3-1.2); Total Protein 6.2 g/dL (6.2-8.2)
[2024-10-21] MEDS: predniSONE 10 MG TAB PO SCH (10:35)
[2024-10-21] MEDS: DEXAMETHASONE SOD PHOSPHATE 4 MG/ML 1 ML VIAL IVP STA (10:35)
--- NOTE | 2024-10-21 13:40 | P.PN ---
Subjective Progress Note Date: 10/21/24 This is a 74-year-old female who presented to the emergency department with complaints of increasing shortness of breath over the last week. Patient also having other respiratory symptoms which included white sputum, chills and sweating. Chest x-ray from yesterday shows evidence of COPD and patchy right mid and lower lung airspace opacities. Patient is maintained on Rocephin and azithromycin. She is getting updraft treatments. Patient reports breathing is somewhat better. She is still reporting a cough. 10/21/2024 Patient evaluated today in follow up on the medical floor. She has scattered wh eezing noted. She states she is still short of breath with activity and is unable to ambulate around the room without having to stop and take a break. This is not normal for her. Pulmonology following. Patient is maintained on 3L of oxygen as an outpatient. Sputum culture has been negative. Currently pending a viral panel and procalcitonin level. She is concerned about heart failure. BNP was normal on admission and troponin was negative. Chest xray does not show CHF. Patient does have some lower extremity edema. Had a DVT in the past and doppler of the left leg was negative this admission. Echocardiogram from 2022 shows normal LV systolic function. Review of Systems Constitutional: Denied any fatigue denied any fever. Cardio vascular: denied any chest pain, palpitations Gastrointestinal: denied any nausea, vomiting, diarrhea Pulmonary: Reports shortness of breath, no cough Neurologic denied any new focal deficits All inpatient medications were reviewed and appropriate changes in these medications as dictated in the interval history and assessment and plan. PHYSICAL EXAMINATION: GENERAL: The patient is alert and oriented x3, not in any acute distress. Well developed, well nourished. HEENT: Pupils are round and equally reacting to light. EOMI. No scleral icterus. No conjunctival pallor. Normocephalic, atraumatic. No pharyngeal erythema. No thyromegaly. CARDIOVASCULAR: Scattered wheezing PULMONARY: Chest is clear to auscultation, no wheezing or crackles. ABDOMEN: Soft, nontender, nondistended, normoactive bowel sounds. No palpable organomegaly. MUSCULOSKELETAL: No joint swelling or deformity. EXTREMITIES: No cyanosis, clubbing, or pedal edema. NEUROLOGICAL: Gross neurological examination did not reveal any focal deficits. SKIN: No rashes. Assessment and Plan Acute COPD exacerbation Acute on chronic hypoxemic respiratory failure Community acquired pneumonia Hx of DVT/PE anticoagulated with xarelto Former smoker Anxiety/Depression GI prophylaxis DVT prophylaxis: Xarelto Plan Continue duonebs scheduled Continue symbicort Continue IV ceftriaxone Oral prednisone Check viral swab Check procalcitonin Pulmonology following Not quite ready for DC The impression and plan of care has been dictated by Fern Black, Nurse Practitioner as directed. Dr. Danna MD I have performed a history and physical examination and medical decision making of this patient, discussed the same with the dictator, and agree with the dictators assessment and plan as written, documented as a scribe. Based on total visit time, I have performed more than 50% of this visit. Objective - Vital Signs Vital signs: Vital Signs Temp 97.5 F L 10/21/24 07:13 Pulse 64 10/21/24 11:25 Resp 16 10/21/24 07:13 BP 131/86 10/21/24 07:13 Pulse Ox 94 L 10/21/24 07:40 FiO2 Intake & Output 10/20/24 10/21/24 10/21/24 18:59 06:59 18:59 Intake Total 480 Balance 480 Intake: Oral 480 Other: # Voids 4 3 - Labs CBC & Chem 7: 10/21/24 03:33 10/21/24 03:33 Labs: Abnormal Lab Results - Last 24 Hours (Table) 10/21/24 10/21/24 Range/Units 03:33 03:33 RBC 3.59 L (4.10-5.20) X 10*6/uL Hgb 10.9 L (12.0-15.0) g/dL Hct 35.2 L (37.2-46.3) % MCV 98.1 H (80.0-97.0) FL MCHC 31.0 L (32.0-37.0) g/dL Glucose 140 H (70-110) mg/dL Total Bilirubin <0.2 L (0.3-1.2) mg/dL Microbiology - Last 24 Hours (Table) 10/18/24 08:43 Gram Stain - Final Sputum Sputum Culture - Final 10/18/24 10:23 Blood Culture - Preliminary Blood Assessment and Plan Time with Patient: Less than 30
--- NOTE | 2024-10-21 14:44 | P.PN ---
Subjective Progress Note Date: 10/21/24 This is a very pleasant 74-year-old female patient with a known history of chronic obstructive pulmonary disease with an FEV1 value 59% of predicted. She is a former smoker however quit 7 years ago. She follows with Dr. King in our office. She is maintained on Spiriva and Pulmicort along with albuterol nebulized treatments. She also has a history of anxiety, pulmonary embolism anticoagulated with Eliquis. She presented here to the emergency room early this morning with a 1 week history of increasing shortness of breath, cough and congestion. She did have some white sputum. Some chills and sweating. Chest x-ray reveals chronic changes and cardiomegaly without acute pulmonary process. CT angiogram revealed no definitive pulmonary emboli. There was interval clearance of a previous pulmonary emboli from 2019. Evidence of COPD with moderate emphysema. Some subtle areas of groundglass within the inferior lingula, right middle lobe and post anteromedial right lung base. Possible atyp ical pneumonia. White count 7.0. Hemoglobin 11.5. Platelets 182. Sodium 136. Potassium 3.7. Bicarb 31. BUN 6. Creatinine 0.69. Troponin negative x 1. proBNP 366. She is seen today in consultation in the emergency department. Currently sitting up on the stretcher. Awake and alert in no acute distress. Maintaining O2 saturations in the 90s on 2 L/min per nasal cannula. She is afebrile. Hemodynamically stable. The patient is seen today October 19, 2024 in follow-up on the regular medical floor. She is awake and alert in no acute distress. Resting comfortably in bed. Breathing a bit easier today compared to yesterday. Less cough and congestion. Follow-up chest x-ray shows evidence of COPD. There remains patchy right mid and lower lung airspace opacities. She is continued on Rocephin and azithromycin. Continued on DuoNeb inhalations, Pulmicort and Perforomist inhalations, Decadron. Anticoagulated with Xarelto. No new labs today. The patient is seen today October 20, 2024 in follow-up on the regular medical floor. She is currently sitting up at the bedside. Awake and alert in no acute distress. She is maintaining O2 saturations in the 90s on 2 L/min per nasal cannula. She did have a rough night. She had more shortness of breath with frequent coughing. Blood and sputum cultures pending. Sodium 144. Potassium 4.2. Bicarb 30. BUN 12. Creatinine 0.6. Glucose 111. She is continued on DuoNeb inhalations, Symbicort, Decadron. She remains on ceftriaxone. Completed azithromycin. Anticoagulated with Xarelto. The patient is seen today October 21, 2024 in follow-up on the regular medical floor. She is awake and alert in no acute distress. Sitting up at the bedside. Containing O2 saturations in the low 90s on 3 L/min per nasal cannula. She has been afebrile. Hemodynamically stable. She has been slow to progress. She is doing about the same today compared to yesterday. She remains on DuoNeb inhalations, Symbicort, prednisone. Given additional Decadron IV today. She remains on ceftriaxone. She is anticoagulated with Xarelto. Blood and sputum cultures revealed no growth. White count 5.5. Hemoglobin 10.9. Platelets 198. Sodium 144. Potassium 4.2. Bicarb 30. BUN 12. Creatinine 0.7. Glucose 140. Procalcitonin negative at 0.20. Objective - Vital Signs Vital signs: Vital Signs Temp 98.0 F 10/21/24 14:00 Pulse 107 H 10/21/24 14:00 Resp 17 10/21/24 14:00 BP 114/71 10/21/24 14:00 Pulse Ox 92 L 10/21/24 14:00 FiO2 Intake & Output 10/20/24 10/21/24 10/21/24 18:59 06:59 18:59 Intake Total 480 Balance 480 Intake: Oral 480 Other: # Voids 4 3 - Exam GENERAL EXAM: Alert, pleasant 74-year-old female, sitting up at the bedside, on 3 L nasal cannula, in no apparent distress. HEAD: Normocephalic. EYES: Normal reaction of pupils, equal size. NOSE: Clear with pink turbinates. THROAT: No erythema or exudates. NECK: No masses, no JVD. CHEST: No chest wall deformity. LUNGS: Equal air entry with few scattered rhonchi over the right lung. CVS: S1 and S2 normal with no audible murmur, regular rhythm. ABDOMEN: No hepatosplenomegaly, normal bowel sounds, no guarding or rigidity. SPINE: No scoliosis or deformity SKIN: No rashes CENTRAL NERVOUS SYSTEM: No focal deficits, tone is normal in all 4 extremities. EXTREMITIES: There is no peripheral edema. No clubbing, no cyanosis. Peripheral pulses are intact. - Labs CBC & Chem 7: 10/21/24 03:33 10/21/24 03:33 Labs: Abnormal Lab Results - Last 24 Hours (Table) 10/21/24 10/21/24 Range/Units 03:33 03:33 RBC 3.59 L (4.10-5.20) X 10*6/uL Hgb 10.9 L (12.0-15.0) g/dL Hct 35.2 L (37.2-46.3) % MCV 98.1 H (80.0-97.0) FL MCHC 31.0 L (32.0-37.0) g/dL Glucose 140 H (70-110) mg/dL Total Bilirubin <0.2 L (0.3-1.2) mg/dL Microbiology - Last 24 Hours (Table) 10/18/24 08:43 Gram Stain - Final Sputum Sputum Culture - Final 10/18/24 10:23 Blood Culture - Preliminary Blood Assessment and Plan Assessment: Acute hypoxic respiratory failure secondary to an acute exacerbation of COPD and possible early pneumonia over the right mid and lower lung. Procalcitonin negative History of chronic obstructive pulmonary disease with an FEV1 value of 59% of predicted Former chronic tobacco dependence, however quit 7 years ago History of pulmonary embolism, post thrombectomy, anticoagulated with Xarelto History of anxiety/depression Obesity Plan: The patient was seen and evaluated Labs and medications reviewed Continue DuoNeb inhalations Continue Symbicort Give Decadron 4 mg IV once Add prednisone 30 mg daily Continue ceftriaxone Xarelto for anticoagulation Titrate down the FiO2 as tolerated Increase her activity as tolerated We will continue to follow I have personally seen and examined the patient, performed the documentation and the assessment and plan as written. Number of minutes spent on the visit: 10 Dictation was produced using [employer] dictation software. Please excuse any grammatical, word or spelling errors.
[2024-10-21 18:05] LABS: Influenza A Not Detected (Not Detectd); Influenza B Not Detected (Not Detectd); RSV Not Detected (Not Detectd)
[2024-10-22] MEDS: CEFDINIR 300 MG CAP PO SCH (08:37)
[2024-10-22] MEDS ORDERED: ALPRAZolam 0.5 MG TAB PO PRN ×2 (10:03→12:18)
[2024-10-22] MEDS: ALPRAZolam 0.5 MG TAB PO SCH (14:01)
--- NOTE | 2024-10-22 14:14 | P.PN ---
Subjective Progress Note Date: 10/22/24 This is a very pleasant 74-year-old female patient with a known history of chronic obstructive pulmonary disease with an FEV1 value 59% of predicted. She is a former smoker however quit 7 years ago. She follows with Dr. King in our office. She is maintained on Spiriva and Pulmicort along with albuterol nebulized treatments. She also has a history of anxiety, pulmonary embolism anticoagulated with Eliquis. She presented here to the emergency room early this morning with a 1 week history of increasing shortness of breath, cough and congestion. She did have some white sputum. Some chills and sweating. Chest x-ray reveals chronic changes and cardiomegaly without acute pulmonary process. CT angiogram revealed no definitive pulmonary emboli. There was interval clearance of a previous pulmonary emboli from 2019. Evidence of COPD with moderate emphysema. Some subtle areas of groundglass within the inferior lingula, right middle lobe and post anteromedial right lung base. Possible atyp ical pneumonia. White count 7.0. Hemoglobin 11.5. Platelets 182. Sodium 136. Potassium 3.7. Bicarb 31. BUN 6. Creatinine 0.69. Troponin negative x 1. proBNP 366. She is seen today in consultation in the emergency department. Currently sitting up on the stretcher. Awake and alert in no acute distress. Maintaining O2 saturations in the 90s on 2 L/min per nasal cannula. She is afebrile. Hemodynamically stable. The patient is seen today October 19, 2024 in follow-up on the regular medical floor. She is awake and alert in no acute distress. Resting comfortably in bed. Breathing a bit easier today compared to yesterday. Less cough and congestion. Follow-up chest x-ray shows evidence of COPD. There remains patchy right mid and lower lung airspace opacities. She is continued on Rocephin and azithromycin. Continued on DuoNeb inhalations, Pulmicort and Perforomist inhalations, Decadron. Anticoagulated with Xarelto. No new labs today. The patient is seen today October 20, 2024 in follow-up on the regular medical floor. She is currently sitting up at the bedside. Awake and alert in no acute distress. She is maintaining O2 saturations in the 90s on 2 L/min per nasal cannula. She did have a rough night. She had more shortness of breath with frequent coughing. Blood and sputum cultures pending. Sodium 144. Potassium 4.2. Bicarb 30. BUN 12. Creatinine 0.6. Glucose 111. She is continued on DuoNeb inhalations, Symbicort, Decadron. She remains on ceftriaxone. Completed azithromycin. Anticoagulated with Xarelto. The patient is seen today October 21, 2024 in follow-up on the regular medical floor. She is awake and alert in no acute distress. Sitting up at the bedside. Containing O2 saturations in the low 90s on 3 L/min per nasal cannula. She has been afebrile. Hemodynamically stable. She has been slow to progress. She is doing about the same today compared to yesterday. She remains on DuoNeb inhalations, Symbicort, prednisone. Given additional Decadron IV today. She remains on ceftriaxone. She is anticoagulated with Xarelto. Blood and sputum cultures revealed no growth. White count 5.5. Hemoglobin 10.9. Platelets 198. Sodium 144. Potassium 4.2. Bicarb 30. BUN 12. Creatinine 0.7. Glucose 140. Procalcitonin negative at 0.20. The patient is seen today October 22, 2024 in follow-up on the regular medical floor. She is sitting up at the bedside. Awake and alert in no acute distress. Somewhat anxious today. She denies any worsening shortness of breath, cough or congestion. She is maintaining O2 saturation in the 90s on 3 L/min per nasal cannula. On DuoNeb inhalations Symbicort, prednisone taper. Her Xanax has been resumed. She is anticoagulated with Xarelto. No new labs today. Objective - Vital Signs Vital signs: Vital Signs Temp 97.9 F 10/22/24 13:25 Pulse 101 H 10/22/24 13:25 Resp 18 10/22/24 13:25 BP 149/69 10/22/24 13:25 Pulse Ox 93 L 10/22/24 13:25 FiO2 Intake & Output 10/21/24 10/22/24 10/22/24 18:59 06:59 18:59 Other: Voiding Method Toilet # Voids 3 3 # Bowel Movements 1 - Exam GENERAL EXAM: Alert, anxious 74-year-old female, sitting up at the bedside, on 3 L nasal cannula, in no apparent distress. HEAD: Normocephalic. EYES: Normal reaction of pupils, equal size. NOSE: Clear with pink turbinates. THROAT: No erythema or exudates. NECK: No masses, no JVD. CHEST: No chest wall deformity. LUNGS: Equal air entry with few scattered rhonchi over the right lung. CVS: S1 and S2 normal with no audible murmur, regular rhythm. ABDOMEN: No hepatosplenomegaly, normal bowel sounds, no guarding or rigidity. SPINE: No scoliosis or deformity SKIN: No rashes CENTRAL NERVOUS SYSTEM: No focal deficits, tone is normal in all 4 extremities. EXTREMITIES: There is no peripheral edema. No clubbing, no cyanosis. Peripheral pulses are intact. - Labs CBC & Chem 7: 10/21/24 03:33 10/21/24 03:33 Labs: Microbiology - Last 24 Hours (Table) 10/18/24 10:23 Blood Culture - Preliminary Blood 10/18/24 08:43 Gram Stain - Final Sputum Sputum Culture - Final Assessment and Plan Assessment: Acute hypoxic respiratory failure secondary to an acute exacerbation of COPD and possible early pneumonia over the right mid and lower lung. Procalcitonin negative History of chronic obstructive pulmonary disease with an FEV1 value of 59% of pr edicted Former chronic tobacco dependence, however quit 7 years ago History of pulmonary embolism, post thrombectomy, anticoagulated with Xarelto History of anxiety/depression Obesity Plan: The patient was seen and evaluated Labs and medications reviewed Continue DuoNeb inhalations Continue Symbicort Continue prednisone 30 mg daily Transitioned to Omnicef Add Xanax for anxiety Xarelto for anticoagulation Titrate down the FiO2 as tolerated Increase her activity as tolerated We will continue to follow I have personally seen and examined the patient, performed the documentation and the assessment and plan as written. Number of minutes spent on the visit: 10 Dictation was produced using [employer] dictation software. Please excuse any grammatical, word or spelling errors.
--- NOTE | 2024-10-22 16:44 | P.PN ---
Subjective Progress Note Date: 10/22/24 This is a 74-year-old female who presented to the emergency department with complaints of increasing shortness of breath over the last week. Patient also having other respiratory symptoms which included white sputum, chills and sweating. Chest x-ray from yesterday shows evidence of COPD and patchy right mid and lower lung airspace opacities. Patient is maintained on Rocephin and azithromycin. She is getting updraft treatments. Patient reports breathing is somewhat better. She is still reporting a cough. 10/21/2024 Patient evaluated today in follow up on the medical floor. She has scattered wh eezing noted. She states she is still short of breath with activity and is unable to ambulate around the room without having to stop and take a break. This is not normal for her. Pulmonology following. Patient is maintained on 3L of oxygen as an outpatient. Sputum culture has been negative. Currently pending a viral panel and procalcitonin level. She is concerned about heart failure. BNP was normal on admission and troponin was negative. Chest xray does not show CHF. Patient does have some lower extremity edema. Had a DVT in the past and doppler of the left leg was negative this admission. Echocardiogram from 2022 shows normal LV systolic function. 10/22/2024 Patient is evaluated in follow-up in the medical floor. Patient's wheezing has significantly improved. She still remains significantly short of breath with activity. Her viral panel was negative. She has not been getting her Xanax scheduled and feels like she may have gone through a slight withdrawal as she did not receive Xanax for 2 days. She was started on oral antibiotics twice daily. She remains on prednisone. She is not quite ready for discharge. Review of Systems Constitutional: Denied any fatigue denied any fever. Cardio vascular: denied any chest pain, palpitations Gastrointestinal: denied any nausea, vomiting, diarrhea Pulmonary: Reports shortness of breath, no cough Neurologic denied any new focal deficits All inpatient medications were reviewed and appropriate changes in these medications as dictated in the interval history and assessment and plan. PHYSICAL EXAMINATION: GENERAL: The patient is alert and oriented x3, not in any acute distress. Well developed, well nourished. HEENT: Pupils are round and equally reacting to light. EOMI. No scleral icterus. No conjunctival pallor. Normocephalic, atraumatic. No pharyngeal erythema. No thyromegaly. CARDIOVASCULAR: Scattered wheezing PULMONARY: Chest is clear to auscultation, no wheezing or crackles. ABDOMEN: Soft, nontender, nondistended, normoactive bowel sounds. No palpable organomegaly. MUSCULOSKELETAL: No joint swelling or deformity. EXTREMITIES: No cyanosis, clubbing, or pedal edema. NEUROLOGICAL: Gross neurological examination did not reveal any focal deficits. SKIN: No rashes. Assessment and Plan Acute COPD exacerbation Acute on chronic hypoxemic respiratory failure Community acquired pneumonia Hx of DVT/PE anticoagulated with xarelto Former smoker Anxiety/Depression GI prophylaxis DVT prophylaxis: Xarelto Plan Continue duonebs scheduled Continue symbicort Patient was transitioned to oral antibiotics Oral prednisone Check viral swab Check procalcitonin Pulmonology following Not quite ready for DC Will DC home tomorrow The impression and plan of care has been dictated by Fern Black, Nurse Practitioner as directed. Dr. Danna MD I have performed a history and physical examination and medical decision making of this patient, discussed the same with the dictator, and agree with the dictators assessment and plan as written, documented as a scribe. Based on total visit time, I have performed more than 50% of this visit. Objective - Vital Signs Vital signs: Vital Signs Temp 97.6 F 10/22/24 07:09 Pulse 76 10/22/24 11:51 Resp 16 10/22/24 07:09 BP 144/75 10/22/24 07:09 Pulse Ox 94 L 10/22/24 07:09 FiO2 Intake & Output 10/21/24 10/22/24 10/22/24 18:59 06:59 18:59 Other: Voiding Method Toilet # Voids 3 3 # Bowel Movements 1 - Labs CBC & Chem 7: 10/21/24 03:33 10/21/24 03:33 Labs: Microbiology - Last 24 Hours (Table) 10/18/24 10:23 Blood Culture - Preliminary Blood 10/18/24 08:43 Gram Stain - Final Sputum Sputum Culture - Final Assessment and Plan Time with Patient: Less than 30
--- NOTE | 2024-10-23 13:07 | P.PN ---
Subjective Progress Note Date: 10/23/24 This is a 74-year-old female who presented to the emergency department with complaints of increasing shortness of breath over the last week. Patient also having other respiratory symptoms which included white sputum, chills and sweating. Chest x-ray from yesterday shows evidence of COPD and patchy right mid and lower lung airspace opacities. Patient is maintained on Rocephin and azithromycin. She is getting updraft treatments. Patient reports breathing is somewhat better. She is still reporting a cough. 10/21/2024 Patient evaluated today in follow up on the medical floor. She has scattered wh eezing noted. She states she is still short of breath with activity and is unable to ambulate around the room without having to stop and take a break. This is not normal for her. Pulmonology following. Patient is maintained on 3L of oxygen as an outpatient. Sputum culture has been negative. Currently pending a viral panel and procalcitonin level. She is concerned about heart failure. BNP was normal on admission and troponin was negative. Chest xray does not show CHF. Patient does have some lower extremity edema. Had a DVT in the past and doppler of the left leg was negative this admission. Echocardiogram from 2022 shows normal LV systolic function. 10/22/2024 Patient is evaluated in follow-up in the medical floor. Patient's wheezing has significantly improved. She still remains significantly short of breath with activity. Her viral panel was negative. She has not been getting her Xanax scheduled and feels like she may have gone through a slight withdrawal as she did not receive Xanax for 2 days. She was started on oral antibiotics twice daily. She remains on prednisone. She is not quite ready for discharge. 10/23/2024 Patient is evaluated today in follow up. States she feels better since the xanax dosing was adjusted. Not as anxious. Remains on oral antibiotics and oral prednisone. Patient still has some scattered wheezing. Review of Systems Constitutional: Denied any fatigue denied any fever. Cardio vascular: denied any chest pain, palpitations Gastrointestinal: denied any nausea, vomiting, diarrhea Pulmonary: Reports shortness of breath, no cough Neurologic denied any new focal deficits All inpatient medications were reviewed and appropriate changes in these medications as dictated in the interval history and assessment and plan. PHYSICAL EXAMINATION: GENERAL: The patient is alert and oriented x3, not in any acute distress. Well developed, well nourished. HEENT: Pupils are round and equally reacting to light. EOMI. No scleral icterus. No conjunctival pallor. Normocephalic, atraumatic. No pharyngeal erythema. No thyromegaly. CARDIOVASCULAR: Scattered wheezing PULMONARY: Chest is clear to auscultation, no wheezing or crackles. ABDOMEN: Soft, nontender, nondistended, normoactive bowel sounds. No palpable organomegaly. MUSCULOSKELETAL: No joint swelling or deformity. EXTREMITIES: No cyanosis, clubbing, or pedal edema. NEUROLOGICAL: Gross neurological examination did not reveal any focal deficits. SKIN: No rashes. Assessment and Plan Acute COPD exacerbation Acute on chronic hypoxemic respiratory failure Community acquired pneumonia Hx of DVT/PE anticoagulated with xarelto Former smoker Anxiety/Depression GI prophylaxis DVT prophylaxis: Xarelto Plan Continue duonebs scheduled Continue symbicort Patient was transitioned to oral antibiotics Oral prednisone Pulmonology following Not quite ready for DC Dr Gómez to resume care tomorrow The impression and plan of care has been dictated by Fern Black, Nurse Practitioner as directed. Dr. Danna MD I have performed a history and physical examination and medical decision making of this patient, discussed the same with the dictator, and agree with the dictators assessment and plan as written, documented as a scribe. Based on total visit time, I have performed more than 50% of this visit. Objective - Vital Signs Vital signs: Vital Signs Temp 98.4 F 10/23/24 07:26 Pulse 84 10/23/24 11:32 Resp 18 10/23/24 11:32 BP 187/73 10/23/24 07:26 Pulse Ox 93 L 10/23/24 07:33 FiO2 Intake & Output 10/22/24 10/23/24 10/23/24 18:59 06:59 18:59 Intake Total 2160 Balance 2160 Intake: Oral 2160 Other: Voiding Method Toilet # Voids 4 4 - Labs CBC & Chem 7: 10/21/24 03:33 10/21/24 03:33 Assessment and Plan Time with Patient: Less than 30
--- NOTE | 2024-10-23 13:52 | P.PN ---
Subjective Progress Note Date: 10/23/24 This is a very pleasant 74-year-old female patient with a known history of chronic obstructive pulmonary disease with an FEV1 value 59% of predicted. She is a former smoker however quit 7 years ago. She follows with Dr. King in our office. She is maintained on Spiriva and Pulmicort along with albuterol nebulized treatments. She also has a history of anxiety, pulmonary embolism anticoagulated with Eliquis. She presented here to the emergency room early this morning with a 1 week history of increasing shortness of breath, cough and congestion. She did have some white sputum. Some chills and sweating. Chest x-ray reveals chronic changes and cardiomegaly without acute pulmonary process. CT angiogram revealed no definitive pulmonary emboli. There was interval clearance of a previous pulmonary emboli from 2019. Evidence of COPD with moderate emphysema. Some subtle areas of groundglass within the inferior lingula, right middle lobe and post anteromedial right lung base. Possible atyp ical pneumonia. White count 7.0. Hemoglobin 11.5. Platelets 182. Sodium 136. Potassium 3.7. Bicarb 31. BUN 6. Creatinine 0.69. Troponin negative x 1. proBNP 366. She is seen today in consultation in the emergency department. Currently sitting up on the stretcher. Awake and alert in no acute distress. Maintaining O2 saturations in the 90s on 2 L/min per nasal cannula. She is afebrile. Hemodynamically stable. The patient is seen today October 19, 2024 in follow-up on the regular medical floor. She is awake and alert in no acute distress. Resting comfortably in bed. Breathing a bit easier today compared to yesterday. Less cough and congestion. Follow-up chest x-ray shows evidence of COPD. There remains patchy right mid and lower lung airspace opacities. She is continued on Rocephin and azithromycin. Continued on DuoNeb inhalations, Pulmicort and Perforomist inhalations, Decadron. Anticoagulated with Xarelto. No new labs today. The patient is seen today October 20, 2024 in follow-up on the regular medical floor. She is currently sitting up at the bedside. Awake and alert in no acute distress. She is maintaining O2 saturations in the 90s on 2 L/min per nasal cannula. She did have a rough night. She had more shortness of breath with frequent coughing. Blood and sputum cultures pending. Sodium 144. Potassium 4.2. Bicarb 30. BUN 12. Creatinine 0.6. Glucose 111. She is continued on DuoNeb inhalations, Symbicort, Decadron. She remains on ceftriaxone. Completed azithromycin. Anticoagulated with Xarelto. The patient is seen today October 21, 2024 in follow-up on the regular medical floor. She is awake and alert in no acute distress. Sitting up at the bedside. Containing O2 saturations in the low 90s on 3 L/min per nasal cannula. She has been afebrile. Hemodynamically stable. She has been slow to progress. She is doing about the same today compared to yesterday. She remains on DuoNeb inhalations, Symbicort, prednisone. Given additional Decadron IV today. She remains on ceftriaxone. She is anticoagulated with Xarelto. Blood and sputum cultures revealed no growth. White count 5.5. Hemoglobin 10.9. Platelets 198. Sodium 144. Potassium 4.2. Bicarb 30. BUN 12. Creatinine 0.7. Glucose 140. Procalcitonin negative at 0.20. The patient is seen today October 22, 2024 in follow-up on the regular medical floor. She is sitting up at the bedside. Awake and alert in no acute distress. Somewhat anxious today. She denies any worsening shortness of breath, cough or congestion. She is maintaining O2 saturation in the 90s on 3 L/min per nasal cannula. On DuoNeb inhalations Symbicort, prednisone taper. Her Xanax has been resumed. She is anticoagulated with Xarelto. No new labs today. The patient is seen today October 23, 2024 in follow-up on the regular medical floor. She is currently resting comfortably in bed. Awake and alert in no acute distress. Less anxious today. She is maintaining good O2 saturations in the 90s on 2 L/min per nasal cannula. She has been afebrile. Hemodynamically stable. Sputum culture revealed no growth. Blood cultures revealed no growth. She remains on DuoNeb inhalations, Symbicort, prednisone taper. Anticoagulated with Xarelto. Xanax as needed for anxiety. Objective - Vital Signs Vital signs: Vital Signs Temp 98.2 F 10/23/24 13:38 Pulse 85 10/23/24 13:38 Resp 17 10/23/24 13:38 BP 117/67 10/23/24 13:38 Pulse Ox 96 10/23/24 13:38 FiO2 Intake & Output 10/22/24 10/23/24 10/23/24 18:59 06:59 18:59 Intake Total 2160 Balance 2160 Intake: Oral 2160 Other: Voiding Method Toilet # Voids 4 4 - Exam GENERAL EXAM: Alert, 74-year-old female, resting in bed, on 3 L nasal cannula, in no apparent distress. HEAD: Normocephalic. EYES: Normal reaction of pupils, equal size. NOSE: Clear with pink turbinates. THROAT: No erythema or exudates. NECK: No masses, no JVD. CHEST: No chest wall deformity. LUNGS: Equal air entry with few scattered rhonchi over the right lung. CVS: S1 and S2 normal with no audible murmur, regular rhythm. ABDOMEN: No hepatosplenomegaly, normal bowel sounds, no guarding or rigidity. SPINE: No scoliosis or deformity SKIN: No rashes CENTRAL NERVOUS SYSTEM: No focal deficits, tone is normal in all 4 extremities. EXTREMITIES: There is no peripheral edema. No clubbing, no cyanosis. Periphe ral pulses are intact. - Labs CBC & Chem 7: 10/21/24 03:33 10/21/24 03:33 Assessment and Plan Assessment: Acute hypoxic respiratory failure secondary to an acute exacerbation of COPD and possible early pneumonia over the right mid and lower lung. Procalcitonin negative History of chronic obstructive pulmonary disease with an FEV1 value of 59% of predicted Former chronic tobacco dependence, however quit 7 years ago History of pulmonary embolism, post thrombectomy, anticoagulated with Xarelto History of anxiety/depression Obesity Plan: The patient was seen and evaluated Medications reviewed Continue DuoNeb inhalations Continue Symbicort Continue prednisone taper Xanax for anxiety Xarelto for anticoagulation Titrate down the FiO2 as tolerated Increase her activity as tolerated Probable discharge in the a.m. We will continue to follow I have personally seen and examined the patient, performed the documentation and the assessment and plan as written. Number of minutes spent on the visit: 10 Dictation was produced using [employer] dictation software. Please excuse any grammatical, word or spelling errors.
--- NOTE | 2024-10-24 08:36 | P.DS ---
Providers Date of admission: 10/18/24 08:43 Attending physician: Benny Gómez Consults: 10/18/24 08:43 Consult Physician Routine Consulting Provider: Bobby Lim Consult Reason/Comments: COPD Do you want consulting provider notified?: Yes Primary care physician: Benny Gómez - Discharge Diagnosis(es) (1) COPD (chronic obstructive pulmonary disease) with emphysema Current Visit: Yes Status: Acute (2) Pneumonia Current Visit: Yes Status: Acute Hospital Course: This is a 74-year-old female who presented to the emergency department with complaints of increasing shortness of breath over the last week. Patient had also been having other respiratory symptoms which included white sputum, chills and sweating. Chest x-ray showed evidence of COPD and patchy right mid and lower lung airspace opacities on admission. Patient completed Rocephin and azithromycin treatment during this admission. She has been transitioned to oral steroids and is tolerating that well. Patient reports her breathing is improved and she is ready to go home. Patient does use home oxygen at home, 2 to 3 L via nasal cannula. Patient may be discharged today when cleared by pulmonary. She will be discharged on a prednisone taper. Patient seen and evaluated by nurse practitioner, physician in agreement with plan. Plan - Discharge Summary New Discharge Prescriptions: New predniSONE 30 mg PO DAILY 8 Days #15 tab Continue ALPRAZolam 0.5 mg PO DAILY Citalopram Hydrobromide [CeleXA] 10 mg PO DAILY Tiotropium 2.5 Mcg/Puff [Spiriva Respimat 2.5 Mcg] 1 puff INHALATION RT-DAILY Budesonide [Pulmicort] 0.5 mg INHALATION DIRECTED Albuterol Nebulized [Ventolin Nebulized] 2.5 mg INHALATION RT-QID PRN PRN Reason: Shortness Of Breath Rivaroxaban [Xarelto] 15 mg PO HS Discharge Medication List ALPRAZolam 0.5 mg PO DAILY 12/26/15 [History] Citalopram Hydrobromide [CeleXA] 10 mg PO DAILY 03/16/18 [History] Albuterol Nebulized [Ventolin Nebulized] 2.5 mg INHALATION RT-QID PRN 10/18/24 [History] Budesonide [Pulmicort] 0.5 mg INHALATION DIRECTED 10/18/24 [History] Rivaroxaban [Xarelto] 15 mg PO HS 10/18/24 [History] Tiotropium 2.5 Mcg/Puff [Spiriva Respimat 2.5 Mcg] 1 puff INHALATION RT-DAILY 10/18/24 [History] predniSONE 30 mg PO DAILY 8 Days #15 tab 10/24/24 [Rx] Follow up Appointment(s)/Referral(s): [facility] [NON-STAFF] - As Needed (Call [facility] to sign up for Meals on Wheels. ) Benny Gómez MD [Primary Care Provider] - 1 Week Discharge Disposition: HOME SELF-CARE
[2024-10-24 08:47] VITALS: BP 117/69; RESP 17; TEMP 97.9
[2024-10-24 12:07] VITALS: PULSE 90
--- NOTE | 2024-10-26 16:36 | PN ---
PROGRESS NOTE DATE OF SERVICE: 10/24/2024 SUBJECTIVE: 74-year-old female, seen in room 451. She is resting comfortably in bed. She is awake and alert. She has no complaints. She denies any significant shortness of breath, cough, wheezing, chest tightness, or phlegm production. She is hoping to be discharged later today. PHYSICAL EXAMINATION: VITAL SIGNS: Current vital signs include a temperature was 97.6, heart rate 90, respiratory rate 18, blood pressure which is 127/72 and 3 L saturation of 99%. She does wear home oxygen between 2 to 3 L. HEENT: Grossly unremarkable. NECK: Supple. Full range of motion. No adenopathy. Neck veins are flat. CARDIOVASCULAR: Reveals regular rhythm and rate. S1, S2 normal. Heart sounds are distant. LUNGS: Relatively clear, but diminished breath sounds. No wheezes or rhonchi. No crackles. Breath sounds are equal bilaterally. They are diminished. ABDOMEN: Soft. Bowel sounds are heard. EXTREMITIES: Intact. No cyanosis, clubbing, or edema. SKIN: Without rash. NEUROLOGIC: Brief, but nonfocal. LABORATORY DATA: No new laboratory data today. ASSESSMENT: 1. Acute hypoxemic respiratory failure, secondary to acute exacerbation of chronic obstructive pulmonary disease, with possible pneumonia, right mid and right lower lung zones. 2. History of chronic obstructive pulmonary disease, moderately severe with an FEV1 that is 59% of predicted. 3. Former chronic tobacco dependence. 4. History of pulmonary embolism, status post thrombectomy. 5. History of anxiety/depression. 6. History of obesity. PLAN: The patient is doing well. All of her medications are converted to easily taken home medications including updrafts, Symbicort, and prednisone. We will continue to follow. Prognosis is guarded. The patient will follow up with Dr. Lim in 7 to 10 days. No additional recommendations are made. MMODL / IJN: [id number] /
--- NOTE | 2024-10-27 06:45 | CDI ---
Documentation Clarification Form Date: 10/27/2024 05:31:11 AM From: Jovanna Willson Admit Date: 10/18/2024 08:43:00 AM Patient Name: Simta Bell Visit Number: [id number] Discharge Date: 10/24/2024 12:53:00 PM ATTENTION: The Clinical Documentation Specialists (CDI) and [facility] Coding Staff appreciate your assistance in clarifying documentation. Please respond to the clarification below the line at the bottom and electronically sign. The CDI & [facility] Coding staff will review the response and follow-up if needed. Please note: Queries are made part of the Legal Health Record. If you have any questions, please contact the author of this message via ITS. Dr. Benny Gómez Acute on chronic hypoxemic Respiratory Failure secondary to an acute exacerbation of COPD and early pneumia by Pulmonology, which is documented in Pulmonary consult and PN's 10/21-10/23 which may lack sufficient clinical evidence/support in the medical record and diagnosis is not carried to your DCS. Additional clarification is requested. Patient history/risk factors: Patient is usually on 2 to 3L NC at home.Former smoker with COPD now with pneumonia Clinical Indicators: Treatment: Imaging, labs, Continue DuoNeb inhalations, add Pulmicort and perforomist inhalations. Add Decadron 4 mg daily. itrate down FiO2 as tolerated O2 After work up and study, please clarify which diagnosis is most appropriate? [ ] Acute Respiratory Failure ruled out [ x ] Acute on chronic with hypoxia Respiratory Failure is a valid diagnosis as evidenced by the following: _Oxygen dependency which worsened [ ] Unable to determine [ ] Other, please specify MTDD
== END 2024-10-24 12:53 | disposition home or self-care (01) | DRG 193 ==
LOC: EC 05:58 → OBSVTOIN 08:43 → 4SSUR 08:43
PROVIDERS: ADMIT Family Medicine; ATTEND Family Medicine
DX: J18.9 Pneumonia, unspecified organism (principal); J96.21 Acute and chronic respiratory failure with hypoxia; J44.0 Chronic obstructive pulmonary disease with (acute) lower respiratory infection; F32.A Depression, unspecified; E66.9 Obesity, unspecified; J44.1 Chronic obstructive pulmonary disease with (acute) exacerbation; J43.9 Emphysema, unspecified; R60.0 Localized edema; F41.9 Anxiety disorder, unspecified; Z68.33 Body mass index [BMI] 33.0-33.9, adult; Z79.01 Long term (current) use of anticoagulants; Z79.899 Other long term (current) drug therapy; Z86.711 Personal history of pulmonary embolism; Z86.718 Personal history of other venous thrombosis and embolism; Z99.81 Dependence on supplemental oxygen; Z86.16 Personal history of COVID-19; Z20.822 Contact with and (suspected) exposure to COVID-19; Z88.2 Allergy status to sulfonamides; Z88.8 Allergy status to other drugs, medicaments and biological substances
CPT/HCPCS: 36415; 71046; 71275; 80053; 83605; 83735; 83880; 84145; 84484; 85025; 85027; 85610; 85730; 87040; 87070; 87205; 87449; 87636; 93005; 94640; 94760; 96361; 96365; 96366; 96367; 96375; 99285

== ENCOUNTER → 2024-12-08 | Outpatient (CLI) | payer MEDICARE ==
--- NOTE | 2024-12-08 16:01 | US ---
EXAMINATION TYPE: US venous doppler duplex LE RT DATE OF EXAM: 12/08/2024 3:34 PM COMPARISON: NONE CLINICAL INDICATION: Female, 74 years old with history of R22.41 SWELLING RLE; Right leg pain, Pain TECHNIQUE: The lower extremity deep venous system is examined utilizing real time linear array sonog collin with graded compression, color doppler sonography, and spectral doppler. SIDE PERFORMED: Right FINDINGS: VESSELS IMAGED: Common Femoral Vein Deep Femoral Vein Greater Saphenous Vein * Femoral Vein Popliteal Vein Small Saphenous Vein * Proximal Calf Veins (* superficial vessels) Right Leg: Negative for DVT, Color Doppler imaging shows patency of the vessels. Spectral waveforms are within normal limits. IMPRESSION: No ultrasound evidence for deep venous thrombosis. [facility], , 12/08/2024 3:58 PM
== END | disposition home or self-care (01) ==
LOC: RADUSWWP 15:18
PROVIDERS: ATTEND Internal Medicine Hematology & Oncology
DX: R22.43 Localized swelling, mass and lump, lower limb, bilateral (principal)